=== PATIENT | female | born 1960 | race Caucasian/White ===

== ENCOUNTER → 2019-06-14 13:51 | Outpatient (BNVA) | payer MEDICAID, SELFPAY | PROVIDERS: Family Provider Family Medicine; PCP Family Medicine; Visit Provider Anesthesiology | DX: M51.16 Intervertebral disc disorders with radiculopathy, lumbar region (principal); M48.062 Spinal stenosis, lumbar region with neurogenic claudication; M43.10 Spondylolisthesis, site unspecified; G62.9 Polyneuropathy, unspecified; F17.210 Nicotine dependence, cigarettes, uncomplicated | CPT/HCPCS: 99213; 99214 ==

== ENCOUNTER 2019-08-12 10:47 | Outpatient (CLI) | payer MEDICAID, SELFPAY ==
[2019-08-12 11:33] LABS: Ferritin 11 ng/mL (15-150); Iron 42 ug/dL (37-145); Percent Saturation 9.6 % (20-50); Total Iron Binding Capacity 437 mcg/dl; Unsaturated Iron Binding 395 ug/dL (112-347)
[2019-08-12 11:44] LABS: Basophils % 0.5 %; Eosinophils # 0.1 10^3/uL (0.0-0.8); Eosinophils % 1.1 %; Hematocrit 45.3 % (37.0-47.0); Hemoglobin 14.2 g/dL (11.5-15.3); Lymphocytes # 1.3 10^3/uL (0.8-4.8); Lymphocytes % 16.2 %; Mean Corpuscular HGB Conc 31.3 g/dL (30.0-36.0); Mean Corpuscular Hemoglobin 30.6 pg (28.0-34.0); Mean Corpuscular Volume 97.6 fL (81-99); Mean Platelet Volume 9.6 fL (7.4-10.4); Monocytes # 0.5 10^3/uL (0.2-0.9); Monocytes % 6.6 %; Neutrophils % 75.5 %; Nucleated Red Blood Cells % 0 %; Platelet Count 269 10^3/cmm (130-400); Red Blood Count 4.64 10^6/uL (4.1-5.3); Red Cell Distribution Width 13.5 % (12.1-15.1)
--- NOTE | 2019-08-12 14:42 | ONC FU_ITS ---
Dr. Garza follow up note Patient: Dana Gusman Unit #: [id number]: 1960 Dicatated By: Yumiko Garza M.D.Date of Visit:Aug 12, 2019 Onc Med Follow-up/Prog Note History of Present Illness: Mrs. Dana Gusman, 58-year-old female with history of palpitation, dyspnea on exertion for the last one year, recently diagnosed with iron deficiency anemia started on oral iron. And she is experiencing some heartburn indigestion with this. Also chew ice all the time. Patient said she was losing blood in her stools so underwent EGD and colonoscopy by Dr. Campbell On 02/07/2017 and both showed no abnormalities subsequently underwent capsule endoscopy on 09/25/2017 for persistent iron deficiency anemia and it showed a few tiny nonbleeding AVMs No history of jaundice, no history of blood transfusion except during her last , no history of gross bleeding, CBC from 04/05/2017 showed white blood count 4.7 with normal differential hemoglobin 7.8 crit 25.3 MCV 61.3, platelets 275,000 Status post Injectafer 750 mg weekly ???2 on January 04 and 2017 With excellent response hemoglobin gone up to 15.8 hematocrit 47.8 and ferritin 104.7 on 02/09/2018 And again Injectafer' 750 mg IV ???2 given on 11/16 and 11/23/2018 with that her hemoglobin improved from 11.3-15.1 and ferritin gone up to 106 compared to 7 prior to infusion. Patient is overweight, and also has issues with sleeping so, clinically she may have underlying sleep apnea Underwent colonoscopy and EGD on 05/14/2019 for progressive iron deficiency anemia and EGD showed no esophageal abnormality and there is mild gastric erosions in the antrum and along with mild duodenitis but no evidence of gross bleeding and colonoscopy was normal exam except internal hemorrhoids. Patient received Injectafer 750 mg IV weekly ???2 on April 11 and 04/18/2019 with excellent response e.g. jainism of iron stores, ferritin 225 compared to 9 prior and improvement in hemoglobin from 12.8 to 15 g came for follow-up, denies any specific complaints, no fever or chills, no nausea or vomiting, no diarrhea constipation, no melena hematochezia, no jaundice, no palpitation or shortness of breath Medications: Aspirin 1 (325 mg) Tablet Oral daily, Crestor 1 (20 mg) Tablet Oral daily, Fenofibrate 1 (145 mg) Tablet Oral daily, Gabapentin 1 (600 mg) Tablet Oral b.i.d., MetFORMIN HCl 1 (1000 mg) Tablet Oral b.i.d., Metoprolol Tartrate 1 (50 mg) Tablet Oral b.i.d., Nitroglycerin 1 (0.4 mg) Tablet, sublingual Sublingual PRN, Singulair 1 (10 mg) Tablet Oral daily Allergies: Abilify, AmLODIPine Bes+SyrSpend SF, AmLODIPine Besylate, Amoxicillin, Bactrim DS, BusPIRone HCl, Ceftin, Cefuroxime Axetil, celexa , Cephalexin, Cetirizine HCl, Ciprofloxacin HCl, Cymbalta, Dexilant, DULoxetine HCl, Effexor XR, Enablex, fomotidine, Fosamax, HydroCHLOROthiazide, HydrOXYzine HCl, Levaquin, lisinopril, Lovaza, Lyrica, methocarb, Mirapex, Omeprazole, PARoxetine HCl, Penicillins, PredniSONE, PriLOSEC, Protonix, Pseudoephedrine HCl, SEROquel, traMADol HCl, VESIcare, Zoloft, and ZyrTEC Allergy. Review of Systems: Constitutional - Appetite is fair and weight is stable. No fever, chills, hot flashes, or night sweats. Energy level is poor, ENMT - No sinus congestion/drainage. No mouth sores. No sore throat or difficulty swallowing, Hematologic/Lymphatic - No abnormal bruising or bleeding, Respiratory - Frequent Shortness of breath . No cough. No pleuritic pain or hemoptysis, Cardiovascular - No angina pain. No palpitations, Gastrointestinal - No nausea or vomiting. Occasional heartburn or acid reflux. No diarrhea or constipation. Patient reports occasional blood in the stool or black stools, Genitourinary (F) - Patient has some dysuria. No hematuria. No urinary frequency. No urgency or incontinence, Musculoskeletal - Chronic joint pain, Neurologic - Frequent headache, no dizziness. Patient has some occasional numbness/paresthesias in hands and feet.No other focal neurologic symptoms, Psychiatric - No anxiety or depression. Patient reports some insomnia. Vital Signs: Performed on Aug 12, 2019 13:54 Height - 57.00 in Weight - 174.8 lbs (HIGH) BSA - 1.70 sq.m BMI - 37.83 (HIGH) Temperature - 98.0 F (LOW) Pulse - 73 /min Respiration - 24 /min BP - 187/83 mm(hg) (HIGH) O2 Sat - 95 % (LOW) Pain - 6 Performance Status: 0 - Fully active, able to carry on all predisease activities without restrictions. (ECOG) Physical Examination: ENMT - . No oral exudates, ulcers, masses, thrush or mucositis. Oropharynx clear. Tongue normal, Respiratory - Lungs are clear to auscultation without rhonchi or wheezing, Cardiovascular - Regular rate and rhythm of heart, Abdomen - Non-tender, non-distended, Good bowel sounds. No guarding or rebound tenderness. No pulsatile masses, Extremities - no edema. Lab/Imaging: Test performed on May 15, 2019 12:44 Ferritin 225.0 ng/ml Iron 96 ug/dL % Iron Saturation 27.5 % UIBC 252 ug/dL WBC 5.8 10 3/uL RBC 4.74 10 6/uL HGB 15.0 g/dL HCT 46.3 % MCV 97.7 fl MCH 31.6 pg MCHC 32.4 g/dl RDW 18.4 % Platelet Count 242 10 3/cmm MPV 9.3 fl Neutrophils 4.0 10 3/uL Lymphocytes 1.2 10 3/uL Monocytes 0.5 10 3/uL Eosinophils 0.1 10 3/uL Basophils 0.0 10 3/uL Neutrophil % 68.1 % Lymphocyte % 20.5 % Monocyte % 8.8 % Eosinophil % 1.9 % Basophils % 0.5 % Impression: Microcytic hypochromic anemia due to iron deficiency due to chronic GI blood loss or and iron malabsorption. Now with oral iron intolerance. Colonoscopy and EGD done on 02/07/2017 showed no abnormality Status post Injectafer weekly ???2 in April 2017 With excellent response Status post Injectafer 750???2 in January 2018 With excellent response showed hemoglobin 15.8 hematocrit 47.8 ferritin 104.7 on 02/09/20189 Injectafer infusion done on 11/16/2018 and 11/23/2018 4 hemoglobin 11.3 hematocrit 30 5., ferritin 7 and iron saturation 4.4, postinfusion hemoglobin on 12/24/2018 was 15.1, hematocrit 44.9 and ferritin was 106. Capsule endoscopy done on 09/25/2017 showed there were 2 tiny nonbleeding AVMs that were noted, there was no blood or stigmata of recent bleeding appreciated otherwise normal study. Recent lab shows progressive iron deficiency anemia probably due to chronic GI bleeding from small bowel AVMs Plan: Discussed with patient regarding her labs white blood count 8, hemoglobin 14.2 crit 45.3 platelets 269,000 ferritin 11 compared to 225 on 05/15/2019 iron 42 compared to 96 and TIBC 437 Clinically, patient is doing well, follow-up lab shows hemoglobin still in the normal range but is a significant drop in her iron stores e.g. ferritin gone up to 225 from 9 after Injectafer infusion in April 2019 and now within 3 months came down to 11 from 225 checked in May 2019., Clinically it appears she may be losing blood chronically from her gut as capsule endoscopy done in the past shows nonbleeding AVMs so, there is a possibility she may have intermittent bleeding from small bowel AVMs. Or malabsorption We will repeat her CBC and iron studies in a month if there is a further drop will consider repeating Injectafer and referred to gastroenterology for capsule endoscopy and if AVMs detected in small bowel, then for possible cauterization Signed By: Yumiko Garza M.D. <<Signature on File>>
== END 2019-08-12 10:48 | disposition home or self-care (01) ==
LOC: ONCMED 10:48
PROVIDERS: Family Provider Family Medicine; PCP Family Medicine; Visit Provider Internal Medicine Hematology & Oncology
DX: D50.9 Iron deficiency anemia, unspecified (principal); K25.9 Gastric ulcer, unspecified as acute or chronic, without hemorrhage or perforation; K29.80 Duodenitis without bleeding; K64.8 Other hemorrhoids; Q27.33 Arteriovenous malformation of digestive system vessel; Z79.84 Long term (current) use of oral hypoglycemic drugs; Z79.899 Other long term (current) drug therapy
CPT/HCPCS: 82728; 83540; 83550; 85025; 99214

== ENCOUNTER → 2019-08-21 08:40 | Outpatient (BNVA) | payer MEDICAID, SELFPAY | PROVIDERS: Family Provider Family Medicine; PCP Family Medicine; Visit Provider Family Medicine | DX: I10 Essential (primary) hypertension (principal); E78.2 Mixed hyperlipidemia; E11.9 Type 2 diabetes mellitus without complications | CPT/HCPCS: 80053; 80061; 82044; 83036 ==

== ENCOUNTER → 2019-08-27 09:15 | Outpatient (BNVA) | payer MEDICAID, SELFPAY | PROVIDERS: Family Provider Family Medicine; PCP Family Medicine; Visit Provider Otolaryngology | DX: R22.9 Localized swelling, mass and lump, unspecified (principal); J34.2 Deviated nasal septum; J34.3 Hypertrophy of nasal turbinates; E04.9 Nontoxic goiter, unspecified; R22.1 Localized swelling, mass and lump, neck; J32.9 Chronic sinusitis, unspecified; R09.82 Postnasal drip; J38.1 Polyp of vocal cord and larynx; R49.0 Dysphonia; F17.219 Nicotine dependence, cigarettes, with unspecified nicotine-induced disorders | CPT/HCPCS: 99203; 99214 ==

== ENCOUNTER 2019-09-05 08:38 | Outpatient (CLI) | payer MEDICAID, SELFPAY ==
--- NOTE | 2019-09-05 09:00 | CT_ITS ---
WS: [id number] CT SINUSES TECHNIQUE: Noncontrast CT of the paranasal sinuses with coronal and sagittal reformatted images. CLINICAL INFORMATION: Chronic sinusitis COMPARISON: None. DLP: 323.[address] scans at [facility] use at least one of these dose optimization techniques: automat ed exposure control; mA and/or kV adjustment per patient size (includes targeted exams where dose is matched to clinical indication); or iterative reconstruction. FINDINGS: Mild right to left nasal septal deviation with a leftward directed spur measuring 3.3 mm. Nasal septa l deviation measures 1.7 mm. Mild narrowing of the ostiomeatal units bilaterally. Tiny retention cyst left inferior maxillary sinus measuring 7 mm. Frontal sinuses are well aerated. Sphenoid sinuses and ethmoid air cells well aerated. Frontoethmoidal recesses are patent. Mastoid air cells are well aera kat. Normal posterior nasopharynx. Normal parapharyngeal fat. CT/CT sinus wo con* [id number] IMPRESSION: 1. Mild right to left nasal septal deviation measuring 1.7 mm with a leftward directed spur. 2. Paranasal sinuses are well aerated. 3. Mild narrowing of the ostiomeatal units bilaterally. 4. 7 mm retention cyst left inferior maxillary sinus. 5. Left meryl bullosa. 6. Mastoid air cells well aerated.
== END 2019-09-05 08:39 | disposition home or self-care (01) ==
LOC: RADWPI 08:41
PROVIDERS: Family Provider Family Medicine; PCP Family Medicine; Visit Provider Otolaryngology
DX: J32.9 Chronic sinusitis, unspecified (principal); J34.1 Cyst and mucocele of nose and nasal sinus; J34.2 Deviated nasal septum
CPT/HCPCS: 70486

== ENCOUNTER 2019-09-11 14:25 | Outpatient (CLI) | payer MEDICAID, SELFPAY ==
[2019-09-11 18:21] LABS: Basophils % 0.5 %; Eosinophils # 0.1 10^3/uL (0.0-0.8); Eosinophils % 1.5 %; Hematocrit 39.9 % (37.0-47.0); Hemoglobin 12.3 g/dL (11.5-15.3); Lymphocytes # 1.6 10^3/uL (0.8-4.8); Mean Corpuscular HGB Conc 30.8 g/dL (30.0-36.0); Mean Corpuscular Hemoglobin 29.8 pg (28.0-34.0); Mean Corpuscular Volume 96.6 fL (81-99); Mean Platelet Volume 9.5 fL (7.4-10.4); Monocytes # 0.5 10^3/uL (0.2-0.9); Monocytes % 9.3 %; Neutrophils # 3.6 10^3/uL (1.8-7.7); Neutrophils % 61.4 %; Nucleated Red Blood Cells % 0 %; Platelet Count 326 10^3/cmm (130-400); Red Blood Count 4.13 10^6/uL (4.1-5.3); Red Cell Distribution Width 13.8 % (12.1-15.1); White Blood Count 5.8 10^3/uL (4.0-10.0)
[2019-09-11 20:01] LABS: Ferritin 13 ng/mL (15-150); Iron 27 ug/dL (37-145); Percent Saturation 5.6 % (20-50); Total Iron Binding Capacity 482 mcg/dl; Unsaturated Iron Binding 455 ug/dL (112-347)
== END 2019-09-11 14:26 | disposition home or self-care (01) ==
LOC: ONCMED 17:07
PROVIDERS: Family Provider Family Medicine; PCP Family Medicine; Visit Provider Internal Medicine Hematology & Oncology
DX: D50.9 Iron deficiency anemia, unspecified (principal)
CPT/HCPCS: 36415; 82728; 83540; 83550; 85025

== ENCOUNTER 2019-09-13 10:45 | Outpatient (CLI) | payer MEDICAID, SELFPAY ==
[2019-09-13] MEDS: sodium chloride 0.9% 100 mL Bag IV (10:56)
[2019-09-13] MEDS: ferric carboxy (PYXIS) 750 mg/15 mL INJ IV (10:56)
[2019-09-13] MEDS: sodium chloride 0.9% 100 ML 400 ML (10:56)
== END 2019-09-13 10:46 | disposition home or self-care (01) ==
LOC: ONCMED 10:47
PROVIDERS: Family Provider Family Medicine; PCP Family Medicine; Visit Provider Internal Medicine Medical Oncology
DX: D50.9 Iron deficiency anemia, unspecified (principal)
CPT/HCPCS: 96365; J1439

== ENCOUNTER 2019-09-23 09:25 | Outpatient (CLI) | payer MEDICAID, SELFPAY ==
--- NOTE | 2019-09-23 10:15 | US_ITS ---
WS: [id number] THYROID ULTRASOUND HISTORY: Enlarged thyroid COMPARISON: 03/23/2010, 09/16/2018 Right lobe: 5.5 cm x 1.8 cm x 2.6 cm. Volume: 13.3 cm3. Slightly enlarged thyroid. Multiple masses within poorly defined margins throughout the RIGHT thyroid . There are a few cystic components within the nodules. There is also some increased vascularity. The largest nodule in the lower pole measures 2.1 x 2.0 x 1.5 cm. Additional very hypoechoic lobulated n odule or several nodules together in the upper pole. Left lobe: 4.2 cm x 1.4 cm x 1.3 cm. Volume: 3.8 cm3. Normal size. Hypoechoic nodule in the mid gland measures 6 x 6 x 4 mm. Mild increased vascularity. Th is additional smaller superficial nodule in the inferior lobe. Isthmus: 0.3 cm. US/US thyroid 04809 IMPRESSION: 1. Multinodular RIGHT thyroid. Nodules have not significantly increased in siz e since 2009 but there are some features suspicious for malignancy. Very hypoec hoic nodule in the upper pole and a large nodule in the lower pole. Due to thei r size and concerning features surgical removal or attempted fine-needle aspira tion should be performed. The more inferior nodule may not be accessible due to its posterior inferior position. 2. No suspicious nodule LEFT thyroid.
== END 2019-09-23 09:26 | disposition home or self-care (01) ==
LOC: RADWPI 09:28
PROVIDERS: Family Provider Family Medicine; PCP Family Medicine; Visit Provider Otolaryngology
DX: E04.2 Nontoxic multinodular goiter (principal)
CPT/HCPCS: 76536

== ENCOUNTER → 2019-09-24 13:39 | Outpatient (BNVA) | payer MEDICAID, SELFPAY | PROVIDERS: Family Provider Family Medicine; PCP Family Medicine; Visit Provider Family Medicine | DX: E78.2 Mixed hyperlipidemia (principal) | CPT/HCPCS: 80053 ==

== ENCOUNTER 2019-09-25 13:52 | Outpatient (CLI) | payer MEDICAID, SELFPAY | END 2019-09-25 13:53 | disposition home or self-care (01) | LOC: ONCMED 13:52 | PROVIDERS: Family Provider Family Medicine; PCP Family Medicine; Visit Provider Internal Medicine Hematology & Oncology | DX: D50.9 Iron deficiency anemia, unspecified (principal) | CPT/HCPCS: 96365; J1439 ==

== ENCOUNTER → 2019-10-04 18:40 | Outpatient (BNVA) | payer MEDICAID, SELFPAY | PROVIDERS: Family Provider Family Medicine; PCP Family Medicine; Visit Provider Nurse Practitioner Family | DX: J02.9 Acute pharyngitis, unspecified (principal); R05 Cough; J06.9 Acute upper respiratory infection, unspecified; J44.1 Chronic obstructive pulmonary disease with (acute) exacerbation | CPT/HCPCS: 87071; 87400; 87635; 87880 ==

== ENCOUNTER 2019-10-08 04:36 | Inpatient (IN) | payer MEDICAID, SELFPAY ==
[2019-10-08] VITALS (42 sets, daily range): BP systolic 109–168; BP diastolic 48–113; PULSE 84–130; RESP 15–37; TEMP 36.9–39.6; O2SAT 86–99; BMI 32.3
--- NOTE | 2019-10-08 | CT_ITS ---
WS: [id number] CT chest wo con [id number] REASON FOR EXAM: SOB/FEVER IV CONTRAST ADMINISTERED: None. TOTAL EXAM DLP: 907.[address] scans at [facility] use at least one of these dose optimization techniques: automat ed exposure control; mA and/or kV adjustment per patient size (includes targeted exams where dose is matched to clinical indication); or iterative reconstruction. FINDINGS: Diffuse infiltrate left lung base. Not present on previous exam of July 11, 2017. The right lower lobe of the thyroid shows a lesion mildly capsulated measures today 2.046 cm increase d since the previous exam. This lesion appears to be complex and if ultrasound has not been performed recommend this be performed. The coronary arteries suggest bypass changes. The heart does not appear to be grossly enlarged . Small hiatal hernia is noted. The liver without contrast appears to be normal. The spleen was normal. The stomach showed no filling defects. The gallbladder was normal. The pancreas shows no abnormalities. The right and left adrenal glands were normal. Both kidneys appear to be normal. CT/CT chest wo con [id number] IMPRESSION: Prior coronary bypass changes. Diffuse pneumonia left lung base. Enlarging mass along the inferior pole of the right lobe of the thyroid ultraso und follow-up recommended.
--- NOTE | 2019-10-08 04:38 | XR_ITS ---
WS: [id number] XR chest 1V portable [id number] REASON FOR EXAM: cough FINDINGS: The heart and mediastinal interfaces normal. No interval changes since January 11, 2017. The lung asif are well aerated. No pneumonia, pleural effusion, pulmonary edema, no mass effect. A calcified density suggesting a lymph node small is seen in the right axilla. The hilum and apices are normal. No osseous abnormalities. XR/XR chest 1V portable [id number] IMPRESSION: Negative chest for acute findings unchanged since 2016.
--- NOTE | 2019-10-08 04:40 | ECG_ITS ---
Measurements Intervals [place] Rate: 124 P: 71 [place]: 154 QRS: 55 QRSD: 94 T: 73 QT: 310 QTc: 446 SINUS TACHYCARDIA ABNORMAL RHYTHM ECG No previous ECG available for comparison Electronically Signed On 10-08-2019 17:12:44 CDT by Roselia Marti M.D. [email or web address]
[2019-10-08 04:56] LABS: Basophils % 0.2 %; Hematocrit 40.4 % (37.0-47.0); Hemoglobin 13.7 g/dL (11.5-15.3); Lymphocytes # 0.3 10^3/uL (0.8-4.8); Mean Corpuscular HGB Conc 33.9 g/dL (30.0-36.0); Mean Corpuscular Hemoglobin 32.1 pg (28.0-34.0); Mean Corpuscular Volume 94.6 fL (81-99); Monocytes # 0.2 10^3/uL (0.2-0.9); Monocytes % 2.2 %; Neutrophils # 9.3 10^3/uL (1.8-7.7); Neutrophils % 94.1 %; Nucleated Red Blood Cells % 0 %; Platelet Count 246 10^3/cmm (130-400); Red Blood Count 4.27 10^6/uL (4.1-5.3); Red Cell Distribution Width 20.9 % (12.1-15.1); White Blood Count 9.9 10^3/uL (4.0-10.0)
[2019-10-08 05:07] LABS: INR 1.04 (0.8-1.2)
[2019-10-08 05:17] LABS: Troponin(5th) Baseline 56 ng/mL (0-10)
[2019-10-08 05:21] LABS: ABG PCO2 28.9 mmHg (35-45); ABG PH Result 7.46 (7.35-7.45); Alveolar-Arterial Oxygen Gradi 52.2 mmHg (5-10); Arterial Blood Gas Hematocrit 37.9 % (37-47); Base Excess ABG -2.2 mmol/L (-2.0-2.0); Blood Gas Allen Test Pos; Blood Gas Sample Site Radial, right; Blood Gas Sample Type Arterial; Carboxyhemoglobin 1.2 %THgb (0.4-20.1); HCO3 ABG 20.6 mmol/L (22-26); HGB O2 Sat 89.9 % (95-100); Methemoglobin 0.8 % (0.4-1.5); Oxygen Device NC; Oxygen Saturation ABG 91.8; PO2 ABG 58.8 mmHg (80.0-100.0); Potassium Level - ABG 3.4 mmol/L (3.5-5.0); Total Hemoglobin 12.4 g/dL (12-16)
[2019-10-08] MEDS: albuterol 8 gm MDI 4 PUFF INHALATION (05:21)
[2019-10-08 05:25] LABS: Alanine Aminotransferase 137 U/L (0-33); Albumin Level 3.7 g/dL (3.5-5.2); Alkaline Phosphatase 106 IU/L (35-105); Anion Gap 20.9 (5-19); Aspartate Amino Transferase 186 U/L (0-32); Blood Urea Nitrogen 29 mg/dL (8-23); Calcium 8.7 mg/dL (8.5-10.5); Carbon Dioxide 22 mmol/L (22-29); Chloride 81 mmol/L (98-107); Creatinine Clr Calc Pharmacy 75.4162; Globulin 3.2 g/dL (1.3-4.6); Glomerular Filtration Rate 63.9 mL/min (90-130); Glucose 111 mg/dL (65-115); Magnesium 2.4 mg/dL (1.7-2.3); NT Pro B Type Natriuretic Pept 1297 pg/mL (0-125); Osmolality Calculated 248 mOsm/kg (285-295); Potassium 3.9 mmol/L (3.5-5.1); Sodium 120 mmol/L (136-145); Total Bilirubin 0.9 mg/dL (0.15-1.2); Total Protein 6.9 g/dL (6.6-8.7)
[2019-10-08 05:46] LABS: Alcohol Level < 10 mg/dL (0-10)
--- NOTE | 2019-10-08 05:48 | ED_ITS ---
HPI - Fever General: Chief Complaint: Fever Stated Complaint: SOB/FEVER Time Seen by Provider: 10/08/19 04:38 History of Present Illness: HPI Narrative: Dana is a 59-year-old female who arrives with altered mental status and labored breathing. EMS notes that she has had flulike symptoms for a week. Last night she became more confused. EMS notes fever of 102.7. They note she is had body aches and productive cough. The patient is confused and is deemed a poor historian at this time. Review of Systems General: Reports: ROS unobtainable due to mental status (Other than as noted in HPI.) PFSH ED PFSH: Medical History Acquired spondylolisthesis Acute bilateral low back pain Anemia Central sleep apnea Chronic sinusitis Deviated septum Dysphonia Enlarged thyroid Essential hypertension Hyperlipidemia Intervertebral disc disorders with radiculopathy, lumbar region Lumbar stenosis with neurogenic claudication Nasal turbinate hypertrophy Neck mass Neuropathic peripheral nerve Postnasal drip Trigger ring finger of right hand Type 2 diabetes mellitus without complications Vocal cord polyp Surgical History H/O breast biopsy H/O heart artery stent H/O: hysterectomy History of appendectomy History of bladder surgery Hx of hand surgery Family History Father CAD (coronary artery disease) Hypertension Cancer Diabetes Mother CAD (coronary artery disease) Hypertension Grandmother Cancer Diabetes Social History Smoking and tobacco status: current every day smoker cigarettes Packs smoked per day: 1 Alcohol intake: never Lives independently: Yes Household members: spouse History of recent travel: No Physical Exam Const: COMMON NORMALS: well nourished EXAM LIMITATIONS: altered mental status GENERAL APPEARANCE: cooperative, well kempt, well developed, anxious and ill appearing ORIENTATION/CONSCIOUSNESS: Yes awake and Yes oriented to person HENMT: COMMON NORMALS: normocephalic, head/scalp atraumatic, hearing grossly normal bilaterally, external ears normal, EAC's normal, external nose normal and moist oral mucous membranes HEAD & SCALP: normal to inspection, normocephalic and atraumatic FACE & SINUS: normal facial exam and face symmetric NOSE: external nose normal and nares normal EXTERNAL EAR: Yes external ears normal EXTERNAL AUDITORY CANAL: EAC's normal MOUTH: oral and palatal mucosa normal and tongue normal Eye: COMMON NORMALS: PERRL, EOMs intact bilaterally, conjunctivae normal and no scleral icterus GENERAL EYE: normal appearance of both eyes and normal light reflex CONJUNCTIVA: Yes conjunctivae normal SCLERA: sclerae normal CORNEA: Yes corneas normal PUPIL: Yes PERRL DIRECT OPHTHALMOSCOPY: Yes normal light reflex Neck/C-Spine: COMMON NORMALS: full ROM, no lymphadenopathy, supple, no meningeal signs and no JVD GENERAL: Yes normal visual inspection and Yes trachea midline CERVICAL SPINE: Yes cervical ROM normal Chest: COMMONS NORMALS: inspection of chest normal and palpation of chest normal Resp: COMMON NORMALS: normal respiratory effort, no retractions, no use of accessory muscles and clear to auscultation bilaterally EFFORT & INSPECTION: Yes able to speak in complete sentences AUSCULTATION: clear to auscultation bilaterally Cardio: COMMON NORMALS: no JVD, regular rate, regular rhythm, S1 normal heart sound, S2 normal heart sound, no gallops, no clicks, no murmurs and no rub JUGULAR VENOUS DISTENTION: no JVD RATE: regular rate RHYTHM: regular rhythm HEART SOUNDS: S1 normal and S2 normal GI: COMMON NORMALS: soft to palpation, non-tender, no hepatosplenomegaly and no masses INSPECTION: Yes normal to inspection PALPATION: Yes soft and Yes no hepatosplenomegaly : COMMON NORMALS: Yes no CVA tenderness BLADDER/KIDNEY EXAM: Yes no CVA tenderness Back/Pelvis: COMMON NORMALS: no CVA tenderness, thoracic and lumbar spine normal to inspection, no thoracic nor lumbar tenderness and thoraco-lumbar ROM normal Extremity: COMMON NORMALS: normal to inspection, full ROM, normal capillary refill, no joint enlargement, no clubbing, cyanosis or edema and no calf tenderness Neuro: COMMON NORMALS: CN's II-XII intact bilaterally, moves all extremities, no focal motor deficits and no sensory deficits noted SENSORIUM/ORIENTATION: Yes oriented to person MENINGEAL SIGNS: Yes no meningeal signs Psych: COMMON NORMALS: thought process normal, cooperative, affect normal, speech normal and activity/motor behavior normal APPEARANCE: Yes well kempt SPEECH: Yes normal speech THOUGHT PROCESS: normal thought process Skin: COMMON NORMALS: no rashes or lesions noted, skin turgor normal, no jaundice, no petechiae and no mottling GENERAL SKIN EXAM: no rashes or lesions noted and turgor normal Course Vital Signs: Vital signs: Vital Signs Temperature 103.3 F H 10/08/19 04:43 Pulse Rate 121 H 10/08/19 05:30 Respiratory Rate 37 H 10/08/19 05:30 Blood Pressure 115/79 10/08/19 05:30 Pulse Oximetry 93 10/08/19 05:22 MDM - Fever Lab Data: Labs: Lab Results 10/08/19 10/08/19 10/08/19 Range/Units 04:00 04:00 04:00 WBC 9.9 (4.0-10.0) 10^3/ uL RBC 4.27 (4.1-5.3) 10^6/u L Hgb 13.7 (11.5-15.3) g/dL Hct 40.4 (37.0-47.0) % MCV 94.6 (81-99) fL MCH 32.1 (28.0-34.0) pg MCHC 33.9 (30.0-36.0) g/dL RDW 20.9 H (12.1-15.1) % Plt Count 246 (130-400) 10^3/c mm MPV 10.0 (7.4-10.4) fL Neut % (Auto) 94.1 % Lymph % (Auto) 3.0 % Randall % (Auto) 2.2 % Eos % (Auto) 0.0 % Baso % (Auto) 0.2 % Neut # (Auto) 9.3 H (1.8-7.7) 10^3/u L Lymph # (Auto) 0.3 L (0.8-4.8) 10^3/u L Randall # (Auto) 0.2 (0.2-0.9) 10^3/u L Eos # (Auto) 0.0 (0.0-0.8) 10^3/u L Baso # (Auto) 0.0 (0.0-0.1) 10^3/u L Nucleated RBC % (a uto) 0 % Nucleated RBCs # 0.0 /100WBC PT 13.90 H (10.5-13.3) SECO NDS INR 1.04 (0.8-1.2) Specimen Type Sample Site ABG pH (7.35-7.45) ABG pCO2 (35-45) mmHg ABG pO2 (80.0-100.0) mmH g ABG HCO3 (22-26) mmol/L ABG O2 Saturation ABG Base Excess (-2.0-2.0) mmol/ L Adonay Test A-a O2 Gradient (5-10) mmHg Hematocrit (37-47) % Hgb O2 Saturation (95-100) % Carboxyhemoglobin (0.4-20.1) %THgb Methemoglobin (0.4-1.5) % Total Hemoglobin (12-16) g/dL Ionized Calcium (1.1-1.4) mmol/L O2 Delivery Device O2 Liters/Min % Tint Layer ID Sodium 120 L (136-145) mmol/L Potassium 3.9 (3.5-5.1) mmol/L Chloride 81 L (98-107) mmol/L Carbon Dioxide 22 (22-29) mmol/L Anion Gap 20.9 H (5-19) BUN 29 H (8-23) mg/dL Creatinine 0.9 (0.5-0.9) mg/dL GFR Calculation 63.9 L (90-130) mL/min Glucose 111 (65-115) mg/dL Calculated Osmolal ity 248 L (285-295) mOsm/k g Calcium 8.7 (8.5-10.5) mg/dL Magnesium 2.4 H (1.7-2.3) mg/dL Total Bilirubin 0.9 (0.15-1.2) mg/dL AST 186 H (0-32) U/L ALT 137 H (0-33) U/L Alkaline Phosphata se 106 H (35-105) IU/L Troponin T Baselin e (0-10) ng/mL NT-Pro-B Natriuret Pep 1297 H (0-125) pg/mL Total Protein 6.9 (6.6-8.7) g/dL Albumin 3.7 (3.5-5.2) g/dL Globulin 3.2 (1.3-4.6) g/dL Ethyl Alcohol < 10 (0-10) mg/dL 10/08/19 10/08/19 Range/Units 04:00 05:10 WBC (4.0-10.0) 10^3/ uL RBC (4.1-5.3) 10^6/u L Hgb (11.5-15.3) g/dL Hct (37.0-47.0) % MCV (81-99) fL MCH (28.0-34.0) pg MCHC (30.0-36.0) g/dL RDW (12.1-15.1) % Plt Count (130-400) 10^3/c mm MPV (7.4-10.4) fL Neut % (Auto) % Lymph % (Auto) % Randall % (Auto) % Eos % (Auto) % Baso % (Auto) % Neut # (Auto) (1.8-7.7) 10^3/u L Lymph # (Auto) (0.8-4.8) 10^3/u L Randall # (Auto) (0.2-0.9) 10^3/u L Eos # (Auto) (0.0-0.8) 10^3/u L Baso # (Auto) (0.0-0.1) 10^3/u L Nucleated RBC % (a uto) % Nucleated RBCs # /100WBC PT (10.5-13.3) SECO NDS INR (0.8-1.2) Specimen Type Arterial Sample Site Radial, right ABG pH 7.46 H (7.35-7.45) ABG pCO2 28.9 L (35-45) mmHg ABG pO2 58.8 L (80.0-100.0) mmH g ABG HCO3 20.6 L (22-26) mmol/L ABG O2 Saturation 91.8 ABG Base Excess -2.2 L (-2.0-2.0) mmol/ L Adonay Test Pos A-a O2 Gradient 52.2 H (5-10) mmHg Hematocrit 37.9 (37-47) % Hgb O2 Saturation 89.9 L (95-100) % Carboxyhemoglobin 1.2 (0.4-20.1) %THgb Methemoglobin 0.8 (0.4-1.5) % Total Hemoglobin 12.4 (12-16) g/dL Ionized Calcium 1.0 L (1.1-1.4) mmol/L O2 Delivery Device Nc O2 Liters/Min 2.0 % Tint Layer ID ellpe Sodium 119.0 L (136-145) mmol/L Potassium 3.4 L (3.5-5.1) mmol/L Chloride (98-107) mmol/L Carbon Dioxide (22-29) mmol/L Anion Gap (5-19) BUN (8-23) mg/dL Creatinine (0.5-0.9) mg/dL GFR Calculation (90-130) mL/min Glucose 132.0 H (65-115) mg/dL Calculated Osmolal ity (285-295) mOsm/k g Calcium (8.5-10.5) mg/dL Magnesium (1.7-2.3) mg/dL Total Bilirubin (0.15-1.2) mg/dL AST (0-32) U/L ALT (0-33) U/L Alkaline Phosphata se (35-105) IU/L Troponin T Baselin e 56 H (0-10) ng/mL NT-Pro-B Natriuret Pep (0-125) pg/mL Total Protein (6.6-8.7) g/dL Albumin (3.5-5.2) g/dL Globulin (1.3-4.6) g/dL Ethyl Alcohol (0-10) mg/dL Discharge Plan Discharge Prescriptions: No Action hydrochlorothiazide 25 mg tablet 25 mg PO DAILY Qty: 30 RF: 0 metoprolol tartrate 50 mg tablet 50 mg PO BID Qty: 60 RF: 0 nitroglycerin [Nitrostat] 0.4 mg tablet, sublingual 0.4 mg SUBLINGUAL ONCE PRNRF: 0 clopidogrel [Plavix] 75 mg tablet 75 mg PO ONCE RF: 0 metformin 1,000 mg tablet extended release 24hr 1,000 mg PO BID RF: 0 gabapentin 600 mg tablet 600 mg PO BID RF: 0 montelukast [Singulair] 10 mg tablet 10 mg PO ONCE RF: 0 fenofibrate nanocrystallized 145 mg tablet 145 mg PO ONCE RF: 0 aspirin 325 mg tablet 325 mg PO ONCE RF: 0 acetaminophen [Tylenol] 325 mg capsule 650 mg PO BID PRNRF: 0 prednisone 20 mg tablet 20 mg PO DAILY 5 Days Qty: 5 RF: 0 amoxicillin-pot clavulanate [Augmentin] 875-125 mg tablet 1 tab PO BID 10 Days Qty: 20 RF: 0 rosuvastatin [Crestor] 40 mg tablet 40 mg PO DAILY Qty: 30 RF: 0 Coding Level of Care Code ED [employer] for [employer] Fwd Exam Comprehensive
[2019-10-08] MEDS: sodium chloride 0.9% 2,721.54 ML 2721.5 ML IV (05:59)
[2019-10-08] MEDS: piperacillin-tazobactam 3.375 GM in sodium chloride 0.9% (plus) 50 ML IV ×2 (06:00→22:42)
[2019-10-08 06:16] LABS: Ammonia 28 umol/L (11-51)
[2019-10-08 06:32] LABS: Bilirubin Urine Neg (NEGATIVE); Blood Urine 3+ (Negative); Glucose Urine UA Norm (Normal); Ketones Urine 1+ (Negative); Leukocyte Esterase Urine Negative (Negative); Nitrate Urine Negative (Negative); Protein Urine 3+ (Negative); Urine Appearance SL Hazy (CLEAR); Urine Color Yellow (Yellow); Urobilinogen Urine 1 mg/dL (Negative); pH Urine 5 (5-7)
[2019-10-08 06:34] LABS: Add Urine Culture? Yes; Bacteria Urine 2+; RBC Urine 0-4 /hpf (0-2); WBC Urine RARE /hpf (0-5)
--- NOTE | 2019-10-08 06:40 | ECG_ITS ---
Measurements Intervals [place] Rate: 108 P: 49 [place]: 167 QRS: -21 QRSD: 105 T: 51 QT: 348 QTc: 468 SINUS TACHYCARDIA POSSIBLE LEFT ATRIAL ENLARGEMENT [-0.1mV P WAVE IN V1/V2] BORDERLINE LEFT AXIS DEVIATION [QRS AXIS < -20] ABNORMAL RHYTHM ECG No previous ECG available for comparison Electronically Signed On 10-08-2019 17:20:41 CDT by Roselia Marti M.D. [email or web address]
[2019-10-08 06:44] LABS: Influenza A by IFA Negative (Negative); Influenza B by IFA Negative (Negative)
--- NOTE | 2019-10-08 07:02 | PC.NURSE ---
Patient resting at this time. 2nd troponin collected and sent to lab.
[2019-10-08 07:42] LABS: Troponin 5 2HR 52.85 ng/mL (0-10)
[2019-10-08] MEDS: cefTRIAXone 2,000 MG in sodium chloride 0.9% (plus) 50 ML 100 MG IV (07:58)
[2019-10-08 08:13] LABS: Troponin 5 2HR Delta -3.15 ABS# (0-10)
--- NOTE | 2019-10-08 09:08 | CT_ITS ---
WS: [id number] CT head wo con* [id number] REASON FOR EXAM: altered mental status IV CONTRAST ADMINISTERED: None. TOTAL EXAM DLP: 715.[address] scans at [facility] use at least one of these dose optimization techniques: automat ed exposure control; mA and/or kV adjustment per patient size (includes targeted exams where dose is matched to clinical indication); or iterative reconstruction. FINDINGS: [place] and white matter interfaces were normal. The sella turcica was normal the pituitary show no abnormalities. The ventricular systems were symmetrical and show no dilatation or displacement. The paraventricular areas were all normal with normal signal. Posterior fossa show normal megan and cerebellum. The paranasal sinuses were all normal. Orbits were normal as well as optic nerves optic chiasma's was normal. The 7th and 8th nerve complexes were all normal. CT/CT head wo con* [id number] IMPRESSION: Normal CT noncontrasted of the brain.
[2019-10-08 09:54] LABS: Cortisol Random 61.38 mcg/dL (2.47-19.5)
[2019-10-08 09:56] LABS: T3 Free 1.9 PG/ML (2.0-4.4); Thyroid Stimulating Hormone 0.59 uIU/mL (0.27-4.20)
--- NOTE | 2019-10-08 10:40 | ECG_ITS ---
Measurements Intervals [place] Rate: 99 P: 35 SD: 140 QRS: -11 QRSD: 110 T: 30 QT: 362 QTc: 466 SINUS RHYTHM POSSIBLE LEFT ATRIAL ENLARGEMENT [-0.1mV P WAVE IN V1/V2] MODERATE INTRAVENTRICULAR CONDUCTION DELAY [105+ ms QRS DURATION, 80+ ms Q/S IN V1/V2, NO Q AND 60+ ms R IN I/aVL/V5/V6] No previous ECG available for comparison Electronically Signed On 10-08-2019 17:21:05 CDT by Roselia Marti M.D. [id number]
[2019-10-08 11:01] LABS: Sodium 120 mmol/L (136-145)
--- NOTE | 2019-10-08 11:05 | P.HP_ITS ---
Providers/Chief Complaint Admitting Physician: Samantha Eid MD Primary Care Provider: Charis Carcamo DO Chief Complaint: FEVER OF UNKNOWN ORGIN History of Present Illness Patient is a 59-year-old female who presents today complaining of fever chills body ache productive cough. She recently visited her primary care doctor on October 03 with the above complaints. At the time she had also complained of sinus pain and shortness of breath for around 2 to 3 days prior. She underwent a COVID-19 testing which was negative for PCR. She was prescribed a course of Augmentin however her fever has continued. She is brought to the ER today by her . It is very difficult to obtain history from the patient as she is uncooperative at the time, insists on leaving home AMA. I stressed the importance of her staying and she is willing to stay, however does not provide much history. Her vitals a fever of 103.3, tachycardia up to 130 bpm with the fevers, blood pressure with which was stable. She was saturating 92 to 93% on supplemental O2 of 2 L/min, however when I entered the room her nasal cannula was off her nares. Labs are notable for hyponatremia with a sodium of 120. This is not her baseline per review of old numbers. Per review of past history she was noted to also have a left-sided thyroid swelling which was suspicious for malignancy. She has not had follow-up for the same from what I can tell. Upon presentation, she was noted to be having altered mental status. At time of my exam she is alert awake and oriented x3. CT of the head is not available at this time. Review of Systems Const: Reports: fever and body aches ENMT: Denies: throat pain or mouth pain Card: Denies: chest pain, palpitations, irregular heart rhythm or edema Resp: Reports: shortness of breath and productive cough GI: Denies: abdominal pain, nausea, vomiting or vomiting blood : Denies: flank pain, difficulty urinating or painful urination Musc: Denies: neck pain, back pain, joint swelling or redness Skin/Breast: Denies: rash or itching Neuro: Denies: headache, numbness in extremities, weakness in extremities, difficulty walking or frequent falls Endo: Denies: excessive urination, excessive thirst or tired all the time All/Imm: Denies: throat swelling, tongue swelling or facial swelling Medications/Allergies Home Medications Medication Instructions Recorded Confirmed Last Taken Type acetaminophen 325 mg capsule 650 mg PO BID PRN cap 06/14/19 10/08/19 Unknown History aspirin 325 mg tablet 325 mg PO DAILY tab 06/14/19 10/08/19 10/07/19 History clopidogrel 75 mg tablet 75 mg PO DAILY 06/14/19 10/08/19 10/07/19 History fenofibrate nanocrystallized 145 145 mg PO DAILY 06/14/19 10/08/19 10/07/19 History mg tablet gabapentin 600 mg tablet 600 mg PO BID 06/14/19 10/08/19 10/07/19 History metformin 1,000 mg tablet,extended 1,000 mg PO BID 06/14/19 10/08/19 10/07/19 History release 24hr montelukast 10 mg tablet 10 mg PO DAILY 06/14/19 10/08/19 10/07/19 History nitroglycerin 0.4 mg sublingual 0.4 mg SUBLINGUAL PRN PRN 06/14/19 10/08/19 Unknown History tablet hydrochlorothiazide 25 mg tablet 25 mg PO DAILY #30 tab 09/19/19 10/08/19 10/07/19 Rx metoprolol tartrate 50 mg tablet 50 mg PO BID #60 tab 09/19/19 10/08/19 10/07/19 Rx amoxicillin 875 mg-potassium 1 tab PO BID 10 Days #20 tab 10/04/19 10/08/19 Rx clavulanate 125 mg tablet prednisone 20 mg tablet 20 mg PO DAILY 5 Days #5 tab 10/04/19 10/08/19 10/07/19 Rx Crestor 20 mg PO DAILY 10/08/19 10/08/19 10/07/19 History albuterol sulfate [ProAir HFA] 2 puff INHALATION QID PRN 10/08/19 10/08/19 Unknown History Allergies Allergy/AdvReac Type Severity Reaction Status Date / Time alendronate sodium Allergy ADR-Abdominal Verified 10/04/19 18:40 [From Fosamax] Pain amlodipine Allergy ADR-Dizzine Verified 10/04/19 18:40 ss buspirone [From BuSpar] Allergy ADR-Headach Verified 10/04/19 18:40 e cefuroxime [From Ceftin] Allergy ADR-Vomitin Verified 10/04/19 18:40 g cetirizine Allergy Unknown Verified 10/04/19 18:40 ciprofloxacin [From Cipro] Allergy ADR-Dizzine Verified 10/04/19 18:40 ss citalopram [From Celexa] Allergy ADR-Dizzine Verified 10/04/19 18:40 ss dexlansoprazole Allergy Unresponsiv Verified 10/04/19 18:40 [From Dexilant] e duloxetine [From Cymbalta] Allergy ADR-Itching Verified 10/04/19 18:40 famotidine Allergy ADR-Headach Verified 10/04/19 18:40 e levofloxacin [From Levaquin] Allergy ADR-Dizzine Verified 10/04/19 18:40 ss lisinopril Allergy ALGY-Rash Verified 10/04/19 18:40 methocarbamol [From Robaxin] Allergy ADR-Chest Verified 10/04/19 18:40 Pain omega-3 acid ethyl esters Allergy ADR-Vomitin Verified 10/04/19 18:40 [From Lovaza] g paroxetine Allergy ADR-Dizzine Verified 10/04/19 18:40 ss pregabalin [From Lyrica] Allergy Unknown Verified 10/04/19 18:40 pseudoephedrine Allergy ALGY-Rash Verified 10/04/19 18:40 quetiapine [From Seroquel] Allergy ADR-Headach Verified 10/04/19 18:40 e sertraline [From Zoloft] Allergy ADR-Dizzine Verified 10/04/19 18:40 ss tramadol Allergy ADR-Nausea Verified 10/04/19 18:40 venlafaxine [From Effexor] Allergy ADR-Dizzine Verified 10/04/19 18:40 ss pantoprazole AdvReac Mild cant Verified 10/04/19 18:40 breath PFSH Acute PFSH: Medical History Acquired spondylolisthesis Acute bilateral low back pain Anemia Central sleep apnea Chronic sinusitis Deviated septum Dysphonia Enlarged thyroid Essential hypertension Hyperlipidemia Intervertebral disc disorders with radiculopathy, lumbar region Lumbar stenosis with neurogenic claudication Nasal turbinate hypertrophy Neck mass Neuropathic peripheral nerve Postnasal drip Trigger ring finger of right hand Type 2 diabetes mellitus without complications Vocal cord polyp Surgical History H/O breast biopsy H/O heart artery stent H/O: hysterectomy History of appendectomy History of bladder surgery Hx of hand surgery Family History Father CAD (coronary artery disease) Hypertension Cancer Diabetes Mother CAD (coronary artery disease) Hypertension Grandmother Cancer Diabetes Social History Smoking and tobacco status: current every day smoker cigarettes Packs smoked per day: 1 Alcohol intake: never Lives independently: Yes Household members: spouse History of recent travel: No Vitals/I&O/Wt Last Vital Signs Temp 103.3 F H 10/08/19 04:43 Pulse 114 H 10/08/19 07:00 Resp 21 H 10/08/19 07:00 BP 115/79 10/08/19 07:00 Pulse Ox 94 10/08/19 06:00 10/07/19 10/08/19 10/08/19 22:59 06:59 14:59 Intake Total 150 / 150 Balance 150 / 150 Weight last 48 hrs Weight 90.718 kg Physical Exam Narrative: EXAM NARRATIVE: GEN: Awake, alert and oriented, no acute distress HEENT: no exophthalmos, no gross neck swelling CVS: S1S2 N RS: CTA B/L Abd: Soft, nt/nd , bs+ 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 EXT: no joint swelling or rashes Data : 10/08/19 04:00 10/08/19 06:58 Micro: Microbiology 10/08/19 05:40 Blood Culture - Preliminary Blood SPECIMEN COLLECTED 10/08/19 05:41 Blood Culture - Preliminary Blood SPECIMEN COLLECTED A&P Assessment and plan (1) Fever: Status: Acute (2) Hyponatremia: Status: Acute (3) Thyroid enlargement: Status: Acute Additional A&P Information Admit to ICU # fever under evaluation CXR withou gross infiltrates CT chest to evalute for pneumonia and braydon thoracic outlet given enlarged thyroid gland UA, urine cx Blood culture Current alert awake, doubt meningitis, hold off LP for now Empiric ceftriaxone + doxycycline C.diff PCR in case of diarrhea # hyponatremia 120 Appears dehydrated clinically Low serum osm Urine Na, urine osm check Na q6h on NS @ 100cc/hr check TSH, cortisol # Thyroid enlargement suspiciois for malignancy per US report T3,T4,TSH Full code DVt ppx: lovenox Attestations Medical Necessity Statement*: anticipate >2midnight for evaluation of fever, management of acute hyponatremia Coding Level of Care Code Acute Continuous Improvement Facilitator for Chg Fwd Diagnoses Fever R50.9 Hyponatremia E87.1 Thyroid enlargement E04.9
[2019-10-08] MEDS: doxycycline 100 mg Tablet PO (11:18)
[2019-10-08 12:28] LABS: Troponin 5 6HR Delta -19.4 ng/L (0-12)
[2019-10-08 14:10] LABS: Glucose Point of Care 206 mg/dL (70-110)
--- NOTE | 2019-10-08 14:58 | PC.OT ---
OT note. Will hold at this time. Will await further results/H&P.
[2019-10-08 17:44] LABS: Glucose Point of Care 166 mg/dL (70-110)
[2019-10-08] MEDS: sodium chloride 0.9% 1,000 ML 75 ML IV (18:00)
[2019-10-08] MEDS: metoprolol tartrate 50 mg Tablet PO (18:13)
[2019-10-08] MEDS: gabapentin 300 mg Capsule 600 MG PO (18:13)
--- NOTE | 2019-10-08 19:57 | PC.NURSE ---
Informed patient that oxygen sats are dropping to low 80's. Stated that wearing oxygen would improve saturation. Placed 2L NC on oxygen. Patient removed NC stating she didn't want to wear oxygen
[2019-10-08 20:44] LABS: Glucose Point of Care 135 mg/dL (70-110)
[2019-10-08] MEDS: albuterol 8 gm MDI 2 PUFF INHALATION (20:44)
[2019-10-08 21:51] LABS: Sodium 130 mmol/L (136-145)
[2019-10-08] MEDS: acetaminophen 325 mg Tablet 650 MG PO (22:41)
--- NOTE | 2019-10-08 23:03 | PC.NURSE ---
Informed patient that oxygen level is still dropping into the low 80's. Patient refusing to wear oxygen at this time.
[2019-10-09] VITALS (23 sets, daily range): BP systolic 97–171; BP diastolic 47–85; PULSE 86–125; RESP 18–30; TEMP 37–38.8; O2SAT 88–100
[2019-10-09 02:54] LABS: Sodium 131 mmol/L (136-145)
[2019-10-09] MEDS: piperacillin-tazobactam 3.375 GM in sodium chloride 0.9% (plus) 50 ML IV ×2 (05:21→15:30)
[2019-10-09 06:56] LABS: T4 Total 9.4 mcg/dL (5.1-11.9)
[2019-10-09 07:40] LABS: Glucose Point of Care 115 mg/dL (70-110)
[2019-10-09] MEDS: clopidogrel 75 mg Tablet PO (08:00)
[2019-10-09] MEDS: gabapentin 300 mg Capsule 600 MG PO ×2 (08:00→17:20)
[2019-10-09] MEDS: aspirin 325 mg Tablet PO (08:01)
[2019-10-09] MEDS: metoprolol tartrate 50 mg Tablet PO ×2 (08:01→17:20)
[2019-10-09] MEDS: montelukast sodium 10 mg Tablet PO (08:01)
[2019-10-09] MEDS: fenofibrate 145 mg Tablet PO (08:01)
[2019-10-09] MEDS: doxycycline 100 mg Tablet PO (08:01)
[2019-10-09] MEDS: atorvastatin 40 mg Tablet 80 MG PO (08:01)
[2019-10-09 08:11] LABS: Coronavirus Lab Test PTC NOT DETECTED
[2019-10-09 08:38] LABS: Alanine Aminotransferase 121 U/L (0-33); Albumin Level 3.2 g/dL (3.5-5.2); Alkaline Phosphatase 98 IU/L (35-105); Aspartate Amino Transferase 202 U/L (0-32); Blood Urea Nitrogen 23 mg/dL (8-23); Calcium 9.2 mg/dL (8.5-10.5); Carbon Dioxide 25 mmol/L (22-29); Chloride 93 mmol/L (98-107); Globulin 3.8 g/dL (1.3-4.6); Glomerular Filtration Rate 73.2 mL/min (90-130); Glucose 114 mg/dL (65-115); Osmolality Calculated 270 mOsm/kg (285-295); Sodium 131 mmol/L (136-145); Total Bilirubin 0.6 mg/dL (0.15-1.2)
[2019-10-09] MEDS: ipratropium-albuterol 3 mL Neb INHALATION ×5 (08:50→23:22)
[2019-10-09 09:11] LABS: Free T4 Free Thyroxine 1.02 ng/dL (0.82-1.77)
--- NOTE | 2019-10-09 09:21 | USCV_ITS ---
Dana Gusman Age: 59 Gender: F : 1960 Exam Date: 10/09/2019 13:20 Ordering Phys: Samantha Eid MD Technologist: Laura Petty Exam Location: [facility] [place] Indication: CHF BP: 96 / 61 HR: 85 Rhythm: Sinus Technical Quality: Adequate MEASUREMENTS (Male / Female) Normal Values 2D ECHO LV Diastolic Diameter PLAX 1.9 cm 4.2 - 5.9 / 3.9 - 5.3 cm LV Systolic Diameter PLAX 1.6 cm LV Chamber Size 2.6 cm IVS Diastolic Thickness 1.3 cm 0.6 - 1.0 / 0.6 - 0.9 cm IVS Systolic Thickness 1.4 cm LVPW Diastolic Thickness 1.7 cm 0.6 - 1.0 / 0.6 - 0.9 cm LVPW Systolic Thickness 1.9 cm RV Chamber Size 3.2 cm LVOT Diameter 2.0 cm LV Ejection Fraction 2D Teich 32.1 % LV Ejection Fraction MOD 2C 59.7 % LV Ejection Fraction 2C AL 60.7 % LA Diameter 4.3 cm LA Width 2.8 cm LA Height 4.9 cm RA Width 2.1 cm RA Height 3.7 cm M-MODE LV Diastolic Diameter MM 4.1 cm 4.2 - 5.9 / 3.9 - 5.3 cm LV Systolic Diameter MM 2.2 cm LV Ejection Fraction MM Teich 78.9 % IVS Diastolic Thickness MM 1.0 cm 0.6 - 1.0 / 0.6 - 0.9 cm IVS Systolic Thickness MM 1.5 cm LVPW Diastolic Thickness MM 1.0 cm 0.6 - 1.0 / 0.6 - 0.9 cm LVPW Systolic Thickness MM 1.6 cm Aortic Annulus Diameter 2.9 cm LA Ao Ratio MM 1.5 MV E Point Septal Separation 0.7 cm DOPPLER AV Peak Velocity 198.0 cm/s LVOT Peak Velocity 134.0 cm/s AV Area Cont Eq vti 2.4 cm squared AV Area Cont Eq pk 2.1 cm squared MV Area PHT 3.6 cm squared Mitral E to A Ratio 1.1 MV E' Velocity 12.0 cm/s Mitral E to MV E' Ratio 7.8 Mitral E to LV E' Lateral Ratio 8.4 Mitral E to LV E' Septal Ratio 7.3 TR Peak Velocity 230.0 cm/s TR Peak Gradient 21.2 mmHg TV Peak E Velocity 71.0 cm/s Right Atrial Pressure 3.0 mmHg Pulmonary Artery Systolic Pressu 24.2 mmHg PV Peak Velocity 91.0 cm/s RV Acceleration Time 0.2 s RV Ejection Time 0.4 s RV AcT/ET 0.4 FINDINGS Left Ventricle Normal left ventricular cavity size. Normal left ventricular systolic function. Left ventricular ejection fraction is estimated at 60 %. No regional wall motion abnormalities. Abnormal septal motion consistent with conduction abnormality. Normal diastolic function. Right Ventricle Normal right ventricular size and systolic function, RVSP 24.2 mmHg. Right Atrium Normal right atrial size. Left Atrium Mildly increased left atrial size. Mitral Valve Structurally normal mitral valve. No mitral valve stenosis. No mitral valve regurgitation. Aortic Valve Aortic valve not well visualized. No aortic valve stenosis. No aortic valve regurgitation. Tricuspid Valve Structurally normal tricuspid valve. Trace tricuspid valve regurgitation. Pulmonic Valve Pulmonic valve not well visualized. No pulmonary valve stenosis. Pericardium Trivial pericardial effusion. Aorta Normal-sized aortic root. CONCLUSIONS 1. Normal left ventricular cavity size and systolic function. Left ventricular ejection fraction is estimated at 60 %. No regional wall motion abnormalities. Normal diastolic function. 2. Normal right ventricular size and systolic function, RVSP 24.2 mmHg. 3. Mildly increased left atrial size. 4. No significant valvular abnormality. 5. No prior similar studies to compare. Andreia Medrano MD (Electronically Signed) Final Date: 09 Oct 2019 17:01 S
--- NOTE | 2019-10-09 09:26 | USCV_ITS ---
Dana Gusman Age: 59 Gender: F : 1960 Exam Date: 10/09/2019 13:31 Ordering Phys: Samantha Eid MD Technologist: Laura Petty [place] [facility] [place] Indication: SWELLING HISTORY: Lower extremity swelling. PROCEDURES: Venous duplex imaging was performed in bilateral lower extremities. The following venous structures were evaluated: common femoral vein, profunda vein, proximal portion of the greater saphenous vein, superficial femoral vein, and the popliteal vein. In addition, the posterior tibial and peroneal trunk were evaluated. Serial compression, augmentation maneuvers, and spectral Doppler flow evaluation were performed. FINDINGS: Normal 2-D Doppler and augmentation and compressibility throughout the lower extremity venous structures. Additional imaging through the proximal calf veins also reveals no thrombus. Limited evaluation of the greater saphenous vein is patent with no thrombus.. The veins were found to be easily compressible with spontaneous blood flow. Non pulsatile flow pattern. CONCLUSIONS No evidence of DVT in the above-mentioned identifiable veins. Dr Roselia Marti MD [facility] (Electronically Signed) Final Date: 09 Oct 2019 16:34 S
--- NOTE | 2019-10-09 09:26 | CT_ITS ---
WS: [id number] CTA CHEST WITH ABDOMEN/PELVIS TECHNIQUE: Contrast enhanced CTA of the chest with abdomen/pelvis with coronal and sagittal reformatt ed images and additional MIP Images. CLINICAL INFORMATION: rising transaminitis, persisting hypoxia COMPARISON: CTA chest October 08, 2019 DLP: 1457.[address] scans at [facility] use at least one of these dose optimization techniques: automat ed exposure control; mA and/or kV adjustment per patient size (includes targeted exams where dose is matched to clinical indication); or iterative reconstruction. FINDINGS: Small left pleural effusion with left lower lobe pneumonia. Consolidation left lung base with air bro nchograms. This is stable to slightly progressed compared to the recent examination. Left upper lobe is well aerated with a few small patchy opacities likely infectious or inflammatory. Additional hazy groundglass opacities in the right lung are new from previous. Proximal main pulmonary arteries are normal. Normal segmental and subsegmental pulmonary arteries. Ar tifact in the right lower lobe segmental and subsegmental pulmonary arteries. No definite evidence of pulmonary embolus. Stable previously described right lower Pole thyroid nodule. Vascular calcification including coronar y. A few prominent mediastinal and AP window lymph nodes not pathologically enlarged. No axillary lym phadenopathy. Mild diffuse fatty infiltration of the liver. Splenomegaly. Gallbladder is contracted. Normal portal vein and splenic vein. Normal spleen. Normal GE junction. Adrenal glands are normal. Normal renal par enchymal enhancement. No hydronephrosis. Normal caliber abdominal aorta. Aortic calcification. Normal sigmoid colon. Tiny fat-containing umbilical hernia. No abdominal or pelvic lymphadenopathy. Silvestre c atheter. Pelvic phleboliths. CT/CT angio chest w abd pel w con IMPRESSION: 1. No evidence of pulmonary embolus. 2. Small left pleural effusion with left lower lobe pneumonia. Consolidation l eft lower lobe with air bronchograms. This is stable to slightly progressed com pared to October 08, 2019. 3. New hazy subpleural groundglass infiltrates in the right lung. This is nons pecific can be seen with viral pneumonia and CoVID 19. Recommend laboratory cor relation. 4. A few hazy parenchymal opacities in the left upper lobe. 5. Vascular calcification including coronary. 6. Stable exophytic right lower pole thyroid nodule measuring 1.6 x 2.1 cm. 7. Hepatomegaly with diffuse fatty infiltration. 8. No hydronephrosis in either kidney. 9. No free fluid in the pelvis. 10. Air-fluid level within the stomach. 11. No evidence of small or large bowel obstruction.
[2019-10-09] MEDS: FUROsemide 10 mg/mL SDV 4mL 40 MG IVP (09:31)
[2019-10-09] MEDS: acetaminophen 325 mg Tablet 650 MG PO (09:31)
--- NOTE | 2019-10-09 09:33 | P.PN_ITS ---
Subjective Subjective: Interval history: Continues to be febrile to 102F, HR 125 with fever, tachypneic with RR 25/min. sp02 88%-92% on nasal canula. She is alert, awake, but overall appears more fatigued and sicker compared to yesterday . developed multiple episodes of diarrhea yestereday and overnight. LFTs trending up. T bili N. Poor appetite Medications: Reviewed: Yes Vitals/I&O/Wt Last Vital Signs Temp 99.2 F 10/09/19 06:00 Pulse 125 H 10/09/19 09:06 Resp 20 H 10/09/19 09:06 BP 151/68 10/09/19 06:00 Pulse Ox 91 10/09/19 09:06 10/08/19 10/09/19 10/09/19 22:59 06:59 14:59 Intake Total 360 / 360 50 / 410 Output Total 1150 / 1150 1000 / 2150 300 / 300 Balance -790 / -790 -950 / -1740 -300 / -300 Weight last 48 hrs Weight 90.718 kg Physical Exam Narrative: EXAM NARRATIVE: GEN: Awake, alert and oriented, appears fatigued, using greater respiratory effort than yesterday CVS: S1S2 N RS: B/L coarse crackles to ausculatation Abd: Soft, nt/nd , bs+ SCREENING UNIT REGISTERED 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 # community acquired left lower lobe pneumonia Currently on zosyn since yesterday, would prefer over ceftriaxone as she had a course of augmentin as outpatient without improvement Add vancomycin for possibility of post viral MRSA pneumonia COVID-19 PCR negative x 2, off isolation precautions now check sputum cx, MRSA PCR, urine bacterial antigen and legionella antigen panel Doxycycline for atypical coverage, reports allergy to FQs Blood culture pending Current alert awake, doubt meningitis, hold off LP for now duoneb q4h # check C.diff PCR and enteric panel from stool given ongoing diarrhea CT abd/pelvis w/contrast Check lipase # Transaminitis : may be 2/[address] w/o contrast yesterday with normal liver, GB was normal, no gross pancreatic lesions # hyponatremia, now improved after hydration to 131 # AMS upon admission likely multifactorial related to hyponetremia, metabiolic encephalopathy # grossly appears to be fluid overloaded today, stop IVF, lasix 40mg iv x 1, Silvestre placement for strict I/o BNP yesetrday ~1200 # past h/o CAD and CABG, unknown last EF. Check echo today to estimate EF, continue metoprolol, ASA and plavix for now # Increasing right thyroid enlargement suspicious for malignancy T3,T4,TSH within range, doubt contributing to fever or tachycardia currently. Likely pursue w/up as outpatient once acute issues resolve Full code DVt ppx: lovenox Attestations Medical Necessity Statement*: ongoing need for iv antibiotics, awaiting optimization of respiratory status Coding Level of Care Code Acute Engineering Production Liaison for Chg Fwd Diagnoses Fever R50.9 Hyponatremia E87.1 Thyroid enlargement E04.9 Sepsis A41.9
[2019-10-09 10:57] LABS: Lipase 72 U/L (13-60)
[2019-10-09] MEDS: iohexol 350 mg/mL 100 mL Btl IV (10:58)
[2019-10-09 11:54] LABS: Glucose Point of Care 113 mg/dL (70-110)
--- NOTE | 2019-10-09 13:43 | ECG_ITS ---
Measurements Intervals [place] Rate: 88 P: 44 NH: 148 QRS: -10 QRSD: 102 T: 35 QT: 364 QTc: 443 SINUS RHYTHM Compared to ECG 10/08/2019 11:27:56 Intraventricular conduction delay no longer present Electronically Signed On 10-09-2019 17:16:12 CDT by Parth Currie M.D. [email or web address]
[2019-10-09] MEDS: azithromycin 500 MG in sodium chloride 0.9% 250 ML 250 MG IV (13:58)
[2019-10-09 14:18] LABS: Hepatitis A Antibody IgM Non-Reactive (Nonreactive); Hepatitis B Core AB, Total Non-Reactive (Nonreactive); Hepatitis B Surface AB 3.5 (0-8.5); Hepatitis B Surface Antigen Non-Reactive (Nonreactive); Hepatitis C Virus Antibody Non-Reactive (Nonreactive)
[2019-10-09 16:38] LABS: Glucose Point of Care 100 mg/dL (70-110)
[2019-10-09 21:22] LABS: Glucose Point of Care 117 mg/dL (70-110)
[2019-10-10] VITALS (22 sets, daily range): BP systolic 98–138; BP diastolic 56–87; PULSE 75–105; RESP 14–27; TEMP 36.7–37.4; O2SAT 90–100
[2019-10-10] MEDS: piperacillin-tazobactam 3.375 GM in sodium chloride 0.9% (plus) 50 ML IV ×2 (01:09→08:54)
[2019-10-10] MEDS: ipratropium-albuterol 3 mL Neb INHALATION ×4 (03:11→16:09)
[2019-10-10 07:13] LABS: Glucose Point of Care 129 mg/dL (70-110)
[2019-10-10] MEDS: fenofibrate 145 mg Tablet PO (08:33)
[2019-10-10] MEDS: gabapentin 300 mg Capsule 600 MG PO ×2 (08:33→17:08)
[2019-10-10] MEDS: clopidogrel 75 mg Tablet PO (08:33)
[2019-10-10] MEDS: aspirin 325 mg Tablet PO (08:33)
[2019-10-10] MEDS: metoprolol tartrate 50 mg Tablet PO ×2 (08:33→17:07)
[2019-10-10] MEDS: azithromycin 500 MG in sodium chloride 0.9% 250 ML 250 MG IV (09:01)
--- NOTE | 2019-10-10 10:03 | P.PN_ITS ---
Subjective Subjective: Interval history: Improving today. She was able to ambulate in room with assistance. 02 sat 95% on 3lpm, has one brief episode of desaturation during a coughing fit earlier this morning. Sat in bedside chair for ~1 hour. Now back in bed. overall breathing is improved. t max 99.3 over last 24 hrs. HR varying between 70-90. Morning labs pending. Patient updated that she takes po lasix everyday. 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 Ext: no gross pitting edema Urinary Catheter Management^: Silvestre: Cath Placed During This Visit: yes Reason for Continuing Indwelling Catheter: Accurate Measurement of Urinary Output in Critically Ill Patients Urinary Catheter Date of Insertion: 10/09/19 Urinary Catheter Time of Insertion: 09:52 Data : 10/08/19 04:00 10/09/19 02:30 Micro: Microbiology 10/09/19 09:40 Enteric Pathogens (PCR) - Final Stool C.difficile Toxin B Gene (PCR) - Final 10/08/19 05:30 Urine Culture - Preliminary Urine,Clean Catch 10/09/19 09:45 MRSA Culture - Final Nose 10/09/19 10:15 Legionella Urinary Antigen - Final Urine,Voided Bacterial Antigens - Final 10/08/19 05:40 Blood Culture - Preliminary Blood NEGATIVE TO DATE 10/08/19 05:41 Blood Culture - Preliminary Blood NEGATIVE TO DATE A&P Assessment and plan (1) Legionnaire's disease: Status: Acute (2) Hyponatremia: Status: Acute (3) Thyroid enlargement: Status: Acute (4) Sepsis: Status: Acute Qualifiers: Sepsis acute organ dysfunction status: with acute organ dysfunction Severe sepsis acute organ dysfunction type: acute liver failure Hepatic coma status: without hepatic coma Severe sepsis shock status: without septic shock Additional A&P Information Continue in ICU # Sepsis due to legionnaire's disease: meets criteria with fever, tachypnea and tachycardia with infective focus by way of pneumonia- this was present on admission. With organ dysfunction by way of transaminitis and encephalopathy # Legionnella community acquired left lower lobe pneumonia Azithromycin started on 10/09/19 Would have preferred to use levofloxacin, however patient has unspecified allergy, which states may have been anaphylaxis Was previously on doxycycline for atypical coverage, which does not provide adequate coverage for some strains of legionella d/c Zosyn. Change to ceftriaxone to complete total 5 days. COVID-19 PCR negative x 2, off isolation precautions now MRSA pcr negative, vancomycin d/c check sputum cx Blood culture negative to date duoneb q4h deangelo # Diarrhea improving, likely developed as part of legionnaire disease now improving. c diff PCR negative. # Transaminitis : likely 2/[address] abdomen/pelvis without any acute issues # hyponatremia, now improving,, likely as a result of dehydration +/- SIADH from pneumonia # AMS upon admission likely multifactorial related to hyponetremia, metabiolic encephalopathy from sepsis, now improved. Patient is alert and awake # past h/o CAD and CABG, continue metoprolol, ASA,plavix Echo 10/08 with LVEF 60%, normal diastolic function, normal Rv function, no valvular abnormalities # Increasing right thyroid enlargement suspicious for malignancy T3,T4,TSH within range, doubt contributing to fever or tachycardia currently. Likely pursue w/up as outpatient once acute issues resolve Full code DVt ppx: lovenox Attestations Medical Necessity Statement*: slowly improving Legionnaire's disease, may transfer out of ICU is stable by late afternoon Coding Level of Care Code Acute Carbon Cleaner for [facility] Diagnoses Legionnaire's disease A48.1 Hyponatremia E87.1 Thyroid enlargement E04.9 Sepsis A41.9 Sepsis acute organ dysfunction status: with acute organ dysfunction Severe sepsis acute organ dysfunction type: acute liver failure Hepatic coma status: without hepatic coma Severe sepsis shock status: without septic shock
[2019-10-10] MEDS: FUROsemide 10 mg/mL SDV 4mL 40 MG IVP (10:26)
[2019-10-10 10:30] LABS: Alanine Aminotransferase 121 U/L (0-33); Albumin Level 2.5 g/dL (3.5-5.2); Alkaline Phosphatase 113 IU/L (35-105); Anion Gap 16.8 (5-19); Aspartate Amino Transferase 250 U/L (0-32); Blood Urea Nitrogen 20 mg/dL (8-23); Calcium 7.9 mg/dL (8.5-10.5); Carbon Dioxide 21 mmol/L (22-29); Chloride 95 mmol/L (98-107); Globulin 3.5 g/dL (1.3-4.6); Glucose 165 mg/dL (65-115); Osmolality Calculated 268 mOsm/kg (285-295); Potassium 3.8 mmol/L (3.5-5.1); Sodium 129 mmol/L (136-145); Total Bilirubin 0.6 mg/dL (0.15-1.2)
[2019-10-10 10:50] LABS: Basophils % 0.3 %; Hematocrit 26.9 % (37.0-47.0); Hemoglobin 8.5 g/dL (11.5-15.3); Lymphocytes # 0.3 10^3/uL (0.8-4.8); Lymphocytes % 2.6 %; Mean Corpuscular HGB Conc 31.6 g/dL (30.0-36.0); Mean Corpuscular Hemoglobin 30.5 pg (28.0-34.0); Mean Corpuscular Volume 96.4 fL (81-99); Mean Platelet Volume 9.9 fL (7.4-10.4); Monocytes # 0.3 10^3/uL (0.2-0.9); Monocytes % 2.9 %; Neutrophils % 93.8 %; Nucleated Red Blood Cells % 0 %; Platelet Count 288 10^3/cmm (130-400); Red Blood Count 2.79 10^6/uL (4.1-5.3); Red Cell Distribution Width 22.3 % (12.1-15.1); White Blood Count 9.6 10^3/uL (4.0-10.0)
[2019-10-10 11:07] LABS: Slide Review Slide Review Perform
--- NOTE | 2019-10-10 12:21 | PC.RESP ---
Discussed Smoking Cessation with patient. Pt will receive information on Smoking Cessation and a schedule of classes. Pulmonary Rehab discussed and information left with patient.
[2019-10-10] MEDS: cefTRIAXone 1,000 MG in sodium chloride 0.9% (plus) 50 ML 100 MG IV (15:53)
[2019-10-10 16:57] LABS: Glucose Point of Care 144 mg/dL (70-110)
[2019-10-10] MEDS: famotidine 20 mg Tablet PO (17:07)
--- NOTE | 2019-10-10 17:25 | PC.NURSE ---
Patient had a good day. Patient got a full bath. Patient ambulated around her room with PT this morning. VS stable, O2 sats remaining in the 90s even with exertion. IV abx continued. Patient still has a poor appetite but is eating just a bit more tonight. Patient has been having black stools. We are attempting to get an occult test. Hgb dropped over the past 2 days. Overall patient condition has improved throughout the day.
[2019-10-10 18:40] LABS: Glucose Point of Care 156 mg/dL (70-110)
[2019-10-10 20:57] LABS: Glucose Point of Care 182 mg/dL (70-110)
[2019-10-11] VITALS (13 sets, daily range): BP systolic 113–139; BP diastolic 71–78; PULSE 70–91; RESP 16–18; TEMP 36.4–37.1; O2SAT 87–99
[2019-10-11] MEDS: ipratropium-albuterol 3 mL Neb INHALATION ×3 (00:26→15:22)
[2019-10-11 05:49] LABS: Basophils % 0.2 %; Hematocrit 29.6 % (37.0-47.0); Hemoglobin 9.4 g/dL (11.5-15.3); Lymphocytes # 0.4 10^3/uL (0.8-4.8); Lymphocytes % 3.1 %; Mean Corpuscular HGB Conc 31.8 g/dL (30.0-36.0); Mean Corpuscular Hemoglobin 31.6 pg (28.0-34.0); Mean Corpuscular Volume 99.7 fL (81-99); Mean Platelet Volume 9.8 fL (7.4-10.4); Monocytes # 0.5 10^3/uL (0.2-0.9); Neutrophils # 10.5 10^3/uL (1.8-7.7); Neutrophils % 91.9 %; Nucleated Red Blood Cells % 0 %; Platelet Count 348 10^3/cmm (130-400); Red Blood Count 2.97 10^6/uL (4.1-5.3); Red Cell Distribution Width 22.7 % (12.1-15.1); White Blood Count 11.4 10^3/uL (4.0-10.0)
[2019-10-11 06:10] LABS: Alanine Aminotransferase 152 U/L (0-33); Albumin Level 2.7 g/dL (3.5-5.2); Alkaline Phosphatase 137 IU/L (35-105); Anion Gap 16.7 (5-19); Aspartate Amino Transferase 289 U/L (0-32); Blood Urea Nitrogen 25 mg/dL (8-23); Calcium 8.8 mg/dL (8.5-10.5); Carbon Dioxide 23 mmol/L (22-29); Chloride 98 mmol/L (98-107); Globulin 3.7 g/dL (1.3-4.6); Glomerular Filtration Rate 85.4 mL/min (90-130); Glucose 119 mg/dL (65-115); Osmolality Calculated 276 mOsm/kg (285-295); Potassium 3.7 mmol/L (3.5-5.1); Sodium 134 mmol/L (136-145); Total Bilirubin 0.5 mg/dL (0.15-1.2); Total Protein 6.4 g/dL (6.6-8.7)
[2019-10-11 06:51] LABS: Glucose Point of Care 130 mg/dL (70-110)
[2019-10-11] MEDS: famotidine 20 mg Tablet PO ×2 (08:27→17:16)
[2019-10-11] MEDS: aspirin 325 mg Tablet PO (08:27)
[2019-10-11] MEDS: gabapentin 300 mg Capsule 600 MG PO ×2 (08:27→17:16)
[2019-10-11] MEDS: clopidogrel 75 mg Tablet PO (08:28)
[2019-10-11] MEDS: metoprolol tartrate 50 mg Tablet PO ×2 (08:28→17:17)
[2019-10-11] MEDS: fenofibrate 145 mg Tablet PO (08:28)
[2019-10-11 10:59] LABS: Glucose Point of Care 127 mg/dL (70-110)
--- NOTE | 2019-10-11 15:56 | P.PN_ITS ---
Subjective Subjective: Interval history: Patient significantly improving today, on room air since this morning with 02 sat 90-95%. Looks much improved. Better exercise capacity. No c/o chets pain, dyapnea or palpitations . Afebrile, hemodynamically stable. 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: no focal neuro deficits Urinary Catheter Management^: Silvestre: Cath Placed During This Visit: yes, but has since been removed by the nurse Reason for Continuing Indwelling Catheter: Accurate Measurement of Urinary Output in Critically Ill Patients Urinary Catheter Date of Insertion: 10/09/19 Urinary Catheter Time of Insertion: 09:52 Date Urinary Catheter Removed: 10/10/19 Time Urinary Catheter Discontinued: 15:33 Data : 10/11/19 05:26 10/11/19 05:26 Micro: Microbiology 10/10/19 02:26 Occult Blood (FIT) - Final Stool - Stool Aspirate 10/08/19 05:30 Urine Culture - Final Urine,Clean Catch A&P Assessment and plan (1) Legionnaire's disease: Status: Acute (2) Hyponatremia: Status: Acute (3) Thyroid enlargement: Status: Acute (4) Sepsis: Status: Acute Qualifiers: Sepsis acute organ dysfunction status: with acute organ dysfunction Severe sepsis acute organ dysfunction type: acute liver failure Hepatic coma status: without hepatic coma Severe sepsis shock status: without septic shock Additional A&P Information # Sepsis due to legionnaire's disease: meets criteria with fever, tachypnea and tachycardia with infective focus by way of pneumonia- this was present on admission. With organ dysfunction by way of transaminitis and encephalopathy. Sepsis is now resolved # Legionnella community acquired left lower lobe pneumonia Azithromycin started on 5/6/20 Would have preferred to use levofloxacin, however patient has unspecified allergy, which states may have been anaphylaxis Was previously on doxycycline for atypical coverage, which does not provide adequate coverage for some strains of legionella D/c ceftriaxone today COVID-19 PCR negative x 2 Blood culture negative to date duoneb q4h deangelo # Diarrhea improving, likely developed as part of legionnaire disease now resolved. c diff PCR negative. # Transaminitis : likely 2/[address] sepsis[address] ser[address] negative CT abdomen/pelvis without any acute issues - shows diffuse fatty liver. D/c statins. # hyponatremia, now resolved likely as a result of dehydration +/- SIADH from pneumonia # AMS upon admission likely multifactorial related to hyponetremia, metabiolic encephalopathy from sepsis, now resolved . # past h/o CAD and CABG, continue metoprolol, ASA,plavix. Holding statins Echo 10/08 with LVEF 60%, normal diastolic function, normal Rv function, no valvular abnormalities # Increasing right thyroid enlargement suspicious for malignancy T3,T4,TSH within range, doubt contributing to fever or tachycardia currently. 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
[2019-10-11 16:28] LABS: Glucose Point of Care 128 mg/dL (70-110)
[2019-10-11] MEDS: cefTRIAXone 1,000 MG in sodium chloride 0.9% (plus) 50 ML 100 MG IV (17:16)
--- NOTE | 2019-10-11 18:38 | PC.NURSE ---
patient rec DC instructions and verbalized understanding. Patient denies pain. Pidd removed intact. Patient qualified for home o2. HOME to deliver oxygen.
--- NOTE | 2019-10-11 21:58 | PM.DCS ---
Discharge Providers Date of Admission: 10/08/19 12:31 Date of Discharge: October 11, 2019 Attending Provider at Admission: Samantha Eid MD Attending Provider at Discharge: Samantha Eid MD Primary Care Provider: Charis Carcamo DO Diagnoses at Discharge Discharge Diagnosis (1) Legionnaire's disease: Status: Acute (2) Hyponatremia: Status: Acute (3) Thyroid enlargement: Status: Acute (4) Sepsis: Status: Acute Qualifiers: Hepatic coma status: without hepatic coma Sepsis acute organ dysfunction status: with acute organ dysfunction Severe sepsis acute organ dysfunction type: acute liver failure Severe sepsis shock status: without septic shock Reason for Visit Reason for Visit: Reason For Visit: FEVER OF UNKNOWN ORGIN Hospital Course Discharge Summary: Please refer to my progress note from today for details. Later in the evening patient insisted on returning home. It was discussed that for today, i intend to stop to her steroids and would prefer if she stayed inpatient to monitor off steroids for continued improvement over the next 12-24 hrs. However she insisted on returning home to take care of her and also her animals. Home 02 evaluation was done , she qualified for 2lpm with 02. Since it was late, it was explained that we will be unable to arrange 02 for her and would prefer her to stay until we can make arrangements, however she stated that she has 02 supplies at home from her and for tonight would use hs supplies. While this is not an ideal arrangement, given her insistence on returning home she was discharged with prescription for azithromycin for another 7 days and steroids for 2 more days. She should f/up with her PCP within a week as a discharge f/up and also for liver function testing. 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: no focal neuro deficits Urinary Catheter Management^: Silvestre: Cath Placed During This Visit: yes, but has since been removed by the nurse Reason for Continuing Indwelling Catheter: Accurate Measurement of Urinary Output in Critically Ill Patients Urinary Catheter Date of Insertion: 10/09/19 Urinary Catheter Time of Insertion: 09:52 Date Urinary Catheter Removed: 10/10/19 Time Urinary Catheter Discontinued: 15:33 Discharge Data Data Completed and Pending: Completed Studies During Hospitalization Category Date Time Status CT angio chest w abd pel w con Rout ine Cat Scan 10/09/19 09:[address] chest wo con 7 1250 Urgent Cat Scan 10/08/[address] head wo con* 7 0450 Urgent Cat Scan 10/08/19 09:08 Completed XR chest 1V mayco ble [id number] Stat Exams 10/08/19 04:38 Completed CV echo complete* [id number] Routine Ultrasound 10/09/19 09:21 [place] [id number] Routin e Ultrasound 10/09/19 09:26 Completed Pending at discharge Category Date Time Status Blood Culture Sta t Lab 10/08/19 05:[address] at Lab 10/11/19 08:09 Received Labs from last 24 hours 10/11/19 10/11/19 10/11/19 16:21 10:40 06:34 WBC RBC Hgb Hct MCV MCH MCHC RDW Plt Count MPV Neut % (Auto) Lymph % (Auto) [place] % (Auto) Eos % (Auto) Baso % (Auto) Neut # (Auto) Lymph # (Auto) [place] # (Auto) Eos # (Auto) Baso # (Auto) Nucleated RBC % (a uto) Nucleated RBCs # Sodium Potassium Chloride Carbon Dioxide Anion Gap BUN Creatinine GFR Calculation Glucose POC Glucose 128 127 130 Calculated Osmolal ity Calcium Total Bilirubin AST ALT Alkaline Phosphata se Total Protein Albumin Globulin 10/11/19 10/11/19 05:26 05:26 WBC 11.4 H RBC 2.97 L Hgb 9.4 L Hct 29.6 L MCV 99.7 H MCH 31.6 MCHC 31.8 RDW 22.7 H Plt Count 348 MPV 9.8 Neut % (Auto) 91.9 Lymph % (Auto) 3.1 [place] % (Auto) 4.0 Eos % (Auto) 0.0 Baso % (Auto) 0.2 Neut # (Auto) 10.5 H Lymph # (Auto) 0.4 L [place] # (Auto) 0.5 Eos # (Auto) 0.0 Baso # (Auto) 0.0 Nucleated RBC % (a uto) 0 Nucleated RBCs # 0.0 Sodium 134 L Potassium 3.7 Chloride 98 Carbon Dioxide 23 Anion Gap 16.7 BUN 25 H Creatinine 0.7 GFR Calculation 85.4 L Glucose 119 H POC Glucose Calculated Osmolal ity 276 L Calcium 8.8 Total Bilirubin 0.5 AST 289 H ALT 152 H Alkaline Phosphata se 137 H Total Protein 6.4 L Albumin 2.7 L Globulin 3.7 Vitals: Last Vital Signs Temp 97.9 F 10/11/19 18:08 Pulse 80 10/11/19 18:08 Resp 18 10/11/19 18:08 BP 127/78 10/11/19 18:08 Pulse Ox 93 10/11/19 18:08 Discharge Plan Discharge Patient Disposition: Home, Self-Care Condition: Stable Prescriptions: New azithromycin 500 mg tablet 500 mg PO DAILY 7 Days RF: 0 famotidine 20 mg Tablet 20 mg PO BID 10 Days Qty: 0 RF: 0 Continued hydrochlorothiazide 25 mg tablet 25 mg PO DAILY Qty: 30 RF: 0 metoprolol tartrate 50 mg tablet 50 mg PO BID Qty: 60 RF: 0 nitroglycerin [Nitrostat] 0.4 mg tablet, sublingual 0.4 mg SUBLINGUAL PRN PRN (Reason: Chest Pain) RF: 0 clopidogrel [Plavix] 75 mg tablet 75 mg PO DAILY RF: 0 metformin 1,000 mg tablet extended release 24hr 1,000 mg PO BID RF: 0 gabapentin 600 mg tablet 600 mg PO BID RF: 0 montelukast [Singulair] 10 mg tablet 10 mg PO DAILY RF: 0 fenofibrate nanocrystallized 145 mg tablet 145 mg PO DAILY RF: 0 aspirin 325 mg tablet 325 mg PO DAILY RF: 0 acetaminophen [Tylenol] 325 mg capsule 650 mg PO BID PRN (Reason: Pain) RF: 0 ProAir HFA 90 mcg/actuation Hfa Aerosol Inhaler 2 puff INHALATION QID PRN (Reason: Shortness Of Breath) RF: 0 prednisone 20 mg tablet 20 mg PO DAILY 2 Days Qty: 2 RF: 0 Held Crestor 40 mg tablet 20 mg PO DAILY RF: 0 Hold Instructions: Resume on 10/25/19. after follow up of liver function with PMD Discontinued amoxicillin-pot clavulanate [Augmentin] 875-125 mg tablet 1 tab PO BID 10 Days Qty: 20 RF: 0 Discharge Orders: Discharge Order (Routine); Ordered 10/11/19 Ordered By: Samantha Eid Other Ambulatory Orders: DME: Oxygen (Order) Location: None Selected Ordered By: Samantha Eid Referrals: 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
== END 2019-10-11 19:15 | disposition home or self-care (01) | DRG 871 ==
LOC: ER 11:16 → ICU 12:32 → MEDSURG 10-10 17:59
PROVIDERS: Emergency Medicine; Admitting Provider Student in an Organized Health Care Education/Training Program; Emergency Provider Family Medicine; Family Provider Family Medicine; PCP Family Medicine; Visit Provider Student in an Organized Health Care Education/Training Program
DX: A41.9 Sepsis, unspecified organism (principal); A48.1 Legionnaires' disease; J15.212 Pneumonia due to Methicillin resistant Staphylococcus aureus; G93.41 Metabolic encephalopathy; E87.1 Hypo-osmolality and hyponatremia; Z79.02 Long term (current) use of antithrombotics/antiplatelets; Z79.84 Long term (current) use of oral hypoglycemic drugs; Z79.82 Long term (current) use of aspirin; G47.31 Primary central sleep apnea; E78.5 Hyperlipidemia, unspecified; I10 Essential (primary) hypertension; R49.0 Dysphonia; Z95.5 Presence of coronary angioplasty implant and graft; F17.210 Nicotine dependence, cigarettes, uncomplicated; E04.9 Nontoxic goiter, unspecified
CPT/HCPCS: 12345; 36415; 36416; 36600; 51702; 70450; 71045; 71250; 71275; 74177; 80051; 80053; 80307; 81001; 82140; 82274; 82533; 82810; 82962; 83605; 83690; 83735; 83880; 83986; 84295; 84436; 84439; 84443; 84481; 84484; 85025; 85610; 86403; 86705; 86706; 86709; 86803; 87040; 87070; 87086; 87340; 87449; 87493; 87506; 87635; 87641; 87804; 93005; 93306; 93970; 94640; 94664; 96372; 96375; 97110; 97116; 97162; 97166; 97530; 97535; 99284; J0131; J0456; J0696; J1815; J1940; J2543; J2920; J3370; J3535; J7030; J7050; Q9967

== ENCOUNTER 2019-10-08 04:36 | Emergency (ER) | payer MEDICAID, SELFPAY | END 2019-10-08 12:57 | disposition admitted as inpatient to this hospital (09) | LOC: ER 10-15 14:00 | PROVIDERS: Emergency Provider Family Medicine; PCP Family Medicine | DX: R05 Cough (principal); R50.9 Fever, unspecified; R06.02 Shortness of breath; Z79.02 Long term (current) use of antithrombotics/antiplatelets; Z79.82 Long term (current) use of aspirin; I10 Essential (primary) hypertension; E78.5 Hyperlipidemia, unspecified; E11.9 Type 2 diabetes mellitus without complications; Z79.84 Long term (current) use of oral hypoglycemic drugs; F17.210 Nicotine dependence, cigarettes, uncomplicated | CPT/HCPCS: 12345; 36416; 36600; 70450; 71045; 71250; 80051; 80053; 80307; 81001; 82140; 82533; 82810; 82962; 83605; 83735; 83880; 83986; 84295; 84436; 84443; 84481; 84484; 85025; 85610; 87040; 87086; 87635; 87804; 93005; 94640; 96365; 96367; 96375; 99284; 99285; J0131; J0696; J2543; J3535; J7030 ==

== ENCOUNTER → 2019-10-17 11:52 | Outpatient (BNVA) | payer MEDICAID, SELFPAY | PROVIDERS: PCP Family Medicine; Visit Provider Family Medicine | DX: R79.89 Other specified abnormal findings of blood chemistry (principal); E04.9 Nontoxic goiter, unspecified; R29.6 Repeated falls; A48.1 Legionnaires' disease; R29.898 Other symptoms and signs involving the musculoskeletal system; F17.219 Nicotine dependence, cigarettes, with unspecified nicotine-induced disorders | CPT/HCPCS: 80053 ==

== ENCOUNTER 2019-10-31 08:10 | Outpatient (CLI) | payer MEDICAID, SELFPAY ==
[2019-10-31 13:15] LABS: Eosinophils # 0.1 10^3/uL (0.0-0.8); Eosinophils % 4.3 %; Hematocrit 43.5 % (37.0-47.0); Hemoglobin 12.7 g/dL (11.5-15.3); Lymphocytes # 0.8 10^3/uL (0.8-4.8); Lymphocytes % 24.9 %; Mean Corpuscular HGB Conc 29.2 g/dL (30.0-36.0); Mean Corpuscular Hemoglobin 31.8 pg (28.0-34.0); Mean Platelet Volume 9.3 fL (7.4-10.4); Monocytes # 0.4 10^3/uL (0.2-0.9); Monocytes % 14.4 %; Neutrophils # 1.7 10^3/uL (1.8-7.7); Neutrophils % 55.4 %; Nucleated Red Blood Cells % 0 %; Platelet Count 305 10^3/cmm (130-400); Red Blood Count 3.99 10^6/uL (4.1-5.3); Red Cell Distribution Width 19.6 % (12.1-15.1); White Blood Count 3.1 10^3/uL (4.0-10.0)
[2019-10-31 14:39] LABS: Ferritin 176 ng/mL (15-150); Iron 68 ug/dL (37-145); Percent Saturation 17.3 % (20-50); Total Iron Binding Capacity 392 mcg/dl; Unsaturated Iron Binding 324 ug/dL (112-347)
== END 2019-10-31 08:11 | disposition home or self-care (01) ==
PROVIDERS: PCP Family Medicine; Visit Provider Internal Medicine Hematology & Oncology
DX: D50.9 Iron deficiency anemia, unspecified (principal)
CPT/HCPCS: 36415; 82728; 83540; 83550; 85025

== ENCOUNTER 2019-11-01 09:57 | Outpatient (CLI) | payer MEDICAID, SELFPAY ==
--- NOTE | 2019-11-01 13:09 | ONC FU_ITS ---
Dr. Garza follow up note Patient: Dana Gusman Unit #: [id number]: [id number] Dicatated By: Yumiko Garza M.D.Date of Visit:November 01, 2019 Onc Med Follow-up/Prog Note History of Present Illness: Mrs. Dana Gusman, 59 -year-old female with history of palpitation, dyspnea on exertion for the last one year, recently diagnosed with iron deficiency anemia started on oral iron. And she is experiencing some heartburn indigestion with this. Also chew ice all the time. Patient said she was losing blood in her stools so underwent EGD and colonoscopy by Dr. Campbell On 02/07/2017 and both showed no abnormalities subsequently underwent capsule endoscopy on 09/25/2017 for persistent iron deficiency anemia and it showed a few tiny nonbleeding AVMs No history of jaundice, no history of blood transfusion except during her last , no history of gross bleeding, CBC from 04/05/2017 showed white blood count 4.7 with normal differential hemoglobin 7.8 crit 25.3 MCV 61.3, platelets 275,000 Status post Injectafer 750 mg weekly ???2 on January 04 and 2017 With excellent response hemoglobin gone up to 15.8 hematocrit 47.8 and ferritin 104.7 on 02/09/2018 And again Injectafer' 750 mg IV ???2 given on 11/16 and 11/23/2018 with that her hemoglobin improved from 11.3-15.1 and ferritin gone up to 106 compared to 7 prior to infusion. Patient is overweight, and also has issues with sleeping so, clinically she may have underlying sleep apnea Underwent colonoscopy and EGD on 05/14/2019 for progressive iron deficiency anemia and EGD showed no esophageal abnormality and there is mild gastric erosions in the antrum and along with mild duodenitis but no evidence of gross bleeding and colonoscopy was normal exam except internal hemorrhoids. Patient received Injectafer 750 mg IV weekly ???2 on April 11 and 04/18/2019 with excellent response e.g. muslim of iron stores, ferritin 225 compared to 9 prior and improvement in hemoglobin from 12.8 to 15 g Came for follow-up today, denies any specific complaints, but she was recently admitted to hospital with legionnare's disease, treated with antibiotics and steroids. Now recovering. Otherwise denies any melena or hematochezia, denies any muscle hematemesis, denies any shortness of breath or palpitation at rest but she is on home oxygen. Medications: Aspirin 1 (325 mg) Tablet Oral daily, Crestor 1 (20 mg) Tablet Oral daily, Fenofibrate 1 (145 mg) Tablet Oral daily, Gabapentin 1 (600 mg) Tablet Oral b.i.d., MetFORMIN HCl 1 (1000 mg) Tablet Oral b.i.d., Metoprolol Tartrate 1 (50 mg) Tablet Oral b.i.d., Nitroglycerin 1 (0.4 mg) Tablet, sublingual Sublingual PRN, Singulair 1 (10 mg) Tablet Oral daily Allergies: Abilify, AmLODIPine Bes+SyrSpend SF, AmLODIPine Besylate, Amoxicillin, Bactrim DS, BusPIRone HCl, Ceftin, Cefuroxime Axetil, celexa , Cephalexin, Cetirizine HCl, Ciprofloxacin HCl, Cymbalta, Dexilant, DULoxetine HCl, Effexor XR, Enablex, fomotidine, Fosamax, HydroCHLOROthiazide, HydrOXYzine HCl, Levaquin, lisinopril, Lovaza, Lyrica, methocarb, Mirapex, Omeprazole, PARoxetine HCl, Penicillins, PredniSONE, PriLOSEC, Protonix, Pseudoephedrine HCl, SEROquel, traMADol HCl, VESIcare, Zoloft, and ZyrTEC Allergy. Review of Systems: Constitutional - Appetite is fair and weight is stable. No fever, chills, hot flashes, or night sweats. Energy level is poor, ENMT - No sinus congestion/drainage. No mouth sores. No sore throat or difficulty swallowing, Hematologic/Lymphatic - No abnormal bruising or bleeding, Respiratory - Frequent Shortness of breath . No cough. No pleuritic pain or hemoptysis, Cardiovascular - No angina pain. No palpitations, Gastrointestinal - No nausea or vomiting. Occasional heartburn or acid reflux. No diarrhea or constipation. No bloody or black stools, Genitourinary (F) - Patient has some dysuria. No hematuria. No urinary frequency. No urgency or incontinence, Musculoskeletal - Chronic joint pain, Neurologic - Frequent headache, no dizziness. Patient has some occasional numbness/paresthesias in hands and feet.No other focal neurologic symptoms, Psychiatric - No anxiety or depression. Patient reports some insomnia. Vital Signs: Performed on November 01, 2019 10:46 Height - 57.00 in Weight - 178 lbs (HIGH) BSA - 1.71 sq.m BMI - 38.52 (HIGH) Temperature - 97.8 F (LOW) Pulse - 71 /min Respiration - 19 /min BP - 137/71 mm(hg) O2 Sat - 98 % Pain - 6 Performance Status: 1 - No physically strenuous activity, but ambulatory and able to carry out light or sedentary work (e.g. office work, light house work). (ECOG) Physical Examination: ENMT - no mouth sores, no thrush, no jaundice, Respiratory - Lungs are clear to auscultation, Cardiovascular - Regular rate and rhythm of heart, Abdomen - soft, bowel sounds present, Extremities - trace edema bilaterally. Lab/Imaging: Test performed on October 31, 2019 08:10 Ferritin 176 ng/mL Iron 68 mcg/dL Iron Binding Capacity (TIBC) 392 mcg/dl % Iron Saturation 17.3 % UIBC 324 mcg/dL WBC 3.1 10 3/uL RBC 3.99 10 6/uL HGB 12.7 g/dL HCT 43.5 % MCV 109.0 fL MCH 31.8 pg MCHC 29.2 g/dL RDW 19.6 % Platelet Count 305 10 3/cmm MPV 9.3 fL Neutrophils 1.7 10 3/uL Lymphocytes 0.8 10 3/uL Monocytes 0.4 10 3/uL Eosinophils 0.1 10 3/uL Basophils 0.0 10 3/uL Neutrophil % 55.4 % Lymphocyte % 24.9 % Monocyte % 14.4 % Eosinophil % 4.3 % Basophils % 1.0 % Impression: Microcytic hypochromic anemia due to iron deficiency due to chronic GI blood loss or and iron malabsorption. Now with oral iron intolerance. Colonoscopy and EGD done on 02/07/2017 showed no abnormality Status post Injectafer weekly ???2 in April 2017 With excellent response Status post Injectafer 750???2 in January 2018 With excellent response showed hemoglobin 15.8 hematocrit 47.8 ferritin 104.7 on 02/09/20189 Injectafer infusion done on 11/16/2018 and 11/23/2018 4 hemoglobin 11.3 hematocrit 30 5., ferritin 7 and iron saturation 4.4, postinfusion hemoglobin on 12/24/2018 was 15.1, hematocrit 44.9 and ferritin was 106. Capsule endoscopy done on 09/25/2017 showed there were 2 tiny nonbleeding AVMs that were noted, there was no blood or stigmata of recent bleeding appreciated otherwise normal study. 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 Her follow-up lab shows mild leukopenia could be from recent infection but hemoglobin/hematocrit and platelet count is within normal range and iron stores also within normal range but on the lower side. We'll continue to monitor and she will return to clinic in 6 weeks with CBC and iron studies Patient was recently evaluated by Dr. Chowdhury ENT physician for right thyroid nodule, now Dr. Chowdhury is gone, as per patient she is being referred to [facility] for further evaluation. Signed By: Yumiko Garza M.D. <<Signature on File>>
== END 2019-11-01 09:58 | disposition home or self-care (01) ==
LOC: ONCMED 10:00
PROVIDERS: PCP Family Medicine; Visit Provider Internal Medicine Hematology & Oncology
DX: D50.0 Iron deficiency anemia secondary to blood loss (chronic) (principal); K90.9 Intestinal malabsorption, unspecified; Q27.33 Arteriovenous malformation of digestive system vessel; A48.1 Legionnaires' disease; E04.1 Nontoxic single thyroid nodule; D72.819 Decreased white blood cell count, unspecified
CPT/HCPCS: G0463

== ENCOUNTER 2019-11-18 12:34 | Outpatient (CLI) | payer MEDICAID, SELFPAY ==
--- NOTE | 2019-11-18 13:05 | MR_ITS ---
WS: [id number] MRI LUMBAR SPINE NONCONTRAST TECHNIQUE: Sagittal T1, T2 and STIR imaging. Axial T1 and T2 imaging. CLINICAL INFORMATION: M51.16 Intervertebral disc disorders with radiculopathy, COMPARISON: MRI February 06, 2019 FINDINGS: Mild lumbar curve. No acute compression. Mild annular bulging L4-L5 and L5-S1. Shallow central protru alissa at T11-T12 with subligamentous migration of disc material with mild central canal stenosis. This slightly contacts the lower thoracic cord. This is only covered on the sagittal imaging. Foramen franklyn ear patent. Edema within the S2-S3 sacral segments eccentric to the right consistent with sacral fracture. This h as an acute to subacute appearance with some evidence of healing. Small amount of presacral edema. L1-L2: Normal. L2-L3: Normal. L3-L4: No significant disc bulging. Mild facet arthropathy. Spinal canal and foramen are patent. L4-L5: Mild annular bulging with slight effacement of the ventral thecal sac. Tiny shallow central pr otrusion with mild central canal stenosis. Small bilateral foraminal protrusions left greater than ri ght with [id number] left greater than right foraminal narrowing. Contact of the exiting left L4 nerve root. L5-S1: Small bilateral foraminal protrusions with slight encroachment on the exiting right greater th an left L5 nerve roots. Mild bilateral foraminal narrowing. Small disc protrusion in the cervical spine at C6-7 MR/MR lumbar spine wo con* [id number] IMPRESSION: 1. Edema within the S2-S3 sacral segments with presacral soft tissue edema. Ed shaye extends into the right sacrum partially visualized consistent with acute to subacute fracture with some evidence of callus formation. Recommend correlatio n with history of trauma. 2. Small central protrusion T11-T12 with slight subligamentous migration of di sc material and mild central canal stenosis. 3. Small left L4-5 foraminal protrusion with mild to moderate left foraminal n arrowing and contact of the exiting left L4 nerve root. 4. Small right greater than left L5-S1 foraminal protrusions with mild to mode rate right L5-S1 foraminal narrowing. 5. Mild right L4-5 foraminal narrowing. 6. Mild to moderate facet arthropathy L4-L5 and L5-S1.
--- NOTE | 2019-11-18 13:45 | XR_ITS ---
WS: [id number] LUMBAR SPINE FLEXION AND EXTENSION TECHNIQUE: 3 views of the lumbar spine: Lateral neutral, flexion, and extension views. CLINICAL INFORMATION: lumbar pain COMPARISON: None. FINDINGS: Normal lumbar alignment on the neutral view. No instability on the flexion and extension views. Mild facet arthropathy L5-S1. Mild disc space narr owing L5-S1. Aortic calcification. Vertebral body heights and disc space heights well-preserved. XR/XR lumbar spine f/e only [id number] IMPRESSION: 1. No instability on flexion extension. 2. No acute compression fractures. 3. Mild disc space narrowing L5-S1. 4. Mild facet arthropathy L5-S1.
== END 2019-11-18 12:35 | disposition home or self-care (01) ==
LOC: RADWPI 12:36
PROVIDERS: PCP Family Medicine; Visit Provider Specialist
DX: M51.16 Intervertebral disc disorders with radiculopathy, lumbar region (principal); M47.896 Other spondylosis, lumbar region; M47.817 Spondylosis without myelopathy or radiculopathy, lumbosacral region; M48.061 Spinal stenosis, lumbar region without neurogenic claudication; M51.27 Other intervertebral disc displacement, lumbosacral region; M51.24 Other intervertebral disc displacement, thoracic region; R60.9 Edema, unspecified
CPT/HCPCS: 72120; 72148

== ENCOUNTER 2019-12-03 11:30 | Outpatient (CLI) | payer MEDICAID, SELFPAY ==
--- NOTE | 2019-12-03 11:30 | XR_ITS ---
WS: [id number] LEFT HIP HISTORY: hip pain COMPARISON: None available. LEFT hip: No acute fracture or dislocation. Calcification or osseous density the soft tissues adjacen t to the femoral neck seen on the lateral projection. Could be a vascular calcification or small ingris te avulsion fracture. Mild narrowing of the hip joint. Scattered vascular calcifications in the femoral artery. XR/XR hip LT 2-3V wo/w pel* [id number] IMPRESSION: 1. No acute LEFT hip fracture. 2. Mild degenerative changes at the hip joint. 3. Well-circumscribed osseous or calcific density adjacent to the lateral femo ral neck on the frog-leg position. Could be a benign vascular calcification or tiny avulsion fracture from prior trauma.
== END 2019-12-03 11:31 | disposition home or self-care (01) ==
LOC: RADWPI 11:33
PROVIDERS: Family Provider Family Medicine; PCP Family Medicine; Visit Provider Specialist
DX: M25.552 Pain in left hip (principal)
CPT/HCPCS: 73502

== ENCOUNTER 2019-12-10 07:46 | Outpatient (CLI) | payer MEDICAID, SELFPAY ==
[2019-12-10 08:10] LABS: Basophils % 0.6 %; Eosinophils # 0.2 10^3/uL (0.0-0.8); Eosinophils % 3.5 %; Hematocrit 45.5 % (37.0-47.0); Hemoglobin 14.3 g/dL (11.5-15.3); Lymphocytes # 1.4 10^3/uL (0.8-4.8); Lymphocytes % 27.2 %; Mean Corpuscular HGB Conc 31.4 g/dL (30.0-36.0); Mean Corpuscular Hemoglobin 30.6 pg (28.0-34.0); Mean Corpuscular Volume 97.4 fL (81-99); Mean Platelet Volume 9.7 fL (7.4-10.4); Monocytes # 0.6 10^3/uL (0.2-0.9); Monocytes % 11.4 %; Neutrophils % 57.1 %; Nucleated Red Blood Cells % 0 %; Platelet Count 245 10^3/cmm (130-400); Red Blood Count 4.67 10^6/uL (4.1-5.3); Red Cell Distribution Width 15.7 % (12.1-15.1); White Blood Count 5.2 10^3/uL (4.0-10.0)
[2019-12-10 08:31] LABS: Ferritin 18 ng/mL (15-150); Iron 38 ug/dL (37-145); Percent Saturation 10.2 % (20-50); Total Iron Binding Capacity 370 mcg/dl; Unsaturated Iron Binding 332 ug/dL (112-347)
[2019-12-10 08:46] LABS: Folate Level 5.1 ng/mL (4.8-37.3)
[2019-12-10 08:47] LABS: Vitamin B12 337 pg/mL (232-1245)
== END 2019-12-10 07:47 | disposition home or self-care (01) ==
LOC: ONCMED 07:48
PROVIDERS: PCP Family Medicine; Visit Provider Internal Medicine Hematology & Oncology
DX: A48.1 Legionnaires' disease (principal); D50.9 Iron deficiency anemia, unspecified; E03.9 Hypothyroidism, unspecified; E11.9 Type 2 diabetes mellitus without complications
CPT/HCPCS: 82607; 82728; 82746; 83540; 83550; 85025

== ENCOUNTER 2019-12-12 08:53 | Outpatient (CLI) | payer MEDICAID, SELFPAY ==
--- NOTE | 2019-12-12 13:20 | ONC FU_ITS ---
Dr. Garza follow up note Patient: Dana Gusman Unit #: [id number]: 1960 Dicatated By: Yumiko Garza M.D.Date of Visit:Dec 12, 2019 Onc Med Follow-up/Prog Note History of Present Illness: Mrs. Dana Gusman, 59 -year-old female with history of palpitation, dyspnea on exertion for the last one year, recently diagnosed with iron deficiency anemia started on oral iron. And she is experiencing some heartburn indigestion with this. Also chew ice all the time. Patient said she was losing blood in her stools so underwent EGD and colonoscopy by Dr. Campbell On 02/07/2017 and both showed no abnormalities subsequently underwent capsule endoscopy on 09/25/2017 for persistent iron deficiency anemia and it showed a few tiny nonbleeding AVMs No history of jaundice, no history of blood transfusion except during her last , no history of gross bleeding, CBC from 04/05/2017 showed white blood count 4.7 with normal differential hemoglobin 7.8 crit 25.3 MCV 61.3, platelets 275,000 Status post Injectafer 750 mg weekly ???2 on January 04 and 2017 With excellent response hemoglobin gone up to 15.8 hematocrit 47.8 and ferritin 104.7 on 02/09/2018 And again Injectafer' 750 mg IV ???2 given on 11/16 and 11/23/2018 with that her hemoglobin improved from 11.3-15.1 and ferritin gone up to 106 compared to 7 prior to infusion. Patient is overweight, and also has issues with sleeping so, clinically she may have underlying sleep apnea Underwent colonoscopy and EGD on 05/14/2019 for progressive iron deficiency anemia and EGD showed no esophageal abnormality and there is mild gastric erosions in the antrum and along with mild duodenitis but no evidence of gross bleeding and colonoscopy was normal exam except internal hemorrhoids. Patient received Injectafer 750 mg IV weekly ???2 on April 11 and 04/18/2019 with excellent response e.g. sikh of iron stores, ferritin 225 compared to 9 prior and improvement in hemoglobin from 12.8 to 15 g Came for follow-up, denies any specific complaints, no fever chills, no nausea or vomiting, no diarrhea or constipation, no melena hematochezia, as per patient she is undergoing thyroid nodule work-up in [place] Medications: Aspirin 1 (325 mg) Tablet Oral daily, Crestor 1 (20 mg) Tablet Oral daily, Fenofibrate 1 (145 mg) Tablet Oral daily, Gabapentin 1 (600 mg) Tablet Oral b.i.d., MetFORMIN HCl 1 (1000 mg) Tablet Oral b.i.d., Metoprolol Tartrate 1 (50 mg) Tablet Oral b.i.d., Nitroglycerin 1 (0.4 mg) Tablet, sublingual Sublingual PRN, Singulair 1 (10 mg) Tablet Oral daily Allergies: Abilify, AmLODIPine Bes+SyrSpend SF, AmLODIPine Besylate, Amoxicillin, Bactrim DS, BusPIRone HCl, Ceftin, Cefuroxime Axetil, celexa , Cephalexin, Cetirizine HCl, Ciprofloxacin HCl, Cymbalta, Dexilant, DULoxetine HCl, Effexor XR, Enablex, fomotidine, Fosamax, HydroCHLOROthiazide, HydrOXYzine HCl, Levaquin, lisinopril, Lovaza, Lyrica, methocarb, Mirapex, Omeprazole, PARoxetine HCl, Penicillins, PredniSONE, PriLOSEC, Protonix, Pseudoephedrine HCl, SEROquel, traMADol HCl, VESIcare, Zoloft, and ZyrTEC Allergy. Review of Systems: Constitutional - Appetite is fair and weight is stable. No fever, chills, hot flashes, or night sweats. Energy level is poor, ENMT - No sinus congestion/drainage. No mouth sores. No sore throat or difficulty swallowing, Hematologic/Lymphatic - No abnormal bruising or bleeding, Respiratory - Frequent Shortness of breath . No cough. No pleuritic pain or hemoptysis, Cardiovascular - No angina pain. No palpitations, Gastrointestinal - No nausea or vomiting. Occasional heartburn or acid reflux. No diarrhea or constipation. No bloody or black stools, Genitourinary (F) - Patient has some dysuria. No hematuria. No urinary frequency. No urgency or incontinence, Musculoskeletal - Chronic joint pain, Neurologic - Frequent headache, no dizziness. Patient has some occasional numbness/paresthesias in hands and feet.No other focal neurologic symptoms, Psychiatric - No anxiety or depression. Patient reports some insomnia. Vital Signs: Performed on Dec 12, 2019 09:30 Height - 57.00 in Weight - 174.2 lbs (LOW) BSA - 1.70 sq.m BMI - 37.70 (HIGH) Temperature - 97.9 F (LOW) Pulse - 59 /min (LOW) Respiration - 22 /min BP - 127/67 mm(hg) O2 Sat - 98 % Pain - 3 Performance Status: 1 - No physically strenuous activity, but ambulatory and able to carry out light or sedentary work (e.g. office work, light house work). (ECOG) Physical Examination: ENMT - No mouth sores, no thrush, no jaundice, Respiratory - Lungs are clear, Cardiovascular - Regular rate and rhythm of heart, Abdomen - Soft, bowel sounds present, Extremities - No visible edema. Lab/Imaging: Test performed on Dec 10, 2019 07:55 Ferritin 18 ng/mL Iron 38 mcg/dL Vitamin B12 337 pg/mL Iron Binding Capacity (TIBC) 370 mcg/dl % Iron Saturation 10.2 % UIBC 332 mcg/dL WBC 5.2 10 3/uL RBC 4.67 10 6/uL HGB 14.3 g/dL HCT 45.5 % MCV 97.4 fL MCH 30.6 pg MCHC 31.4 g/dL RDW 15.7 % Platelet Count 245 10 3/cmm MPV 9.7 fL Neutrophils 3.0 10 3/uL Lymphocytes 1.4 10 3/uL Monocytes 0.6 10 3/uL Eosinophils 0.2 10 3/uL Basophils 0.0 10 3/uL Neutrophil % 57.1 % Lymphocyte % 27.2 % Monocyte % 11.4 % Eosinophil % 3.5 % Basophils % 0.6 % NRBC % 0 % Impression: Microcytic hypochromic anemia due to iron deficiency due to chronic GI blood loss or and iron malabsorption. Now with oral iron intolerance. Colonoscopy and EGD done on 02/07/2017 showed no abnormality Status post Injectafer weekly ???2 in April 2017 With excellent response Status post Injectafer 750???2 in January 2018 With excellent response showed hemoglobin 15.8 hematocrit 47.8 ferritin 104.7 on 02/09/20189 Injectafer infusion done on 11/16/2018 and 11/23/2018 4 hemoglobin 11.3 hematocrit 30 5., ferritin 7 and iron saturation 4.4, postinfusion hemoglobin on 12/24/2018 was 15.1, hematocrit 44.9 and ferritin was 106. Capsule endoscopy done on 09/25/2017 showed there were 2 tiny nonbleeding AVMs that were noted, there was no blood or stigmata of recent bleeding appreciated otherwise normal study. Recent lab shows progressive iron deficiency anemia probably due to chronic GI bleeding from small bowel AVMs Plan: Discussed with patient regarding her labs white blood count 5.2 hemoglobin 14.3 crit 45.5 platelets 245,000 ferritin 18 iron saturation 10.2 iron 38 TIBC 370 vitamin B12 337 Clinically, patient is doing well, no new signs symptom, follow-up lab work-up showed hemoglobin still in normal range whereas iron stores continue to deplete. Patient has history of small bowel AVMs which bleeds off and on. We will continue to monitor and she will return to clinic in 1 month with CBC and iron studies if there is a drop in her hemoglobin, will consider infusional iron therapy. Signed By: Yumiko Garza M.D. <<Signature on File>>
== END 2019-12-12 08:54 | disposition home or self-care (01) ==
LOC: ONCMED 08:54
PROVIDERS: PCP Family Medicine; Visit Provider Internal Medicine Hematology & Oncology
DX: A48.1 Legionnaires' disease (principal); D50.9 Iron deficiency anemia, unspecified; E03.9 Hypothyroidism, unspecified; E11.9 Type 2 diabetes mellitus without complications
CPT/HCPCS: 80053; 84439; 84443; G0463

== ENCOUNTER → 2019-12-19 15:30 | Outpatient (BNVA) | payer MEDICAID, SELFPAY | PROVIDERS: PCP Family Medicine; Visit Provider Family Medicine | DX: R79.89 Other specified abnormal findings of blood chemistry (principal); R60.0 Localized edema; Z13.6 Encounter for screening for cardiovascular disorders | CPT/HCPCS: 80053 ==

== ENCOUNTER 2019-12-26 11:11 | Outpatient (CLI) | payer MEDICAID, SELFPAY ==
--- NOTE | 2019-12-26 11:30 | CT_ITS ---
WS: [id number] NONCONTRAST CT OF THE PELVIS TECHNIQUE: Noncontrast CT pelvis with coronal and sagittal reformatted images. CLINICAL INFORMATION: sacral fracture COMPARISON: MRI November 18, 2019 DLP: 764.[address] scans at [facility] use at least one of these dose optimization techniques: automat ed exposure control; mA and/or kV adjustment per patient size (includes targeted exams where dose is matched to clinical indication); or iterative reconstruction. FINDINGS: Comparison MRI November 18, 2019. Presumed healing fracture with callus formation at S2-3. Evidence of ri ght sacral sclerosis extends into the right sacral ala with suspected healing fracture lucencies. Lef t sacral ala appears normal. Normal iliac wings. Mild degenerative arthritis involving sacroiliac radha nts. Mild degenerative arthritis both hips. Normal pubic rami. Vascular calcification. Postoperative scott es in the pelvis. CT/CT bony pelvis 47131 IMPRESSION: 1. Evidence of presumed healing fracture involving the S2-S3 vertebral bodies extending into the right sacral ala. 2. Sacral sclerosis involving the right sacral ala likely represents healing i nsufficiency fractures. Recommend follow-up to resolution. 3. No other significant findings.
== END 2019-12-26 11:12 | disposition home or self-care (01) ==
LOC: RADWPI 11:13
PROVIDERS: Family Provider Family Medicine; PCP Family Medicine; Visit Provider Specialist
DX: S32.10XA Unspecified fracture of sacrum, initial encounter for closed fracture (principal); X58.XXXA Exposure to other specified factors, initial encounter
CPT/HCPCS: 72192

== ENCOUNTER 2020-01-13 14:06 | Outpatient (CLI) | payer MEDICAID, SELFPAY ==
[2020-01-13 15:10] LABS: Basophils % 0.6 %; Eosinophils # 0.1 10^3/uL (0.0-0.8); Eosinophils % 1.7 %; Hematocrit 41.4 % (37.0-47.0); Hemoglobin 12.9 g/dL (11.5-15.3); Lymphocytes # 1.9 10^3/uL (0.8-4.8); Mean Corpuscular HGB Conc 31.2 g/dL (30.0-36.0); Mean Corpuscular Hemoglobin 29.1 pg (28.0-34.0); Mean Corpuscular Volume 93.5 fL (81-99); Mean Platelet Volume 9.9 fL (7.4-10.4); Monocytes # 0.6 10^3/uL (0.2-0.9); Monocytes % 8.3 %; Neutrophils # 4.61 10^3/uL (1.8-7.7); Neutrophils % 63.3 %; Nucleated Red Blood Cells % 0 %; Platelet Count 267 10^3/cmm (130-400); Red Blood Count 4.43 10^6/uL (4.1-5.3); Red Cell Distribution Width 14.9 % (12.1-15.1); White Blood Count 7.3 10^3/uL (4.0-10.0)
[2020-01-13 15:22] LABS: Ferritin 16 ng/mL (15-150); Iron 43 ug/dL (37-145); Percent Saturation 10.5 % (20-50); Total Iron Binding Capacity 409 mcg/dl; Unsaturated Iron Binding 366 ug/dL (112-347)
== END 2020-01-13 14:07 | disposition home or self-care (01) ==
LOC: ONCMED 14:11
PROVIDERS: PCP Family Medicine; Visit Provider Internal Medicine Hematology & Oncology
DX: A48.1 Legionnaires' disease (principal); D50.9 Iron deficiency anemia, unspecified; E11.9 Type 2 diabetes mellitus without complications; E03.9 Hypothyroidism, unspecified
CPT/HCPCS: 36415; 82728; 83540; 83550; 85025

== ENCOUNTER 2020-01-17 06:04 | Outpatient (CLI) | payer MEDICAID, SELFPAY ==
--- NOTE | 2020-01-17 08:45 | ONC FU_ITS ---
Dr. Garza follow up note Patient: Dana Gusman Unit #: [id number]: 1960 Dicatated By: Yumiko Garza M.D.Date of Visit:Jan 17, 2020 Onc Med Follow-up/Prog Note History of Present Illness: Mrs. Dana Gusman, 59 -year-old female with history of palpitation, dyspnea on exertion for the last one year, recently diagnosed with iron deficiency anemia started on oral iron. And she is experiencing some heartburn indigestion with this. Also chew ice all the time. Patient said she was losing blood in her stools so underwent EGD and colonoscopy by Dr. Campbell On 02/07/2017 and both showed no abnormalities subsequently underwent capsule endoscopy on 09/25/2017 for persistent iron deficiency anemia and it showed a few tiny nonbleeding AVMs No history of jaundice, no history of blood transfusion except during her last , no history of gross bleeding, CBC from 04/05/2017 showed white blood count 4.7 with normal differential hemoglobin 7.8 crit 25.3 MCV 61.3, platelets 275,000 Status post Injectafer 750 mg weekly ???2 on January 04 and 2017 With excellent response hemoglobin gone up to 15.8 hematocrit 47.8 and ferritin 104.7 on 02/09/2018 And again Injectafer' 750 mg IV ???2 given on 11/16 and 11/23/2018 with that her hemoglobin improved from 11.3-15.1 and ferritin gone up to 106 compared to 7 prior to infusion. Patient is overweight, and also has issues with sleeping so, clinically she may have underlying sleep apnea Underwent colonoscopy and EGD on 05/14/2019 for progressive iron deficiency anemia and EGD showed no esophageal abnormality and there is mild gastric erosions in the antrum and along with mild duodenitis but no evidence of gross bleeding and colonoscopy was normal exam except internal hemorrhoids. Patient received Injectafer 750 mg IV weekly ???2 on April 11 and 04/18/2019 with excellent response e.g. rastafarian of iron stores, ferritin 225 compared to 9 prior and improvement in hemoglobin from 12.8 to 15 g , as per patient she is undergoing thyroid nodule work-up in [place] And now scheduled for thyroid surgery on March 02, 2020 Came for follow-up, denies any specific complaint except generalized weakness and fatigue, no nausea or vomiting no diarrhea constipation no palpitation no shortness of breath but mild dyspnea on exertion no melena or hematochezia no hemoptysis or hematemesis no jaundice. Medications: Aspirin 1 (325 mg) Tablet Oral daily, Crestor 1 (20 mg) Tablet Oral daily, Gabapentin 1 (600 mg) Tablet Oral b.i.d., MetFORMIN HCl 1 (1000 mg) Tablet Oral b.i.d., Metoprolol Tartrate 1 (50 mg) Tablet Oral b.i.d., Nitroglycerin 1 (0.4 mg) Tablet, sublingual Sublingual PRN, Singulair 1 (10 mg) Tablet Oral daily Allergies: Abilify, AmLODIPine Bes+SyrSpend SF, AmLODIPine Besylate, Amoxicillin, Bactrim DS, BusPIRone HCl, Ceftin, Cefuroxime Axetil, celexa , Cephalexin, Cetirizine HCl, Ciprofloxacin HCl, Cymbalta, Dexilant, DULoxetine HCl, Effexor XR, Enablex, fomotidine, Fosamax, HydroCHLOROthiazide, HydrOXYzine HCl, Levaquin, lisinopril, Lovaza, Lyrica, methocarb, Mirapex, Omeprazole, PARoxetine HCl, Penicillins, PredniSONE, PriLOSEC, Protonix, Pseudoephedrine HCl, SEROquel, traMADol HCl, VESIcare, Zoloft, and ZyrTEC Allergy. Review of Systems: Constitutional - Appetite is fair and weight is stable. No fever, chills, hot flashes, or night sweats. Energy level is poor, ENMT - No sinus congestion/drainage. No mouth sores. No sore throat or difficulty swallowing, Hematologic/Lymphatic - No abnormal bruising or bleeding, Respiratory - Frequent Shortness of breath . No cough. No pleuritic pain or hemoptysis, Cardiovascular - No angina pain. No palpitations, Gastrointestinal - No nausea or vomiting. Occasional heartburn or acid reflux. No diarrhea or constipation. No bloody or black stools, Genitourinary (F) - Patient has some dysuria. No hematuria. No urinary frequency. No urgency or incontinence, Musculoskeletal - Chronic joint pain, Neurologic - Frequent headache, no dizziness. Patient has some occasional numbness/paresthesias in hands and feet.No other focal neurologic symptoms, Psychiatric - No anxiety or depression. Patient reports some insomnia. Vital Signs: Performed on Jan 17, 2020 08:06 Height - 57.00 in Weight - 174.0 lbs (LOW) BSA - 1.70 sq.m BMI - 37.65 (HIGH) Temperature - 97.4 F (LOW) Pulse - 67 /min Respiration - 20 /min BP - 136/69 mm(hg) O2 Sat - 99 % Pain - 0 Performance Status: 0 - Fully active, able to carry on all predisease activities without restrictions. (ECOG) Physical Examination: ENMT - No mouth sores no thrush, no Jaundice, Respiratory - Lungs are clear, Cardiovascular - Regular rate and rhythm of heart, Abdomen - Soft, bowel sounds present, Extremities - No visible edema or rash. Lab/Imaging: Test performed on Dec 10, 2019 07:55 Ferritin 18 ng/mL Iron 38 mcg/dL Vitamin B12 337 pg/mL Iron Binding Capacity (TIBC) 370 mcg/dl % Iron Saturation 10.2 % UIBC 332 mcg/dL WBC 5.2 10 3/uL RBC 4.67 10 6/uL HGB 14.3 g/dL HCT 45.5 % MCV 97.4 fL MCH 30.6 pg MCHC 31.4 g/dL RDW 15.7 % Platelet Count 245 10 3/cmm MPV 9.7 fL Neutrophils 3.0 10 3/uL Lymphocytes 1.4 10 3/uL Monocytes 0.6 10 3/uL Eosinophils 0.2 10 3/uL Basophils 0.0 10 3/uL Neutrophil % 57.1 % Lymphocyte % 27.2 % Monocyte % 11.4 % Eosinophil % 3.5 % Basophils % 0.6 % NRBC % 0 % Impression: Microcytic hypochromic anemia due to iron deficiency due to chronic GI blood loss or and iron malabsorption. Now with oral iron intolerance. Colonoscopy and EGD done on 02/07/2017 showed no abnormality Status post Injectafer weekly ???2 in April 2017 With excellent response Status post Injectafer 750???2 in January 2018 With excellent response showed hemoglobin 15.8 hematocrit 47.8 ferritin 104.7 on 02/09/20189 Injectafer infusion done on 11/16/2018 and 11/23/2018 4 hemoglobin 11.3 hematocrit 30 5., ferritin 7 and iron saturation 4.4, postinfusion hemoglobin on 12/24/2018 was 15.1, hematocrit 44.9 and ferritin was 106. Capsule endoscopy done on 09/25/2017 showed there were 2 tiny nonbleeding AVMs that were noted, there was no blood or stigmata of recent bleeding appreciated otherwise normal study. Recent lab shows progressive iron deficiency anemia probably due to chronic GI bleeding from small bowel AVMs Plan: Discussed with patient regarding her labs white blood count 7.3 hemoglobin 12.9 hematocrit 41.4 platelets 267,000 iron studies shows iron saturation 10.5% ferritin 16 iron 43 TIBC 409 Clinically, patient is doing reasonably well now with generalized weakness and fatigue and further drop in her hemoglobin although still in the normal range, iron studies shows further drop in her iron stores, her normal hemoglobin could be due to underlying reactive polycythemia due to sleep apnea, we will consider Injectafer x1 to keep iron stores within normal range. She will return to clinic in 2 months with CBC and iron studies. As far as thyroid nodules concerned, as per patient, she is scheduled for thyroid surgery on March 02, 2020 Signed By: Yumiko Garza M.D. <<Signature on File>>
[2020-01-17] MEDS: ferric carboxy (IVPB) 750 MG in sodium chloride 0.9% (100 ml) 100 ML 460 MG IV (09:18)
== END 2020-01-17 06:05 | disposition home or self-care (01) ==
LOC: ONCMED 06:12
PROVIDERS: PCP Family Medicine; Visit Provider Internal Medicine Hematology & Oncology
DX: D50.9 Iron deficiency anemia, unspecified (principal); A48.1 Legionnaires' disease; E11.9 Type 2 diabetes mellitus without complications; E03.9 Hypothyroidism, unspecified
CPT/HCPCS: 96365; 99214; J1439

== ENCOUNTER → 2020-01-22 10:26 | Outpatient (BNVA) | payer MEDICAID, SELFPAY | PROVIDERS: PCP Family Medicine; Visit Provider Family Medicine | DX: E78.2 Mixed hyperlipidemia (principal); I10 Essential (primary) hypertension; E11.9 Type 2 diabetes mellitus without complications; R25.2 Cramp and spasm; M51.16 Intervertebral disc disorders with radiculopathy, lumbar region; F17.210 Nicotine dependence, cigarettes, uncomplicated; Z71.6 Tobacco abuse counseling; Z68.36 Body mass index [BMI] 36.0-36.9, adult; Z71.89 Other specified counseling | CPT/HCPCS: 80053; 80061; 83036 ==

== ENCOUNTER 2020-03-18 09:50 | Outpatient (CLI) | payer MEDICAID, SELFPAY ==
[2020-03-18 10:17] LABS: Basophils # 0.1 10^3/uL (0.0-0.1); Basophils % 0.7 %; Eosinophils # 0.1 10^3/uL (0.0-0.8); Eosinophils % 1.3 %; Hematocrit 34.7 % (37.0-47.0); Hemoglobin 10.5 g/dL (11.5-15.3); Lymphocytes # 1.3 10^3/uL (0.8-4.8); Lymphocytes % 15.4 %; Mean Corpuscular HGB Conc 30.3 g/dL (30.0-36.0); Mean Corpuscular Hemoglobin 29.8 pg (28.0-34.0); Mean Corpuscular Volume 98.6 fL (81-99); Mean Platelet Volume 8.9 fL (7.4-10.4); Monocytes # 0.5 10^3/uL (0.2-0.9); Monocytes % 5.6 %; Neutrophils # 6.41 10^3/uL (1.8-7.7); Neutrophils % 76.5 %; Nucleated Red Blood Cells % 0 %; Platelet Count 387 10^3/cmm (130-400); Red Blood Count 3.52 10^6/uL (4.1-5.3); Red Cell Distribution Width 16.7 % (12.1-15.1); White Blood Count 8.4 10^3/uL (4.0-10.0)
[2020-03-18 10:27] LABS: Ferritin 13 ng/mL (15-150); Iron 21 ug/dL (37-145); Percent Saturation 5.4 % (20-50); Total Iron Binding Capacity 382 mcg/dl; Unsaturated Iron Binding 361 ug/dL (112-347)
== END 2020-03-18 09:51 | disposition home or self-care (01) ==
LOC: ONCMED 09:51
PROVIDERS: PCP Family Medicine; Visit Provider Internal Medicine Hematology & Oncology
DX: D50.9 Iron deficiency anemia, unspecified (principal)
CPT/HCPCS: 36415; 82728; 83540; 83550; 85025

== ENCOUNTER 2020-03-20 05:45 | Outpatient (CLI) | payer MEDICAID, SELFPAY ==
--- NOTE | 2020-03-20 08:39 | ONC FU_ITS ---
Dr. Garza follow up note Patient: Dana Gusman Unit #: [id number]: 1960 Dicatated By: Yumiko Garza M.D.Date of Visit:Mar 20, 2020 Onc Med Follow-up/Prog Note History of Present Illness: Mrs. Dana Gusman, 59 -year-old female with history of palpitation, dyspnea on exertion for the last one year, recently diagnosed with iron deficiency anemia started on oral iron. And she is experiencing some heartburn indigestion with this. Also chew ice all the time. Patient said she was losing blood in her stools so underwent EGD and colonoscopy by Dr. Campbell On 02/07/2017 and both showed no abnormalities subsequently underwent capsule endoscopy on 09/25/2017 for persistent iron deficiency anemia and it showed a few tiny nonbleeding AVMs No history of jaundice, no history of blood transfusion except during her last , no history of gross bleeding, CBC from 04/05/2017 showed white blood count 4.7 with normal differential hemoglobin 7.8 crit 25.3 MCV 61.3, platelets 275,000 Status post Injectafer 750 mg weekly ???2 on January 04 and 2017 With excellent response hemoglobin gone up to 15.8 hematocrit 47.8 and ferritin 104.7 on 02/09/2018 And again Injectafer' 750 mg IV ???2 given on 11/16 and 11/23/2018 with that her hemoglobin improved from 11.3-15.1 and ferritin gone up to 106 compared to 7 prior to infusion. Patient is overweight, and also has issues with sleeping so, clinically she may have underlying sleep apnea Underwent colonoscopy and EGD on 05/14/2019 for progressive iron deficiency anemia and EGD showed no esophageal abnormality and there is mild gastric erosions in the antrum and along with mild duodenitis but no evidence of gross bleeding and colonoscopy was normal exam except internal hemorrhoids. Patient received Injectafer 750 mg IV weekly ???2 on April 11 and 04/18/2019 with excellent response e.g. religious of iron stores, ferritin 225 compared to 9 prior and improvement in hemoglobin from 12.8 to 15 g , as per patient she is undergoing thyroid nodule work-up in [place] Patient underwent thyroidectomy at [facility] in [place] on March 02, 2020, as per patient she was told there is no sign of malignancy and she was started on thyroid supplements. Came for follow-up, denies any specific complaint except generalized weakness and fatigue, she thinks is due to new medication which was started after thyroid surgery on March 02, 2020, patient is on Synthroid but denies any melena or hematochezia denies any hemoptysis or hematemesis denies any jaundice denies any chest pain or palpitation at rest. Medications: Aspirin 1 (325 mg) Tablet Oral daily, Crestor 1 (20 mg) Tablet Oral daily, Gabapentin 1 (600 mg) Tablet Oral b.i.d., MetFORMIN HCl 1 (1000 mg) Tablet Oral b.i.d., Metoprolol Tartrate 1 (50 mg) Tablet Oral b.i.d., Nitroglycerin 1 (0.4 mg) Tablet, sublingual Sublingual PRN, Singulair 1 (10 mg) Tablet Oral daily, Synthroid 1 Tablet (of 25 mcg) Oral daily, Tums 2 Tablet Tablet, chewable Oral daily, Vitamin D 1 Tablet Oral daily Allergies: Abilify, AmLODIPine Bes+SyrSpend SF, AmLODIPine Besylate, Amoxicillin, Bactrim DS, BusPIRone HCl, Ceftin, Cefuroxime Axetil, celexa , Cephalexin, Cetirizine HCl, Ciprofloxacin HCl, Cymbalta, Dexilant, DULoxetine HCl, Effexor XR, Enablex, fomotidine, Fosamax, HydroCHLOROthiazide, HydrOXYzine HCl, Levaquin, lisinopril, Lovaza, Lyrica, methocarb, Mirapex, Omeprazole, PARoxetine HCl, Penicillins, PredniSONE, PriLOSEC, Protonix, Pseudoephedrine HCl, SEROquel, traMADol HCl, VESIcare, Zoloft, and ZyrTEC Allergy. Review of Systems: Review of Systems is not available for this patient. Vital Signs: Performed on Mar 20, 2020 08:06 Height - 57.00 in Weight - 177.0 lbs (HIGH) BSA - 1.71 sq.m BMI - 38.30 (HIGH) Temperature - 97.0 F (LOW) Pulse - 62 /min Respiration - 24 /min BP - 148/70 mm(hg) (HIGH) O2 Sat - 100 % Pain - 5 Performance Status: 1 - No physically strenuous activity, but ambulatory and able to carry out light or sedentary work (e.g. office work, light house work). (ECOG) Physical Examination: ENMT - No mouth sores, no thrush, no jaundice, Respiratory - Lungs are clear to auscultation, Cardiovascular - Regular rate and rhythm of heart, Abdomen - Soft, bowel sounds present, Extremities - No visible edema. Lab/Imaging: Test performed on Dec 10, 2019 07:55 Ferritin 18 ng/mL Iron 38 mcg/dL Vitamin B12 337 pg/mL Iron Binding Capacity (TIBC) 370 mcg/dl % Iron Saturation 10.2 % UIBC 332 mcg/dL WBC 5.2 10 3/uL RBC 4.67 10 6/uL HGB 14.3 g/dL HCT 45.5 % MCV 97.4 fL MCH 30.6 pg MCHC 31.4 g/dL RDW 15.7 % Platelet Count 245 10 3/cmm MPV 9.7 fL Neutrophils 3.0 10 3/uL Lymphocytes 1.4 10 3/uL Monocytes 0.6 10 3/uL Eosinophils 0.2 10 3/uL Basophils 0.0 10 3/uL Neutrophil % 57.1 % Lymphocyte % 27.2 % Monocyte % 11.4 % Eosinophil % 3.5 % Basophils % 0.6 % NRBC % 0 % Impression: Microcytic hypochromic anemia due to iron deficiency due to chronic GI blood loss or and iron malabsorption. Now with oral iron intolerance. Colonoscopy and EGD done on 02/07/2017 showed no abnormality Status post Injectafer weekly ???2 in April 2017 With excellent response Status post Injectafer 750???2 in January 2018 With excellent response showed hemoglobin 15.8 hematocrit 47.8 ferritin 104.7 on 02/09/20189 Injectafer infusion done on 11/16/2018 and 11/23/2018 4 hemoglobin 11.3 hematocrit 30 5., ferritin 7 and iron saturation 4.4, postinfusion hemoglobin on 12/24/2018 was 15.1, hematocrit 44.9 and ferritin was 106. Capsule endoscopy done on 09/25/2017 showed there were 2 tiny nonbleeding AVMs that were noted, there was no blood or stigmata of recent bleeding appreciated otherwise normal study. Recent lab shows progressive iron deficiency anemia probably due to chronic GI bleeding from small bowel AVMs Plan: Discussed with patient regarding her labs white blood count 8.4 hemoglobin 10.5 compared to 12.9 g on January 13, 2020 platelets 387,000 and iron studies shows iron saturation 5.4% ferritin 13 iron 21, TIBC 382 Clinically, patient is doing reasonably well but now with progressive generalized weakness and fatigue, recently underwent thyroidectomy for thyroid nodules, on March 02, 2020, as per patient she was told there is no sign of malignancy and she was started on thyroid supplement Synthroid. And her follow-up CBC showed drop in her hemoglobin to 10.5 g today compared to 12.9 g on January 13, 2020 and even she was given dose of Injectafer on January 17, 2024 progressive iron deficiency as at that time impression was her hemoglobin was in normal range despite of low iron stores, probably due to secondary polycythemia. Patient has history of AVMs in the small bowel seen on capsule endoscopy although at that time there were nonbleeding but clinically it appears that patient may be losing blood from small bowel AVMs, will call GI at [facility] for evaluation and possible cauterization as patient is on Plavix as well as full dose aspirin for cardiac stent,. We will proceed with Injectafer 750 mg IV today and then in a week and then she will return to clinic in 1 month with CBC and iron studies. Patient was advised to go to hospital in case she has any sign of fresh blood per rectum or worsening of symptoms lightheadedness or dizziness or tachycardia, which could be a sign of GI bleeding. , Signed By: Yumiko Garza M.D. <<Signature on File>>
[2020-03-20] MEDS: ferric carboxy (IVPB) 750 MG in sodium chloride 0.9% (100 ml) 100 ML 460 MG IV (09:08)
== END 2020-03-20 05:46 | disposition home or self-care (01) ==
LOC: ONCMED 05:46
PROVIDERS: PCP Family Medicine; Visit Provider Internal Medicine Hematology & Oncology
DX: D50.0 Iron deficiency anemia secondary to blood loss (chronic) (principal); D50.8 Other iron deficiency anemias; Q27.33 Arteriovenous malformation of digestive system vessel; R53.1 Weakness; R53.83 Other fatigue; E89.0 Postprocedural hypothyroidism; Z79.899 Other long term (current) drug therapy
CPT/HCPCS: 96365; 99214; J1439

== ENCOUNTER 2020-03-27 06:35 | Outpatient (CLI) | payer MEDICAID, SELFPAY ==
[2020-03-27] MEDS: ferric carboxy (IVPB) 750 MG in sodium chloride 0.9% (100 ml) 100 ML 460 MG IV (09:22)
== END 2020-03-27 06:36 | disposition home or self-care (01) ==
LOC: ONCMED 06:36
PROVIDERS: PCP Family Medicine; Visit Provider Internal Medicine Medical Oncology
DX: D50.9 Iron deficiency anemia, unspecified (principal)
CPT/HCPCS: 96365; J1439

== ENCOUNTER 2020-03-27 11:01 | Outpatient (CLI) | payer MEDICAID, SELFPAY ==
--- NOTE | 2020-03-27 11:00 | CT_ITS ---
WS: [id number] CT scan of the pelvis. Additional two-dimensional coronal and sagittal reconstruction was performed. 03/27/2020. Clinical Data: Fracture S2-S3 Comparison: CT pelvis, 12/26/2019. DLP: 788.[address] scans at [facility] use at least one of these dose optimization techniques: automat ed exposure control; mA and/or kV adjustment per patient size (includes targeted exams where dose is matched to clinical indication); or iterative reconstruction. Findings: The right S2-S3 level shows slight sclerosis on the right. This represents healing of the insufficien cy fracture described on the MRI of the lumbar spine of 11/18/2019. The left sacral alar is normal. Th e SI joints are unremarkable. The adjacent pelvis and hips are normal. CT/CT bony pelvis 20267 Impression: Almost total healing of insufficiency fracture on the right at the S3 level.
== END 2020-03-27 11:02 | disposition home or self-care (01) ==
LOC: RADWPI 11:04
PROVIDERS: PCP Family Medicine; Visit Provider Licensed Practical Nurse
DX: S32.10XA Unspecified fracture of sacrum, initial encounter for closed fracture (principal); S32.139A Unspecified Zone III fracture of sacrum, initial encounter for closed fracture; X58.XXXA Exposure to other specified factors, initial encounter
CPT/HCPCS: 72192

== ENCOUNTER → 2020-03-31 08:58 | Outpatient (BNVA) | payer MEDICAID, SELFPAY | PROVIDERS: Family Provider Family Medicine; PCP Family Medicine; Visit Provider Licensed Practical Nurse | DX: S32.10XA Unspecified fracture of sacrum, initial encounter for closed fracture (principal); X58.XXXA Exposure to other specified factors, initial encounter; M51.16 Intervertebral disc disorders with radiculopathy, lumbar region; M81.0 Age-related osteoporosis without current pathological fracture; G62.9 Polyneuropathy, unspecified; F17.210 Nicotine dependence, cigarettes, uncomplicated | CPT/HCPCS: 99213 ==

== ENCOUNTER → 2020-04-02 14:06 | Outpatient (BNVA) | payer MEDICAID, SELFPAY | PROVIDERS: Family Provider Family Medicine; PCP Family Medicine; Visit Provider Family Medicine | DX: E11.9 Type 2 diabetes mellitus without complications (principal); R25.2 Cramp and spasm | CPT/HCPCS: 80053; 83036 ==

== ENCOUNTER 2020-04-08 11:16 | Emergency (ER) | payer MEDICAID, SELFPAY ==
[2020-04-08 11:26] VITALS: BP 126/85; PULSE 61; RESP 18; TEMP 36.2; O2SAT 100; BMI 37.0
--- NOTE | 2020-04-08 11:49 | ECG_ITS ---
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 [id number]
--- NOTE | 2020-04-08 12:02 | W.ED.DIZZY ---
HPI - Dizziness General: Chief Complaint: Dizziness Stated Complaint: LOW BLOOD PRESSURE 99/45 Time Seen by Provider: 04/08/20 11:51 Source: patient Mode of arrival: ambulatory Limitations: no limitations History of Present Illness: HPI Narrative: 59-year-old female who states she has been having lightheadedness over the last 2 to 3 weeks. She has had some near syncopal events. She does have a history of heart disease. She denies any headache or chest pain. Patient was seen in urgent care and had blood pressure in the 90s and sent her here. States her blood pressures been running on the low side as well at home. Associated symptoms: Denies chills, headache(s), nausea or vomiting Review of Systems Const: Denies: fever(s), chills, body aches or change in appetite Eyes: Denies: blurry vision or eye discomfort ENMT: Denies: throat pain or dental pain Card: Reports: pre-syncope Resp: Denies: dyspnea GI: Denies: abdominal pain, nausea, vomiting or diarrhea : Denies: dysuria Musc: Denies: neck pain or back pain Skin/Breast: Denies: rash Neuro: Denies: headache(s) Psych: Denies: depression Dinh/Lymph: Denies: easy bruising All/Imm: Denies: urticaria PFSH ED PFSH: Medical History Acquired spondylolisthesis Acute bilateral low back pain Anemia Central sleep apnea Chronic sinusitis Deviated septum Dysphonia Enlarged thyroid Essential hypertension Hyperlipidemia Intervertebral disc disorders with radiculopathy, lumbar region Lumbar stenosis with neurogenic claudication Nasal turbinate hypertrophy Neuropathic peripheral nerve Osteoporosis Postnasal drip Sacral fracture, closed Sensorimotor neuropathy Multifocal Spondylolisthesis, lumbar region Trigger ring finger of right hand Type 2 diabetes mellitus without complications Unspecified fracture of sacrum, initial encounter for closed fracture Vocal cord polyp Surgical History H/O breast biopsy H/O heart artery stent H/O: hysterectomy History of appendectomy History of bladder surgery History of thyroidectomy 03/02/2020 [facility]. Hx of hand surgery Family History Father CAD (coronary artery disease) Hypertension Cancer Diabetes Mother CAD (coronary artery disease) Hypertension Grandmother Cancer Diabetes Social History Smoking and tobacco status: current every day smoker cigarettes Packs smoked per day: 0.5 Alcohol intake: never Household members: spouse Marital status: Current occupational status: disabled History of recent travel: No Physical Exam Const: COMMON NORMALS: no acute distress, patient oriented x3 and healthy appearing HENMT: COMMON NORMALS: normocephalic and atraumatic HEAD & SCALP: normocephalic and atraumatic Eye: COMMON NORMALS: Equal, round and reactive pupils present and EOMs intact bilaterally PUPIL: Yes Equal, round and reactive pupils present Neck/C-Spine: COMMON NORMALS: full ROM and supple Chest: COMMONS NORMALS: normal inspection of the chest and normal palpation of entire chest wall Resp: COMMON NORMALS: normal respiratory effort, No retractions, No use of accessory muscles and clear to auscultation bilaterally AUSCULTATION: clear to auscultation bilaterally Cardio: COMMON NORMALS: regular rate, regular rhythm and No murmurs present (Cardio) RATE: regular rate RHYTHM: regular rhythm GI: COMMON NORMALS: Normal to inspection, nondistended, normoactive bowel sounds present, Soft to palpation, non-tender and no masses PALPATION: Yes Soft to palpation Extremity: COMMON NORMALS: normal to inspection and full ROM Neuro: COMMON NORMALS: patient oriented x3, moves all extremities and no focal motor deficits Psych: COMMON NORMALS: mental status grossly normal, Normal thought process present and cooperative THOUGHT PROCESS: Normal thought process present Skin: COMMON NORMALS: no rashes or lesions noted and no wounds GENERAL SKIN EXAM: no rashes or lesions noted Course Vital Signs: Vital signs: Vital Signs Temperature 97.1 F L 04/08/20 11:26 Pulse Rate 61 04/08/20 11:26 Respiratory Rate 18 04/08/20 11:26 Blood Pressure 126/85 04/08/20 11:26 Pulse Oximetry 100 04/08/20 11:26 MDM - Dizziness MDM Narrative: Medical decision making narrative: Dana presents here with lightheadedness and near syncope over the last 2 weeks with low blood pressures. Her blood pressure here is been normal. She is on 20 mg of metoprolol twice daily I informed her she needs to half that dose and monitor her blood pressure. Blood work here is all normal and she has no signs of cardiac cause. She is to follow-up with her PCP in 1 week to go over her BP results. She is return to the ER if she has any worsening symptoms. She understands and agrees to this plan. Lab Data: Labs: Lab Results 04/08/20 04/08/20 Range/Units 12:10 12:10 WBC 6.1 (4.0-10.0) 10^3/ uL RBC 2.86 L (4.1-5.3) 10^6/u L Hgb 9.9 L (11.5-15.3) g/dL Hct 32.3 L (37.0-47.0) % MCV 112.9 H (81-99) fL MCH 34.6 H (28.0-34.0) pg MCHC 30.7 (30.0-36.0) g/dL RDW 24.1 H (12.1-15.1) % Plt Count 296 (130-400) 10^3/c mm MPV 9.5 (7.4-10.4) fL Neut % (Auto) 66.7 % Lymph % (Auto) 22.5 % [place] % (Auto) 7.7 % Eos % (Auto) 1.8 % Baso % (Auto) 1.0 % Neut # (Auto) 4.08 (1.8-7.7) 10^3/u L Lymph # (Auto) 1.4 (0.8-4.8) 10^3/u L [place] # (Auto) 0.5 (0.2-0.9) 10^3/u L Eos # (Auto) 0.1 (0.0-0.8) 10^3/u L Baso # (Auto) 0.1 (0.0-0.1) 10^3/u L Nucleated RBC % (a uto) 0.3 % Nucleated RBCs # 0.0 /100WBC Sodium 137 (136-145) mmol/L Potassium 4.0 (3.5-5.1) mmol/L Chloride 100 (98-107) mmol/L Carbon Dioxide 28 (22-29) mmol/L Anion Gap 13.0 (5-19) BUN 22 (8-23) mg/dL Creatinine 1.0 H (0.5-0.9) mg/dL GFR Calculation 56.6 L (90-130) mL/min Glucose 108 (65-115) mg/dL Calculated Osmolal ity 288 (285-295) mOsm/k g Calcium 9.2 (8.5-10.5) mg/dL Total Bilirubin 0.2 (0.15-1.2) mg/dL AST 34 H (0-32) U/L ALT 28 (0-33) U/L Alkaline Phosphata se 66 (35-105) IU/L Total Protein 7.3 (6.6-8.7) g/dL Albumin 4.8 (3.5-5.2) g/dL Globulin 2.5 (1.3-4.6) g/dL EKG Data^: EKG 1: Attestation: I personally reviewed and interpreted this EKG as follows: EKG interpretation date: 04/08/20 EKG interpretation time: 12:07 Interpretation: nsr hr [address] or t wave abnormalities qrs 98 qtc 408 Discharge Plan Discharge Patient Disposition: Home Clinical Impression: Near syncope Condition: Stable Prescriptions: No Action nitroglycerin [Nitrostat] 0.4 mg tablet, sublingual 0.4 mg SUBLINGUAL PRN PRN (Reason: Chest Pain) RF: 0 aspirin 325 mg tablet 325 mg PO DAILY RF: 0 (DME) wheelchair See Rx Instructions .Route .MEDSUPPLY Qty: 1 RF: 0 (DME) diabetic shoes See Rx Instructions .Route .MEDSUPPLY Qty: 1 RF: 0 montelukast [Singulair] 10 mg tablet 10 mg PO DAILY Qty: 90 RF: 1 gabapentin 600 mg tablet 600 mg PO TID Qty: 90 RF: 1 Crestor 40 mg tablet 20 mg PO DAILY Qty: 45 RF: 0 Hold Instructions: Resume on 10/25/19. after follow up of liver function with PMD hydrochlorothiazide 25 mg tablet 25 mg PO DAILY Qty: 30 RF: 3 (DME) blood-glucose meter [Accu-Chek Alyson Plus Meter] Misc See Rx Instructions .ROUTE .MEDSUPPLY Qty: 1 RF: 0 (DME) Accu-Chek Alyson Plus test strp Strip See Rx Instructions .ROUTE .MEDSUPPLY Qty: 100 RF: 3 metoprolol tartrate 50 mg tablet 50 mg PO BID Qty: 60 RF: 1 clopidogrel [Plavix] 75 mg tablet 75 mg PO DAILY Qty: 90 RF: 1 Acetaminophen Extra Strength 500 mg Tablet 1,000 mg PO PRN RF: 0 Euthyrox 50 mcg tablet 50 mcg PO QAM RF: 0 vitamin E Oil 1 applic TOPICAL PRN RF: 0 Tums See Rx Instructions .ROUTE .COMPLEX RF: 0 Vitamin B-12 1 tab PO DAILY RF: 0 metformin 500 mg tablet extended release 24hr 500 mg PO BID RF: 0 albuterol sulfate [ProAir HFA] 90 mcg/actuation Hfa Aerosol Inhaler 2 puff INHALATION QID PRN (Reason: Shortness Of Breath) RF: 0 Discharge Orders: Discharge Order (Routine); Ordered 04/08/20 Ordered By: Joel Mills Referrals: Charis Carcamo DO [Primary Care Provider] - 1-3 days Discharge Diet: Advance as tolerated Discharge Activity: Resume usual activity Patient Instructions: Near Syncope (ED) Coding Level of Care Code ED Pediatric Clinical Dietician for Chg Fwd Exam Comprehensive
[2020-04-08] MEDS: sodium chloride 0.9% 1,000 ML 999 ML IV (12:25)
[2020-04-08 12:26] LABS: Basophils # 0.1 10^3/uL (0.0-0.1); Eosinophils # 0.1 10^3/uL (0.0-0.8); Eosinophils % 1.8 %; Hematocrit 32.3 % (37.0-47.0); Hemoglobin 9.9 g/dL (11.5-15.3); Lymphocytes # 1.4 10^3/uL (0.8-4.8); Lymphocytes % 22.5 %; Mean Corpuscular HGB Conc 30.7 g/dL (30.0-36.0); Mean Corpuscular Hemoglobin 34.6 pg (28.0-34.0); Mean Corpuscular Volume 112.9 fL (81-99); Mean Platelet Volume 9.5 fL (7.4-10.4); Monocytes # 0.5 10^3/uL (0.2-0.9); Monocytes % 7.7 %; Neutrophils # 4.08 10^3/uL (1.8-7.7); Neutrophils % 66.7 %; Nucleated Red Blood Cells % 0.3 %; Platelet Count 296 10^3/cmm (130-400); Red Blood Count 2.86 10^6/uL (4.1-5.3); Red Cell Distribution Width 24.1 % (12.1-15.1); White Blood Count 6.1 10^3/uL (4.0-10.0)
[2020-04-08 12:49] LABS: Alanine Aminotransferase 28 U/L (0-33); Albumin Level 4.8 g/dL (3.5-5.2); Alkaline Phosphatase 66 IU/L (35-105); Aspartate Amino Transferase 34 U/L (0-32); Blood Urea Nitrogen 22 mg/dL (8-23); Calcium 9.2 mg/dL (8.5-10.5); Carbon Dioxide 28 mmol/L (22-29); Chloride 100 mmol/L (98-107); Globulin 2.5 g/dL (1.3-4.6); Glomerular Filtration Rate 56.6 mL/min (90-130); Glucose 108 mg/dL (65-115); Osmolality Calculated 288 mOsm/kg (285-295); Sodium 137 mmol/L (136-145); Total Bilirubin 0.2 mg/dL (0.15-1.2); Total Protein 7.3 g/dL (6.6-8.7)
[2020-04-08 14:14] VITALS: BP 114/59; PULSE 62; RESP 20; O2SAT 100
== END 2020-04-08 14:14 | disposition home or self-care (01) ==
PROVIDERS: Emergency Provider Emergency Medicine; PCP Family Medicine
DX: R55 Syncope and collapse (principal); Z79.82 Long term (current) use of aspirin; Z79.02 Long term (current) use of antithrombotics/antiplatelets; I10 Essential (primary) hypertension; E78.5 Hyperlipidemia, unspecified; E11.9 Type 2 diabetes mellitus without complications; F17.210 Nicotine dependence, cigarettes, uncomplicated
CPT/HCPCS: 12345; 80053; 85025; 93005; 96360; 99282; 99283; J7030

== ENCOUNTER → 2020-04-21 10:19 | Outpatient (BNVA) | payer MEDICAID, SELFPAY | PROVIDERS: PCP Family Medicine; Visit Provider Licensed Practical Nurse | DX: M51.16 Intervertebral disc disorders with radiculopathy, lumbar region (principal); G62.9 Polyneuropathy, unspecified; M81.0 Age-related osteoporosis without current pathological fracture; S32.10XA Unspecified fracture of sacrum, initial encounter for closed fracture; X58.XXXA Exposure to other specified factors, initial encounter | CPT/HCPCS: 99213 ==

== ENCOUNTER 2020-04-27 07:55 | Outpatient (CLI) | payer MEDICAID, SELFPAY ==
[2020-04-27 08:20] VITALS: BMI 37.0
--- NOTE | 2020-04-27 08:20 | NMCV_ITS ---
NM adia perf SPECT r/s* [id number] Dana Gusman Age: 59 Gender: F : 1960 Exam Date: 04/27/2020 09:05 Ordering Phys: Charsi Carcamo DO Technologist: KODI Bauman Exam Location: [facility] Indications: Synope STRESS TEST Please see separate stress test report in [facility] for full findings IMAGE PROTOCOL Rest/Stress 1 Lexiscan Day Radiopharmaceutical Dose (mCi) Administration Site Administered by Rest: Tc-99m 10.9 IV KODI Bauman Sestamibi Stress:Tc-99m 33.0 IV KODI Bauman Sestamibi Rest: 27-Apr-2020 60 Discovery 630 Stress: 27-Apr-2020 45 Discovery 630 0.4mg Lexiscan. Images obtained in supine and prone position. SPECT RESULTS Technical Quality: Good Raw Data Analysis: Breast attenuation Image Corrections: No attenuation or motion correction applied Summed Stress Score: 3 Summed Rest Score: 0 Summed Difference Score: 3 PERFUSION FINDINGS SPECT images demonstrate homogeneous tracer distribution throughout the myocardium. FUNCTIONAL RESULTS (calculated via Gated SPECT) Stress Image LV EF (%): 87 Stress EDV (mL):76 TID: 1.15 Stress ESV (mL):10 Rest Image LV EF (%): 80 FUNCTIONAL FINDINGS: There is hyperdynamic left ventricular systolic function. IMPRESSIONS Myocardial perfusion imaging is normal.TID ratio is elevated which could be secondary left ventricle hypertrophy/subendocardial ischemia in the absence of other parameters for obstructive coronary artery disease. EKG segment will be documented separately Carly Buenrostro MD (Electronically Signed) Final Date: 27 April 2020 19:03 S
[2020-04-27] MEDS: regadenoson 0.4 Mg/5 ml Syringe IVP (09:57)
[2020-04-27 09:58] VITALS: BP 160/69; PULSE 99
--- NOTE | 2020-04-27 10:45 | ECG_ITS ---
[facility] Test Date: 2020-04-27 Pat Name: Dana Gusman Department: Room: Gender: Female Governor Assembler: Juliana Asencio : 1960 Requested By: Charis Carcamo Order Number: [id number] Charo MD: LILIA RUTLEDGE Interpretive Statements NAME OF STUDY: LEXISCAN SESTAMIBI STRESS TEST INDICATION: Chest Pain, NOTE: Please note that this is the electrocardiogram portion of the Lexiscan/Sestamibi stress test. The perfusion scan will be documented separately. DATA: Baseline heart rate was 72 beats per minute. Baseline blood pressure was 161/82 millimeters of mercury. Target heart rate was 160. Maximum heart rate achieved was 103. which was 64% of the predicted target heart rate. Maximum blood pressure was 162/82 millimeters of mercury. The reason for ending the test was completion of the protocol. The patient did not experience any symptoms. ELECTROCARDIOGRAM: BASELINE: Sinus rhythm. Normal axis. Old anterior wall myocardial infarction or lead placement EXERCISE: After Lexiscan injection, no ST-T changes suggestive of ischemic noted. No arrhythmia noted. CONCLUSION: Please note due to baseline abnormality of the EKG specificity and sensitivity of the EKG portion of LexiScan MIBI stress test will be low 1. EKG not suggestive of ischemia 2. Lexiscan injection unremarkable. 3. Perfusion scan will be documented separately. Electronically Signed On 04-30-2020 15:40:00 PHP DEVELOPER by LILIA RUTLEDGE [id number]
== END 2020-04-27 07:56 | disposition home or self-care (01) ==
LOC: RAD 08:02 → CDL 08:13
PROVIDERS: PCP Family Medicine; Visit Provider Family Medicine
DX: R55 Syncope and collapse (principal); R07.9 Chest pain, unspecified
CPT/HCPCS: 78452; 93017; A9500; J2785

== ENCOUNTER 2020-04-29 06:50 | Outpatient (CLI) | payer MEDICAID, SELFPAY ==
--- NOTE | 2020-04-29 07:15 | USCV_ITS ---
Dana Gusman Age: 59 Gender: F : 1960 Exam Date: 04/29/2020 07:04 Ordering Phys: Charis Carcamo DO Technologist: Ann-Marie Guaman Exam Location: [facility] Indication: PRE SYNCOPE EPISODE Risk Factors: Unknown Previous Vascular Surgery: None Right Brachial BP: / Left Brachial BP: / Right Left Velocity (cm/s) Spectral Plaque Velocity (cm/s) Spectral Plaque Syst/Diast Broadening Syst/Diast Broadening 88.20/ 15.40 Prox CCA 96.20 / 25.30 79.40/ 24.60 Mid CCA 69.70 / 21.80 78.80/ 17.80 Hetro Distal CCA 64.50 / 25.00 70.70/ 21.00 Hetro Prox ICA 85.30 / 30.20 58.90/ 20.40 Mid ICA 89.70 / 31.50 57.40/ 18.40 Distal ICA 89.70 / 25.90 110.30 Hetro ECA 88.40 0.89 ICA/CCA 1.29 Antegrade Vertebral Antegrade 70.10/ 21.90 cm/s 44.00/ 15.60 cm/s Tri Subclavian Tri 86.00 81.00 FINDINGS Comparison:. 06/30/14. No significant elevation of systolic or diastolic velocities. Waveforms are normal. Mixture of minimal calcified and noncalcified plaque in the carotid arteries. CONCLUSIONS Bilateral ICA stenosis less than 50%. No interval change in stenosis since prior exam. Dr. Luz Elena Canada DO (Electronically Signed) Final Date: 29 April 2020 08:13 S
== END 2020-04-29 06:51 | disposition home or self-care (01) ==
LOC: US 06:50
PROVIDERS: PCP Family Medicine; Visit Provider Family Medicine
DX: R55 Syncope and collapse (principal); I65.23 Occlusion and stenosis of bilateral carotid arteries
CPT/HCPCS: 93880

== ENCOUNTER 2020-05-05 06:01 | Outpatient (CLI) | payer MEDICAID, SELFPAY ==
[2020-05-05 10:17] LABS: Basophils # 0.1 10^3/uL (0.0-0.1); Eosinophils # 0.1 10^3/uL (0.0-0.8); Hematocrit 29.6 % (37.0-47.0); Hemoglobin 8.3 g/dL (11.5-15.3); Lymphocytes # 1.2 10^3/uL (0.8-4.8); Lymphocytes % 19.2 %; Mean Corpuscular Hemoglobin 28.7 pg (28.0-34.0); Mean Corpuscular Volume 102.4 fL (81-99); Mean Platelet Volume 9.4 fL (7.4-10.4); Monocytes # 0.5 10^3/uL (0.2-0.9); Monocytes % 8.5 %; Neutrophils # 4.21 10^3/uL (1.8-7.7); Neutrophils % 69.1 %; Nucleated Red Blood Cells % 0 %; Platelet Count 360 10^3/cmm (130-400); Red Blood Count 2.89 10^6/uL (4.1-5.3); Red Cell Distribution Width 18.6 % (12.1-15.1); White Blood Count 6.1 10^3/uL (4.0-10.0)
[2020-05-05 11:03] LABS: Ferritin 27 ng/mL (15-150); Iron 20 ug/dL (37-145); Percent Saturation 4.3 % (20-50); Total Iron Binding Capacity 463 mcg/dl; Unsaturated Iron Binding 443 ug/dL (112-347)
== END 2020-05-05 06:02 | disposition home or self-care (01) ==
LOC: ONCMED 06:06
PROVIDERS: PCP Family Medicine; Visit Provider Internal Medicine Hematology & Oncology
DX: D50.9 Iron deficiency anemia, unspecified; S32.10XA Unspecified fracture of sacrum, initial encounter for closed fracture; X58.XXXA Exposure to other specified factors, initial encounter; M51.16 Intervertebral disc disorders with radiculopathy, lumbar region; A48.1 Legionnaires' disease; G62.9 Polyneuropathy, unspecified; M81.0 Age-related osteoporosis without current pathological fracture
CPT/HCPCS: 36415; 82728; 83540; 83550; 85025; 99213

== ENCOUNTER 2020-05-06 05:42 | Outpatient (CLI) | payer MEDICAID, SELFPAY ==
--- NOTE | 2020-05-06 13:03 | ONC FU_ITS ---
Dr. Garza follow up note Patient: Dana Gusman Unit #: [id number]: 1960 Dicatated By: Yumiko Garza M.D.Date of Visit:May 06, 2020 Onc Med Follow-up/Prog Note History of Present Illness: Mrs. Dana Gusman, 59 -year-old female with history of palpitation, dyspnea on exertion for the last one year, recently diagnosed with iron deficiency anemia started on oral iron. And she is experiencing some heartburn indigestion with this. Also chew ice all the time. Patient said she was losing blood in her stools so underwent EGD and colonoscopy by Dr. Campbell On 02/07/2017 and both showed no abnormalities subsequently underwent capsule endoscopy on 09/25/2017 for persistent iron deficiency anemia and it showed a few tiny nonbleeding AVMs No history of jaundice, no history of blood transfusion except during her last , no history of gross bleeding, CBC from 04/05/2017 showed white blood count 4.7 with normal differential hemoglobin 7.8 crit 25.3 MCV 61.3, platelets 275,000 Status post Injectafer 750 mg weekly ???2 on January 04 and 2017 With excellent response hemoglobin gone up to 15.8 hematocrit 47.8 and ferritin 104.7 on 02/09/2018 And again Injectafer' 750 mg IV ???2 given on 11/16 and 11/23/2018 with that her hemoglobin improved from 11.3-15.1 and ferritin gone up to 106 compared to 7 prior to infusion. Patient is overweight, and also has issues with sleeping so, clinically she may have underlying sleep apnea Underwent colonoscopy and EGD on 05/14/2019 for progressive iron deficiency anemia and EGD showed no esophageal abnormality and there is mild gastric erosions in the antrum and along with mild duodenitis but no evidence of gross bleeding and colonoscopy was normal exam except internal hemorrhoids. Patient received Injectafer 750 mg IV weekly ???2 on April 11 and 04/18/2019 with excellent response e.g. muslim of iron stores, ferritin 225 compared to 9 prior and improvement in hemoglobin from 12.8 to 15 g Patient underwent thyroidectomy at [facility] in [place] on March 02, 2020, as per patient she was told there is no sign of malignancy and she was started on thyroid supplements. Came for follow-up, complaining of generalized weakness and fatigue, off-and-on darker stools and once blood in her stool. No jaundice, no hemoptysis or hematemesis, no abdominal pain. But dyspnea and palpitation on exertion. No chest pain, occasional lightheadedness. And leg cramps, No fever chills, no nausea or vomiting, no diarrhea or constipation Medications: Aspirin 1 (325 mg) Tablet Oral daily, Crestor 1 (20 mg) Tablet Oral daily, Gabapentin 1 (600 mg) Tablet Oral b.i.d., MetFORMIN HCl 1 (1000 mg) Tablet Oral b.i.d., Metoprolol Tartrate 1 (50 mg) Tablet Oral b.i.d., Nitroglycerin 1 (0.4 mg) Tablet, sublingual Sublingual PRN, Singulair 1 (10 mg) Tablet Oral daily, Synthroid 1 Tablet (of 25 mcg) Oral daily, Tums 2 Tablet Tablet, chewable Oral daily, Vitamin D 1 Tablet Oral daily Allergies: Abilify, AmLODIPine Bes+SyrSpend SF, AmLODIPine Besylate, Amoxicillin, Bactrim DS, BusPIRone HCl, Ceftin, Cefuroxime Axetil, celexa , Cephalexin, Cetirizine HCl, Ciprofloxacin HCl, Cymbalta, Dexilant, DULoxetine HCl, Effexor XR, Enablex, fomotidine, Fosamax, HydroCHLOROthiazide, HydrOXYzine HCl, Levaquin, lisinopril, Lovaza, Lyrica, methocarb, Mirapex, Omeprazole, PARoxetine HCl, Penicillins, PredniSONE, PriLOSEC, Protonix, Pseudoephedrine HCl, SEROquel, traMADol HCl, VESIcare, Zoloft, and ZyrTEC Allergy. Review of Systems: Constitutional - Appetite is fair and weight is stable. No fever, chills, hot flashes, or night sweats. Energy level is poor, ENMT - No sinus congestion/drainage. No mouth sores. No sore throat or difficulty swallowing, Hematologic/Lymphatic - No abnormal bruising or bleeding, Respiratory - Frequent Shortness of breath . No cough. No pleuritic pain or hemoptysis, Cardiovascular - No angina pain. No palpitations, Gastrointestinal - No nausea or vomiting. Occasional heartburn or acid reflux. No diarrhea or constipation. No bloody or black stools, Genitourinary (F) - Patient has some dysuria. No hematuria. No urinary frequency. No urgency or incontinence, Musculoskeletal - Chronic joint pain, Neurologic - Frequent headache, no dizziness. Patient has some occasional numbness/paresthesias in hands and feet.No other focal neurologic symptoms, Psychiatric - No anxiety or depression. Patient reports some insomnia. Vital Signs: Performed on May 06, 2020 12:25 Height - 57.00 in Weight - 182.6 lbs (HIGH) BSA - 1.73 sq.m BMI - 39.51 (HIGH) Temperature - 97.3 F (LOW) Pulse - 70 /min Respiration - 18 /min BP - 120/59 mm(hg) O2 Sat - 100 % Pain - 0 Performance Status: 1 - No physically strenuous activity, but ambulatory and able to carry out light or sedentary work (e.g. office work, light house work). (ECOG) Physical Examination: ENMT - No mouth sores, no thrush, no jaundice, Respiratory - Lungs are clear to auscultation, Cardiovascular - Regular rate and rhythm of heart, Abdomen - Soft, bowel sounds present, Extremities - No visible edema. Lab/Imaging: Test performed on Mar 18, 2020 09:50 Ferritin 13 ng/mL Iron 21 mcg/dL Iron Binding Capacity (TIBC) 382 mcg/dl % Iron Saturation 5.4 % UIBC 361 mcg/dL WBC 8.4 10 3/uL RBC 3.52 10 6/uL HGB 10.5 g/dL HCT 34.7 % MCV 98.6 fL MCH 29.8 pg MCHC 30.3 g/dL RDW 16.7 % Platelet Count 387 10 3/cmm MPV 8.9 fL Neutrophils 6.41 10 3/uL Lymphocytes 1.3 10 3/uL Monocytes 0.5 10 3/uL Eosinophils 0.1 10 3/uL Basophils 0.1 10 3/uL Neutrophil % 76.5 % Lymphocyte % 15.4 % Monocyte % 5.6 % Eosinophil % 1.3 % Basophils % 0.7 % NRBC % 0 % Test performed on Dec 10, 2019 07:55 Folate, Serum 5.1 ng/mL Vitamin B12 337 pg/mL Impression: Microcytic hypochromic anemia due to iron deficiency due to chronic GI blood loss or and iron malabsorption. Now with oral iron intolerance. Colonoscopy and EGD done on 02/07/2017 showed no abnormality Status post Injectafer weekly ???2 in April 2017 With excellent response Status post Injectafer 750???2 in January 2018 With excellent response showed hemoglobin 15.8 hematocrit 47.8 ferritin 104.7 on 02/09/20189 Injectafer infusion done on 11/16/2018 and 11/23/2018 4 hemoglobin 11.3 hematocrit 30 5., ferritin 7 and iron saturation 4.4, postinfusion hemoglobin on 12/24/2018 was 15.1, hematocrit 44.9 and ferritin was 106. Capsule endoscopy done on 09/25/2017 showed there were 2 tiny nonbleeding AVMs that were noted, there was no blood or stigmata of recent bleeding appreciated otherwise normal study. 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 We will proceed with Injectafer 750 mg IV weekly x2 and then she will return to clinic 1 month after with CBC and iron studies, patient was advised in case there is a worsening of symptoms or further bleeding per rectum she need to call us or go to hospital for evaluation.^ We will also refer her to GI clinic at [facility] for evaluation regarding history of small bowel AVMs] Signed By: Yumiko Garza M.D. <<Signature on File>>
== END 2020-05-06 05:43 | disposition home or self-care (01) ==
LOC: ONCMED 05:43
PROVIDERS: PCP Family Medicine; Visit Provider Internal Medicine Hematology & Oncology
DX: D50.0 Iron deficiency anemia secondary to blood loss (chronic) (principal); D50.8 Other iron deficiency anemias; Q27.33 Arteriovenous malformation of digestive system vessel
CPT/HCPCS: 99214

== ENCOUNTER 2020-05-07 06:20 | Outpatient (CLI) | payer MEDICAID, SELFPAY ==
[2020-05-07] MEDS: ferric carboxy (IVPB) 750 MG in sodium chloride 0.9% (100 ml) 100 ML 345 MG IV (14:35)
== END 2020-05-07 06:21 | disposition home or self-care (01) ==
LOC: ONCMED 06:21
PROVIDERS: PCP Family Medicine; Visit Provider Internal Medicine Hematology & Oncology
DX: D50.9 Iron deficiency anemia, unspecified (principal); A48.1 Legionnaires' disease
CPT/HCPCS: 96365; J1439

== ENCOUNTER 2020-05-14 06:24 | Outpatient (CLI) | payer MEDICAID, SELFPAY ==
[2020-05-14] MEDS: ferric carboxy (IVPB) 750 MG in sodium chloride 0.9% (100 ml) 100 ML 345 MG IV (14:14)
== END 2020-05-14 06:25 | disposition home or self-care (01) ==
LOC: ONCMED 06:25
PROVIDERS: PCP Family Medicine; Visit Provider Internal Medicine Hematology & Oncology
DX: D50.9 Iron deficiency anemia, unspecified (principal); A48.1 Legionnaires' disease
CPT/HCPCS: 96365; J1439

== ENCOUNTER 2020-06-18 08:29 | Outpatient (CLI) | payer MEDICAID, SELFPAY ==
[2020-06-18 08:54] LABS: Basophils # 0.1 10^3/uL (0.0-0.1); Basophils % 0.8 %; Eosinophils # 0.2 10^3/uL (0.0-0.8); Eosinophils % 2.9 %; Hematocrit 33.1 % (37.0-47.0); Hemoglobin 9.8 g/dL (11.5-15.3); Lymphocytes # 1.2 10^3/uL (0.8-4.8); Lymphocytes % 20.5 %; Mean Corpuscular HGB Conc 29.6 g/dL (30.0-36.0); Mean Corpuscular Hemoglobin 31.2 pg (28.0-34.0); Mean Corpuscular Volume 105.4 fL (81-99); Mean Platelet Volume 9.2 fL (7.4-10.4); Monocytes # 0.4 10^3/uL (0.2-0.9); Monocytes % 7.4 %; Neutrophils # 4.04 10^3/uL (1.8-7.7); Neutrophils % 68.1 %; Nucleated Red Blood Cells % 0 %; Platelet Count 280 10^3/cmm (130-400); Red Blood Count 3.14 10^6/uL (4.1-5.3); Red Cell Distribution Width 18.7 % (12.1-15.1); White Blood Count 5.9 10^3/uL (4.0-10.0)
[2020-06-18] MEDS: ferric carboxy (IVPB) 750 MG in sodium chloride 0.9% (100 ml) 100 ML 460 MG IV (11:30)
--- NOTE | 2020-06-19 08:10 | ONC FU_ITS ---
Dr. Garza follow up note Patient: Dana Gusman Unit #: [id number]: [id number] Dicatated By: Yumiko Garza M.D.Date of Visit:Jun 18, 2020 Onc Med Follow-up/Prog Note History of Present Illness: Mrs. Dana Gusman, 59 -year-old female with history of palpitation, dyspnea on exertion for the last one year, recently diagnosed with iron deficiency anemia started on oral iron. And she is experiencing some heartburn indigestion with this. Also chew ice all the time. Patient said she was losing blood in her stools so underwent EGD and colonoscopy by Dr. Campbell On 02/07/2017 and both showed no abnormalities subsequently underwent capsule endoscopy on 09/25/2017 for persistent iron deficiency anemia and it showed a few tiny nonbleeding AVMs No history of jaundice, no history of blood transfusion except during her last , no history of gross bleeding, CBC from 04/05/2017 showed white blood count 4.7 with normal differential hemoglobin 7.8 crit 25.3 MCV 61.3, platelets 275,000 Status post Injectafer 750 mg weekly ???2 on January 04 and 2017 With excellent response hemoglobin gone up to 15.8 hematocrit 47.8 and ferritin 104.7 on 02/09/2018 And again Injectafer' 750 mg IV ???2 given on 11/16 and 11/23/2018 with that her hemoglobin improved from 11.3-15.1 and ferritin gone up to 106 compared to 7 prior to infusion. Patient is overweight, and also has issues with sleeping so, clinically she may have underlying sleep apnea Underwent colonoscopy and EGD on 05/14/2019 for progressive iron deficiency anemia and EGD showed no esophageal abnormality and there is mild gastric erosions in the antrum and along with mild duodenitis but no evidence of gross bleeding and colonoscopy was normal exam except internal hemorrhoids. Patient received Injectafer 750 mg IV weekly ???2 on April 11 and 04/18/2019 with excellent response e.g. yarsani of iron stores, ferritin 225 compared to 9 prior and improvement in hemoglobin from 12.8 to 15 g Patient underwent thyroidectomy at [facility] in [place] on March 02, 2020, as per patient she was told there is no sign of malignancy and she was started on thyroid supplements. Came for follow-up, complaining of generalized weakness and fatigue and also dark-colored stools but no fresh blood per rectum., No jaundice, no hemoptysis or hematemesis, no abdominal pain. Patient was referred to [place] for capsule endoscopy, patient still awaiting the appointment., Last time, she was given parenteral Injectafer in May 2020,, which she tolerated well. Medications: Aspirin 1 (81 mg) Tablet Oral daily, Crestor 1 (20 mg) Tablet Oral daily, Gabapentin 1 (600 mg) Tablet Oral b.i.d., MetFORMIN HCl 1 (1000 mg) Tablet Oral b.i.d., Metoprolol Tartrate 1 (50 mg) Tablet Oral b.i.d., Nitroglycerin 1 (0.4 mg) Tablet, sublingual Sublingual PRN, Singulair 1 (10 mg) Tablet Oral daily, Synthroid 1 Tablet (of 25 mcg) Oral daily, Tums 2 Tablet Tablet, chewable Oral daily, Vitamin D 1 Tablet Oral daily Allergies: Abilify, AmLODIPine Bes+SyrSpend SF, AmLODIPine Besylate, Amoxicillin, Bactrim DS, BusPIRone HCl, Ceftin, Cefuroxime Axetil, celexa , Cephalexin, Cetirizine HCl, Ciprofloxacin HCl, Cymbalta, Dexilant, DULoxetine HCl, Effexor XR, Enablex, fomotidine, Fosamax, HydroCHLOROthiazide, HydrOXYzine HCl, Levaquin, lisinopril, Lovaza, Lyrica, methocarb, Mirapex, Omeprazole, PARoxetine HCl, Penicillins, PredniSONE, PriLOSEC, Protonix, Pseudoephedrine HCl, SEROquel, traMADol HCl, VESIcare, Zoloft, and ZyrTEC Allergy. Review of Systems: Review of Systems is not available for this patient. Vital Signs: Performed on Jun 18, 2020 11:13 Height - 57.00 in Weight - 186.0 lbs (HIGH) BSA - 1.74 sq.m BMI - 40.25 (HIGH) Temperature - 97.9 F (LOW) Pulse - 69 /min Respiration - 18 /min BP - 133/68 mm(hg) O2 Sat - 97 % Pain - 8 Performance Status: 1 - No physically strenuous activity, but ambulatory and able to carry out light or sedentary work (e.g. office work, light house work). (ECOG) Physical Examination: ENMT - No mouth sores, no thrush, no jaundice, Respiratory - Lungs are clear to auscultation, Cardiovascular - Regular rate and rhythm of heart, Abdomen - Soft, bowel sounds Present, Extremities - Bilateral trace edema. Lab/Imaging: Test performed on May 05, 2020 09:50 Ferritin 27 ng/mL Iron 20 mcg/dL Iron Binding Capacity (TIBC) 463 mcg/dl % Iron Saturation 4.3 % UIBC 443 mcg/dL WBC 6.1 10 3/uL RBC 2.89 10 6/uL HGB 8.3 g/dL HCT 29.6 % MCV 102.4 fL MCH 28.7 pg MCHC 28.0 g/dL RDW 18.6 % Platelet Count 360 10 3/cmm MPV 9.4 fL Neutrophils 4.21 10 3/uL Lymphocytes 1.2 10 3/uL Monocytes 0.5 10 3/uL Eosinophils 0.1 10 3/uL Basophils 0.1 10 3/uL Neutrophil % 69.1 % Lymphocyte % 19.2 % Monocyte % 8.5 % Eosinophil % 2.0 % Basophils % 1.0 % NRBC % 0 % Impression: Microcytic hypochromic anemia due to iron deficiency due to chronic GI blood loss or and iron malabsorption. Now with oral iron intolerance. Colonoscopy and EGD done on 02/07/2017 showed no abnormality Status post Injectafer weekly ???2 in April 2017 With excellent response Status post Injectafer 750???2 in January 2018 With excellent response showed hemoglobin 15.8 hematocrit 47.8 ferritin 104.7 on 02/09/20189 Injectafer infusion done on 11/16/2018 and 11/23/2018 4 hemoglobin 11.3 hematocrit 30 5., ferritin 7 and iron saturation 4.4, postinfusion hemoglobin on 12/24/2018 was 15.1, hematocrit 44.9 and ferritin was 106. Capsule endoscopy done on 09/25/2017 showed there were 2 tiny nonbleeding AVMs that were noted, there was no blood or stigmata of recent bleeding appreciated otherwise normal study. Recent lab shows progressive iron deficiency anemia probably due to chronic GI bleeding from small bowel AVMs Plan: Discussed with patient regarding her labs white blood count 5.9 hemoglobin 9.8 hematocrit 33.1 platelets 280,000 Clinically, patient is doing reasonably well now with persistent iron deficiency anemia requiring parenteral iron more frequently, patient was referred to [place] for capsule endoscopy as in the past her EGD colonoscopy was unremarkable and capsule endoscopy done in September 2017 showed nonbleeding AVMs, no concern was whether she has active AVMs in small bowel causing persistent/recurrent iron deficiency anemia. Because of mildly symptomatic moderate iron deficiency anemia, will consider Injectafer 750 mg weekly x2 and then she will return to clinic 1 month after second dose with CBC and iron studies and in the meantime we will contact gastroenterology services in [place] for capsule endoscopy to evaluate small bowel for AVMs Signed By: Yumiko Garza M.D. <<Signature on File>>
== END 2020-06-18 08:30 | disposition home or self-care (01) ==
LOC: ONCMED 08:31
PROVIDERS: PCP Family Medicine; Visit Provider Internal Medicine Hematology & Oncology
DX: D50.9 Iron deficiency anemia, unspecified (principal); Q27.33 Arteriovenous malformation of digestive system vessel; Z79.899 Other long term (current) drug therapy
CPT/HCPCS: 85025; 96365; 99215; J1439

== ENCOUNTER 2020-06-25 06:17 | Outpatient (CLI) | payer MEDICAID, SELFPAY ==
[2020-06-25] MEDS: ferric carboxy (IVPB) 750 MG in sodium chloride 0.9% (100 ml) 100 ML 345 MG IV (14:10)
== END 2020-06-25 06:18 | disposition home or self-care (01) ==
LOC: ONCMED 06:17
PROVIDERS: PCP Family Medicine; Visit Provider Internal Medicine Medical Oncology
DX: D50.9 Iron deficiency anemia, unspecified (principal); A48.1 Legionnaires' disease
CPT/HCPCS: 96365; J1439

== ENCOUNTER → 2020-07-02 11:39 | Outpatient (BNVA) | payer MEDICAID, SELFPAY | PROVIDERS: PCP Family Medicine; Visit Provider Orthopaedic Surgery | DX: Z20.822 Contact with and (suspected) exposure to COVID-19 (principal); E11.9 Type 2 diabetes mellitus without complications; Z68.38 Body mass index [BMI] 38.0-38.9, adult; F17.219 Nicotine dependence, cigarettes, with unspecified nicotine-induced disorders | CPT/HCPCS: 80053; 83036; 87635 ==

== ENCOUNTER 2020-07-08 05:50 | Day surgery (SDC) | payer MEDICAID, SELFPAY ==
[2020-07-07 12:58] VITALS: BMI 38.4
--- NOTE | 2020-07-07 13:18 | PC.NURSE ---
During pre-op interview the patient stated that she had not been told to stop her Plavix. this nurse called and spoke with Dr. Turner's nurse who then spoke with him about the Plavix the nurse then told me that the did not think this would be a problem.
[2020-07-08] VITALS (9 sets, daily range): BP systolic 105–136; BP diastolic 61–78; PULSE 71–80; RESP 12–20; TEMP 36.1–36.9; O2SAT 95–100
--- NOTE | 2020-07-08 | XR_ITS ---
WS: [id number] C-ARM RADIOGRAPHS LUMBAR SPINE; 4 IMAGES HISTORY: L4/L5 L5/S1 decompression COMPARISON: 11/18/2019. Intraoperative imaging during spinal decompression at L4-5 and L5-S1. XR/XR lumbar spine 2-3V* [id number] IMPRESSION: Intraoperative imaging during spinal decompression.
--- NOTE | 2020-07-08 | SCC_ITS ---
Procedure Done: 1. L4/5 laminectomy and partial facetectomy bilateral 2. L5/S1 laminectomy and partial facetectomy bilateral 23.4 seconds of fluoroscopic guidance, for a cumulative dose of 10.67 mGy, was provided to Dr. Turner by the radiology department. C-arm images of the lumbar spine were saved for the patient's permanent record. [facility]
--- NOTE | 2020-07-08 06:26 | ANES.PREANE2 ---
Pre-Anesthetic Assessment Pre-Anesthetic Assessment: Height/Weight: Height 1.47 m Weight 83.461 kg Preop Diagnosis: lumbar stenosis Proposed Procedure: Operation Date: 07/08/20 07:00 Proposed Procedures p L4/5 L5/S1 MIS decompression 15871, 89976 M48.06(Not Applicable) - Parminder Turner DO Familial anesthetic complications: None Was Beta Marisel taken within 24 hours: N/A Last intake: NPO > 8 hrs Social: Social History: Tobacco and No alcohol Exam: Pre-Anes Outpt Exam: alert, oriented x 3, clear to auscultation bilaterally and regular rate & rhythm Airway: Cervical ROM: WNL MP: 4 Dentition: Other (no teeth) Pulmonary: Pulmonary: COPD CV/HEM: CV/HEM: CAD (stents > 5 yrs ago, stopped plavix only yesterday, surgeon aware) GI: GI: GERD Metabolic: Metabolic: DM, Hyperlipidemia, Morbid obesity and Thyroid Musc/skel: Musc/skel: Lower Back Pain Anesthetic Plan: ASA status: 3 Anesthesia: General Risk of > 500 ml blood loss (7ml/kg in children): No PFSH Anesthesia PFSH: Medical History Anemia Central sleep apnea Chronic sinusitis Deviated septum Dysphonia Enlarged thyroid Essential hypertension Hyperlipidemia Intervertebral disc disorders with radiculopathy, lumbar region Lumbar stenosis with neurogenic claudication Nasal turbinate hypertrophy Neuropathic peripheral nerve Osteoporosis Postnasal drip Sacral fracture, closed Sensorimotor neuropathy Multifocal Spondylolisthesis, lumbar region Trigger ring finger of right hand Type 2 diabetes mellitus without complications Unspecified fracture of sacrum, initial encounter for closed fracture Vocal cord polyp Surgical History H/O breast biopsy H/O heart artery stent H/O: hysterectomy History of appendectomy History of bladder surgery History of thyroidectomy 03/02/2020 [facility]. Hx of hand surgery Family History Father CAD (coronary artery disease) Hypertension Cancer Diabetes Mother CAD (coronary artery disease) Hypertension Grandmother Cancer Diabetes Social History Smoking and tobacco status: current every day smoker cigarettes Packs smoked per day: 0.5 Alcohol intake: never Household members: spouse Marital status: Current occupational status: disabled History of recent travel: No Data Anesthesia Cardiac Studies: Cardiac Event Monitor 06/02/20
[2020-07-08 06:29] LABS: Glucose Point of Care 130 mg/dL (70-110)
[2020-07-08] MEDS: sodium chloride 0.9% 1,000 ML 30 ML IV (06:31)
--- NOTE | 2020-07-08 06:43 | W.PM.OPSUD ---
Surgery/Procedure H&P Update DATE OF PROCEDURE: July 08, 2020 DATE H&P PERFORMED: 06/16/20 H&P UPDATE INFORMATION: I have reviewed H&P completed within last 30 days, I have examined patient prior to procedure and No changes to prior documentation PREOP DIAGNOSIS: lumbar stenosis PLANNED PROCEDURE: Operation Date: 07/08/20 07:00 Proposed Procedures p L4/5 L5/S1 MIS decompression 98819, 15169 M48.06(Not Applicable) - Parminder Turner DO
[2020-07-08] MEDS: clindamycin 600 MG/50 ML PREMIX 100 MG IV (06:52)
--- NOTE | 2020-07-08 08:48 | P.OP_ITS ---
Operative Report Date of procedure: July 08, 2020 Pre-op Diagnosis: lumbar stenosis Post-op diagnosis: same Procedure Done: 1. L4/5 laminectomy and partial facetectomy bilateral 2. L5/S1 laminectomy and partial facetectomy bilateral Surgeon: Parminder Turner Anesthesia: General Estimated blood loss (mL): 10 Disposition: PACU Procedure: Patient is brought to the operative suite. After undergoing anesthesia they are placed in the supine position. All areas of impingement are well padded. Patient is then prepped and draped in the normal sterile fashion. A skin incision is made over the L4/5/S1 level. This is confirmed under c-arm guidance. A series of dilators are passed and the tubular retractor is docked on the L4 lamina. A bovie is used to clear the soft tissue off the lamina and the L 4/5 facet joint. A high speed ana is then used to perform the laminectomy and take down the medial aspect of the L 4/5 facet joint. A kerrison rongeure was then used to take down the remaining lamina and smooth the edged of the laminectomy up to the point where the ligamentum flavum attaches. Attention was then brought to the medial aspect of the facet joint. The remaining medial aspect of the superior and inferior aspect of the facet joint were taken down with the kerrison from the pedicle of L4 to L 5. The facet joint had significant hypertrophy. Attention was then brought to the Ligamentum Flavum. The ligament was taken down from the lamina of L4 to L5 and out medially to the remaining facet joint. The ligament was thick. The dura was then exposed. The dura was in good repair. The L4 nerve was then traced with a curette out the L4/5 foramen and found to be adequately decompressed. The L5 nerve was traced with a curette around the L5 pedicle. The lateral recess was opened with a kerrison helping to further decompress the L5 nerve. The tubular retractor was then tilted to the contralateral side. The bovie was used to take down the soft tissue on the spinous process. The high speed ana was used to take down the spinous process and then the contralateral lamina of L4. The kerrison rongeur was used to take down the remaining lamina to the point where the ligamentum flavum attached and the ligamentum flavum was taken down from L4 to L5. The kerrison rongeur was then used to reach across and take down the medial aspect of the contralateral L4/5 facet joint.The currete was used to trace the contralateral L4 nerve out the L4/5 foramen to make sure it wa s decompressed adequatesly and the L5 was traced around the L5 pedicle. The lateral recess was opened further with the kerrison to ensure the L5 is adequately decompressed. Next attention is brought to the L5/S1 level: This is confirmed under c-arm guidance. A series of dilators are passed and the tubular retractor is docked on the L5 lamina. A bovie is used to clear the soft tissue off the lamina and the L 5/S1 facet joint. A high speed ana is then used to perform the laminectomy and take down the medial aspect of the L 5/S1 facet joint. A kerrison rongeure was then used to take down the remaining lamina and smooth the edged of the laminectomy up to the point where the ligamentum flavum attaches. Attention was then brought to the medial aspect of the facet joint. The remaining medial aspect of the superior and inferior aspect of the facet joint were taken down with the kerrison from the pedicle of L5 to S1. The facet joint had significant hypertrophy. Attention was then brought to the Ligamentum Flavum. The ligament was taken down from the lamina of L5 to S1 and out medially to the remaining facet joint. The ligament was thick. The dura was then exposed. The dura was in good repair. The L5 nerve was then traced with a curette out the L5/S1 foramen and found to be adequately decompressed. The S1 nerve was traced with a curette around the S1 pedicle. The lateral recess was opened with a kerrison helping to further decompress the L5 nerve. The tubular retractor was then tilted to the contralateral side. The bovie was used to take down the soft tissue on the spinous process. The high speed ana was used to take down the spinous process and then the contralateral lamina of L5. The kerrison rongeur was used to take down the remaining lamina to the point where the ligamentum flavum attached and the ligamentum flavum was taken down from L5 to S1. The kerrison rongeur was then used to reach across and take down the medial aspect of the contralateral L5/S1 facet joint.The currete was used to trace the contralateral L5 nerve out the L5/S1 foramen to make sure it was decompressed adequatesly and the S1 was traced around the S1 pedicle. The lateral recess was opened further with the kerrison to ensure the S1 is adequately decompressed. Wound is then irrigated copiously with saline and surgiflo is used to stop any bleeding. The tubular retractor is removed and the wound is closed with vicryl and monocryl suture. Glue is then used to protect the wound. A sterile dressing is then placed. Patient was then placed in the supine position and transferred to the PACU in stable condition.
[2020-07-08] MEDS: ipratropium 0.5 mg/2.5 mL Neb INHALATION (09:00)
--- NOTE | 2020-07-08 09:08 | SUR.PHASEI ---
0905- ORAL AIRWAY REMOVED, SIMPLE MASK IN PLACE AT 6LPM SAT 100%
[2020-07-08] MEDS: HYDROcodone-acetaminophen 5-325 mg Tablet 2 TAB PO (09:55)
--- NOTE | 2020-07-08 14:56 | ANE.PACU2 ---
Inpatient post-anesthesia follow up: Airway intact: Yes Vital signs: Temperature 98.4 F Pulse Rate 74 Respiratory Rate 18 Blood Pressure 105/61 Pulse Oximetry 98 Oxygen Delivery Me thod Room Air Oxygen Flow Rate 2 Fraction of Inspir ed Oxygen Hydration adequate: Yes Nausea and vomiting: No Pain level: 3 Mental status: Baseline
== END 2020-07-08 10:27 | disposition home or self-care (01) ==
LOC: OR 05:51 → MEDSURG 09:02
PROVIDERS: PCP Family Medicine; Visit Provider Orthopaedic Surgery
PROC: (CPT 63005; principal; 2020-07-08 07:00)
DX: M48.061 Spinal stenosis, lumbar region without neurogenic claudication (principal); J44.9 Chronic obstructive pulmonary disease, unspecified; I25.10 Atherosclerotic heart disease of native coronary artery without angina pectoris; Z95.5 Presence of coronary angioplasty implant and graft; K21.9 Gastro-esophageal reflux disease without esophagitis; E11.9 Type 2 diabetes mellitus without complications; E78.5 Hyperlipidemia, unspecified; E66.01 Morbid (severe) obesity due to excess calories; Z68.38 Body mass index [BMI] 38.0-38.9, adult; Z79.02 Long term (current) use of antithrombotics/antiplatelets; I10 Essential (primary) hypertension; M81.0 Age-related osteoporosis without current pathological fracture; F17.210 Nicotine dependence, cigarettes, uncomplicated; Z82.49 Family history of ischemic heart disease and other diseases of the circulatory system
CPT/HCPCS: 63047; 63048; 12345; 36416; 72100; 76000; 82962; J0131; J1100; J2405; J2704; J2710; J3010; J3490; J7030; J7611; J7644

== ENCOUNTER 2020-07-27 08:34 | Outpatient (CLI) | payer MEDICAID, SELFPAY ==
[2020-07-27 09:31] LABS: Basophils % 0.8 %; Eosinophils # 0.1 10^3/uL (0.0-0.8); Eosinophils % 1.5 %; Hematocrit 29.3 % (37.0-47.0); Hemoglobin 8.7 g/dL (11.5-15.3); Lymphocytes # 0.8 10^3/uL (0.8-4.8); Lymphocytes % 16.4 %; Mean Corpuscular HGB Conc 29.7 g/dL (30.0-36.0); Mean Corpuscular Volume 114.5 fL (81-99); Monocytes # 0.3 10^3/uL (0.2-0.9); Monocytes % 6.7 %; Neutrophils # 3.53 10^3/uL (1.8-7.7); Neutrophils % 74.2 %; Nucleated Red Blood Cells % 0 %; Platelet Count 328 10^3/cmm (130-400); Red Blood Count 2.56 10^6/uL (4.1-5.3); Red Cell Distribution Width 18.8 % (12.1-15.1); White Blood Count 4.8 10^3/uL (4.0-10.0)
[2020-07-27 09:38] LABS: Ferritin 59 ng/mL (15-150); Iron 24 ug/dL (37-145); Percent Saturation 6.1 % (20-50); Total Iron Binding Capacity 392 mcg/dl; Unsaturated Iron Binding 368 ug/dL (112-347)
[2020-07-27] MEDS: ferric carboxy (IVPB) 750 MG in sodium chloride 0.9% (100 ml) 100 ML 460 MG IV (11:00)
--- NOTE | 2020-07-31 21:03 | ONC FU_ITS ---
[facility] Patient Note Patient: Dana Gusman Unit #: [id number]: 1960 Dictated By: Raoul LiDate of Visit: Jul 27, 2020 Onc MED Follow-Up/Prog Note Chief Complaint: Anemia History of Present Illness: Mrs. Gusman is a 59 -year-old female with history of palpitations, dyspnea on exertion for over a year. She was diagnosed with iron deficiency anemia started on oral iron. She experienced significant heartburn/ indigestion with the oral iron. She has received parental iron replacement with Injectafer on multiple occassions. She does have pica sypmtoms when she is iron deficient in that she does crave ice and chews it all the time . Mrs Gusman reported she was losing blood in her stools and she underwent EGD and colonoscopy by Dr. Campbell on 02/07/2017. The scopes did not show any abnormalities and she subsequently underwent capsule endoscopy on 09/25/2017 for persistent iron deficiency anemia and it showed a few tiny nonbleeding AVMs. No history of jaundice, no history of blood transfusion except during her last , no history of gross bleeding, CBC from 04/05/2017 showed white blood count 4.7 with normal differential hemoglobin 7.8 crit 25.3 MCV 61.3, platelets 275,000 Status post Injectafer 750 mg weekly ???2 on January 04 and 2017 with excellent response . Her hemoglobin had gone up to 15.8, hematocrit 47.8 and ferritin 104.7 on 02/09/2018. She again required Injectafer' 750 mg IV ???2 given on 11/16 and 11/23/2018 with that her hemoglobin improved from 11.3-15.1 and ferritin gone up to 106 compared to 7 prior to infusion. She underwent repeat colonoscopy and EGD on 05/14/2019 for progressive iron deficiency anemia. The EGD showed no esophageal abnormality and there is mild gastric erosions in the antrum and along with mild duodenitis but no evidence of gross bleeding and colonoscopy was normal exam except internal hemorrhoids. Ms Gusman received Injectafer 750 mg IV weekly ???2 on April 11 and 04/18/2019 with excellent response e.g. cheondoism of iron stores, ferritin 225 compared to 9 prior and improvement in hemoglobin from 12.8 to 15 g Ms Gusman reported that she underwent thyroidectomy at [facility] in [place] on March 02, 2020, as per patient she was told there is no sign of malignancy and she was started on thyroid supplements. She presented for follow-up, complaining of generalized weakness and fatigue and also dark-colored stools but no fresh blood per rectum., No jaundice, no hemoptysis or hematemesis, no abdominal pain. Patient was referred to [place] for capsule endoscopy, patient still awaiting the appointment. She was given parenteral Injectafer in May 2020 which she tolerated well. Her hemoglobin on June 18, 2020 was 9.8 hematocrit was 33.1. She was again given 2 doses of Injectafer on June 18, 2020 and again on June 25, 2020. Mrs. Gusman is here today for follow-up post her last dose of Injectafer on 2020. She states she is still tired and short of breath more than her normal. She states she is been having new leg cramps and side cramps . She reports she does recently had back surgery as well and is unsure if her side cramps is from the back surgery or just from having limited activity. Review of her records indicate that on July 08, 2020 she had L4/L5 laminectomy with partial facetectomy bilateral and L5/S1 laminectomy and partial facetectomy bilateral by Dr. Villafana at [facility]. She states she is starting to walk a little better on her own now. It is noted that her hemoglobin today is 8.7. She denies any chest pain or palpitations. She denies any nausea or vomiting. Her appetite is normal for her. She denies any new bowel or bladder concerns. Currently due to her recent back surgery her ECOG is 2. 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 Colonoscopy in 2019 Hand surgery x 3, cyst removed from vagina, kidney stone removal, bladder tuck Allergies: Abilify, AmLODIPine Bes+SyrSpend SF, AmLODIPine Besylate, Amoxicillin, Bactrim DS, BusPIRone HCl, Ceftin, Cefuroxime Axetil, celexa , Cephalexin, Cetirizine HCl, Ciprofloxacin HCl, Cymbalta, Dexilant, DULoxetine HCl, Effexor XR, Enablex, fomotidine, Fosamax, HydroCHLOROthiazide, HydrOXYzine HCl, Levaquin, lisinopril, Lovaza, Lyrica, methocarb, Mirapex, Omeprazole, PARoxetine HCl, Penicillins, PredniSONE, PriLOSEC, Protonix, Pseudoephedrine HCl, SEROquel, traMADol HCl, VESIcare, Zoloft, and ZyrTEC Allergy. Medications: Aspirin 1 (81 mg) Tablet Oral daily Crestor 1 (20 mg) Tablet Oral daily Gabapentin 1 (600 mg) Tablet Oral b.i.d. MetFORMIN HCl 1 (500 mg) Tablet Oral daily Metoprolol Tartrate 1 (50 mg) Tablet Oral b.i.d. Nitroglycerin 1 (0.4 mg) Tablet, sublingual Sublingual PRN Singulair 1 (10 mg) Tablet Oral daily Synthroid 1 Tablet (of 25 mcg) Oral daily Tums 2 Tablet Tablet, chewable Oral daily Vitamin D 1 Tablet Oral daily Family History: Ms. Gusman's mother at age 46: heart disease. Ms. Gusman's father at age 80: heart disease. Her maternal grandfather is : lung cancer. Ms. Gusman has 1 brother who is alive. She has 2 sisters: 2 alive. She has 1 maternal uncle who is : colon cancer. Social History: Ms. Gusman is . She is a daily smoker who has smoked 1.5 packs/day for 31 years. She has no history of drinking. Review Of Symptoms: Constitutional Denies fevers, chills, night sweats, excessive fatigue or weight loss. Tired from recent back surgery. Eyes Denies significant visual changes. No diplopia. No amaurosis. ENMT Denies changes in hearing, sore throat, mouth sores, difficulty or changes in swallowing ability, and/or sinus drainage. Hematologic/Lymphatic Denies easy bruising or bleeding. The patient denies any tender or palpable lymph nodes. Breasts no concerns Respiratory Has had dyspnea on exertion but denies chest pain, cough or hemoptysis. Denies orthopnea. Cardiovascular Denies anginal chest pain, palpitations or orthopnea. Gastrointestinal Denies nausea, vomiting, diarrhea, GI bleeding, or constipation. Denies change in bowel habits and/or stool color, no heartburn or early satiety. Genitourinary (F) No hematuria, hesitancy, incontinence, vaginal bleeding, discharge or other problems with urination. Musculoskeletal Denies joint pain, swelling or redness. No decreased range of motion. Integumentary Denies chronic rashes, inflammation, ulcerations or skin changes. Neurologic Denies headache, blurred vision, and no areas of focal weakness or numbness. Psychiatric Denies insomnia, depression, ciara or mood swings. Vital Signs: Performed on Jul 27, 2020 10:16 Height - 57.00 in Weight - 189 lbs (HIGH) BSA - 1.76 sq.m BMI - 40.90 (HIGH) Temperature - 98.5 F Pulse - 103 /min (HIGH) Respiration - 19 /min BP - 103/61 mm(hg) O2 Sat - 97 % Pain - 5,2 - Ambulatory/capable of all self-care, unable to perform any work activities. Up and about more than 50% of waking hours. (ECOG) Physical Examination: Constitutional Alert, oriented, no acute distress. Skin pink, warm and dry. Head Normocephalic; atraumatic. Eyes Conjunctivae and sclerae are clear and without icterus. Pupils are reactive and equal. Neck Supple without masses or thyromegaly. No jugular venous distension. Hematologic/Lymphatic No petechiae or purpura. No tender or palpable lymph nodes in the cervical or supraclavicular areas. Respiratory Lungs are clear to auscultation without rhonchi or wheezing. Cardiovascular Regular rate and rhythm of heart without murmurs,clicks, gallops or rubs. Abdomen Non-tender, non-distended, no masses or ascites. Good bowel sounds noted in all quads. No guarding or rebound tenderness. No pulsatile masses. Back/Spine Non-tender to palpation. Extremities No visible deformities, no cyanosis, clubbing or edema. Musculoskeletal No tenderness or swelling, normal range of motion without obvious weakness. Integumentary No rashes or lesions. Neurologic No sensory or motor deficits, normal cerebellar function, gait not assessed. Psychiatric Alert and oriented times three. Coherent speech. Verbalizes understanding of our discussions today. Laboratory:Test performed on Jul 27, 2020 09:08 Ferritin 59 ng/mL Iron 24 mcg/dL Iron Binding Capacity (TIBC) 392 mcg/dl % Iron Saturation 6.1 % UIBC 368 mcg/dL WBC 4.8 10 3/uL RBC 2.56 10 6/uL HGB 8.7 g/dL HCT 29.3 % MCV 114.5 fL MCH 34.0 pg MCHC 29.7 g/dL RDW 18.8 % Platelet Count 328 10 3/cmm MPV 9.0 fL Neutrophils 3.53 10 3/uL Lymphocytes 0.8 10 3/uL Monocytes 0.3 10 3/uL Eosinophils 0.1 10 3/uL Basophils 0.0 10 3/uL Neutrophil % 74.2 % Lymphocyte % 16.4 % Monocyte % 6.7 % Eosinophil % 1.5 % Basophils % 0.8 % NRBC % 0 % Impression: Microcytic hypochromic anemia due to iron deficiency due to chronic GI blood loss or and iron malabsorption with oral iron intolerance. Colonoscopy and EGD done on 02/07/2017 showed no abnormality Status post Injectafer weekly ???2 in April 2017 With excellent response Status post Injectafer 750???2 in January 2018 With excellent response showed hemoglobin 15.8 hematocrit 47.8 ferritin 104.7 on 02/09/20189 Injectafer infusion done on 11/16/2018 and 11/23/2018 4 hemoglobin 11.3 hematocrit 30 5., ferritin 7 and iron saturation 4.4, postinfusion hemoglobin on 12/24/2018 was 15.1, hematocrit 44.9 and ferritin was 106. Capsule endoscopy done on 09/25/2017 showed there were 2 tiny nonbleeding AVMs that were noted, there was no blood or stigmata of recent bleeding appreciated otherwise normal study. Recent lab shows progressive iron deficiency anemia probably due to chronic GI bleeding from small bowel AVMs Plan: PROBLEMS ADDRESSED TODAY 1. IRON DEFICIENCY ANEMIA A. persistent iron deficiency anemia requiring parenteral iron. She was referred to [place] for capsule endoscopy as in the past her EGD colonoscopy was unremarkable. She had capsule endoscopy done in September 2017 which showed nonbleeding AVM. The concern was whether or not she has active AVMs in small bowel causing persistent/recurrent iron deficiency anemia. She has once again been referred back to gastroenterology services in [place] for followup capsule endoscopy to evaluate small bowel for AVMs. She is awaiting an appointment for that. B. She presents today with symptomaticoderate iron deficiency anemia with a Hemoglobin of 8.7. Her iron saturation is 6.1% iron level is 24 her ferritin is 59. We will proceed with Injectafer 7 or 50 mg weekly for 2 weeks. Her labs from today were reviewed in detail and discussed with Ms. Gsuman and a copy was given to her. C. We will have her return to the clinic 1 month after her second Injectafer with repeat CBC CMP iron studies. D. I have requested a follow-up CBC and type a next next week with her second dose of Injectafer to reevaluate her anemia. She is symptomatic and should she drop further she may need to consider transfusion services. E. Mrs. Gusman has been instructed to contact us in interim should questions or problems arise. Signed By: Raoul Li-, AOELBERT Garza MD <<Signature on File>>
== END 2020-07-27 08:35 | disposition home or self-care (01) ==
LOC: ONCMED 08:35
PROVIDERS: PCP Family Medicine; Visit Provider Nurse Practitioner
DX: D50.8 Other iron deficiency anemias (principal); Q27.33 Arteriovenous malformation of digestive system vessel
CPT/HCPCS: 36415; 82728; 83540; 83550; 85025; 96365; 99214; J1439

== ENCOUNTER 2020-08-03 05:56 | Outpatient (CLI) | payer MEDICAID, SELFPAY ==
[2020-08-03] MEDS: ferric carboxy (IVPB) 750 MG in sodium chloride 0.9% (100 ml) 100 ML 460 MG IV (10:05)
[2020-08-03 10:49] LABS: Basophils # 0.1 10^3/uL (0.0-0.1); Eosinophils # 0.2 10^3/uL (0.0-0.8); Eosinophils % 2.4 %; Hematocrit 37.8 % (37.0-47.0); Hemoglobin 11.4 g/dL (11.5-15.3); Lymphocytes % 15.8 %; Mean Corpuscular HGB Conc 30.2 g/dL (30.0-36.0); Mean Corpuscular Hemoglobin 34.9 pg (28.0-34.0); Mean Corpuscular Volume 115.6 fL (81-99); Mean Platelet Volume 8.9 fL (7.4-10.4); Monocytes # 0.3 10^3/uL (0.2-0.9); Monocytes % 4.9 %; Neutrophils # 4.63 10^3/uL (1.8-7.7); Neutrophils % 75.4 %; Nucleated Red Blood Cells # 0.1 /100WBC; Nucleated Red Blood Cells % 0.8 %; Platelet Count 264 10^3/cmm (130-400); Red Blood Count 3.27 10^6/uL (4.1-5.3); Red Cell Distribution Width 21.3 % (12.1-15.1); White Blood Count 6.1 10^3/uL (4.0-10.0)
[2020-08-03 11:09] LABS: Alanine Aminotransferase 20 U/L (0-33); Albumin Level 4.6 g/dL (3.5-5.2); Alkaline Phosphatase 72 IU/L (35-105); Anion Gap 12.9 (5-19); Aspartate Amino Transferase 30 U/L (0-32); Blood Urea Nitrogen 18 mg/dL (8-23); Calcium 9.2 mg/dL (8.5-10.5); Carbon Dioxide 29 mmol/L (22-29); Chloride 100 mmol/L (98-107); Globulin 2.7 g/dL (1.3-4.6); Glomerular Filtration Rate 56.4 mL/min (90-130); Glucose 108 mg/dL (65-115); Osmolality Calculated 288 mOsm/kg (285-295); Potassium 3.9 mmol/L (3.5-5.1); Sodium 138 mmol/L (136-145); Thyroid Stimulating Hormone 38.46 uIU/mL (0.27-4.20); Total Bilirubin 0.2 mg/dL (0.15-1.2); Total Protein 7.3 g/dL (6.6-8.7)
== END 2020-08-03 05:57 | disposition home or self-care (01) ==
LOC: ONCMED 05:56
PROVIDERS: PCP Family Medicine; Visit Provider Nurse Practitioner
DX: A48.1 Legionnaires' disease (principal); D50.9 Iron deficiency anemia, unspecified
CPT/HCPCS: 80053; 84443; 85025; 96365; J1439

== ENCOUNTER 2020-09-09 08:28 | Outpatient (CLI) | payer MEDICAID, SELFPAY ==
[2020-09-09 13:43] LABS: Basophils % 0.7 %; Eosinophils # 0.1 10^3/uL (0.0-0.8); Eosinophils % 2.1 %; Hematocrit 34.8 % (37.0-47.0); Hemoglobin 10.7 g/dL (11.5-15.3); Lymphocytes # 1.1 10^3/uL (0.8-4.8); Lymphocytes % 18.3 %; Mean Corpuscular HGB Conc 30.7 g/dL (30.0-36.0); Mean Corpuscular Hemoglobin 34.5 pg (28.0-34.0); Mean Corpuscular Volume 112.3 fL (81-99); Mean Platelet Volume 9.2 fL (7.4-10.4); Monocytes # 0.4 10^3/uL (0.2-0.9); Monocytes % 7.5 %; Neutrophils % 71.2 %; Nucleated Red Blood Cells % 0 %; Platelet Count 305 10^3/cmm (130-400); Red Cell Distribution Width 16.1 % (12.1-15.1); White Blood Count 5.8 10^3/uL (4.0-10.0)
[2020-09-09 14:14] LABS: Ferritin 60 ng/mL (15-150); Iron 34 ug/dL (37-145); Percent Saturation 8.4 % (20-50); Total Iron Binding Capacity 402 mcg/dl; Unsaturated Iron Binding 368 ug/dL (112-347)
[2020-09-09] MEDS: ferric carboxy (IVPB) 750 MG in sodium chloride 0.9% (100 ml) 100 ML 345 MG IV (15:20)
--- NOTE | 2020-09-20 22:58 | ONC FU_ITS ---
[facility] Patient Note Patient: Dana Gusman Unit #: [id number]: 1960 Dictated By: Raoul LiDate of Visit: Sep 09, 2020 Onc MED Follow-Up/Prog Note Chief Complaint: Anemia History of Present Illness: Mrs. Gusman is a 59 -year-old female with history of palpitations, dyspnea on exertion for over a year. She was diagnosed with iron deficiency anemia started on oral iron. She experienced significant heartburn/ indigestion with the oral iron. She has received parental iron replacement with Injectafer on multiple occassions. She does have pica sypmtoms when she is iron deficient in that she does crave ice and chews it all the time . Mrs Gusman reported she was losing blood in her stools and she underwent EGD and colonoscopy by Dr. Campbell on 02/07/2017. The scopes did not show any abnormalities and she subsequently underwent capsule endoscopy on 09/25/2017 for persistent iron deficiency anemia and it showed a few tiny nonbleeding AVMs. No history of jaundice, no history of blood transfusion except during her last , no history of gross bleeding, CBC from 04/05/2017 showed white blood count 4.7 with normal differential hemoglobin 7.8 crit 25.3 MCV 61.3, platelets 275,000 Status post Injectafer 750 mg weekly ???2 on January 04 and 2017 with excellent response . Her hemoglobin had gone up to 15.8, hematocrit 47.8 and ferritin 104.7 on 02/09/2018. She again required Injectafer' 750 mg IV ???2 given on 11/16 and 11/23/2018 with that her hemoglobin improved from 11.3-15.1 and ferritin gone up to 106 compared to 7 prior to infusion. She underwent repeat colonoscopy and EGD on 05/14/2019 for progressive iron deficiency anemia. The EGD showed no esophageal abnormality and there is mild gastric erosions in the antrum and along with mild duodenitis but no evidence of gross bleeding and colonoscopy was normal exam except internal hemorrhoids. Ms Gusman received Injectafer 750 mg IV weekly ???2 on April 11 and 04/18/2019 with excellent response e.g. baptism of iron stores, ferritin 225 compared to 9 prior and improvement in hemoglobin from 12.8 to 15 g Ms Gusman reported that she underwent thyroidectomy at [facility] in [place] on March 02, 2020, as per patient she was told there is no sign of malignancy and she was started on thyroid supplements. She presented for follow-up, complaining of generalized weakness and fatigue and also dark-colored stools but no fresh blood per rectum., No jaundice, no hemoptysis or hematemesis, no abdominal pain. Patient was referred to [place] for capsule endoscopy, patient still awaiting the appointment. She was given parenteral Injectafer in May 2020 which she tolerated well. Her hemoglobin on June 18, 2020 was 9.8 hematocrit was 33.1. She was again given 2 doses of Injectafer on June 18, 2020 and again on June 25, 2020. Mrs. Gusamn is here today for follow-up post her last dose of Injectafer on August 03, 2020. She had L4/L5 laminectomy with partial facetectomy bilateral and L5/S1 laminectomy and partial facetectomy bilateral by Dr. Villafana at [facility]. on 07/08/2020 She states she is walking better on her own now. She states she has been scheduled for a balloon endoscopy/enteroscopy at [facility]. She states she thinks to be sometime next week. She states she is little more short of breath. She denies any fever or chills. She denies any hemoptysis. She does have fatigue but states is no worse than what has been. She denies any pica symptoms.. She denies any chest pain or palpitations. She denies any nausea or vomiting. Her appetite is normal for her. She denies any new bowel or bladder concerns. Her ECOG is 1. 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 Colonoscopy in 2019 Hand surgery x 3, cyst removed from vagina, kidney stone removal, bladder tuck Allergies: Abilify, AmLODIPine Bes+SyrSpend SF, AmLODIPine Besylate, Amoxicillin, Bactrim DS, BusPIRone HCl, Ceftin, Cefuroxime Axetil, celexa , Cephalexin, Cetirizine HCl, Ciprofloxacin HCl, Cymbalta, Dexilant, DULoxetine HCl, Effexor XR, Enablex, fomotidine, Fosamax, HydroCHLOROthiazide, HydrOXYzine HCl, Levaquin, lisinopril, Lovaza, Lyrica, methocarb, Mirapex, Omeprazole, PARoxetine HCl, Penicillins, PredniSONE, PriLOSEC, Protonix, Pseudoephedrine HCl, SEROquel, traMADol HCl, VESIcare, Zoloft, and ZyrTEC Allergy. Medications: Aspirin 1 (81 mg) Tablet Oral daily Crestor 1 (20 mg) Tablet Oral daily Gabapentin 1 (600 mg) Tablet Oral b.i.d. MetFORMIN HCl 1 (500 mg) Tablet Oral daily Metoprolol Tartrate 1 (50 mg) Tablet Oral b.i.d. Nitroglycerin 1 (0.4 mg) Tablet, sublingual Sublingual PRN Singulair 1 (10 mg) Tablet Oral daily Synthroid 1 Tablet (of 25 mcg) Oral daily Tums 2 Tablet Tablet, chewable Oral daily Vitamin D 1 Tablet Oral daily Family History: Ms. Gusman's mother at age 46: heart disease. Ms. Gusman's father at age 80: heart disease. Her maternal grandfather is : lung cancer. Ms. Gusman has 1 brother who is alive. She has 2 sisters: 2 alive. She has 1 maternal uncle who is : colon cancer. Social History: Ms. Gusman is . She is a daily smoker who has smoked 1.5 packs/day for 31 years. She has no history of drinking. Review Of Symptoms: Vital Signs: Performed on Sep 09, 2020 14:41 Height - 57.00 in Weight - 184.6 lbs (LOW) BSA - 1.74 sq.m BMI - 39.95 (HIGH) Temperature - 98.0 F (LOW) Pulse - 85 /min Respiration - 18 /min BP - 104/66 mm(hg) O2 Sat - 95 % (LOW) Pain - 8 Fatigue - 9,1 - No physically strenuous activity, but ambulatory and able to carry out light or sedentary work (e.g. office work, light house work). (ECOG) Physical Examination: Constitutional Alert, oriented, no acute distress. Skin pink, warm and dry. Head Normocephalic; atraumatic. Eyes Conjunctivae and sclerae are clear and without icterus. Pupils are reactive and equal. Neck Supple without masses or thyromegaly. No jugular venous distension. Hematologic/Lymphatic No petechiae or purpura. No tender or palpable lymph nodes in the cervical or supraclavicular areas. Respiratory Lungs are clear to auscultation without rhonchi or wheezing. Cardiovascular Regular rate and rhythm of heart without murmurs,clicks, gallops or rubs. Abdomen Non-tender, non-distended, no masses or ascites. Good bowel sounds noted in all quads. No guarding or rebound tenderness. No pulsatile masses. Back/Spine Non-tender to palpation. Extremities No visible deformities, no cyanosis, clubbing or edema. Musculoskeletal No tenderness or swelling, normal range of motion without obvious weakness. Integumentary No rashes or lesions. Neurologic No sensory or motor deficits, normal cerebellar function, gait not assessed. Psychiatric Alert and oriented times three. Coherent speech. Verbalizes understanding of our discussions today. Laboratory:Test performed on Sep 09, 2020 13:25 Ferritin 60 ng/mL Iron 34 mcg/dL Iron Binding Capacity (TIBC) 402 mcg/dl % Iron Saturation 8.4 % UIBC 368 mcg/dL WBC 5.8 10 3/uL RBC 3.10 10 6/uL HGB 10.7 g/dL HCT 34.8 % MCV 112.3 fL MCH 34.5 pg MCHC 30.7 g/dL RDW 16.1 % Platelet Count 305 10 3/cmm MPV 9.2 fL Neutrophils 4.10 10 3/uL Lymphocytes 1.1 10 3/uL Monocytes 0.4 10 3/uL Eosinophils 0.1 10 3/uL Basophils 0.0 10 3/uL Neutrophil % 71.2 % Lymphocyte % 18.3 % Monocyte % 7.5 % Eosinophil % 2.1 % Basophils % 0.7 % NRBC % 0 % Test performed on Jul 02, 2020 15:31 Glucose 74 mg/dL BUN 21 mg/dL Creatinine 0.7 mg/dL Cr Clearance (Est) 114.22 mL/min Sodium 141 mmol/L Potassium 4.1 mmol/L Chloride 102 mmol/L CO2 27 mmol/L Calcium 9.3 mg/dL Protein, Total 7.5 g/dL Albumin 4.7 g/dL Globulin 2.8 g/dL Bilirubin, Total 0.2 mg/dL Alkaline Phosphatase 72 IU/L AST (SGOT) 33 IU/L ALT (SGPT) 28 IU/L Impression: Microcytic hypochromic anemia due to iron deficiency due to chronic GI blood loss or and iron malabsorption with oral iron intolerance. Colonoscopy and EGD done on 02/07/2017 showed no abnormality Status post Injectafer weekly ???2 in April 2017 With excellent response Status post Injectafer 750???2 in January 2018 With excellent response showed hemoglobin 15.8 hematocrit 47.8 ferritin 104.7 on 02/09/20189 Injectafer infusion done on 11/16/2018 and 11/23/2018 4 hemoglobin 11.3 hematocrit 30 5., ferritin 7 and iron saturation 4.4, postinfusion hemoglobin on 12/24/2018 was 15.1, hematocrit 44.9 and ferritin was 106. Capsule endoscopy done on 09/25/2017 showed there were 2 tiny nonbleeding AVMs that were noted, there was no blood or stigmata of recent bleeding appreciated otherwise normal study. Recent lab shows progressive iron deficiency anemia probably due to chronic GI bleeding from small bowel AVMs Plan: PROBLEMS ADDRESSED TODAY 1. IRON DEFICIENCY ANEMIA A. persistent iron deficiency anemia requiring parenteral iron. She was referred to [place] for capsule endoscopy as in the past her EGD colonoscopy was unremarkable. She had capsule endoscopy done in September 2017 which showed nonbleeding AVM. The concern was whether or not she has active AVMs in small bowel causing persistent/recurrent iron deficiency anemia. She has once again been referred back to gastroenterology services in [place] for followup capsule endoscopy to evaluate small bowel for AVMs. She is awaiting an appointment for that. B. She presents today with symptomatic iron deficiency anemia with a Hemoglobin of 10.7. Her iron saturation is 8.4% iron level is 34 her ferritin is 60. We will proceed with Injectafer 750 mg weekly for 2 weeks. She may have to delay next week's plan Injectafer if she has her balloon scope scheduled. Her labs from today were reviewed in detail and discussed with Ms. Gusman and a copy was given to her. C. We will have her return to the clinic 1 month after her second Injectafer with repeat CBC CMP iron studies. D. Mrs. Gusman has been instructed to contact us in interim should questions or problems arise. Signed By: Raoul Li-, [facility] Yumiko Garza MD <<Signature on File>>
== END 2020-09-09 08:29 | disposition home or self-care (01) ==
LOC: ONCMED 08:30
PROVIDERS: PCP Family Medicine; Visit Provider Nurse Practitioner
DX: D50.9 Iron deficiency anemia, unspecified (principal); E11.9 Type 2 diabetes mellitus without complications; E03.9 Hypothyroidism, unspecified; A48.1 Legionnaires' disease; Z79.899 Other long term (current) drug therapy
CPT/HCPCS: 82728; 83540; 83550; 85025; 96365; 99214; J1439

== ENCOUNTER 2020-09-16 07:25 | Outpatient (CLI) | payer MEDICAID, SELFPAY ==
[2020-09-16 13:04] LABS: Basophils # 0.1 10^3/uL (0.0-0.1); Eosinophils # 0.1 10^3/uL (0.0-0.8); Eosinophils % 2.2 %; Hematocrit 36.3 % (37.0-47.0); Hemoglobin 11.4 g/dL (11.5-15.3); Lymphocytes # 1.2 10^3/uL (0.8-4.8); Lymphocytes % 19.4 %; Mean Corpuscular HGB Conc 31.4 g/dL (30.0-36.0); Mean Corpuscular Hemoglobin 36.2 pg (28.0-34.0); Mean Corpuscular Volume 115.2 fL (81-99); Mean Platelet Volume 9.3 fL (7.4-10.4); Monocytes # 0.4 10^3/uL (0.2-0.9); Monocytes % 7.1 %; Neutrophils % 69.3 %; Nucleated Red Blood Cells % 0.7 %; Platelet Count 267 10^3/cmm (130-400); Red Blood Count 3.15 10^6/uL (4.1-5.3); Red Cell Distribution Width 18.5 % (12.1-15.1); White Blood Count 5.9 10^3/uL (4.0-10.0)
[2020-09-16 13:26] LABS: Alanine Aminotransferase 27 U/L (0-33); Albumin Level 4.1 g/dL (3.5-5.2); Alkaline Phosphatase 66 IU/L (35-105); Aspartate Amino Transferase 32 U/L (0-32); Blood Urea Nitrogen 17 mg/dL (8-23); Calcium 8.5 mg/dL (8.5-10.5); Carbon Dioxide 29 mmol/L (22-29); Chloride 100 mmol/L (98-107); Ferritin 411 ng/mL (15-150); Globulin 2.1 g/dL (1.3-4.6); Glomerular Filtration Rate 72.9 mL/min (90-130); Glucose 144 mg/dL (65-115); Iron 66 ug/dL (37-145); Osmolality Calculated 288 mOsm/kg (285-295); Percent Saturation 19.3 % (20-50); Sodium 137 mmol/L (136-145); Total Bilirubin 0.2 mg/dL (0.15-1.2); Total Iron Binding Capacity 341 mcg/dl; Total Protein 6.2 g/dL (6.6-8.7); Unsaturated Iron Binding 275 ug/dL (112-347)
[2020-09-16] MEDS: ferric carboxy (IVPB) 750 MG in sodium chloride 0.9% (100 ml) 100 ML 460 MG IV (14:09)
== END 2020-09-16 07:26 | disposition home or self-care (01) ==
LOC: ONCMED 07:26
PROVIDERS: PCP Family Medicine; Visit Provider Nurse Practitioner
DX: D50.9 Iron deficiency anemia, unspecified (principal); A48.1 Legionnaires' disease
CPT/HCPCS: 80053; 82728; 83540; 83550; 85025; 96365; J1439

== ENCOUNTER → 2020-09-18 15:57 | Outpatient (BNVA) | payer MEDICAID, SELFPAY | PROVIDERS: PCP Family Medicine; Visit Provider Internal Medicine Gastroenterology | DX: Z01.812 Encounter for preprocedural laboratory examination (principal); Z20.822 Contact with and (suspected) exposure to COVID-19 | CPT/HCPCS: 87635 ==

== ENCOUNTER 2020-10-08 15:26 | Outpatient (CLI) | payer MEDICAID, SELFPAY ==
--- NOTE | 2020-10-08 16:22 | ONC FU_ITS ---
Dr. Garza follow up note Patient: Dana Gusman Unit #: [id number]: 1960 Dicatated By: Yumiko Garza M.D.Date of Visit:October 08, 2020 Onc Med Follow-up/Prog Note History of Present Illness: Mrs. Gusman is a 60 -year-old female with history of palpitations, dyspnea on exertion for over a year. She was diagnosed with iron deficiency anemia started on oral iron. She experienced significant heartburn/ indigestion with the oral iron. She has received parental iron replacement with Injectafer on multiple occassions. She does have pica sypmtoms when she is iron deficient in that she does crave ice and chews it all the time . Mrs Gusman reported she was losing blood in her stools and she underwent EGD and colonoscopy by Dr. Campbell on 02/07/2017. The scopes did not show any abnormalities and she subsequently underwent capsule endoscopy on 09/25/2017 for persistent iron deficiency anemia and it showed a few tiny nonbleeding AVMs. No history of jaundice, no history of blood transfusion except during her last , no history of gross bleeding, CBC from 04/05/2017 showed white blood count 4.7 with normal differential hemoglobin 7.8 crit 25.3 MCV 61.3, platelets 275,000 Status post Injectafer 750 mg weekly ???2 on January 04 and 2017 with excellent response . Her hemoglobin had gone up to 15.8, hematocrit 47.8 and ferritin 104.7 on 02/09/2018. She again required Injectafer' 750 mg IV ???2 given on 11/16 and 11/23/2018 with that her hemoglobin improved from 11.3-15.1 and ferritin gone up to 106 compared to 7 prior to infusion. She underwent repeat colonoscopy and EGD on 05/14/2019 for progressive iron deficiency anemia. The EGD showed no esophageal abnormality and there is mild gastric erosions in the antrum and along with mild duodenitis but no evidence of gross bleeding and colonoscopy was normal exam except internal hemorrhoids. Ms Gusman received Injectafer 750 mg IV weekly ???2 on April 11 and 04/18/2019 with excellent response e.g. mu-ism of iron stores, ferritin 225 compared to 9 prior and improvement in hemoglobin from 12.8 to 15 g Ms Gusman reported that she underwent thyroidectomy at [facility] in [place] on March 02, 2020, as per patient she was told there is no sign of malignancy and she was started on thyroid supplements. She presented for follow-up, complaining of generalized weakness and fatigue and also dark-colored stools but no fresh blood per rectum., No jaundice, no hemoptysis or hematemesis, no abdominal pain. Patient was referred to [place] for capsule endoscopy, patient still awaiting the appointment. She was given parenteral Injectafer in May 2020 which she tolerated well. Her hemoglobin on June 18, 2020 was 9.8 hematocrit was 33.1. She was again given 2 doses of Injectafer on June 18, 2020 and again on June 25, 2020. She had L4/L5 laminectomy with partial facetectomy bilateral and L5/S1 laminectomy and partial facetectomy bilateral by Dr. Villafana at [facility]. on 07/08/2020 She states she is walking better on her own now. last dose of Injectafer on September 16, 2020. Patient underwent capsule endoscopy on August 11, 2020 which showed there was active bleeding 15% of the way through the study. There were AVMs and erythematous mucosal break noted within the left mid small bowel, 50 to 60% of the way through the study., As per patient she underwent cauterization in the last week of September and about 9 spots were cauterized, as per patient Dr. Mulligan told her the next procedure will be done not before 3 years. Came for follow-up, denies any specific complaints, no shortness of breath, no palpitation, no nausea or vomiting, no diarrhea or constipation, no melena or hematochezia, no hemoptysis hematemesis, patient tolerated capsule endoscopy followed by small bowel AVM cauterization well Medications: Aspirin 1 (81 mg) Tablet Oral daily, Crestor 1 (20 mg) Tablet Oral daily, Gabapentin 1 (600 mg) Tablet Oral b.i.d., MetFORMIN HCl 1 (500 mg) Tablet Oral daily, Metoprolol Tartrate 1 (50 mg) Tablet Oral b.i.d., Nitroglycerin 1 (0.4 mg) Tablet, sublingual Sublingual PRN, Singulair 1 (10 mg) Tablet Oral daily, Synthroid 1 Tablet (of 25 mcg) Oral daily, Tums 2 Tablet Tablet, chewable Oral daily, Vitamin D 1 Tablet Oral daily Allergies: Abilify, AmLODIPine Bes+SyrSpend SF, AmLODIPine Besylate, Amoxicillin, Bactrim DS, BusPIRone HCl, Ceftin, Cefuroxime Axetil, celexa , Cephalexin, Cetirizine HCl, Ciprofloxacin HCl, Cymbalta, Dexilant, DULoxetine HCl, Effexor XR, Enablex, fomotidine, Fosamax, HydroCHLOROthiazide, HydrOXYzine HCl, Levaquin, lisinopril, Lovaza, Lyrica, methocarb, Mirapex, Omeprazole, PARoxetine HCl, Penicillins, PredniSONE, PriLOSEC, Protonix, Pseudoephedrine HCl, SEROquel, traMADol HCl, VESIcare, Zoloft, and ZyrTEC Allergy. Review of Systems: Review of Systems is not available for this patient. Vital Signs: Performed on October 08, 2020 15:54 Height - 57.00 in Weight - 187.2 lbs (HIGH) BSA - 1.75 sq.m BMI - 40.51 (HIGH) Temperature - 98.0 F (LOW) Pulse - 82 /min Respiration - 17 /min BP - 148/74 mm(hg) (HIGH) O2 Sat - 93 % (LOW) Pain - 5 Performance Status: 1 - No physically strenuous activity, but ambulatory and able to carry out light or sedentary work (e.g. office work, light house work). (ECOG) Physical Examination: ENMT - No mouth sores, no thrush, no jaundice, Respiratory - Lungs are clear to auscultation, Cardiovascular - Regular rate and rhythm of heart, Abdomen - Soft, bowel sounds present, Extremities - No visible edema. Lab/Imaging: Test performed on Sep 09, 2020 13:25 Ferritin 60 ng/mL Iron 34 mcg/dL Iron Binding Capacity (TIBC) 402 mcg/dl % Iron Saturation 8.4 % UIBC 368 mcg/dL WBC 5.8 10 3/uL RBC 3.10 10 6/uL HGB 10.7 g/dL HCT 34.8 % MCV 112.3 fL MCH 34.5 pg MCHC 30.7 g/dL RDW 16.1 % Platelet Count 305 10 3/cmm MPV 9.2 fL Neutrophils 4.10 10 3/uL Lymphocytes 1.1 10 3/uL Monocytes 0.4 10 3/uL Eosinophils 0.1 10 3/uL Basophils 0.0 10 3/uL Neutrophil % 71.2 % Lymphocyte % 18.3 % Monocyte % 7.5 % Eosinophil % 2.1 % Basophils % 0.7 % NRBC % 0 % Test performed on Jul 02, 2020 15:31 Glucose 74 mg/dL BUN 21 mg/dL Creatinine 0.7 mg/dL Cr Clearance (Est) 114.22 mL/min Sodium 141 mmol/L Potassium 4.1 mmol/L Chloride 102 mmol/L CO2 27 mmol/L Calcium 9.3 mg/dL Protein, Total 7.5 g/dL Albumin 4.7 g/dL Globulin 2.8 g/dL Bilirubin, Total 0.2 mg/dL Alkaline Phosphatase 72 IU/L AST (SGOT) 33 IU/L ALT (SGPT) 28 IU/L Impression: Microcytic hypochromic anemia due to iron deficiency due to chronic GI blood loss From small bowel AVMs per capsule endoscopy done on August 11, [address] Mulligan in [facility], status post cauterization in September 2020 Colonoscopy and EGD done on 02/07/2017 showed no abnormality Status post Injectafer weekly ???2 in April 2017 With excellent response Status post Injectafer 750???2 in January 2018 With excellent response showed hemoglobin 15.8 hematocrit 47.8 ferritin 104.7 on 02/09/20189 Injectafer infusion done on 11/16/2018 and 11/23/2018 4 hemoglobin 11.3 hematocrit 30 5., ferritin 7 and iron saturation 4.4, postinfusion hemoglobin on 12/24/2018 was 15.1, hematocrit 44.9 and ferritin was 106. Capsule endoscopy done on 09/25/2017 showed there were 2 tiny nonbleeding AVMs that were noted, there was no blood or stigmata of recent bleeding appreciated otherwise normal study. Recent lab shows progressive iron deficiency anemia probably due to chronic GI bleeding from small bowel AVMs Plan: Discussed with patient regarding her question concern, patient tolerated small bowel AVM cauterization well, denies any new symptoms denies any melena or hematochezia denies any shortness of breath or palpitation, we will continue to monitor and then she will return to clinic in 1 month with CBC and iron studies, we will also discuss with Dr. Mulligan regarding future plans about small bowel AVMs, as per patient only 9 spots were cauterized and she was told she has many more bleeders but next procedure will be in about 3 years. As per patient Dr. Mulligan also told her that Plavix may be making her bleeding from small bowel AVMs worse, so cardiology has taken her off Plavix now. Signed By: Yumiko Garza M.D. <<Signature on File>>
== END 2020-10-08 15:27 | disposition home or self-care (01) ==
PROVIDERS: PCP Family Medicine; Visit Provider Internal Medicine Hematology & Oncology
DX: D50.0 Iron deficiency anemia secondary to blood loss (chronic) (principal); Z79.899 Other long term (current) drug therapy
CPT/HCPCS: 99214

== ENCOUNTER → 2020-11-10 13:06 | Outpatient (BNVA) | payer MEDICAID, SELFPAY | PROVIDERS: PCP Family Medicine; Visit Provider Orthopaedic Surgery | DX: Z48.89 Encounter for other specified surgical aftercare (principal); M47.897 Other spondylosis, lumbosacral region | CPT/HCPCS: 72110; 73502 ==

== ENCOUNTER → 2020-11-12 08:21 | Outpatient (BNVA) | payer MEDICAID, SELFPAY | PROVIDERS: PCP Family Medicine; Referring Provider Orthopaedic Surgery; Visit Provider Anesthesiology Pain Medicine | DX: M51.16 Intervertebral disc disorders with radiculopathy, lumbar region (principal); M48.062 Spinal stenosis, lumbar region with neurogenic claudication; M47.816 Spondylosis without myelopathy or radiculopathy, lumbar region; M79.604 Pain in right leg; F17.210 Nicotine dependence, cigarettes, uncomplicated | CPT/HCPCS: 99205 ==

== ENCOUNTER 2020-11-17 14:22 | Outpatient (CLI) | payer MEDICAID, SELFPAY ==
[2020-11-17 14:48] LABS: Basophils % 0.7 %; Eosinophils # 0.1 10^3/uL (0.0-0.8); Eosinophils % 2.3 %; Hematocrit 49.9 % (37.0-47.0); Hemoglobin 16.9 g/dL (11.5-15.3); Lymphocytes # 1.1 10^3/uL (0.8-4.8); Lymphocytes % 20.5 %; Mean Corpuscular HGB Conc 33.9 g/dL (30.0-36.0); Mean Corpuscular Hemoglobin 35.7 pg (28.0-34.0); Mean Corpuscular Volume 105.5 fL (81-99); Monocytes # 0.6 10^3/uL (0.2-0.9); Monocytes % 10.8 %; Neutrophils # 3.63 10^3/uL (1.8-7.7); Neutrophils % 65.5 %; Nucleated Red Blood Cells % 0 %; Platelet Count 176 10^3/cmm (130-400); Red Blood Count 4.73 10^6/uL (4.1-5.3); Red Cell Distribution Width 15.2 % (12.1-15.1); White Blood Count 5.6 10^3/uL (4.0-10.0)
[2020-11-17 15:23] LABS: Ferritin 104 ng/mL (15-150); Iron 57 ug/dL (37-145); Percent Saturation 16.2 % (20-50); Total Iron Binding Capacity 350 mcg/dl; Unsaturated Iron Binding 293 ug/dL (112-347)
--- NOTE | 2020-11-17 16:59 | ONC FU_ITS ---
Dr. Garza follow up note Patient: Dana Gusman Unit #: [id number]: 1960 Dicatated By: Yumiko Garza M.D.Date of Visit:Nov 17, 2020 Onc Med Follow-up/Prog Note History of Present Illness: Mrs. Gusman is a 60 -year-old female with history of palpitations, dyspnea on exertion for over a year. She was diagnosed with iron deficiency anemia started on oral iron. She experienced significant heartburn/ indigestion with the oral iron. She has received parental iron replacement with Injectafer on multiple occassions. She does have pica sypmtoms when she is iron deficient in that she does crave ice and chews it all the time . Mrs Gusman reported she was losing blood in her stools and she underwent EGD and colonoscopy by Dr. Campbell on 02/07/2017. The scopes did not show any abnormalities and she subsequently underwent capsule endoscopy on 09/25/2017 for persistent iron deficiency anemia and it showed a few tiny nonbleeding AVMs. No history of jaundice, no history of blood transfusion except during her last , no history of gross bleeding, CBC from 04/05/2017 showed white blood count 4.7 with normal differential hemoglobin 7.8 crit 25.3 MCV 61.3, platelets 275,000 Status post Injectafer 750 mg weekly ???2 on January 04 and 2017 with excellent response . Her hemoglobin had gone up to 15.8, hematocrit 47.8 and ferritin 104.7 on 02/09/2018. She again required Injectafer' 750 mg IV ???2 given on 11/16 and 11/23/2018 with that her hemoglobin improved from 11.3-15.1 and ferritin gone up to 106 compared to 7 prior to infusion. She underwent repeat colonoscopy and EGD on 05/14/2019 for progressive iron deficiency anemia. The EGD showed no esophageal abnormality and there is mild gastric erosions in the antrum and along with mild duodenitis but no evidence of gross bleeding and colonoscopy was normal exam except internal hemorrhoids. Ms Gusman received Injectafer 750 mg IV weekly ???2 on April 11 and 04/18/2019 with excellent response e.g. moravian of iron stores, ferritin 225 compared to 9 prior and improvement in hemoglobin from 12.8 to 15 g Ms Gusman reported that she underwent thyroidectomy at [facility] in [place] on March 02, 2020, as per patient she was told there is no sign of malignancy and she was started on thyroid supplements. She presented for follow-up, complaining of generalized weakness and fatigue and also dark-colored stools but no fresh blood per rectum., No jaundice, no hemoptysis or hematemesis, no abdominal pain. Patient was referred to [place] for capsule endoscopy, patient still awaiting the appointment. She was given parenteral Injectafer in May 2020 which she tolerated well. Her hemoglobin on June 18, 2020 was 9.8 hematocrit was 33.1. She was again given 2 doses of Injectafer on June 18, 2020 and again on June 25, 2020. She had L4/L5 laminectomy with partial facetectomy bilateral and L5/S1 laminectomy and partial facetectomy bilateral by Dr. Villafana at [facility]. on 07/08/2020 She states she is walking better on her own now. last dose of Injectafer on September 16, 2020. Patient underwent capsule endoscopy on August 11, 2020 which showed there was active bleeding 15% of the way through the study. There were AVMs and erythematous mucosal break noted within the left mid small bowel, 50 to 60% of the way through the study., As per patient she underwent cauterization in the last week of September and about 9 spots were cauterized, as per patient Dr. Mulligan told her the next procedure will be done not before 3 years. Came for follow-up, denies any specific complaints, no fever chills, no nausea or vomiting, no diarrhea constipation, no melena or hematochezia, no shortness of breath, no jaundice, since her last visit patient underwent, as per patient back surgery for chronic back pain but without much improvement now being referred to pain clinic for possible steroid injection. Medications: Aspirin 1 (81 mg) Tablet Oral daily, Crestor 1 (20 mg) Tablet Oral daily, Gabapentin 1 (600 mg) Tablet Oral b.i.d., MetFORMIN HCl 1 (500 mg) Tablet Oral daily, Metoprolol Tartrate 1 (50 mg) Tablet Oral b.i.d., Nitroglycerin 1 (0.4 mg) Tablet, sublingual Sublingual PRN, Singulair 1 (10 mg) Tablet Oral daily, Synthroid 1 Tablet (of 25 mcg) Oral daily, Tums 2 Tablet Tablet, chewable Oral daily, Vitamin D 1 Tablet Oral daily Allergies: Abilify, AmLODIPine Bes+SyrSpend SF, AmLODIPine Besylate, Amoxicillin, Bactrim DS, BusPIRone HCl, Ceftin, Cefuroxime Axetil, celexa , Cephalexin, Cetirizine HCl, Ciprofloxacin HCl, Cymbalta, Dexilant, DULoxetine HCl, Effexor XR, Enablex, fomotidine, Fosamax, HydroCHLOROthiazide, HydrOXYzine HCl, Levaquin, lisinopril, Lovaza, Lyrica, methocarb, Mirapex, Omeprazole, PARoxetine HCl, Penicillins, PredniSONE, PriLOSEC, Protonix, Pseudoephedrine HCl, SEROquel, traMADol HCl, VESIcare, Zoloft, and ZyrTEC Allergy. Review of Systems: Review of Systems is not available for this patient. Vital Signs: Performed on Nov 17, 2020 15:53 Height - 57.00 in Weight - 187.4 lbs (HIGH) BSA - 1.75 sq.m BMI - 40.55 (HIGH) Temperature - 96.6 F (LOW) Pulse - 78 /min Respiration - 18 /min BP - 119/71 mm(hg) O2 Sat - 94 % (LOW) Pain - 5 Fatigue - 0 Performance Status: 0 - Fully active, able to carry on all predisease activities without restrictions. (ECOG) Physical Examination: ENMT - No mouth sores, no thrush, no jaundice, Respiratory - Lungs are clear to auscultation, Cardiovascular - Regular rate and rhythm of heart, Abdomen - Soft, bowel sounds present, Extremities - No visible edema. Lab/Imaging: Test performed on Sep 09, 2020 13:25 Ferritin 60 ng/mL Iron 34 mcg/dL Iron Binding Capacity (TIBC) 402 mcg/dl % Iron Saturation 8.4 % UIBC 368 mcg/dL WBC 5.8 10 3/uL RBC 3.10 10 6/uL HGB 10.7 g/dL HCT 34.8 % MCV 112.3 fL MCH 34.5 pg MCHC 30.7 g/dL RDW 16.1 % Platelet Count 305 10 3/cmm MPV 9.2 fL Neutrophils 4.10 10 3/uL Lymphocytes 1.1 10 3/uL Monocytes 0.4 10 3/uL Eosinophils 0.1 10 3/uL Basophils 0.0 10 3/uL Neutrophil % 71.2 % Lymphocyte % 18.3 % Monocyte % 7.5 % Eosinophil % 2.1 % Basophils % 0.7 % NRBC % 0 % Test performed on Jul 02, 2020 15:31 Glucose 74 mg/dL BUN 21 mg/dL Creatinine 0.7 mg/dL Cr Clearance (Est) 114.22 mL/min Sodium 141 mmol/L Potassium 4.1 mmol/L Chloride 102 mmol/L CO2 27 mmol/L Calcium 9.3 mg/dL Protein, Total 7.5 g/dL Albumin 4.7 g/dL Globulin 2.8 g/dL Bilirubin, Total 0.2 mg/dL Alkaline Phosphatase 72 IU/L AST (SGOT) 33 IU/L ALT (SGPT) 28 IU/L Impression: Microcytic hypochromic anemia due to iron deficiency due to chronic GI blood loss From small bowel AVMs per capsule endoscopy done on August 11, [address] Mulligan in [facility], status post cauterization in September 2020 Colonoscopy and EGD done on 02/07/2017 showed no abnormality Status post Injectafer weekly ???2 in April 2017 With excellent response Status post Injectafer 750???2 in January 2018 With excellent response showed hemoglobin 15.8 hematocrit 47.8 ferritin 104.7 on 02/09/20189 Injectafer infusion done on 11/16/2018 and 11/23/2018 4 hemoglobin 11.3 hematocrit 30 5., ferritin 7 and iron saturation 4.4, postinfusion hemoglobin on 12/24/2018 was 15.1, hematocrit 44.9 and ferritin was 106. Capsule endoscopy done on 09/25/2017 showed there were 2 tiny nonbleeding AVMs that were noted, there was no blood or stigmata of recent bleeding appreciated otherwise normal study. Recent lab shows progressive iron deficiency anemia probably due to chronic GI bleeding from small bowel AVMs Plan: Discussed with patient regarding her labs white blood count 5.6 hemoglobin 16.9 hematocrit 49.9 platelets 176,000 iron studies shows ferritin 104 compared to 411 on September 16, 2020 iron 57, iron saturation 16.2 Clinically, patient is doing well with no new signs symptoms, follow-up labs shows hemoglobin normal range as well as iron studies, will continue to follow and she will return to clinic in 2 months with CBC and iron studies Chronic back pain, now being managed in pain clinic. Signed By: Yumiko Garza M.D. <<Signature on File>>
== END 2020-11-17 14:23 | disposition home or self-care (01) ==
LOC: ONCMED 14:25
PROVIDERS: PCP Family Medicine; Visit Provider Internal Medicine Hematology & Oncology
DX: D50.0 Iron deficiency anemia secondary to blood loss (chronic) (principal); Q27.33 Arteriovenous malformation of digestive system vessel; Z79.899 Other long term (current) drug therapy; G89.29 Other chronic pain; M54.9 Dorsalgia, unspecified
CPT/HCPCS: 82728; 83540; 83550; 85025; 99214

== ENCOUNTER → 2020-11-25 14:56 | Outpatient (BNVA) | payer MEDICAID, SELFPAY | PROVIDERS: PCP Family Medicine; Visit Provider Family Medicine | DX: E78.2 Mixed hyperlipidemia (principal); E11.9 Type 2 diabetes mellitus without complications; G62.9 Polyneuropathy, unspecified; I10 Essential (primary) hypertension; J06.9 Acute upper respiratory infection, unspecified | CPT/HCPCS: 80053; 80061; 83036; 83721 ==

== ENCOUNTER → 2020-12-02 13:58 | Outpatient (BNVA) | payer MEDICAID, SELFPAY | PROVIDERS: PCP Family Medicine; Visit Provider Anesthesiology Pain Medicine | DX: Z01.812 Encounter for preprocedural laboratory examination (principal); E11.9 Type 2 diabetes mellitus without complications; M51.16 Intervertebral disc disorders with radiculopathy, lumbar region; M48.062 Spinal stenosis, lumbar region with neurogenic claudication; M25.552 Pain in left hip; F17.210 Nicotine dependence, cigarettes, uncomplicated | CPT/HCPCS: 20610; 64483; 64484; J1030; J1100; J3490 ==

== ENCOUNTER 2020-12-14 08:51 | Outpatient (CLI) | payer MEDICAID, SELFPAY ==
--- NOTE | 2020-12-14 09:30 | FL_ITS ---
WS: [id number] MODIFIED BARIUM SWALLOW TECHNIQUE: Modified barium swallow with speech therapy using multiple consistencies. FLUOROSCOPY TIME: 1.7 minutes. CLINICAL INFORMATION: Dysphagia COMPARISON: None. FINDINGS: Multiple consistencies utilized. Penetration is visualized with thin liquids. No christel aspiration. No difficulties with barium tablet. Mild pooling in the vallecula which cleared with additional swallow s. FL/FL barium swallow modifd [id number] IMPRESSION: 1. Penetration with thin liquids. 2. No christel aspiration.
== END 2020-12-14 08:52 | disposition home or self-care (01) ==
LOC: RAD 08:55
PROVIDERS: PCP Family Medicine; Visit Provider Otolaryngology
DX: R13.10 Dysphagia, unspecified (principal)
CPT/HCPCS: 74230; 92611

== ENCOUNTER → 2020-12-24 14:47 | Outpatient (BNVA) | payer MEDICAID, SELFPAY | PROVIDERS: PCP Family Medicine; Visit Provider Family Medicine | DX: G62.9 Polyneuropathy, unspecified (principal); E11.9 Type 2 diabetes mellitus without complications; E87.1 Hypo-osmolality and hyponatremia; E89.0 Postprocedural hypothyroidism; I10 Essential (primary) hypertension; M79.89 Other specified soft tissue disorders | CPT/HCPCS: 80053; 83735; 83880; 85025 ==

== ENCOUNTER 2021-01-13 08:36 | Outpatient (CLI) | payer MEDICAID, SELFPAY ==
[2021-01-13 09:12] LABS: Basophils % 0.6 %; Eosinophils # 0.1 10^3/uL (0.0-0.8); Eosinophils % 1.9 %; Hematocrit 49.2 % (37.0-47.0); Hemoglobin 16.4 g/dL (11.5-15.3); Lymphocytes # 1.3 10^3/uL (0.8-4.8); Mean Corpuscular HGB Conc 33.3 g/dL (30.0-36.0); Mean Corpuscular Hemoglobin 34.6 pg (28.0-34.0); Mean Corpuscular Volume 103.8 fL (81-99); Mean Platelet Volume 10.4 fL (7.4-10.4); Monocytes # 0.6 10^3/uL (0.2-0.9); Monocytes % 10.7 %; Neutrophils # 3.21 10^3/uL (1.8-7.7); Neutrophils % 61.4 %; Nucleated Red Blood Cells % 0 %; Platelet Count 177 10^3/cmm (130-400); Red Blood Count 4.74 10^6/uL (4.1-5.3); Red Cell Distribution Width 15.2 % (12.1-15.1); White Blood Count 5.2 10^3/uL (4.0-10.0)
[2021-01-13 09:42] LABS: Ferritin 58 ng/mL (15-150); Iron 91 ug/dL (37-145); Percent Saturation 28.7 % (20-50); Total Iron Binding Capacity 317 mcg/dl; Unsaturated Iron Binding 226 ug/dL (112-347)
--- NOTE | 2021-01-13 13:40 | ONC FU_ITS ---
Dr. Garza follow up note Patient: Dana Gusman Unit #: [id number]: 1960 Dicatated By: Yumiko Garza M.D.Date of Visit:Jan 13, 2021 Onc Med Follow-up/Prog Note History of Present Illness: Mrs. Gusman is a 60 -year-old female with history of palpitations, dyspnea on exertion for over a year. She was diagnosed with iron deficiency anemia started on oral iron. She experienced significant heartburn/ indigestion with the oral iron. She has received parental iron replacement with Injectafer on multiple occassions. She does have pica sypmtoms when she is iron deficient in that she does crave ice and chews it all the time . Mrs Gusman reported she was losing blood in her stools and she underwent EGD and colonoscopy by Dr. Campbell on 02/07/2017. The scopes did not show any abnormalities and she subsequently underwent capsule endoscopy on 09/25/2017 for persistent iron deficiency anemia and it showed a few tiny nonbleeding AVMs. No history of jaundice, no history of blood transfusion except during her last , no history of gross bleeding, CBC from 04/05/2017 showed white blood count 4.7 with normal differential hemoglobin 7.8 crit 25.3 MCV 61.3, platelets 275,000 Status post Injectafer 750 mg weekly ???2 on January 04 and 2017 with excellent response . Her hemoglobin had gone up to 15.8, hematocrit 47.8 and ferritin 104.7 on 02/09/2018. She again required Injectafer' 750 mg IV ???2 given on 11/16 and 11/23/2018 with that her hemoglobin improved from 11.3-15.1 and ferritin gone up to 106 compared to 7 prior to infusion. She underwent repeat colonoscopy and EGD on 05/14/2019 for progressive iron deficiency anemia. The EGD showed no esophageal abnormality and there is mild gastric erosions in the antrum and along with mild duodenitis but no evidence of gross bleeding and colonoscopy was normal exam except internal hemorrhoids. Ms Gusman received Injectafer 750 mg IV weekly ???2 on April 11 and 04/18/2019 with excellent response e.g. amish of iron stores, ferritin 225 compared to 9 prior and improvement in hemoglobin from 12.8 to 15 g Ms Gusman reported that she underwent thyroidectomy at [facility] in [place] on March 02, 2020, as per patient she was told there is no sign of malignancy and she was started on thyroid supplements. She presented for follow-up, complaining of generalized weakness and fatigue and also dark-colored stools but no fresh blood per rectum., No jaundice, no hemoptysis or hematemesis, no abdominal pain. Patient was referred to [place] for capsule endoscopy, patient still awaiting the appointment. She was given parenteral Injectafer in May 2020 which she tolerated well. Her hemoglobin on June 18, 2020 was 9.8 hematocrit was 33.1. She was again given 2 doses of Injectafer on June 18, 2020 and again on June 25, 2020. She had L4/L5 laminectomy with partial facetectomy bilateral and L5/S1 laminectomy and partial facetectomy bilateral by Dr. Villafana at [facility]. on 07/08/2020 She states she is walking better on her own now. last dose of Injectafer on September 16, 2020. Patient underwent capsule endoscopy on August 11, 2020 which showed there was active bleeding 15% of the way through the study. There were AVMs and erythematous mucosal break noted within the left mid small bowel, 50 to 60% of the way through the study., As per patient she underwent cauterization in the last week of September and about 9 spots were cauterized, as per patient Dr. Mulligan told her the next procedure will be done not before 3 years. Came for follow-up, denies any specific complaint except generalized weakness and fatigue, but no melena or hematochezia no hemoptysis or hematemesis, no shortness of breath at rest, no jaundice, no chest pain, as per patient she been told sometimes she stop breathing during sleep, patient states she cannot sleep on her back and usually do not get enough sleep at night and during daytime she feels sleepy. Medications: Aspirin 1 (81 mg) Tablet Oral daily, Crestor 1 (20 mg) Tablet Oral daily, Gabapentin 1 (600 mg) Tablet Oral b.i.d., MetFORMIN HCl 1 (500 mg) Tablet Oral daily, Metoprolol Tartrate 1 (50 mg) Tablet Oral b.i.d., Nitroglycerin 1 (0.4 mg) Tablet, sublingual Sublingual PRN, Singulair 1 (10 mg) Tablet Oral daily, Synthroid 1 Tablet (of 25 mcg) Oral daily, Tums 2 Tablet Tablet, chewable Oral daily, Vitamin D 1 Tablet Oral daily Allergies: Abilify, AmLODIPine Bes+SyrSpend SF, AmLODIPine Besylate, Amoxicillin, Bactrim DS, BusPIRone HCl, Ceftin, Cefuroxime Axetil, celexa , Cephalexin, Cetirizine HCl, Ciprofloxacin HCl, Cymbalta, Dexilant, DULoxetine HCl, Effexor XR, Enablex, fomotidine, Fosamax, HydroCHLOROthiazide, HydrOXYzine HCl, Levaquin, lisinopril, Lovaza, Lyrica, methocarb, Mirapex, Omeprazole, PARoxetine HCl, Penicillins, PredniSONE, PriLOSEC, Protonix, Pseudoephedrine HCl, SEROquel, traMADol HCl, VESIcare, Zoloft, and ZyrTEC Allergy. Review of Systems: Review of Systems is not available for this patient. Vital Signs: Performed on Jan 13, 2021 11:34 Height - 57.00 in Weight - 189.2 lbs (HIGH) BSA - 1.76 sq.m BMI - 40.94 (HIGH) Temperature - 97.2 F (LOW) Pulse - 70 /min Respiration - 18 /min BP - 118/70 mm(hg) O2 Sat - 99 % Pain - 8 Fatigue - 10 Performance Status: 0 - Fully active, able to carry on all predisease activities without restrictions. (ECOG) Physical Examination: ENMT - No mouth sores no jaundice,, Respiratory - On exam she had expiratory wheezing bilaterally, Cardiovascular - Regular rate and rhythm of heart, Abdomen - Denies any abdominal fullness or pain, Extremities - No visible edema. Lab/Imaging: Test performed on Sep 09, 2020 13:25 Ferritin 60 ng/mL Iron 34 mcg/dL Iron Binding Capacity (TIBC) 402 mcg/dl % Iron Saturation 8.4 % UIBC 368 mcg/dL WBC 5.8 10 3/uL RBC 3.10 10 6/uL HGB 10.7 g/dL HCT 34.8 % MCV 112.3 fL MCH 34.5 pg MCHC 30.7 g/dL RDW 16.1 % Platelet Count 305 10 3/cmm MPV 9.2 fL Neutrophils 4.10 10 3/uL Lymphocytes 1.1 10 3/uL Monocytes 0.4 10 3/uL Eosinophils 0.1 10 3/uL Basophils 0.0 10 3/uL Neutrophil % 71.2 % Lymphocyte % 18.3 % Monocyte % 7.5 % Eosinophil % 2.1 % Basophils % 0.7 % NRBC % 0 % Impression: Microcytic hypochromic anemia due to iron deficiency due to chronic GI blood loss From small bowel AVMs per capsule endoscopy done on August 11, [address] Mulligan in [facility], status post cauterization in September 2020 Colonoscopy and EGD done on 02/07/2017 showed no abnormality Status post Injectafer weekly ???2 in April 2017 With excellent response Status post Injectafer 750???2 in January 2018 With excellent response showed hemoglobin 15.8 hematocrit 47.8 ferritin 104.7 on 02/09/20189 Injectafer infusion done on 11/16/2018 and 11/23/2018 4 hemoglobin 11.3 hematocrit 30 5., ferritin 7 and iron saturation 4.4, postinfusion hemoglobin on 12/24/2018 was 15.1, hematocrit 44.9 and ferritin was 106. Capsule endoscopy done on 09/25/2017 showed there were 2 tiny nonbleeding AVMs that were noted, there was no blood or stigmata of recent bleeding appreciated otherwise normal study. Recent lab shows progressive iron deficiency anemia probably due to chronic GI bleeding from small bowel AVMs Plan: Discussed with patient regarding her labs white blood count 5.2 hemoglobin 16.4 hematocrit 49.2 MCV 103.8 platelets 177 iron studies shows iron saturation 28.7% ferritin 58 iron 91 TIBC 317 Clinically, patient doing well with no new signs symptom her follow-up CBC shows hemoglobin in normal range and iron stores adequate, As far as generalized weakness and fatigue is concerned could be multifactorial including underlying sleep apnea, will suggest PMD to consider sleep study as if sleep apnea is confirmed, CPAP may be helpful. As far as history of hypothyroidism concerned, patient is following with endocrinology Return to clinic in 3 months with CBC and iron studies Signed By: Yumiko Garza M.D. <<Signature on File>>
== END 2021-01-13 08:37 | disposition home or self-care (01) ==
LOC: ONCMED 08:38
PROVIDERS: PCP Family Medicine; Visit Provider Internal Medicine Hematology & Oncology
DX: D50.0 Iron deficiency anemia secondary to blood loss (chronic) (principal); Z79.899 Other long term (current) drug therapy
CPT/HCPCS: 82728; 83540; 83550; 85025; 99214

== ENCOUNTER → 2021-03-22 08:41 | Day surgery (SDC) | payer MEDICAID, SELFPAY | PROVIDERS: PCP Family Medicine; Visit Provider Orthopaedic Surgery | DX: Z01.818 Encounter for other preprocedural examination (principal); M48.061 Spinal stenosis, lumbar region without neurogenic claudication | CPT/HCPCS: 93005 ==

== ENCOUNTER → 2021-03-25 13:21 | Outpatient (BNVA) | payer MEDICAID, SELFPAY | PROVIDERS: PCP Family Medicine; Visit Provider Orthopaedic Surgery | DX: Z01.812 Encounter for preprocedural laboratory examination (principal); Z20.822 Contact with and (suspected) exposure to COVID-19 | CPT/HCPCS: 87635 ==

== ENCOUNTER 2021-03-31 12:47 | Observation (INO) | payer MEDICAID, SELFPAY ==
--- NOTE | 2021-03-22 08:41 | ECG_ITS ---
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 Measurements Intervals [place] Rate: 57 P: 45 ND: 179 QRS: -40 QRSD: 97 T: 10 QT: 410 QTc: 401 Interpretive Statements SINUS BRADYCARDIA LEFT AXIS DEVIATION [QRS AXIS < -30] Compared to ECG 04/08/2020 12:07:01 Left-axis deviation now present Sinus rhythm no longer present Electronically Signed On 03-22-2021 19:25:41 CDT by Andreia Medrano M.D. [id number]
[2021-03-22 08:55] VITALS: BMI 38.6
--- NOTE | 2021-03-22 09:25 | ANES.PREANE2 ---
Pre-Anesthetic Assessment Pre-Anesthetic Assessment: Height/Weight: Height 1.47 m Weight 83.915 kg Preop Diagnosis: lumbar stenosis Proposed Procedure: Operation Date: 03/31/21 07:00 Proposed Procedures p PLIF L4/5 00331, 71824, 79130, 91719, 99851, 40652 m43.16(Not Applicable) - Parminder Turner DO Was Beta Marisel taken within 24 hours: Yes Was Clonidine taken within 24 hours: N/A Social: Social History: Tobacco and No alcohol Exam: Pre-Anes Outpt Exam: alert, oriented x 3 and regular rate & rhythm Additional Exam Findings (including area of procedure): rhonchi Airway: Submandibular: WNL Cervical ROM: WNL MP: 2 Dentition: False Pulmonary: Pulmonary: COPD CV/HEM: CV/HEM: CAD (stents) and HTN GI: GI: GERD Metabolic: Metabolic: DM, Morbid obesity and Thyroid Musc/skel: Musc/skel: Lower Back Pain and Weakness Anesthetic Plan: ASA status: 3 Anesthesia: General Other: A.line Risk of > 500 ml blood loss (7ml/kg in children): No PFSH Anesthesia PFSH: Medical History Anemia Central sleep apnea Chronic sinusitis Deviated septum Dysphonia Enlarged thyroid Essential hypertension Hyperlipidemia Intervertebral disc disorders with radiculopathy, lumbar region Lumbar stenosis with neurogenic claudication Nasal turbinate hypertrophy Neuropathic peripheral nerve Osteoporosis Postnasal drip Sacral fracture, closed Sensorimotor neuropathy Multifocal Spondylolisthesis, lumbar region Trigger ring finger of right hand Type 2 diabetes mellitus without complications Unspecified fracture of sacrum, initial encounter for closed fracture Vocal cord polyp Surgical History H/O breast biopsy H/O heart artery stent H/O: hysterectomy History of appendectomy History of bladder surgery History of lumbar surgery Dr. Turner-lumbar decompression History of thyroidectomy 03/02/2020 [facility]. Hx of hand surgery Family History Father CAD (coronary artery disease) Hypertension Cancer Diabetes Mother CAD (coronary artery disease) Hypertension Grandmother Cancer Diabetes Social History Alcohol intake: never Household members: spouse Marital status: Current occupational status: disabled History of recent travel: No Data Anesthesia Cardiac Studies: Cardiac Event Monitor 06/02/20
[2021-03-31] VITALS (13 sets, daily range): BP systolic 104–172; BP diastolic 54–79; PULSE 63–89; RESP 15–27; TEMP 36.3–36.7; O2SAT 90–100; BMI 38.6
--- NOTE | 2021-03-31 | SCC_ITS ---
Procedure Done: 1. L4/5 Interbody fusion with posterolateral fusion 2. Instrumentation L4/5 3. Cage at L4/5 4. Laminectomy L4 5. use of autograft from same incision 6. allograft 7. Bone marrow aspirate from right iliac crest 8. computer navigation/ stereo tactic of the spine 2 seconds of fluoroscopic guidance, for a cumulative dose of 63.4 mGy, was provided to Dr. Turner by the radiology department. C-arm images of the lumbar spine were saved for the patient's permanent record. ILYA
--- NOTE | 2021-03-31 | XR_ITS ---
WS: [id number] Exam: XR lumbar spine 2-3V* [id number] Date/Time of Exam: 03/31/2021 12:00 AM Reason For Exam: plif l4/l5 Intraoperative AP and lateral images of the lower lumbar spine are submitted for evaluation. The images depict interbody fusion at L4-5 with the pedicle screws and one posterior armand. Hardware po sition and alignment appears to be satisfactory from this limited study. Also noted is a disc spacer in place at the L4-5 disc level. Surgical retractors are noted at the surgical site.
[2021-03-31 08:22] LABS: Glucose Point of Care 207 mg/dL (70-110)
[2021-03-31] MEDS: sodium chloride 0.9% 1,000 ML 30 ML IV (08:25)
[2021-03-31 08:36] LABS: Basophils # 0.1 10^3/uL (0.0-0.1); Basophils % 0.8 %; Eosinophils # 0.1 10^3/uL (0.0-0.8); Eosinophils % 1.8 %; Hemoglobin 17.5 g/dL (11.5-15.3); Lymphocytes # 1.4 10^3/uL (0.8-4.8); Lymphocytes % 19.9 %; Mean Corpuscular HGB Conc 33.7 g/dL (30.0-36.0); Mean Platelet Volume 10.3 fL (7.4-10.4); Monocytes # 0.7 10^3/uL (0.2-0.9); Neutrophils # 4.83 10^3/uL (1.8-7.7); Neutrophils % 67.2 %; Nucleated Red Blood Cells % 0 %; Platelet Count 216 10^3/cmm (130-400); Red Cell Distribution Width 14.2 % (12.1-15.1); White Blood Count 7.2 10^3/uL (4.0-10.0)
--- NOTE | 2021-03-31 08:59 | P.ANESUD_ITS ---
Pre-Anesthetic Update Pre-Anesthetic Assessment: Date of Surgery/Procedure: 03/31/21 Preop Elicia gnosis: L4/5 spondylolisthesis Proposed Procedure: Operation Date: 03/31/21 09:15 Proposed Procedures p PLIF L4/5 07817, 10611, 19160, 06074, 19715, 88854 m43.16(Not Applicable) - Parminder Turner, DO Any changes to Pre-Anesthetic Assessment?: No Last Intake: Intake Last Liquid Date 03/30/21 Last Liquid Time 18:30 Last Solid Date 03/30/21 Last Solid Time 18:00 Labs Last 48hrs: Laboratory Results - last 48 hr 03/31/21 03/31/21 08:15 08:16 WBC 7.2 RBC 5.00 Hgb 17.5 H Hct 52.0 H MCV 104.0 H MCH 35.0 H MCHC 33.7 RDW 14.2 Plt Count 216 MPV 10.3 Neut % (Auto) 67.2 Lymph % (Auto) 19.9 [place] % (Auto) 10.0 Eos % (Auto) 1.8 Baso % (Auto) 0.8 Neut # (Auto) 4.83 Lymph # (Auto) 1.4 [place] # (Auto) 0.7 Eos # (Auto) 0.1 Baso # (Auto) 0.1 Nucleated RBC % (a uto) 0 Nucleated RBCs # 0.0 POC Glucose 207 H Vitals: Temperature 97.4 F L 03/31/21 08:05 Temperature Source Temporal Artery S can 03/31/21 08:05 Pulse Rate 79 03/31/21 08:05 Pulse Rhythm 03/31/21 08:05 Pulse Strength 3+ Normal 03/31/21 08:05 Respiratory Rate 18 03/31/21 08:05 Blood Pressure 172/79 03/31/21 08:05 Blood Pressure Christine n 110 03/31/21 08:05 Pulse Oximetry 98 03/31/21 08:05 Oxygen Delivery Me thod 03/31/21 08:05 Exam: Pre-Anes Outpt Exam: alert, oriented x 3 and regular rate & rhythm Cardiac Studies: Cardiac Event Monitor 06/02/20
--- NOTE | 2021-03-31 09:28 | P.HP_ITS ---
Providers/Chief Complaint Primary Care Provider: Charis Carcamo DO Chief Complaint: PLIF L4/5 21704, 26394, 61361, 70095, 76002, 05585 History of Present Illness Dana Gusman is a 60 year old female follow up after injections Left L4 and L5 transforaminal KIYA 12/02/20 Chief Complaint: low back pain, hip and leg Onset:DOS: 07/08/20 Duration: 4 months Characteristics: L4/5 laminectomy and partial facetectomy bilateral L5/S1 lami nectomy and partial facetectomy bilateral Severity: 01/12 Location: lumbar Radiating symptoms: above incision site bilateral leg pain with the left being worse. radiating into herleft knee Aggravating factors: activities and standing, weight bearing, walking any distance Alleviating factors: hydrocodone, rest Neuro deficits: denies numbness, tingling, weakness, incontinence of bowel/bladder, saddle anesthesia. Prior tx: Review of Systems Narrative: General ROS: negative for weight changes, fever ENT ROS: negative for nasal congestion, drainage or bleeding, sore throat, dysphagia or ear pain Eyes: PERRL Hematological and Lymphatic ROS: negative for swollen glands or abnormal bleeding Endocrine ROS: negative for polyuria/polydpsia or new changes in weight Respiratory ROS: negative for cough, shortness of breath, or wheezing Cardiovascular ROS: negative for chest pain or dyspnea on exertion Gastrointestinal ROS: negative for reflux, abdominal pain, change in bowel habits, or black or bloody stools Musculoskeletal ROS: negative for back pain, neck pain, or joint pain or swelling except for current problem Neurological ROS: negative for TIA or stoke symptoms Skin: no rashes Medications/Allergies Home Medications Medication Instructions Recorded Confirmed Last Taken Type nitroglycerin 0.4 mg sublingual 0.4 mg SUBLINGUAL PRN PRN 06/14/19 03/22/21 Unknown History tablet wheelchair #1 ea 10/17/19 03/22/21 Unknown Rx diabetic shoes #1 ea 01/22/20 03/22/21 Unknown Rx blood sugar diagnostic #100 each 04/06/20 03/22/21 Unknown Rx blood-glucose meter #1 each 04/06/20 03/22/21 Unknown Rx Tums See Rx Instructions .ROUTE .COMPLEX 04/08/20 03/22/21 Unknown History Vitamin B-12 1 tab PO DAILY 04/08/20 03/22/21 Unknown History acetaminophen [Acetaminophen Extra 1,000 mg PO PRN 04/08/20 03/22/21 07/07/20 History Strength] levothyroxine [Euthyrox] 50 mcg PO QAM 04/08/20 03/22/21 07/07/20 History vitamin E 1 applic TOPICAL PRN 04/08/20 03/22/21 Unknown History cholecalciferol (vitamin D3) 50 50 mcg PO DAILY 04/22/20 03/31/21 03/30/21 History mcg (2,000 unit) capsule metoprolol tartrate 50 mg tablet 25 mg PO BID #60 tab 07/06/20 03/31/21 03/31/21 05:00 Rx aspirin 81 mg PO DAILY 07/07/20 03/31/21 03/24/21 History famotidine 20 mg tablet 20 mg PO DAILY 11/12/20 03/31/21 03/30/21 History metformin 500 mg tablet,extended 500 mg PO DAILY 90 Days #90 tab 11/27/20 03/31/21 03/30/21 Rx release 24hr furosemide 40 mg tablet 40 mg PO DAILY #90 tab 12/15/20 03/31/21 03/30/21 Rx potassium gluconate 595 mg (99 mg) 595 mg PO DAILY 12/15/20 03/31/21 03/29/21 History tablet levothyroxine 50 mcg tablet 50 mcg PO DAILY 30 Days #30 tab 12/16/20 03/31/21 03/31/21 Rx albuterol sulfate 90 mcg/actuation 2 puff INHALATION QID PRN 90 Days 12/24/20 03/31/21 03/31/21 Rx aerosol inhaler #8.5 g gabapentin 300 mg capsule 300 mg PO TID #270 cap 12/24/20 03/31/21 03/30/21 Rx magnesium 400 mg PO DAILY 03/22/21 03/31/21 03/30/21 History Allergies Allergy/AdvReac Type Severity Reaction Status Date / Time amlodipine Allergy ADR-Dizzine Verified 12/24/20 13:07 ss clavulanic acid Allergy Unknown Verified 12/24/20 13:07 [From Augmentin] levofloxacin [From Levaquin] Allergy ADR-Dizzine Verified 12/24/20 13:07 ss omeprazole Allergy chest pain Verified 12/24/20 13:07 prednisone Allergy SOB Verified 12/24/20 13:07 PFSH Acute PFSH: Medical History Anemia Central sleep apnea Chronic sinusitis Deviated septum Dysphonia Enlarged thyroid Essential hypertension Hyperlipidemia Intervertebral disc disorders with radiculopathy, lumbar region Lumbar stenosis with neurogenic claudication Nasal turbinate hypertrophy Neuropathic peripheral nerve Osteoporosis Postnasal drip Sacral fracture, closed Sensorimotor neuropathy Multifocal Spondylolisthesis, lumbar region Trigger ring finger of right hand Type 2 diabetes mellitus without complications Unspecified fracture of sacrum, initial encounter for closed fracture Vocal cord polyp Surgical History H/O breast biopsy H/O heart artery stent H/O: hysterectomy History of appendectomy History of bladder surgery History of lumbar surgery Dr. Turner-lumbar decompression History of thyroidectomy 03/02/2020 [facility]. Hx of hand surgery Family History Father CAD (coronary artery disease) Hypertension Cancer Diabetes Mother CAD (coronary artery disease) Hypertension Grandmother Cancer Diabetes Social History Alcohol intake: never Household members: spouse Marital status: Current occupational status: disabled History of recent travel: No Vitals/I&O/Wt Last Vital Signs Temp 97.4 F L 03/31/21 08:05 Pulse 79 03/31/21 08:05 Resp 18 03/31/21 08:05 BP 172/79 03/31/21 08:05 Pulse Ox 98 03/31/21 08:05 Physical Exam 2 Narrative: EXAM NARRATIVE: VITAL SIGNS: [] CONSTITUTIONAL: The patient is a normal appearing [] in no apparent distress. GENERAL: Patient in no acute distress. CARDIAC: Regular rate and rhythm. CHEST: Normal inspiratory effort, normal respiratory rate. ABDOMEN: Soft and nontender. SKIN: Clear, warm and intact. NEURO?PSYCH: The patient is alert and oriented to person, place and time. Sensorv /SILT Motor StrengthShoulder abduction C5 5/5Wrist extension C6 5/5Elbow extension C7 5/5Hand Machine Packaging Technician C8 5/5Finger abduction T15/5 Radial/ Ulnar/ Median n intact LowerSensory (SILT)Motor StrengthHin flexion L2/3Ant/inner thigh 5/5Hip adduc tion L2/3 5/5Knee extension L4 Lat thigh, 5/5Toe dorsiflexion L5 5/5Ankle dorsiflexion L5/ O66Qbnzxic flexion S1 5/5 DTRBleeps 2+Triceps 2+Brachioradialis 2+Patellar 2+Achilles 2+ MUSCULOSKELETAL: [] UPPEREXTREMITIES: The patient had full active ROM in fingers, wrist, elbow, and shoulder. The patient demonstrated ability to fully flex/extend/abduct/adduct fingers, make ok sign, cross 2nd/3rd digits, extend 1st digit fully.. Radial pulse 2+, CR<2 seconds. LOWER EXTREMITIES: Pt has full, active ROM of toes, ankle, knee, and hip. Dorsalis pedis/posterior tibialis pulses 2+, CR<2 seconds. SPINE: Skin warm, dry, intact. Data : 03/31/21 08:15 A&P Assessment and plan (1) Lumbar stenosis with neurogenic claudication: L4/5 PLIF Status: Acute Attestations Medical Necessity Statement*: failed conservative tx Coding Level of Care Code Acute Brigadier for Chg Fwd Diagnoses Lumbar stenosis with neurogenic claudication M48.062
[2021-03-31] MEDS: vancomycin 1,000 MG SDV 1000 MG (11:36)
[2021-03-31] MEDS: heparin, porcine 1,000 unit/mL INJ 10 mL 10000 UNIT INJECTION (11:38)
--- NOTE | 2021-03-31 12:55 | PM.OP ---
Operative Report Date of procedure: March 31, 2021 Pre-op Diagnosis: L4/5 spondylolisthesis; lumbar stenosis with neurogenic claudication Post-op diagnosis: same Procedure Done: 1. L4/5 Interbody fusion with posterolateral fusion 2. Instrumentation L4/5 3. Cage at L4/5 4. Laminectomy L4 5. use of autograft from same incision 6. allograft 7. Bone marrow aspirate from right iliac crest 8. computer navigation/ stereo tactic of the spine Surgeon: Parminder Turner Dictating Machine Transcriber: Brant Roger Dictating Machine Transcriber: The surgical coder, Brant Roger, PAC was needed for his expertise under the microscope. He was important and necessary throughout the procedure to complete in a safe and timely manner. He assisted with patient positioning prepping and draping tissue retraction suctioning of the operative field protection of the dural sac and tissue closure Anesthesia: General Estimated blood loss (mL): 150 Condition: stable Disposition: PACU Procedure: 1. L4/5 Interbody fusion with posterolateral fusion 2. Instrumentation L4/5 3. Cage at L4/5 4. Laminectomy L4 5. use of autograft from same incision 6. allograft 7. Bone marrow aspirate from right iliac crest 8. computer navigation/ stereo tactic of the spine Patient is brought to the operative suite. After undergoing anesthesia, the patient had neuro monitoring attached. Patient was then placed in the prone position on the Mauricio table. All areas of impingement were well-padded. Patient was then prepped and draped in the normal sterile fashion. Skin incision was then made over the L4/5 space. Subperiosteal dissection was made out to the transverse processes of L4 and L5. Once the exposure was complete attention was then brought to placing tobtaining Bone marrow aspirate. The regenicel bone marrow aspirate kit was used to aspirate bone marrow aspirate from the right iliac crest. This was done by using the sharp probe to open up the bone. Aspiration was performed and then the blunt probe was then used to dissect down to through the bone tunnel. An aspirating well drawn back a millimeter approximately 20 cc of bone marrow aspirate was used. Admixed with the allograft and autograft bone that will be used. Next the fiducials for the computer navigation was placed. This was done by placing 2 pins into the right iliac crest. The fiducial was attached. And linked to the computer. Next the C arm was brought in and spun around the patient. The information from the serum was then linked into the computer which length back to the fiducial. Next attention was brought to placing the pedicle screws. The technique for placing the pedicle screws was to use a drill followed by the gearshift probe linked to the computer navigation. Followed by the ball probe to feel the superior inferior medial lateral noguera of the pedicles. Then placement of the screws using computer navigation. Was done at each pedicle. Screws were placed at L4 bilaterally and L5. Next attention was brought to performing the laminectomy ofL4. This was done using the high-speed bur Kerrisons and curettes. Once the lamina was removed and then attention was brought to performing a partial facetectomy on the contralateral side. This was done again using the high-speed bur curettes and Kerrisons. The ligamentum flavum was taken down bilaterally from L4 to L5. Attention was then brought to the facet on the ipsilateral side. The facet was taken down. The L5 nerve was decompressed as it passed around the L5 pedicle. The laminectomy was done for purposes of decompressing the nerve as well as placement of the cage. The L4 nerve was identified as it traversed through the L4/5 foramen. The thecal sac was identified and retracted. The L4/5 disc base was identified. Using a knife the disc base was opened. And then sequential reese were placed. The first shaver was a 6 and the last shaver was a 11. Using a pituitary and down going curette the endplates were scraped and disc material was removed from the space. Once adequate decompression of the disc base was felt to be had. Osteoamp sponge was packed into the anterior aspect of the disc base. Then a size 11 cage from [employer]ara was placed after packing osteoamp into the cage. While placing the cage the thecal sac and L5 nerve was protected. C arm was used to ensure that the cages placed in the appropriate position. Attention was then brought to attaching the rods to the screws placed in the L4 and L5 bilaterally. Caps were torqued into position. Locking the construct in place. Wound was copiously irrigated and then attention was brought to decorticating the facets and transverse processes laterally. Bone that was taken down from the lamina was used along with osteoamp fibers and sponges were packed into the lateral gutters along the facet joints. This was done bilaterally. Wound was then closed in a layered fashion starting with the thoracolumbar fascia. 0-vicryl was used the sub cutaneous tissue was closed with 2-0 vicryl and skin with 4-0 monocryl. Glue was then used to seal the skin and a steril dressing was applied. Patient was then placed in the supine position. The endotracheal tube was removed and patient was transferred to the PACU in stable condition.
--- NOTE | 2021-03-31 13:14 | P.PCN_ITS ---
Documented by User: Carlos Rasheed CRNA 03/31/21 13:14 PACU note PACU note: VSS, Good respiratory effort, report to CLAY ARTIST Post-Anesthesia Exam: awake
--- NOTE | 2021-03-31 13:14 | PM.PACU ---
Documented by User: Carlos Rasheed CRNA 03/31/21 13:14 PACU note PACU note: VSS, Good respiratory effort, report to PASTE UP ARTIST APPRENTICE Post-Anesthesia Exam: awake
[2021-03-31] MEDS: ipratropium 0.5 mg/2.5 mL Neb INHALATION (13:28)
--- NOTE | 2021-03-31 14:37 | PM.CONSULT ---
Providers/Reason For Consult Consulting Physician/Specialty*: Hospitalist Reason for Consult*: med management Attending Physician: Parminder Turner DO Primary Care Provider: Charis Carcamo DO History of Present Illness History of Present Illness Very pleasant 60-year-old lady current smoker with history of CAD, status post stenting of coronary artery 6 years ago, on chronic aspirin therapy, following with cardiology, with history of HTN, HLD, sleep apnea, recommended to use CPAP at night but does not, has been dealing with chronic pain of lower back unresponsive to conservative management. Today underwent L4/5 PLIF without reported complications, minimal blood loss. Reports feeling sore after surgery, but denies chest pain or pressure, no trouble breathing. Moving all extremities. Reports apart from her back problems she has otherwise been at baseline state of health. Review of Systems Const: Denies: fever(s), chills, body aches or malaise Eyes: Denies: change in vision or eye redness ENMT: Denies: throat pain, oral sores or ear or mastoid pain Card: Denies: chest pain, edema, pre-syncope or dyspnea on exertion Resp: Denies: dyspnea, productive cough, change in phlegm color or hemoptysis GI: Denies: abdominal pain, nausea, vomiting, diarrhea, constipation, hematochezia or melena : Denies: flank pain, urinary frequency or hematuria Musc: Reports: back pain; Denies: joint swelling or joint redness Skin/Breast: Denies: rash, sores or new lesions Neuro: Denies: headache(s), numbness in extremities, weakness in extremities, dizziness, confusion or seizure-like activity Endo: Denies: polyuria or polydipsia Dinh/Lymph: Denies: easy bleeding or purpura All/Imm: Denies: urticaria, throat swelling or tongue swelling Meds/Allergies Home Medications and Allergies Home Medications Medication Instructions Recorded Confirmed Last Taken Type nitroglycerin 0.4 mg sublingual 0.4 mg SUBLINGUAL PRN PRN 06/14/19 03/22/21 Unknown History tablet wheelchair #1 ea 10/17/19 03/22/21 Unknown Rx diabetic shoes #1 ea 01/22/20 03/22/21 Unknown Rx blood sugar diagnostic #100 each 04/06/20 03/22/21 Unknown Rx blood-glucose meter #1 each 04/06/20 03/22/21 Unknown Rx Tums See Rx Instructions .ROUTE .COMPLEX 04/08/20 03/22/21 Unknown History Vitamin B-12 1 tab PO DAILY 04/08/20 03/22/21 Unknown History acetaminophen [Acetaminophen Extra 1,000 mg PO PRN 04/08/20 03/22/21 07/07/20 History Strength] levothyroxine [Euthyrox] 50 mcg PO QAM 04/08/20 03/22/21 07/07/20 History vitamin E 1 applic TOPICAL PRN 04/08/20 03/22/21 Unknown History cholecalciferol (vitamin D3) 50 50 mcg PO DAILY 04/22/20 03/31/21 03/30/21 History mcg (2,000 unit) capsule metoprolol tartrate 50 mg tablet 25 mg PO BID #60 tab 07/06/20 03/31/21 03/31/21 05:00 Rx aspirin 81 mg PO DAILY 07/07/20 03/31/21 03/24/21 History famotidine 20 mg tablet 20 mg PO DAILY 11/12/20 03/31/21 03/30/21 History metformin 500 mg tablet,extended 500 mg PO DAILY 90 Days #90 tab 11/27/20 03/31/21 03/30/21 Rx release 24hr furosemide 40 mg tablet 40 mg PO DAILY #90 tab 12/15/20 03/31/21 03/30/21 Rx potassium gluconate 595 mg (99 mg) 595 mg PO DAILY 12/15/20 03/31/21 03/29/21 History tablet levothyroxine 50 mcg tablet 50 mcg PO DAILY 30 Days #30 tab 12/16/20 03/31/21 03/31/21 Rx albuterol sulfate 90 mcg/actuation 2 puff INHALATION QID PRN 90 Days 12/24/20 03/31/21 03/31/21 Rx aerosol inhaler #8.5 g gabapentin 300 mg capsule 300 mg PO TID #270 cap 12/24/20 03/31/21 03/30/21 Rx magnesium 400 mg PO DAILY 03/22/21 03/31/21 03/30/21 History Allergies Allergy/AdvReac Type Severity Reaction Status Date / Time amlodipine Allergy ADR-Dizzine Verified 12/24/20 13:07 ss clavulanic acid Allergy Unknown Verified 12/24/20 13:07 [From Augmentin] levofloxacin [From Levaquin] Allergy ADR-Dizzine Verified 12/24/20 13:07 ss omeprazole Allergy chest pain Verified 12/24/20 13:07 prednisone Allergy SOB Verified 12/24/20 13:07 PFSH Acute PFSH: Medical History (Updated 03/31/21 @ 14:42 by Rajinder Arriaga MD) Anemia CAD (coronary artery disease) Central sleep apnea Chronic sinusitis Deviated septum Dysphonia Enlarged thyroid Essential hypertension Hyperlipidemia Intervertebral disc disorders with radiculopathy, lumbar region Lumbar stenosis with neurogenic claudication Nasal turbinate hypertrophy Neuropathic peripheral nerve Osteoporosis Postnasal drip Sacral fracture, closed Sensorimotor neuropathy Multifocal Smoking Spondylolisthesis, lumbar region Trigger ring finger of right hand Type 2 diabetes mellitus without complications Unspecified fracture of sacrum, initial encounter for closed fracture Vocal cord polyp Surgical History H/O breast biopsy H/O heart artery stent H/O: hysterectomy History of appendectomy History of bladder surgery History of lumbar surgery Dr. Turner-lumbar decompression History of thyroidectomy 03/02/2020 [facility]. Hx of hand surgery Family History Father CAD (coronary artery disease) Hypertension Cancer Diabetes Mother CAD (coronary artery disease) Hypertension Grandmother Cancer Diabetes Social History Smoking and tobacco status: current every day smoker cigarettes Packs smoked per day: 0.5 Years cigarettes smoked: 52 Alcohol intake: never Lives independently: Yes Household members: spouse Marital status: Current occupational status: disabled History of recent travel: No Vitals/I&O/Wt Last Vital Signs Temp 97.8 F 03/31/21 13:40 Pulse 78 03/31/21 13:40 Resp 15 03/31/21 13:40 BP 121/58 03/31/21 13:40 Pulse Ox 90 03/31/21 13:40 03/30/21 03/31/21 03/31/21 22:59 06:59 14:59 Intake Total 1260 / 1260 Output Total 300 / 300 Balance 960 / 960 Physical Exam Const: COMMON NORMALS: no acute distress and patient oriented x3 HENMT: COMMON NORMALS: oropharynx normal Neck/C-Spine: COMMON NORMALS: no JVD Resp: COMMON NORMALS: normal respiratory effort and clear to auscultation bilaterally AUSCULTATION: clear to auscultation bilaterally Cardio: COMMON NORMALS: no JVD, regular rhythm, S1 normal heart sound present, S2 normal heart sound present and No murmurs present (Cardio) RHYTHM: regular rhythm HEART SOUNDS: S1 normal heart sound present and S2 normal heart sound present GI: COMMON NORMALS: Normal to inspection, nondistended, normoactive bowel sounds present, Soft to palpation and non-tender PALPATION: Yes Soft to palpation Extremity: COMMON NORMALS: no joint enlargement and no pedal edema Neuro: COMMON NORMALS: patient oriented x3 and moves all extremities Skin: COMMON NORMALS: no rashes or lesions noted GENERAL SKIN EXAM: no rashes or lesions noted A&P Assessment and plan (1) Lumbar stenosis with neurogenic claudication: S/P L4/5 PLIF. No reported complications. Minimal blood loss. She is waking up, moving all extremities. Reports she is doing all right other than being sore. Status: Acute (2) Smoking: Discussed smoking cessation with her for 5 minutes, encouraged her to quit. She reports has been trying and has cut down to half pack per day. She declines nicotine replacement at this time. Status: Acute (3) Type 2 diabetes mellitus without complications: Hold oral hypoglycemics. Low-dose sliding scale insulin. Diabetic diet. Status: Chronic Qualifiers: Diabetes mellitus longwall machine operator helper insulin use: without longwall machine operator helper use Qualified Code(s): E11.9 - Type 2 diabetes mellitus without complications (4) CAD (coronary artery disease): Continue aspirin, metoprolol. If no contraindication would benefit from statin. Status: Acute (5) Hyperlipidemia: Status: Chronic Qualifiers: Hyperlipidemia type: mixed hyperlipidemia Qualified Code(s): E78.2 - Mixed hyperlipidemia (6) Essential hypertension: Monitor blood pressures. Continue metoprolol. Status: Chronic Additional A&P Information Hypothyroidism: Continue levothyroxine. Consult Attestations Medical Necessity Statement: Postoperative care after L4/5 PLIF. 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
[2021-03-31] MEDS: gabapentin 300 mg Capsule PO ×2 (15:32→21:44)
[2021-03-31] MEDS: lactated ringers 1,000 ML 90 ML IV ×2 (15:32→23:33)
[2021-03-31] MEDS: ketorolac 30 mg/mL INJ IVP (17:04)
[2021-03-31] MEDS: docusate sodium 100 mg Capsule PO (17:06)
[2021-03-31] MEDS: metoprolol tartrate 50 mg Tablet 25 MG PO (17:06)
[2021-03-31 17:29] LABS: Glucose Point of Care 377 mg/dL (70-110)
[2021-03-31] MEDS: insulin lispro 100 unit/1 mL SUBCUT ×2 (17:37→22:02)
[2021-03-31 21:20] LABS: Glucose Point of Care > 600 mg/dL (70-110)
[2021-03-31 21:55] LABS: Glucose Point of Care 427 mg/dL (70-110)
[2021-04-01] VITALS: BP 134/70; PULSE 79; RESP 17; TEMP 36.8; O2SAT 97
[2021-04-01] MEDS: ketorolac 30 mg/mL INJ IVP (02:45)
[2021-04-01 03:45] LABS: Basophils % 0.3 %; Eosinophils % 0.1 %; Lymphocytes # 0.9 10^3/uL (0.8-4.8); Lymphocytes % 6.7 %; Mean Corpuscular HGB Conc 31.9 g/dL (30.0-36.0); Mean Corpuscular Hemoglobin 35.4 pg (28.0-34.0); Mean Corpuscular Volume 110.8 fl (81-99); Mean Platelet Volume 11.4 fL (7.4-10.4); Monocytes # 1.2 10^3/uL (0.2-0.9); Monocytes % 8.8 %; Neutrophils # 10.91 10^3/uL (1.8-7.7); Neutrophils % 83.7 %; Nucleated Red Blood Cells % 0 %; Platelet Count 144 10^3/cmm (130-400); Red Blood Count 4.24 10^6/uL (4.1-5.3); Red Cell Distribution Width 14.2 % (12.1-15.1)
[2021-04-01 03:51] LABS: Blood Urea Nitrogen 25 mg/dL (8-23); Calcium 9.3 mg/dL (8.5-10.5); Carbon Dioxide 28 mmol/L (22-29); Chloride 98 mmol/L (98-107); Glomerular Filtration Rate 72.9 mL/min (90-130); Glucose 158 mg/dL (65-115); Osmolality Calculated 288 mOsm/kg (285-295); Sodium 135 mmol/L (136-145)
[2021-04-01 03:53] LABS: Anion Gap 13.6 (5-19); Potassium 4.6 mmol/L (3.5-5.1)
[2021-04-01 04:00] VITALS: BP 158/62; PULSE 68; RESP 17; TEMP 36.5; O2SAT 94
[2021-04-01] MEDS: enoxaparin 40 mg/0.4 mL Syringe SUBCUT (05:31)
[2021-04-01 06:49] LABS: Glucose Point of Care 226 mg/dL (70-110)
[2021-04-01] MEDS: gabapentin 300 mg Capsule PO (07:48)
[2021-04-01] MEDS: FUROsemide 40 mg Tablet PO (07:48)
[2021-04-01] MEDS: famotidine 20 mg Tablet PO (07:48)
[2021-04-01] MEDS: cholecalciferol (vitamin D3) 1,000 unit Tablet 2000 UNIT PO (07:48)
[2021-04-01] MEDS: aspirin 81 mg EC Tablet PO (07:48)
[2021-04-01] MEDS: insulin lispro 100 unit/1 mL SUBCUT (07:49)
[2021-04-01] MEDS: docusate sodium 100 mg Capsule PO (07:49)
[2021-04-01] MEDS: levothyroxine 50 mcg Tablet PO (07:49)
[2021-04-01 07:57] VITALS: BP 168/76; PULSE 72; RESP 17; TEMP 36.4; O2SAT 95
--- NOTE | 2021-04-01 08:08 | PM.PN ---
Documented by User: TRACY Michel 04/01/21 08:18 Subjective Subjective: Interval history: POD 1 Patient ambulating to the restroom back pain leg pain much improved. Denies any chest pain, shortness of breath, headaches. She is inquiring about when she can go home. Vitals/I&O/Wt Last Vital Signs Temp 97.5 F L 04/01/21 07:57 Pulse 72 04/01/21 07:57 Resp 17 04/01/21 07:57 BP 168/76 04/01/21 07:57 Pulse Ox 95 04/01/21 07:57 03/31/21 04/01/21 04/01/21 22:59 06:59 14:59 Intake Total 60 / 1320 1141.5 / 2461.5 Output Total 100 / 400 1180 / 1580 Balance -40 / 920 -38.5 / 881.5 Weight last 48 hrs Weight 185 lb Physical Exam Narrative: EXAM NARRATIVE: Patient presents alert and oriented x3 with a good general appearance normal normal affect. Normal coordination normal stability. Mild tenderness around the incisional site with the incision appear to be healing nicely. No signs of erythema or drainage. No signs of infection. Patient denies any fevers or chills. 5/5 motor strength both lower extremities with negative straight leg raise bilaterally. Calves are supple no medial thigh tenderness. Pulses are 2+ at the dorsalis pedis and posterior tibial region. Good capillary refill throughout normal sensation light touch both lower extremities. Data : 04/01/21 02:30 04/01/21 02:30 A&P Assessment and plan (1) Status post lumbar spinal fusion: Encouraged her to continue walking program with no bending lifting or twisting. Physical therapy will continue to prepare her for discharge home. We will see her back in the office in 1 week's time for wound check and she can call if she is having problems. Status: Acute Attestations Medical Necessity Statement*: ok for DC home Coding Level of Care Code Acute Outer Diameter Grinder for [facility] Fwjoseph Diagnoses Status post lumbar spinal fusion Z98.1 Documented by User: Parminder Turner DO 04/01/21 08:40 Data : 04/01/21 02:30 04/01/21 02:30 Coding Level of Care Code Acute Outer Diameter Grinder for Chg Fwd Diagnoses Status post lumbar spinal fusion Z98.1
--- NOTE | 2021-04-01 08:41 | P.DS_ITS ---
Discharge Providers Date of Admission: 03/31/21 12:47 Date of Discharge: April 01, 2021 Attending Provider at Admission: Parminder Turner DO Attending Provider at Discharge: Parminder Turner DO Primary Care Provider: Charis Carcamo DO Diagnoses at Discharge Discharge Diagnosis (1) Status post lumbar spinal fusion: Status: Acute Reason for Visit Reason for Visit: PLIF L4/5 40103, 36430, 99809, 95291, 81550, 96374 Hospital Course Hospital Course Patient mated on 03/31/2021. She had a 1 level posterior lumbar interbody fusion. She will be discharged on 03/24/2021 her stay was uneventful. Discharge Data Data Completed and Pending: Completed Studies During Hospitalization Category Date Time Status XR lumbar spine 2 -3V* 14473 Routine Exams 03/31/21 Completed Pending at discharge Category Date Time Status C-arm Fluoroscopy 55070 Routine Exams 03/31/21 07:52 Taken Complete Blood Co unt w/Auto AM LABS Lab 04/02/21 04:00 Ordered Complete Blood Co unt w/Auto AM LABS Lab 04/03/21 04:00 Ordered Labs from last 24 hours 04/01/21 04/01/21 04/01/21 06:45 02:30 02:30 WBC 13.0 H RBC 4.24 Hgb 15.0 Hct 47.0 MCV 110.8 H D MCH 35.4 H MCHC 31.9 D RDW 14.2 Plt Count 144 D MPV 11.4 H Neut % (Auto) 83.7 Lymph % (Auto) 6.7 [place] % (Auto) 8.8 Eos % (Auto) 0.1 Baso % (Auto) 0.3 Neut # (Auto) 10.91 H Lymph # (Auto) 0.9 [place] # (Auto) 1.2 H Eos # (Auto) 0.0 Baso # (Auto) 0.0 Nucleated RBC % (a uto) 0 Nucleated RBCs # 0.0 Sodium 135 L Potassium 4.6 Chloride 98 Carbon Dioxide 28 Anion Gap 13.6 BUN 25 H Creatinine 0.8 GFR Calculation 72.9 L Glucose 158 H POC Glucose 226 H Calculated Osmolal ity 288 Calcium 9.3 Blood Type Rho(D) Type Antibody Screen 03/31/21 03/31/21 03/31/21 21:52 18:55 17:11 WBC RBC Hgb Hct MCV MCH MCHC RDW Plt Count MPV Neut % (Auto) Lymph % (Auto) [place] % (Auto) Eos % (Auto) Baso % (Auto) Neut # (Auto) Lymph # (Auto) [place] # (Auto) Eos # (Auto) Baso # (Auto) Nucleated RBC % (a uto) Nucleated RBCs # Sodium Potassium Chloride Carbon Dioxide Anion Gap BUN Creatinine GFR Calculation Glucose POC Glucose 427 H > 600 H* 377 H Calculated Osmolal ity Calcium Blood Type Rho(D) Type Antibody Screen 03/31/21 08:15 WBC RBC Hgb Hct MCV MCH MCHC RDW Plt Count MPV Neut % (Auto) Lymph % (Auto) [place] % (Auto) Eos % (Auto) Baso % (Auto) Neut # (Auto) Lymph # (Auto) [place] # (Auto) Eos # (Auto) Baso # (Auto) Nucleated RBC % (a uto) Nucleated RBCs # Sodium Potassium Chloride Carbon Dioxide Anion Gap BUN Creatinine GFR Calculation Glucose POC Glucose Calculated Osmolal ity Calcium Blood Type A Negative Rho(D) Type Negative Antibody Screen Negative Vitals: Last Vital Signs Temp 97.5 F L 04/01/21 07:57 Pulse 72 04/01/21 07:57 Resp 17 04/01/21 07:57 BP 168/76 04/01/21 07:57 Pulse Ox 95 04/01/21 07:57 Discharge Plan Discharge Patient Disposition: Home Condition: Stable Prescriptions: New hydrocodone-acetaminophen 5-325 mg tablet 1 - 2 tab PO .Q4-6H Qty: 40 RF: 0 Continued potassium gluconate 595 mg (99 mg) tablet 595 mg PO DAILY RF: 0 furosemide 40 mg tablet 40 mg PO DAILY Qty: 90 RF: 3 famotidine 20 mg tablet 20 mg PO DAILY RF: 0 albuterol sulfate [ProAir HFA] 90 mcg/actuation HFA aerosol inhaler 2 puff INHALATION QID PRN (Reason: Shortness Of Breath) 90 Days Qty: 8.5 RF: 3 gabapentin [Neurontin] 300 mg capsule 300 mg PO TID Qty: 270 RF: 1 levothyroxine 50 mcg tablet 50 mcg PO DAILY 30 Days Qty: 30 RF: 11 nitroglycerin [Nitrostat] 0.4 mg tablet, sublingual 0.4 mg SUBLINGUAL PRN PRN (Reason: Chest Pain) RF: 0 (DME) wheelchair See Rx Instructions .Route .MEDSUPPLY Qty: 1 RF: 0 (DME) diabetic shoes See Rx Instructions .Route .MEDSUPPLY Qty: 1 RF: 0 cholecalciferol (vitamin D3) 50 mcg (2,000 unit) capsule 50 mcg PO DAILY RF: 0 (DME) blood-glucose meter [Accu-Chek Alyson Plus Meter] Misc See Rx Instructions .ROUTE .MEDSUPPLY Qty: 1 RF: 0 (DME) Accu-Chek Alyson Plus test strp Strip See Rx Instructions .ROUTE .MEDSUPPLY Qty: 100 RF: 3 metoprolol tartrate 50 mg tablet 25 mg PO BID Qty: 60 RF: 4 metformin 500 mg tablet extended release 24hr 500 mg PO DAILY 90 Days Qty: 90 RF: 1 acetaminophen [Acetaminophen Extra Strength] 500 mg Tablet 1,000 mg PO PRN RF: 0 levothyroxine [Euthyrox] 50 mcg tablet 50 mcg PO QAM RF: 0 vitamin E Oil 1 applic TOPICAL PRN RF: 0 Tums See Rx Instructions .ROUTE .COMPLEX RF: 0 Vitamin B-12 1 tab PO DAILY RF: 0 aspirin 81 mg Tablet,Delayed Release (Dr/Ec) 81 mg PO DAILY RF: 0 magnesium 200 mg Tablet 400 mg PO DAILY RF: 0 Discharge Orders: Discharge Order (Routine); Ordered 04/01/21 Ordered By: Parminder Turner Discharge Diet: Advance as tolerated Discharge Activity: Limit activity as instructed Patient Instructions: Opioid Safety Activity Restrictions/Additional Instructions: Thank you for [facility] for your care! The following is a list of instructions, from your provider, to follow upon your di scharge to ensure you have the optimal recovery from your recent injury orsurgery. Follow-up care is a bundy part of your treatment and safety. Be sure to make and go to all appointments, and call your doctor if you are having problems. If you do not already have a follow-up appointment made, call Dr. Turner office in the next 1-3 days to make follow up appointment for 1 weeks at [phone]. It is also a good idea to know your test results and keep a list of the medicines you take. Medications will be prescribed for you at your provider's discretion. These medications are to be used as instructed; if they are taken more often that prescribed they will not be refilled early and in most cases will not be refilled at all. > When a refill is needed,you should contact [facility] 2-3 business days before your prescription runs out. Medications will NOT be refilled by motion picture film examiner providers after hours! > Many pain medications contain Tylenol (Acetaminophen). Do not consume more than 4,000 mg of Tylenol per day in total with any combination ofmedications. > Pain medications can cause constipation. Please use an over the counter stool softener as directed, while taking pain medications. Consulty our local pharmacist with questions or recommendations on stool softeners. If constipation persists, contact our office or your primary care provider. > While under our care,you are not to receive pain medications or other controlled substances from any other provider unless our office is notified and approves. Any attempts to do so will result in refusal to prescribe any further pain medications and possible dismissal from our practice. Keep dressing on until seen in the office ? ? Walking is essential for the healing process after surgery. We would like you to slowly advance your walking. This should be done on relatively flat clear ground (inside or out) or can be done on a treadmill. Remember this goal does not have to happen all at once, slowly increase your distance and duration. This can be broken into more more than one walk per day as tolerated. Patients who walk as directed after surgery rarely require Physical Therapy. In the unlikely event this issue arises your provider will direct hospital staff to make the appropriate arrangements. ? No lifting over 5 pounds {a gallon of milk) or bending/twisting until further notice. Each of these activities places an unnecessary amount of stress onto the body and can impede the delicate healing process. > Instead of bending at the waist, keep your back straight and bend at the knees. > Instead of twisting your torso, keep your back straight and turn your entire body with your feet. ? You may sleep in any position which makes you comfortable. Many patients find comfort sleeping in a reclining chair. It is not abnormal to have difficulty sleeping for the first several weeks following your surgery. We recommend trying Benadry! or Tylenol PM as directed to help with your sleeping difficulties. Both medications are over the counter and available withoutprescription. ? NO SMOKING!!! Smoking dramatically increases the probability of developing postoperative wound infections. ? Common complaints after lumbar and/or thoracic spine surgery include, but are not limited to: numbness and/or tingling in the legs, pain around the incision and surrounding tissues, muscle spasms, or stiffness of the middle to low back. Contact our office if these symptoms persist or if an acute change occurs. ? No driving for the first 3-5days, and not while taking narcotics [] until seen at your follow-up appointment and cleared. There are no restrictions for riding on short trips, however if you take a longer trip, arrangements should be made to make regular stops to get out of the vehicle and stretch . ? Swelling is an unfortunate event that will take place with any surgery and is the primary source of your postoperative discomfort. While walking and regular approved activities helps control inflammation, there are additional steps you can take to minimizeswelling. > Place ice over the surgical site and surrounding tissue for twenty minutes, followed by applying a low/medium heat (heating pad) for an additional twenty minutes every 1-2 hours as needed for painrelief. > You may use of over the counter anti-inflammatory medications (Ibuprofen, Motrin, Aleve, Advil, etc) as directed on the package label. These types of medicines wm significantly reduce the amount of discomfort you experience after surgery from swelling. It should be noted that if you have and allergy to any of these medications, or a history of ulcers or kidney disease you should consult you primary care provider prior to starting these medications. Discharge Attestations Time Spent in Discharge Care*: less than 30 min Quality Metrics Clinical Quality Measures During this hospital stay, did patient experience: None Coding Level of Care Code Acute Elva JAMES DC note Diagnoses Status post lumbar spinal fusion Z98.1
--- NOTE | 2021-04-01 09:07 | PC.NURSE ---
Hemovac discontinued with no complications. Dressing is CDI.
[2021-04-01] MEDS: metoprolol tartrate 50 mg Tablet 25 MG PO (09:29)
--- NOTE | 2021-04-01 09:30 | PM.PN ---
Subjective Subjective: Interval history: She reports she is doing well today. She is being released home and is eager to return there. Does report that she has been having cough for a while, probably close to a month, with sinus drainage, with yellowish sputum production. With some chest discomfort with that which she states has been investigated by her primary provider. Sputum is yellow. Does report that she has COPD. She has not been requiring any oxygen here. She is otherwise feeling well and wants to return home, but is okay to complete a short antibiotic course and follow-up with primary provider for resolution. Discussed with her consideration of steroids, which we would rather avoid for now given she is freshly postop. Vitals/I&O/Wt Last Vital Signs Temp 97.5 F L 04/01/21 07:57 Pulse 72 04/01/21 07:57 Resp 17 04/01/21 07:57 BP 168/76 04/01/21 07:57 Pulse Ox 95 04/01/21 07:57 03/31/21 04/01/21 04/01/21 22:59 06:59 14:59 Intake Total 60 / 1320 1141.5 / 2461.5 Output Total 100 / 400 1180 / 1580 Balance -40 / 920 -38.5 / 881.5 Weight last 48 hrs Weight 83.915 kg Physical Exam Const: COMMON NORMALS: no acute distress and patient oriented x3 HENMT: COMMON NORMALS: oropharynx normal Neck/C-Spine: COMMON NORMALS: no JVD Resp: COMMON NORMALS: normal respiratory effort and clear to auscultation bilaterally AUSCULTATION: clear to auscultation bilaterally and rhonchi (Minimal) Cardio: COMMON NORMALS: no JVD, regular rhythm, S1 normal heart sound present, S2 normal heart sound present and No murmurs present (Cardio) RHYTHM: regular rhythm HEART SOUNDS: S1 normal heart sound present and S2 normal heart sound present GI: COMMON NORMALS: Normal to inspection, nondistended, normoactive bowel sounds present, Soft to palpation and non-tender PALPATION: Yes Soft to palpation Extremity: COMMON NORMALS: no joint enlargement and no pedal edema Neuro: COMMON NORMALS: patient oriented x3 and moves all extremities Skin: COMMON NORMALS: no rashes or lesions noted GENERAL SKIN EXAM: no rashes or lesions noted Data : 04/01/21 02:30 04/01/21 02:30 A&P Assessment and plan (1) Lumbar stenosis with neurogenic claudication: S/P L4/5 PLIF. No reported complications. She is doing well. Returning home today. Status: Acute (2) Smoking: Discussed smoking cessation with her for 5 minutes, encouraged her to quit. She reports has been trying and has cut down to half pack per day. She declines nicotine replacement at this time. Status: Acute (3) Type 2 diabetes mellitus without complications: Hold oral hypoglycemics. Low-dose sliding scale insulin. Diabetic diet. Status: Chronic Qualifiers: Diabetes mellitus loading unit operator seating insulin use: without loading unit operator seating use Qualified Code(s): E11.9 - Type 2 diabetes mellitus without complications (4) CAD (coronary artery disease): Continue aspirin, metoprolol. If no contraindication would benefit from statin. Status: Acute (5) Hyperlipidemia: Status: Chronic Qualifiers: Hyperlipidemia type: mixed hyperlipidemia Qualified Code(s): E78.2 - Mixed hyperlipidemia (6) Essential hypertension: Monitor blood pressures. Continue metoprolol. Status: Chronic (7) COPD exacerbation: As per above discussion, short course of antibiotic with doxycycline. Avoid steroids for now due to being freshly postop. Follow-up with primary provider. She is otherwise doing well and wants to return home. Status: Acute Additional A&P Information Hypothyroidism: Continue levothyroxine as per plans. Attestations Medical Necessity Statement*: He is being discharged home with outpatient follow-up. Coding Level of Care Code Acute Foreign Language Stenographer for Elva Lopez Diagnoses Lumbar stenosis with neurogenic claudication M48.062 Smoking F17.200 Type 2 diabetes mellitus without complications E11.9 Diabetes mellitus loading unit operator seating insulin use: without penitentiary use CAD (coronary artery disease) I25.10 Hyperlipidemia E78.2 Hyperlipidemia type: mixed hyperlipidemia Essential hypertension I10 COPD exacerbation J44.1
--- NOTE | 2021-04-05 15:12 | PC.RESP ---
SMOKING CESSATION INFORMATION SENT TO PATIENT.
== END 2021-04-01 10:34 | disposition home or self-care (01) ==
LOC: MEDSURG 12:48
PROVIDERS: Internal Medicine; Admitting Provider Orthopaedic Surgery; PCP Family Medicine; Visit Provider Orthopaedic Surgery
PROC: (CPT 22612; principal; 2021-03-31 09:15)
DX: M48.062 Spinal stenosis, lumbar region with neurogenic claudication (principal); M43.16 Spondylolisthesis, lumbar region; E11.9 Type 2 diabetes mellitus without complications; I10 Essential (primary) hypertension; E78.2 Mixed hyperlipidemia; I25.10 Atherosclerotic heart disease of native coronary artery without angina pectoris; J44.1 Chronic obstructive pulmonary disease with (acute) exacerbation; F17.200 Nicotine dependence, unspecified, uncomplicated; Z98.1 Arthrodesis status; E66.01 Morbid (severe) obesity due to excess calories; Z68.38 Body mass index [BMI] 38.0-38.9, adult; Z79.82 Long term (current) use of aspirin; Z79.4 Long term (current) use of insulin
CPT/HCPCS: 20930; 20936; 20939; 22614; 22633; 22840; 22853; 61783; 63047; 36415; 36416; 72100; 76000; 80048; 82962; 85025; 86850; 86900; 96372; 97161; 97530; C1713; G0378; J0690; J1100; J1644; J1650; J1815; J1885; J2405; J2704; J2710; J3010; J3370; J3490; J7030; J7611; J7644

== ENCOUNTER → 2021-04-28 11:35 | Outpatient (BNVA) | payer MEDICAID, SELFPAY | PROVIDERS: PCP Family Medicine; Visit Provider Internal Medicine Cardiovascular Disease | DX: I25.10 Atherosclerotic heart disease of native coronary artery without angina pectoris (principal); E11.9 Type 2 diabetes mellitus without complications; E78.2 Mixed hyperlipidemia; I10 Essential (primary) hypertension; J44.1 Chronic obstructive pulmonary disease with (acute) exacerbation; E04.9 Nontoxic goiter, unspecified | CPT/HCPCS: 80048; 83735; 83880 ==

== ENCOUNTER → 2021-05-06 14:14 | Outpatient (BNVA) | payer MEDICAID, SELFPAY | PROVIDERS: PCP Family Medicine; Visit Provider Family Medicine | DX: E11.9 Type 2 diabetes mellitus without complications (principal) | CPT/HCPCS: 80053; 83036 ==

== ENCOUNTER → 2021-05-11 11:21 | Outpatient (BNVA) | payer MEDICAID, SELFPAY | PROVIDERS: PCP Family Medicine; Visit Provider Orthopaedic Surgery | DX: Z48.89 Encounter for other specified surgical aftercare (principal); M51.16 Intervertebral disc disorders with radiculopathy, lumbar region | CPT/HCPCS: 72100 ==

== ENCOUNTER 2021-05-13 10:34 | Outpatient (CLI) | payer MEDICAID, SELFPAY ==
[2021-05-13 11:02] LABS: Basophils # 0.1 10^3/uL (0.0-0.1); Basophils % 0.7 %; Eosinophils # 0.1 10^3/uL (0.0-0.8); Eosinophils % 1.5 %; Hematocrit 47.3 % (37.0-47.0); Hemoglobin 15.1 g/dL (11.5-15.3); Lymphocytes # 1.4 10^3/uL (0.8-4.8); Lymphocytes % 20.8 %; Mean Corpuscular HGB Conc 31.9 g/dL (30.0-36.0); Mean Corpuscular Hemoglobin 30.8 pg (28.0-34.0); Mean Corpuscular Volume 96.5 fl (81-99); Mean Platelet Volume 9.6 fL (7.4-10.4); Monocytes # 0.5 10^3/uL (0.2-0.9); Monocytes % 7.6 %; Neutrophils # 4.73 10^3/uL (1.8-7.7); Neutrophils % 69.3 %; Nucleated Red Blood Cells % 0 %; Platelet Count 267 10^3/cmm (130-400); Red Cell Distribution Width 15.8 % (12.1-15.1); White Blood Count 6.8 10^3/uL (4.0-10.0)
[2021-05-13 11:21] LABS: Ferritin 40 ng/mL (15-150); Iron 41 ug/dL (37-145); Percent Saturation 9.4 % (20-50); Total Iron Binding Capacity 434 mcg/dl; Unsaturated Iron Binding 393 ug/dL (112-347)
[2021-05-13 14:05] LABS: Thyroid Stimulating Hormone 5.42 uIU/mL (0.27-4.20)
--- NOTE | 2021-05-13 14:28 | ONC FU_ITS ---
Dr. Garza follow up note Patient: Dana Gusman Unit #: [id number]: [id number] Dicatated By: Yumiko Garza M.D.Date of Visit:May 13, 2021 Onc Med Follow-up/Prog Note History of Present Illness: Mrs. Gusman is a 60 -year-old female with history of palpitations, dyspnea on exertion for over a year. She was diagnosed with iron deficiency anemia started on oral iron. She experienced significant heartburn/ indigestion with the oral iron. She has received parental iron replacement with Injectafer on multiple occassions. She does have pica sypmtoms when she is iron deficient in that she does crave ice and chews it all the time . Mrs Gusman reported she was losing blood in her stools and she underwent EGD and colonoscopy by Dr. Campbell on 02/07/2017. The scopes did not show any abnormalities and she subsequently underwent capsule endoscopy on 09/25/2017 for persistent iron deficiency anemia and it showed a few tiny nonbleeding AVMs. No history of jaundice, no history of blood transfusion except during her last , no history of gross bleeding, CBC from 04/05/2017 showed white blood count 4.7 with normal differential hemoglobin 7.8 crit 25.3 MCV 61.3, platelets 275,000 Status post Injectafer 750 mg weekly ???2 on January 04 and 2017 with excellent response . Her hemoglobin had gone up to 15.8, hematocrit 47.8 and ferritin 104.7 on 02/09/2018. She again required Injectafer' 750 mg IV ???2 given on 11/16 and 11/23/2018 with that her hemoglobin improved from 11.3-15.1 and ferritin gone up to 106 compared to 7 prior to infusion. She underwent repeat colonoscopy and EGD on 05/14/2019 for progressive iron deficiency anemia. The EGD showed no esophageal abnormality and there is mild gastric erosions in the antrum and along with mild duodenitis but no evidence of gross bleeding and colonoscopy was normal exam except internal hemorrhoids. Ms Gusman received Injectafer 750 mg IV weekly ???2 on April 11 and 04/18/2019 with excellent response e.g. mu-ism of iron stores, ferritin 225 compared to 9 prior and improvement in hemoglobin from 12.8 to 15 g Ms Gusman reported that she underwent thyroidectomy at [facility] in [place] on March 02, 2020, as per patient she was told there is no sign of malignancy and she was started on thyroid supplements. She presented for follow-up, complaining of generalized weakness and fatigue and also dark-colored stools but no fresh blood per rectum., No jaundice, no hemoptysis or hematemesis, no abdominal pain. Patient was referred to [place] for capsule endoscopy, patient still awaiting the appointment. She was given parenteral Injectafer in May 2020 which she tolerated well. Her hemoglobin on June 18, 2020 was 9.8 hematocrit was 33.1. She was again given 2 doses of Injectafer on June 18, 2020 and again on June 25, 2020. She had L4/L5 laminectomy with partial facetectomy bilateral and L5/S1 laminectomy and partial facetectomy bilateral by Dr. Villafana at [facility]. on 07/08/2020 She states she is walking better on her own now. last dose of Injectafer on September 16, 2020. Patient underwent capsule endoscopy on August 11, 2020 which showed there was active bleeding 15% of the way through the study. There were AVMs and erythematous mucosal break noted within the left mid small bowel, 50 to 60% of the way through the study., As per patient she underwent cauterization in the last week of September and about 9 spots were cauterized, as per patient Dr. Mulligan told her the next procedure will be done not before 3 years. Came for follow-up, denies any specific complaint except generalized weakness and fatigue, no fever chills, no nausea or vomiting, no diarrhea constipation, no melena or hematochezia, no hemoptysis or hematemesis, no jaundice, patient is on thyroid supplement for hypothyroidism and her PMD is managing as per patient she been referred to endocrinology for evaluation. Patient said her PMD informed her that her TSH is out of control that is why she was referred to endocrinology. Medications: Aspirin 1 (81 mg) Tablet Oral daily, Crestor 1 (20 mg) Tablet Oral daily, Gabapentin 1 (600 mg) Tablet Oral b.i.d., MetFORMIN HCl 1 (500 mg) Tablet Oral daily, Metoprolol Tartrate 1 (50 mg) Tablet Oral b.i.d., Nitroglycerin 1 (0.4 mg) Tablet, sublingual Sublingual PRN, Singulair 1 (10 mg) Tablet Oral daily, Synthroid 1 Tablet (of 25 mcg) Oral daily, Tums 2 Tablet Tablet, chewable Oral daily, Vitamin D 1 Tablet Oral daily Allergies: Abilify, AmLODIPine Bes+SyrSpend SF, AmLODIPine Besylate, Amoxicillin, Bactrim DS, BusPIRone HCl, Ceftin, Cefuroxime Axetil, celexa , Cephalexin, Cetirizine HCl, Ciprofloxacin HCl, Cymbalta, Dexilant, DULoxetine HCl, Effexor XR, Enablex, fomotidine, Fosamax, HydroCHLOROthiazide, HydrOXYzine HCl, Levaquin, lisinopril, Lovaza, Lyrica, methocarb, Mirapex, Omeprazole, PARoxetine HCl, Penicillins, PredniSONE, PriLOSEC, Protonix, Pseudoephedrine HCl, SEROquel, traMADol HCl, VESIcare, Zoloft, and ZyrTEC Allergy. Review of Systems: Review of Systems is not available for this patient. Vital Signs: Performed on May 13, 2021 13:15 Height - 57.00 in Weight - 189.8 lbs (HIGH) BSA - 1.76 sq.m BMI - 41.07 (HIGH) Temperature - 96.1 F (LOW) Pulse - 87 /min Respiration - 18 /min BP - 112/71 mm(hg) O2 Sat - 97 % Pain - 5 Fatigue - 2 Performance Status: 0 - Fully active, able to carry on all predisease activities without restrictions. (ECOG) Physical Examination: ENMT - No mouth sores, no thrush, no jaundice, Respiratory - Poor air entry, mild wheezing, Cardiovascular - Regular rate and rhythm of heart, Abdomen - Soft, bowel sounds present, Extremities - No visible edema. Lab/Imaging: Most recent lab results are not available for this patient. Impression: Microcytic hypochromic anemia due to iron deficiency due to chronic GI blood loss From small bowel AVMs per capsule endoscopy done on August 11, [address] Mulligan in [facility], status post cauterization in September 2020 Colonoscopy and EGD done on 02/07/2017 showed no abnormality Status post Injectafer weekly ???2 in April 2017 With excellent response Status post Injectafer 750???2 in January 2018 With excellent response showed hemoglobin 15.8 hematocrit 47.8 ferritin 104.7 on 02/09/20189 Injectafer infusion done on 11/16/2018 and 11/23/2018 4 hemoglobin 11.3 hematocrit 30 5., ferritin 7 and iron saturation 4.4, postinfusion hemoglobin on 12/24/2018 was 15.1, hematocrit 44.9 and ferritin was 106. Capsule endoscopy done on 09/25/2017 showed there were 2 tiny nonbleeding AVMs that were noted, there was no blood or stigmata of recent bleeding appreciated otherwise normal study. Recent lab shows progressive iron deficiency anemia probably due to chronic GI bleeding from small bowel AVMs Plan: Discussed with patient regarding her labs white blood count 6.8 hemoglobin 15.1 hematocrit 47.3 platelets 267,000 iron studies shows iron saturation 9.4% ferritin 40 compared to 58 previously iron 41 TIBC 434 Clinically, patient is doing reasonably well but now with generalized weakness and fatigue which could be multifactorial, considering her weight, she may have underlying sleep apnea and still smoke and also has history of COPD, at this point will refer her to pulmonology for evaluation for COPD as well as sleep apnea, as per patient in the past she was told about pulmonary nodule for which she had CT scan done years ago and her PMD is following, will request pulmonology to evaluate her. Patient is on thyroid supplement, will check a TSH and adjust as thyroid supplement while she is waiting for endocrinology evaluation. For follow-up CBC shows hemoglobin/hematocrit within normal range but iron stores continue to decrease this reason for her hemoglobin/hematocrit being in normal range could be due to underlying secondary polycythemia due to sleep apnea and chronic smoking, we will continue to monitor her blood counts and iron studies she return to clinic in 1 month with CBC and iron studies in the meantime, patient was advised to quit smoking and was offered any assistance she may need. And also with the proper management of sleep apnea, her overall performance status/energy level may improve. Return to clinic in 1 month with CBC and iron studies Signed By: Yumiko Garza M.D. <<Signature on File>>
== END 2021-05-13 10:35 | disposition home or self-care (01) ==
LOC: ONCMED 10:36
PROVIDERS: PCP Family Medicine; Visit Provider Internal Medicine Hematology & Oncology
DX: D50.0 Iron deficiency anemia secondary to blood loss (chronic) (principal); Q27.33 Arteriovenous malformation of digestive system vessel; Z79.899 Other long term (current) drug therapy
CPT/HCPCS: 36415; 82728; 83540; 83550; 84443; 85025; 99214

== ENCOUNTER → 2021-05-26 12:58 | Outpatient (BNVA) | payer MEDICAID, SELFPAY | PROVIDERS: PCP Family Medicine; Referring Provider Otolaryngology; Visit Provider Internal Medicine | DX: E89.0 Postprocedural hypothyroidism (principal); K29.70 Gastritis, unspecified, without bleeding; F17.200 Nicotine dependence, unspecified, uncomplicated | CPT/HCPCS: 84439; 99204 ==

== ENCOUNTER → 2021-06-03 11:41 | Outpatient (BNVA) | payer MEDICAID, SELFPAY | PROVIDERS: PCP Family Medicine; Visit Provider Physician Assistant | DX: Z48.89 Encounter for other specified surgical aftercare (principal) | CPT/HCPCS: 72100 ==

== ENCOUNTER 2021-06-08 14:16 | Outpatient (CLI) | payer MEDICAID, SELFPAY ==
[2021-06-08 14:56] LABS: Basophils % 0.6 %; Eosinophils # 0.1 10^3/uL (0.0-0.8); Eosinophils % 1.9 %; Hemoglobin 15.4 g/dL (11.5-15.3); Lymphocytes # 1.4 10^3/uL (0.8-4.8); Lymphocytes % 22.5 %; Mean Corpuscular HGB Conc 32.1 g/dL (30.0-36.0); Mean Corpuscular Hemoglobin 30.9 pg (28.0-34.0); Mean Corpuscular Volume 96.2 fl (81-99); Mean Platelet Volume 9.7 fL (7.4-10.4); Monocytes # 0.6 10^3/uL (0.2-0.9); Monocytes % 9.4 %; Neutrophils # 4.11 10^3/uL (1.8-7.7); Neutrophils % 65.3 %; Nucleated Red Blood Cells % 0 %; Platelet Count 242 10^3/cmm (130-400); Red Blood Count 4.99 10^6/uL (4.1-5.3); Red Cell Distribution Width 17.4 % (12.1-15.1); White Blood Count 6.3 10^3/uL (4.0-10.0)
[2021-06-08 15:32] LABS: Ferritin 24 ng/mL (15-150); Iron 54 ug/dL (37-145); Percent Saturation 12.6 % (20-50); Total Iron Binding Capacity 428 mcg/dl; Unsaturated Iron Binding 374 ug/dL (112-347)
[2021-06-08 15:45] LABS: Vitamin B12 1115 pg/mL (232-1245)
[2021-06-08 15:49] LABS: Folate Level 7.2 ng/mL (4.8-37.3)
== END 2021-06-08 14:17 | disposition home or self-care (01) ==
LOC: ONCMED 14:19
PROVIDERS: PCP Family Medicine; Visit Provider Internal Medicine Hematology & Oncology
DX: D50.9 Iron deficiency anemia, unspecified (principal); A48.1 Legionnaires' disease
CPT/HCPCS: 36415; 82607; 82728; 82746; 83540; 83550; 85025

== ENCOUNTER 2021-06-21 08:17 | Outpatient (CLI) | payer MEDICAID, SELFPAY ==
[2021-06-21 08:47] LABS: Basophils % 0.4 %; Eosinophils # 0.1 10^3/uL (0.0-0.8); Eosinophils % 0.9 %; Hematocrit 46.9 % (37.0-47.0); Lymphocytes # 0.9 10^3/uL (0.8-4.8); Lymphocytes % 9.2 %; Mean Corpuscular Hemoglobin 30.2 pg (28.0-34.0); Mean Corpuscular Volume 94.6 fl (81-99); Mean Platelet Volume 10.1 fL (7.4-10.4); Monocytes # 0.9 10^3/uL (0.2-0.9); Monocytes % 8.7 %; Neutrophils # 8.25 10^3/uL (1.8-7.7); Neutrophils % 80.6 %; Nucleated Red Blood Cells % 0 %; Platelet Count 241 10^3/cmm (130-400); Red Blood Count 4.96 10^6/uL (4.1-5.3); Red Cell Distribution Width 17.4 % (12.1-15.1); White Blood Count 10.2 10^3/uL (4.0-10.0)
[2021-06-21 09:06] LABS: Ferritin 21 ng/mL (15-150); Iron 64 ug/dL (37-145); Percent Saturation 16.7 % (20-50); Total Iron Binding Capacity 383 mcg/dl; Unsaturated Iron Binding 319 ug/dL (112-347)
[2021-06-21 09:22] LABS: Vitamin B12 1076 pg/mL (232-1245)
--- NOTE | 2021-06-21 17:10 | ONC FU_ITS ---
Dr. Garza follow up note Patient: Dana Gusman Unit #: [id number]: 1960 Dicatated By: Yumiko Garza M.D.Date of Visit:Jun 21, 2021 Onc Med Follow-up/Prog Note History of Present Illness: Mrs. Gusman is a 60 -year-old female with history of palpitations, dyspnea on exertion for over a year. She was diagnosed with iron deficiency anemia started on oral iron. She experienced significant heartburn/ indigestion with the oral iron. She has received parental iron replacement with Injectafer on multiple occassions. She does have pica sypmtoms when she is iron deficient in that she does crave ice and chews it all the time . Mrs Gusman reported she was losing blood in her stools and she underwent EGD and colonoscopy by Dr. Campbell on 02/07/2017. The scopes did not show any abnormalities and she subsequently underwent capsule endoscopy on 09/25/2017 for persistent iron deficiency anemia and it showed a few tiny nonbleeding AVMs. No history of jaundice, no history of blood transfusion except during her last , no history of gross bleeding, CBC from 04/05/2017 showed white blood count 4.7 with normal differential hemoglobin 7.8 crit 25.3 MCV 61.3, platelets 275,000 Status post Injectafer 750 mg weekly ???2 on January 04 and 2017 with excellent response . Her hemoglobin had gone up to 15.8, hematocrit 47.8 and ferritin 104.7 on 02/09/2018. She again required Injectafer' 750 mg IV ???2 given on 11/16 and 11/23/2018 with that her hemoglobin improved from 11.3-15.1 and ferritin gone up to 106 compared to 7 prior to infusion. She underwent repeat colonoscopy and EGD on 05/14/2019 for progressive iron deficiency anemia. The EGD showed no esophageal abnormality and there is mild gastric erosions in the antrum and along with mild duodenitis but no evidence of gross bleeding and colonoscopy was normal exam except internal hemorrhoids. Ms Gusman received Injectafer 750 mg IV weekly ???2 on April 11 and 04/18/2019 with excellent response e.g. mu-ism of iron stores, ferritin 225 compared to 9 prior and improvement in hemoglobin from 12.8 to 15 g Ms Gusman reported that she underwent thyroidectomy at [facility] in [place] on March 02, 2020, as per patient she was told there is no sign of malignancy and she was started on thyroid supplements. She presented for follow-up, complaining of generalized weakness and fatigue and also dark-colored stools but no fresh blood per rectum., No jaundice, no hemoptysis or hematemesis, no abdominal pain. Patient was referred to [place] for capsule endoscopy, patient still awaiting the appointment. She was given parenteral Injectafer in May 2020 which she tolerated well. Her hemoglobin on June 18, 2020 was 9.8 hematocrit was 33.1. She was again given 2 doses of Injectafer on June 18, 2020 and again on June 25, 2020. She had L4/L5 laminectomy with partial facetectomy bilateral and L5/S1 laminectomy and partial facetectomy bilateral by Dr. Villafana at [facility]. on 07/08/2020 She states she is walking better on her own now. last dose of Injectafer on September 16, 2020. Patient underwent capsule endoscopy on August 11, 2020 which showed there was active bleeding 15% of the way through the study. There were AVMs and erythematous mucosal break noted within the left mid small bowel, 50 to 60% of the way through the study., As per patient she underwent cauterization in the last week of September and about 9 spots were cauterized, as per patient Dr. Mulligan told her the next procedure will be done not before 3 years. Came for follow-up, denies any specific complaint except generalized weakness and fatigue, as per patient she has seen endocrinology for her hypothyroidism and now being managed, she is also following with pulmonology for a lung spot and Dr. Flaherty is considering sleep study to rule out sleep apnea. Patient states she had episode of fresh blood per rectum x1 otherwise no hemoptysis or hematemesis, no melena or hematochezia, no dysuria or hematuria, no jaundice, still smoke about a pack a day Medications: Aspirin 1 (81 mg) Tablet Oral daily, Crestor 1 (20 mg) Tablet Oral daily, Gabapentin 1 (600 mg) Tablet Oral b.i.d., MetFORMIN HCl 1 (500 mg) Tablet Oral daily, Metoprolol Tartrate 1 (50 mg) Tablet Oral b.i.d., Nitroglycerin 1 (0.4 mg) Tablet, sublingual Sublingual PRN, Singulair 1 (10 mg) Tablet Oral daily, Synthroid 1 Tablet (of 25 mcg) Oral daily, Tums 2 Tablet Tablet, chewable Oral daily, Vitamin D 1 Tablet Oral daily Allergies: Abilify, AmLODIPine Bes+SyrSpend SF, AmLODIPine Besylate, Amoxicillin, Bactrim DS, BusPIRone HCl, Ceftin, Cefuroxime Axetil, celexa , Cephalexin, Cetirizine HCl, Ciprofloxacin HCl, Cymbalta, Dexilant, DULoxetine HCl, Effexor XR, Enablex, fomotidine, Fosamax, HydroCHLOROthiazide, HydrOXYzine HCl, Levaquin, lisinopril, Lovaza, Lyrica, methocarb, Mirapex, Omeprazole, PARoxetine HCl, Penicillins, PredniSONE, PriLOSEC, Protonix, Pseudoephedrine HCl, SEROquel, traMADol HCl, VESIcare, Zoloft, and ZyrTEC Allergy. Review of Systems: Review of Systems is not available for this patient. Vital Signs: Vitals are not available for this patient. Performance Status: 0 - Fully active, able to carry on all predisease activities without restrictions. (ECOG) Physical Examination: ENMT - No mouth sores, no thrush, no jaundice, Respiratory - Poor air entry otherwise clear, Cardiovascular - Regular rate and rhythm of heart, Abdomen - Soft, bowel sounds present, Extremities - No visible edema. Lab/Imaging: Most recent lab results are not available for this patient. Impression: Microcytic hypochromic anemia due to iron deficiency due to chronic GI blood loss From small bowel AVMs per capsule endoscopy done on August 11, [address] Mulligan in [facility], status post cauterization in September 2020 Colonoscopy and EGD done on 02/07/2017 showed no abnormality Status post Injectafer weekly ???2 in April 2017 With excellent response Status post Injectafer 750???2 in January 2018 With excellent response showed hemoglobin 15.8 hematocrit 47.8 ferritin 104.7 on 02/09/20189 Injectafer infusion done on 11/16/2018 and 11/23/2018 4 hemoglobin 11.3 hematocrit 30 5., ferritin 7 and iron saturation 4.4, postinfusion hemoglobin on 12/24/2018 was 15.1, hematocrit 44.9 and ferritin was 106. Capsule endoscopy done on 09/25/2017 showed there were 2 tiny nonbleeding AVMs that were noted, there was no blood or stigmata of recent bleeding appreciated otherwise normal study. Recent lab shows progressive iron deficiency anemia probably due to chronic GI bleeding from small bowel AVMs Plan: Discussed with patient regarding her labs white blood count 10.2 hemoglobin 15 hematocrit 46.9 platelets 241,000 iron saturation 16.7 ferritin 21 compared to 24 previously iron 64, TIBC 383, vitamin B12 1076 Clinically, patient is doing reasonably well with no new signs symptoms except generalized weakness and fatigue, not getting restful sleep at night, probably due to underlying sleep apnea, pulmonology is considering sleep study to confirm, she may benefit from CPAP machine. As per his iron deficiency anemia is concerned, hemoglobin is normal range and iron stores on the low side of normal, will continue to monitor as iron infusion at this point, may cause polycythemia, reactive to underlying sleep apnea. Patient was advised to quit smoking, was offered any assistance she may need, return to clinic in 2 months with CBC and iron studies Signed By: Yumiko Garza M.D. <<Signature on File>>
== END 2021-06-21 08:18 | disposition home or self-care (01) ==
LOC: ONCMED 08:21
PROVIDERS: Internal Medicine Hematology & Oncology; PCP Family Medicine; Visit Provider Hospitalist
DX: D50.9 Iron deficiency anemia, unspecified (principal); E03.9 Hypothyroidism, unspecified
CPT/HCPCS: 36415; 82607; 82728; 82746; 83540; 83550; 85025; 99214

== ENCOUNTER → 2021-08-06 08:17 | Outpatient (BNVA) | payer MEDICAID, SELFPAY | PROVIDERS: PCP Family Medicine; Visit Provider Internal Medicine | DX: E89.0 Postprocedural hypothyroidism (principal); K29.70 Gastritis, unspecified, without bleeding; F17.210 Nicotine dependence, cigarettes, uncomplicated; I25.10 Atherosclerotic heart disease of native coronary artery without angina pectoris; I10 Essential (primary) hypertension | CPT/HCPCS: 84439; 84443; 99214 ==

== ENCOUNTER → 2021-08-31 13:00 | Outpatient (BNVA) | payer MEDICAID, SELFPAY | PROVIDERS: PCP Family Medicine; Visit Provider Physician Assistant | DX: Z47.89 Encounter for other orthopedic aftercare (principal); Z98.1 Arthrodesis status | CPT/HCPCS: 72110 ==

== ENCOUNTER 2021-09-10 12:09 | Outpatient (CLI) | payer MEDICAID, SELFPAY ==
--- NOTE | 2021-09-10 12:22 | CT_ITS ---
WS: [id number] CT CHEST WITH INTRAVENOUS CONTRAST HISTORY: pulmonary nodules TECHNIQUE: Contiguous 5 mm axial imaging performed on the thorax. Coronal and sagittal reformats are submitted. All CT scans at [facility] use at least one of these dose optimization techniques: automated exposure control; mA and/or kV adjustment per patient size (includes targeted exams where dose is matched to clinical indication); or iterative reconstruction. CONTRAST: Omnipaque 300; 95 mL IV. DLP: 756.63 mGy.cm COMPARISON: 10/09/2019, 07/11/2017 Lungs and central airway: Numerous bilateral pulmonary nodules are identified. Majority of these nodu les are 2 to 3 mm. There is a more solid 7 mm nodule with slight spiculation at the LEFT apex. This n odule was present on the study of 10/09/2019 with only minimal increase in size. There is an additional nodule along the LEFT fissure measuring 10 mm was seen on a study of 07/11/2017. Pleura: Normal. No pleural effusion. Heart and pericardium: Normal size heart. No effusion. Mediastinum and nay: Prominent bilateral perihilar lymph nodes. 9 mm lymph node along the inferior R IGHT pulmonary artery. This lymph node was present on the prior examination. No significant increase in size of the lymph nodes. Vessels: Mild atherosclerosis thoracic aorta. No aneurysm. There is calcified and noncalcified plaque . Coronary artery stent. Chest wall and lower neck: No soft tissue masses. Upper abdomen: Markedly enlarged liver with low attenuation from hepatic steatosis. Normal enhancemen t of the portal vein. Gallbladder is negative. No bile duct dilatation. No adrenal mass. Osseous structures: No destructive process. CT/CT chest w con* [id number] IMPRESSION: 1. Bilateral pulmonary nodules. The largest nodule is 10 mm along the LEFT codi or fissure. 7 mm solid nodule LEFT apex. These nodules were present since at le ast 2018 with only minimal increase in size. There are additional micronodules scattered throughout both lungs. Some of these are present and some were not on the prior study. Variable appearance is probably due to small size and volume averaging. 2. Complete resolution LEFT lower lobe pneumonia. 3. Mildly prominent mediastinal and hilar lymph nodes are stable. 4. Hepatic steatosis and hepatomegaly.
[2021-09-10 12:53] LABS: Blood Urea Nitrogen 17 mg/dL (8-23); Glomerular Filtration Rate 63.4 mL/min (90-130)
[2021-09-10] MEDS: iohexol 300 mg/mL 100 mL Btl IV (12:54)
== END 2021-09-10 12:10 | disposition home or self-care (01) ==
PROVIDERS: PCP Family Medicine; Visit Provider Internal Medicine Pulmonary Disease
DX: R91.8 Other nonspecific abnormal finding of lung field (principal); K76.0 Fatty (change of) liver, not elsewhere classified; R16.0 Hepatomegaly, not elsewhere classified
CPT/HCPCS: 71260; 82565; 84520

== ENCOUNTER 2021-09-16 13:25 | Outpatient (CLI) | payer MEDICAID, SELFPAY ==
[2021-09-16 14:09] LABS: Basophils % 0.7 %; Eosinophils # 0.1 10^3/uL (0.0-0.8); Eosinophils % 1.3 %; Hematocrit 46.1 % (37.0-47.0); Hemoglobin 14.8 g/dL (11.5-15.3); Lymphocytes # 1.4 10^3/uL (0.8-4.8); Lymphocytes % 22.1 %; Mean Corpuscular HGB Conc 32.1 g/dL (30.0-36.0); Mean Corpuscular Hemoglobin 31.2 pg (28.0-34.0); Mean Corpuscular Volume 97.3 fl (81-99); Mean Platelet Volume 9.7 fL (7.4-10.4); Monocytes # 0.5 10^3/uL (0.2-0.9); Monocytes % 8.7 %; Neutrophils # 4.06 10^3/uL (1.8-7.7); Neutrophils % 66.2 %; Nucleated Red Blood Cells % 0 %; Platelet Count 205 10^3/cmm (130-400); Red Blood Count 4.74 10^6/uL (4.1-5.3); Red Cell Distribution Width 16.6 % (12.1-15.1); White Blood Count 6.1 10^3/uL (4.0-10.0)
[2021-09-16 14:32] LABS: Ferritin 17 ng/mL (15-150); Iron 69 ug/dL (37-145); Percent Saturation 16.4 % (20-50); Total Iron Binding Capacity 419 mcg/dl; Unsaturated Iron Binding 350 ug/dL (112-347)
--- NOTE | 2021-09-16 15:46 | ONC FU_ITS ---
Dr. Garza follow up note Patient: Dana Gusman Unit #: [id number]: 1960 Dicatated By: Yumiko Garza M.D.Date of Visit:Sep 16, 2021 Onc Med Follow-up/Prog Note History of Present Illness: Mrs. Gusman is a 61 -year-old female with history of palpitations, dyspnea on exertion for over a year. She was diagnosed with iron deficiency anemia started on oral iron. She experienced significant heartburn/ indigestion with the oral iron. She has received parental iron replacement with Injectafer on multiple occassions. She does have pica sypmtoms when she is iron deficient in that she does crave ice and chews it all the time . Mrs Gusman reported she was losing blood in her stools and she underwent EGD and colonoscopy by Dr. Campbell on 02/07/2017. The scopes did not show any abnormalities and she subsequently underwent capsule endoscopy on 09/25/2017 for persistent iron deficiency anemia and it showed a few tiny nonbleeding AVMs. No history of jaundice, no history of blood transfusion except during her last , no history of gross bleeding, CBC from 04/05/2017 showed white blood count 4.7 with normal differential hemoglobin 7.8 crit 25.3 MCV 61.3, platelets 275,000 Status post Injectafer 750 mg weekly ???2 on January 04 and 2017 with excellent response . Her hemoglobin had gone up to 15.8, hematocrit 47.8 and ferritin 104.7 on 02/09/2018. She again required Injectafer' 750 mg IV ???2 given on 11/16 and 11/23/2018 with that her hemoglobin improved from 11.3-15.1 and ferritin gone up to 106 compared to 7 prior to infusion. She underwent repeat colonoscopy and EGD on 05/14/2019 for progressive iron deficiency anemia. The EGD showed no esophageal abnormality and there is mild gastric erosions in the antrum and along with mild duodenitis but no evidence of gross bleeding and colonoscopy was normal exam except internal hemorrhoids. Ms Gusman received Injectafer 750 mg IV weekly ???2 on April 11 and 04/18/2019 with excellent response e.g. yazidism of iron stores, ferritin 225 compared to 9 prior and improvement in hemoglobin from 12.8 to 15 g Ms Gusman reported that she underwent thyroidectomy at [facility] in [place] on March 02, 2020, as per patient she was told there is no sign of malignancy and she was started on thyroid supplements. She presented for follow-up, complaining of generalized weakness and fatigue and also dark-colored stools but no fresh blood per rectum., No jaundice, no hemoptysis or hematemesis, no abdominal pain. Patient was referred to [place] for capsule endoscopy, patient still awaiting the appointment. She was given parenteral Injectafer in May 2020 which she tolerated well. Her hemoglobin on June 18, 2020 was 9.8 hematocrit was 33.1. She was again given 2 doses of Injectafer on June 18, 2020 and again on June 25, 2020. She had L4/L5 laminectomy with partial facetectomy bilateral and L5/S1 laminectomy and partial facetectomy bilateral by Dr. Villafana at [facility]. on 07/08/2020 She states she is walking better on her own now. last dose of Injectafer on September 16, 2020. Patient underwent capsule endoscopy on August 11, 2020 which showed there was active bleeding 15% of the way through the study. There were AVMs and erythematous mucosal break noted within the left mid small bowel, 50 to 60% of the way through the study., As per patient she underwent cauterization in the last week of September and about 9 spots were cauterized, as per patient Dr. Mulligan told her the next procedure will be done not before 3 years. Came for follow-up, denies any specific complaints, cough with postnasal discharge, as per patient she is being evaluated by pulmonology for some lung nodules seen on her recent CT scan. She is also scheduled for sleep study on next Thursday. No fever or chills, no nausea or vomiting diarrhea. No shortness of breath no chest pain no palpitation but generalized weakness and fatigue. Medications: Aspirin 1 (81 mg) Tablet Oral daily, Crestor 1 (20 mg) Tablet Oral daily, Gabapentin 1 (600 mg) Tablet Oral b.i.d., MetFORMIN HCl 1 (500 mg) Tablet Oral daily, Metoprolol Tartrate 1 (50 mg) Tablet Oral b.i.d., Nitroglycerin 1 (0.4 mg) Tablet, sublingual Sublingual PRN, Singulair 1 (10 mg) Tablet Oral daily, Synthroid 1 Tablet (of 25 mcg) Oral daily, Tums 2 Tablet Tablet, chewable Oral daily, Vitamin D 1 Tablet Oral daily Allergies: Abilify, AmLODIPine Bes+SyrSpend SF, AmLODIPine Besylate, Amoxicillin, Bactrim DS, BusPIRone HCl, Ceftin, Cefuroxime Axetil, celexa , Cephalexin, Cetirizine HCl, Ciprofloxacin HCl, Cymbalta, Dexilant, DULoxetine HCl, Effexor XR, Enablex, fomotidine, Fosamax, HydroCHLOROthiazide, HydrOXYzine HCl, Levaquin, lisinopril, Lovaza, Lyrica, methocarb, Mirapex, Omeprazole, PARoxetine HCl, Penicillins, PredniSONE, PriLOSEC, Protonix, Pseudoephedrine HCl, SEROquel, traMADol HCl, VESIcare, Zoloft, and ZyrTEC Allergy. Review of Systems: Review of Systems is not available for this patient. Vital Signs: Performed on Sep 16, 2021 15:00 Height - 57.00 in Weight - 197.2 lbs (HIGH) BSA - 1.79 sq.m BMI - 42.67 (HIGH) Temperature - 97.5 F (LOW) Pulse - 85 /min Respiration - 18 /min BP - 132/77 mm(hg) O2 Sat - 94 % (LOW) Pain - 5 Fatigue - 2 Performance Status: 1 - No physically strenuous activity, but ambulatory and able to carry out light or sedentary work (e.g. office work, light house work). (ECOG) Physical Examination: ENMT - No mouth sores, no thrush, no jaundice, Respiratory - Poor air entry with mild wheezing, Cardiovascular - Regular rate and rhythm of heart, Abdomen - Soft, bowel sounds present, Extremities - No visible edema. Lab/Imaging: Most recent lab results are not available for this patient. Impression: Microcytic hypochromic anemia due to iron deficiency due to chronic GI blood loss From small bowel AVMs per capsule endoscopy done on August 11, [address] Mulligan in [facility], status post cauterization in September 2020 Colonoscopy and EGD done on 02/07/2017 showed no abnormality Status post Injectafer weekly ???2 in April 2017 With excellent response Status post Injectafer 750???2 in January 2018 With excellent response showed hemoglobin 15.8 hematocrit 47.8 ferritin 104.7 on 02/09/20189 Injectafer infusion done on 11/16/2018 and 11/23/2018 4 hemoglobin 11.3 hematocrit 30 5., ferritin 7 and iron saturation 4.4, postinfusion hemoglobin on 12/24/2018 was 15.1, hematocrit 44.9 and ferritin was 106. Capsule endoscopy done on 09/25/2017 showed there were 2 tiny nonbleeding AVMs that were noted, there was no blood or stigmata of recent bleeding appreciated otherwise normal study. Recent lab shows progressive iron deficiency anemia probably due to chronic GI bleeding from small bowel AVMs Plan: Discussed with patient regarding her labs White blood count 6.1 hemoglobin 14.4 hematocrit 46.1 platelets 205,000 iron studies shows ferritin 17 iron saturation 16.4% iron 69 TIBC 419 Clinically, patient is doing well with no new signs symptoms or follow-up lab work-up shows progressive/persistent iron deficiency but with hemoglobin in normal range which could be due to hypoxia caused by underlying untreated sleep apnea, as per patient she is scheduled for sleep study on coming , if sleep apnea is confirmed, she may benefit from CPAP machine. Because of progressive/persistent generalized weakness and fatigue which could be due to iron deficiency, will consider Injectafer 750 mg IV x1 and monitor her blood counts along with iron studies Patient return to clinic in 1 month after Injectafer infusion with CBC and iron studies. Signed By: Yumiko Garza M.D. <<Signature on File>>
== END 2021-09-16 13:26 | disposition home or self-care (01) ==
PROVIDERS: PCP Family Medicine; Visit Provider Internal Medicine Hematology & Oncology
DX: D50.9 Iron deficiency anemia, unspecified (principal); Q27.33 Arteriovenous malformation of digestive system vessel; R53.1 Weakness; R53.83 Other fatigue
CPT/HCPCS: 36415; 82728; 83540; 83550; 85025; 99214

== ENCOUNTER 2021-09-22 09:26 | Outpatient (CLI) | payer MEDICAID, SELFPAY ==
--- NOTE | 2021-09-22 13:51 | PFTS_ITS ---
Date of Study:09/22/21 Date of Dictation: MECHANICS: Forced vital capacity (FVC) is reduced. Forced expiratory volume in one second (FEV1) is reduced. FEV1/FVC is normal. FLOW VOLUME LOOP: Reduced flow at all lung volumes without significant scooping. LUNG VOLUMES: Total lung capacity (TLC) is normal. Residual volume (RV) is increased. DIFFUSING CAPACITY FOR CARBON MONOXIDE: Mildly reduced. INTERPRETATION: The pulmonary function tests are consistent with nonspecific ventilatory limitations. The postbronchodilator spirometry is consistent with mild restriction however the lung volumes are not suggestive of restrictive lung disease. 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 There is a significant postbronchodilator response. Lung volumes are consistent with air trapping. Gas exchange (DLCO) is mildly reduced. MTDD
== END 2021-09-22 09:27 | disposition home or self-care (01) ==
LOC: RT 09:28
PROVIDERS: PCP Family Medicine; Visit Provider Internal Medicine Pulmonary Disease
DX: J44.9 Chronic obstructive pulmonary disease, unspecified (principal)
CPT/HCPCS: 94060; 94618; 94726; 94729; J7611

== ENCOUNTER 2021-09-23 07:32 | Outpatient (CLI) | payer MEDICAID, SELFPAY ==
[2021-09-23] MEDS: acetaminophen 325 mg Tablet 650 MG PO (09:05)
[2021-09-23] MEDS: diphenhydrAMINE 25 mg Capsule PO (09:05)
[2021-09-23] MEDS: sodium chloride 0.9% 250 ML 50 ML IV (09:05)
[2021-09-23] MEDS: iron dextran 25 MG in SYRINGE 1 EACH 30 MG IVP (09:48)
[2021-09-23] MEDS: SODIUM CHLORIDE 0.9% IV (10:37)
[2021-09-23] MEDS: IRON DEXTRAN IV (10:37)
== END 2021-09-23 07:33 | disposition home or self-care (01) ==
LOC: ONCMED 07:34
PROVIDERS: PCP Family Medicine; Visit Provider Internal Medicine Hematology & Oncology
DX: D50.9 Iron deficiency anemia, unspecified (principal); Z79.899 Other long term (current) drug therapy
CPT/HCPCS: 96365; 96366; 96367; J1100; J1750; J7030; J7050

== ENCOUNTER → 2021-10-07 14:48 | Outpatient (BNVA) | payer MEDICAID, SELFPAY | PROVIDERS: PCP Family Medicine; Visit Provider Internal Medicine | DX: E89.0 Postprocedural hypothyroidism (principal) | CPT/HCPCS: 84439; 84443 ==

== ENCOUNTER → 2021-10-11 13:56 | Outpatient (BNVA) | payer MEDICAID, SELFPAY | PROVIDERS: PCP Family Medicine; Visit Provider Internal Medicine | DX: E89.0 Postprocedural hypothyroidism (principal); K29.70 Gastritis, unspecified, without bleeding; E11.9 Type 2 diabetes mellitus without complications; E78.5 Hyperlipidemia, unspecified; Z90.09 Acquired absence of other part of head and neck; E87.1 Hypo-osmolality and hyponatremia; Z79.84 Long term (current) use of oral hypoglycemic drugs; F17.210 Nicotine dependence, cigarettes, uncomplicated | CPT/HCPCS: 99214 ==

== ENCOUNTER 2021-10-12 20:00 | Outpatient (CLI) | payer MEDICAID, SELFPAY | END 2021-10-12 20:01 | disposition home or self-care (01) | LOC: SLEEP 10-13 07:59 | PROVIDERS: PCP Family Medicine; Visit Provider Internal Medicine Pulmonary Disease | DX: G47.33 Obstructive sleep apnea (adult) (pediatric) (principal) | CPT/HCPCS: 95810 ==

== ENCOUNTER 2021-10-19 13:52 | Outpatient (CLI) | payer MEDICAID, SELFPAY ==
--- NOTE | 2021-10-19 14:30 | MR_ITS ---
WS: [id number] MRI LUMBAR SPINE NONCONTRAST HISTORY: M48.062 - Spinal stenosis, lumbar region pain. COMPARISON: 11/18/2019 TECHNIQUE: Sagittal and axial multisequence imaging is submitted. Small central disc protrusion at C6-7 with contact on the cord. Mild straightening of the normal lumbar lordosis. Posterior lumbar fusion at L4-5. Interbody spacer a t L4-5. No acute fractures. The remaining disc spaces are normally preserved. Conus terminates normally at L1-2 disc level. L1-L2: Normal. L2-L3: Mild ligamentum flavum hypertrophy and facet disease. No stenosis. L3-L4: Mild ligamentum flavum hypertrophy and facet arthritis. Mild bilateral foraminal stenosis. No focal disc protrusion. L4-L5: LEFT hemilaminectomy defect. Thecal sac is slightly more patulous than prior due to the sid ctomy. Mild ligamentum flavum hypertrophy. Very mild disc and osteophyte encroachment into the forami na similar to the prior study. No recurrent central disc protrusions or herniations. L5-S1: Diffuse moderate annular disc bulging. Small amount of fluid in the facet joints. LEFT hemilam inectomy defect. Mild bilateral foraminal stenosis with small protrusions as seen on the prior study. Foraminal stenosis has slightly progressed since the prior study. Marrow edema within the sacrum seen on the prior examination has resolved. MR/MR lumbar spine wo con* [id number] IMPRESSION: 1. Status post posterior lumbar fusion at L4-5 with interbody spacer since 11/03. 2. Mild bilateral foraminal stenosis at L5-S1 with minimal progression due to osteophytes and small foraminal disc protrusions. 3. LEFT hemilaminectomy defects at L4-5 and L5-S1. 4. Mild disc and osteophyte encroachment into the L4-5 foramina with no obviou s change. 5. Resolved marrow edema within the sacrum.
== END 2021-10-19 13:53 | disposition home or self-care (01) ==
LOC: RAD 13:52
PROVIDERS: PCP Family Medicine; Visit Provider Physician Assistant
DX: M48.062 Spinal stenosis, lumbar region with neurogenic claudication (principal); M51.16 Intervertebral disc disorders with radiculopathy, lumbar region; M51.27 Other intervertebral disc displacement, lumbosacral region; M50.923 Unspecified cervical disc disorder at C6-C7 level; Z98.1 Arthrodesis status
CPT/HCPCS: 72148

== ENCOUNTER → 2021-10-21 13:11 | Outpatient (BNVA) | payer MEDICAID, SELFPAY | PROVIDERS: PCP Family Medicine; Visit Provider Orthopaedic Surgery | DX: M53.2X7 Spinal instabilities, lumbosacral region (principal); Z98.1 Arthrodesis status | CPT/HCPCS: 99214 ==

== ENCOUNTER 2021-11-03 14:25 | Oncology outpatient (recurring) (ONCR) | payer MEDICAID, SELFPAY ==
[2021-11-03 15:05] LABS: Basophils % 0.4 %; Eosinophils # 0.1 10^3/uL (0.0-0.8); Eosinophils % 1.4 %; Hemoglobin 16.2 g/dL (11.5-15.3); Lymphocytes # 1.5 10^3/uL (0.8-4.8); Lymphocytes % 20.9 %; Mean Corpuscular HGB Conc 33.1 g/dL (30.0-36.0); Mean Corpuscular Hemoglobin 33.5 pg (28.0-34.0); Mean Corpuscular Volume 101.2 fl (81-99); Mean Platelet Volume 10.2 fL (7.4-10.4); Monocytes # 0.6 10^3/uL (0.2-0.9); Monocytes % 8.3 %; Neutrophils # 4.86 10^3/uL (1.8-7.7); Neutrophils % 68.7 %; Nucleated Red Blood Cells % 0 %; Platelet Count 181 10^3/cmm (130-400); Red Blood Count 4.84 10^6/uL (4.1-5.3); Red Cell Distribution Width 19.7 % (12.1-15.1); White Blood Count 7.1 10^3/uL (4.0-10.0)
[2021-11-03 15:23] LABS: Ferritin 42 ng/mL (15-150); Iron 48 ug/dL (37-145); Total Iron Binding Capacity 369 mcg/dl; Unsaturated Iron Binding 321 ug/dL (112-347)
== END 2021-12-02 23:59 | disposition home or self-care (01) ==
PROVIDERS: PCP Family Medicine; Visit Provider Internal Medicine Hematology & Oncology
DX: D50.9 Iron deficiency anemia, unspecified (principal); E11.8 Type 2 diabetes mellitus with unspecified complications; M53.3 Sacrococcygeal disorders, not elsewhere classified; J44.9 Chronic obstructive pulmonary disease, unspecified; I25.10 Atherosclerotic heart disease of native coronary artery without angina pectoris; Z87.891 Personal history of nicotine dependence
CPT/HCPCS: 82728; 83540; 83550; 85025; 99214

== ENCOUNTER 2021-11-08 15:19 | Inpatient (IN) | payer MEDICAID, SELFPAY ==
[2021-11-04 13:09] VITALS: BMI 40.7
--- NOTE | 2021-11-04 13:20 | ECG_ITS ---
[facility] Test Date: 2021-11-04 Pat Name: Dana Gusman Department: Room: Gender: Female [employer]: : 1960 Requested By: Jorge Nava Order Number: [id number] Charo MD: Parth Currie M.D. Measurements Intervals Star Rate: 59 P: 46 UT: 179 QRS: -33 QRSD: 101 T: 25 QT: 400 QTc: 399 Interpretive Statements SINUS BRADYCARDIA LEFT AXIS DEVIATION [QRS AXIS < -30] PATTERN CONSISTENT WITH PULMONARY DISEASE Compared to ECG 03/22/2021 09:11:15 No significant changes Electronically Signed On 11-04-2021 17:15:07 CDT by Parth Currie M.D. [email or web address]
[2021-11-04 13:40] LABS: Blood Urea Nitrogen 15 mg/dL (8-23); Calcium 9.6 mg/dL (8.5-10.5); Carbon Dioxide 22 mmol/L (22-29); Chloride 103 mmol/L (98-107); Glomerular Filtration Rate 84.8 mL/min (90-130); Glucose 133 mg/dL (65-115); Osmolality Calculated 293 mOsm/kg (285-295); Sodium 140 mmol/L (136-145)
--- NOTE | 2021-11-04 13:41 | P.ANESASSM_ITS ---
Pre-Anesthetic Assessment Height/Weight: Height 1.47 m Weight 88.451 kg Preop Diagnosis: L4/5 spondylolisthesis; lumbar stenosis with neurogenic claudication Operation Date: 11/08/21 11:25 Proposed Procedures p Posterior Lumbar Interbody Fusion L5/S1 W REVISION 4/5 HARDWARE REMOVAL [id number]/70433/M54.50/M79.604/M79.605(Not Applicable) - Parminder Turner DO Familial anesthetic complications: None Was Beta Marisel taken within 24 hours: Yes Was Clonidine taken within 24 hours: N/A Social Tobacco and No alcohol Exam alert, oriented x 3 and regular rate & rhythm rhonchi Airway Submandibular: within normal limits Cervical ROM: within normal limits Mallampati: Class II Dentition: false Pulmonary Chronic Obstructive Pulmonary Disease and Sleep Apnea CV/HEM Anemia, Coronary Artery Disease (stents) and Hypertension GI Gastroesophageal Reflux Disease Metabolic Diabetes Mellitus and Morbid Obesity Musc/skel Lower Back Pain and Osteoarthritis/DJD Neuropsych Neuropathy Anesthetic Plan ASA status: 3 Anesthesia: General Other: a.line, transfusion OK Medications/Allergies Home Medications Medication Instructions Recorded Confirmed Last Taken Type nitroglycerin 0.4 mg sublingual 0.4 mg SUBLINGUAL PRN PRN 06/14/19 11/04/21 Unknown History tablet (Nitrostat) wheelchair #1 ea 10/17/19 11/03/21 Unknown Rx diabetic shoes #1 ea 01/22/20 11/03/21 Unknown Rx blood sugar diagnostic (Accu-Chek #100 each 04/06/20 11/03/21 Unknown Rx Alyson Plus test strp) blood-glucose meter (Accu-Chek #1 each 04/06/20 11/03/21 Unknown Rx Alyson Plus Meter) Tums See Rx Instructions .ROUTE .COMPLEX 04/08/20 11/04/21 Unknown History Vitamin B-12 1 tab PO DAILY 04/08/20 11/04/21 Unknown History acetaminophen 500 mg tablet 1,000 mg PO PRN 04/08/20 11/04/21 07/07/20 History (Acetaminophen Extra Strength) cholecalciferol (vitamin D3) 50 50 mcg PO DAILY 04/22/20 11/04/21 03/30/21 History mcg (2,000 unit) capsule aspirin 81 mg tablet,delayed 81 mg PO DAILY 07/07/20 11/04/21 03/24/21 History release potassium gluconate 595 mg (99 mg) 595 mg PO DAILY 12/15/20 11/04/21 03/29/21 History tablet albuterol sulfate 90 mcg/actuation 2 puff INHALATION QID PRN 90 Days 12/24/20 11/04/21 03/31/21 Rx aerosol inhaler (ProAir HFA) #8.5 g magnesium 200 mg tablet 400 mg PO DAILY 04/21/21 11/04/21 Unknown History furosemide 40 mg tablet (Lasix) 40 mg PO BID #180 tab 05/04/21 11/04/21 Unknown Rx polyethylene glycol 3350 17 17 g PO BID #510 g 05/06/21 11/04/21 Unknown Rx gram/dose oral powder (Miralax) metoprolol tartrate 50 mg tablet 25 mg PO BID #60 tab 05/10/21 11/04/21 Unknown Rx vitamin E 200 unit capsule 200 unit PO DAILY 06/16/21 11/04/21 Unknown History gabapentin 300 mg capsule See Rx Instructions .ROUTE 07/19/21 11/04/21 Unknown Rx .COMPLEX #270 cap metformin 500 mg tablet,extended 500 mg PO BID #180 tab 09/10/21 11/04/21 Unknown Rx release 24 hr levothyroxine 112 mcg tablet 124 mcg PO DAILY 11/04/21 11/04/21 Unknown History Allergies Allergy/AdvReac Type Severity Reaction Status Date / Time amlodipine Allergy ADR-Dizzine Verified 11/03/21 15:46 ss clavulanic acid Allergy Unknown Verified 11/03/21 15:46 [From Augmentin] levofloxacin [From Levaquin] Allergy ADR-Dizzine Verified 11/03/21 15:46 ss omeprazole Allergy chest pain Verified 11/03/21 15:46 prednisone Allergy SOB Verified 11/03/21 15:46 FOR[facility], [facility] Anesthesia Medical History Anemia CAD (coronary artery disease) Central sleep apnea Chronic sinusitis Deviated septum Dysphonia Enlarged thyroid Essential hypertension Hyperlipidemia Intervertebral disc disorders with radiculopathy, lumbar region Lumbar stenosis with neurogenic claudication Nasal turbinate hypertrophy Neuropathic peripheral nerve Osteoporosis Postnasal drip Sacral fracture, closed Sensorimotor neuropathy Multifocal Smoking Spondylolisthesis, lumbar region Trigger ring finger of right hand Type 2 diabetes mellitus without complications Unspecified fracture of sacrum, initial encounter for closed fracture Vocal cord polyp Surgical History H/O breast biopsy H/O heart artery stent H/O: hysterectomy History of appendectomy History of bladder surgery History of lumbar surgery Dr. Turner-lumbar decompression History of thyroidectomy 03/02/2020 [facility]. Hx of hand surgery Family History Father CAD (coronary artery disease) Hypertension Cancer Diabetes Mother CAD (coronary artery disease) Hypertension Grandmother Cancer Diabetes Social History Smoking and tobacco status: current every day smoker cigarettes Packs smoked per day: 0.5 Years cigarettes smoked: 52 Alcohol intake: never Lives independently: Yes Household members: spouse Marital status: Current occupational status: disabled History of recent travel: No Data Anesthesia : 11/03/21 14:40 BMP 11/03/21 14:40 Sodium 140 Chloride 103 Carbon Dioxide 22 BUN 15 Creatinine 0.7 Calcium 9.6 Cardiac Studies: Echocardiogram Ultrasound 10/09/19 Sestamibi Stress Test (Cardiology) 04/27/20 Cardiac Event Monitor 06/02/20
[2021-11-04 13:50] LABS: Anion Gap 21.1 (5-19); Potassium 6.1 mmol/L (3.5-5.1)
[2021-11-08] VITALS (19 sets, daily range): BP systolic 105–150; BP diastolic 63–92; PULSE 74–96; RESP 14–22; TEMP 36.1–37.2; O2SAT 93–100; BMI 40.7
--- NOTE | 2021-11-08 | SCC_ITS ---
Procedure done: 1. L5/S1 Interbody fusion with posterolateral fusion 2. Instrumentation L4-S1 3. Cage at L5/S1 4. Laminectomy L5 5. use of autograft from same incision 6. allograft 7. Bone marrow aspirate from right iliac crest 8. computer navigation/ stereotactic for the spine 2 seconds of fluoroscopic guidance, for a cumulative dose of 71.7 mGy, was provided to Dr. Turner by the radiology department. C-arm images of the lumbar spine were saved for the patient's permanent record. ILYA
--- NOTE | 2021-11-08 | XR_ITS ---
WS: [id number] INTRAOPERATIVE TECHNIQUE: 4 Spot fluoroscopic images for intraoperative purposes. FLUOROSCOPY TIME: 13 seconds CLINICAL INFORMATION: plif l5/s1 revision COMPARISON: None. FINDINGS: Intraoperative changes Pedicle screw fixation L3-S1. Interbody fusion grafts L4-L5 and L5-S1. XR/XR lumbar spine 2-3V* [id number] IMPRESSION: Images obtained for intraoperative purposes.
[2021-11-08] MEDS: sodium chloride 0.9% 1,000 ML 30 ML IV (09:42)
[2021-11-08 09:43] LABS: Glucose Point of Care 278 mg/dL (70-110)
[2021-11-08] MEDS: insulin regular-human 100 units/1 mL 10 UNIT IVP (09:56)
--- NOTE | 2021-11-08 10:41 | P.ANESUD_ITS ---
Pre-Anesthetic Update Pre-Anesthetic Assessment: Date of Surgery/Procedure: 11/08/21 Preop Elicia gnosis: lumbar stenosis with neurogenic claudication Proposed Procedure: Operation Date: 11/08/21 10:55 Proposed Procedures p Posterior Lumbar Interbody Fusion L5/S1 W REVISION 09/07 HARDWARE REMOVAL [id number]/[id number]/58957/M54.50/M79.604/M79.605(Not Applicable) - Parminder Turner, DO Any changes to Pre-Anesthetic Assessment?: No Last Intake: Intake Last Liquid Date 11/07/21 Last Liquid Time 00:00 Last Solid Date 11/07/21 Last Solid Time 15:00 Vitals: Temperature 97 F L 11/08/21 09:26 Temperature Source Temporal Artery S can 11/08/21 09:26 Pulse Rate 74 11/08/21 09:26 Respiratory Rate 18 11/08/21 09:26 Blood Pressure 150/87 11/08/21 09:26 Blood Pressure Christine n 108 11/08/21 09:26 Pulse Oximetry 97 11/08/21 09:26 Oxygen Delivery Me thod 11/08/21 09:26 Exam: Pre-Anes Outpt Exam: alert, oriented x 3, clear to auscultation bilaterally and regular rate & rhythm Cardiac Studies: Echocardiogram Ultrasound 10/09/19 Sestamibi Stress Test (Cardiology) 04/27/20 Cardiac Event Monitor 06/02/20
[2021-11-08 10:58] LABS: Glucose Point of Care 208 mg/dL (70-110)
--- NOTE | 2021-11-08 11:00 | W.PM.OPSUD ---
Surgery/Procedure H&P Update DATE OF PROCEDURE: November 08, 2021 DATE H&P PERFORMED: 10/21/21 H&P UPDATE INFORMATION: I have reviewed H&P completed within last 30 days, I have examined patient prior to procedure and No changes to prior documentation PREOP DIAGNOSIS: lumbar stenosis with neurogenic claudication PLANNED PROCEDURE: Operation Date: 11/08/21 10:55 Proposed Procedures p Posterior Lumbar Interbody Fusion L5/S1 W REVISION / HARDWARE REMOVAL [id number]/[id number]/90283/M54.50/M79.604/M79.605(Not Applicable) - Parminder Turner,
--- NOTE | 2021-11-08 12:03 | ANES.PROC ---
Anesthesia Procedures Procedure/Date: 11/08/21 Arterial Line: Time Out Performed: Yes Consent: from patient Size (Gauge): 20 Technique Used: other (Real time US guidance and visualization ) Post-Procedure: dry sterile dressing placed Patient Tolerated Procedure: well Complications: none Additional Comments: After induction of anesthesia, sterile prep, using sterile technique, and using real time US guidance for vessel selection an 20 g radial arterial was inserted with real time visualization of needle entry and real time visualization of catheter advancement. Tolerated well. 2 attempts left unsuccessful, pressure held, no hematoma, pressure dressing. 1 attempt right radial, successful.
[2021-11-08] MEDS: vancomycin 1,000 MG SDV 1000 MG XX (12:07)
[2021-11-08] MEDS: heparin, porcine 1,000 unit/mL INJ 10 mL 10000 UNIT IRRIGATION (12:08)
--- NOTE | 2021-11-08 14:08 | PM.OP ---
Operative Report Date of procedure: November 08, 2021 Pre-op diagnosis: Preop Diagnosis lumbar stenosis with neurogenic claudication Post-op diagnosis: same Procedure done: 1. L5/S1 Interbody fusion with posterolateral fusion 2. Instrumentation L4-S1 3. Cage at L5/S1 4. Laminectomy L5 5. use of autograft from same incision 6. allograft 7. Bone marrow aspirate from right iliac crest 8. computer navigation/ stereotactic for the spine Surgeon: Parminder Turner Senior Manufacturing Technician: Brant Roger Senior Manufacturing Technician: The assembler surgical garment, Brant Roger, PAC was needed for his expertise under the microscope. He was important and necessary throughout the procedure to complete in a safe and timely manner. He assisted with patient positioning prepping and draping tissue retraction suctioning of the operative field protection of the dural sac and tissue closure Estimated blood loss (mL): 200 Procedure: 1. L5/S1 Interbody fusion with posterolateral fusion 2. Instrumentation L3-S1 3. Cage at L5/S1 4. Laminectomy L5 5. use of autograft from same incision 6. allograft 7. Bone marrow aspirate from right iliac crest 8. computer navigation/ stereotactic for the spine Patient is brought to the operative suite. After undergoing anesthesia, the patient had neuro monitoring attached. Patient was then placed in the prone position on the Mauricio table. All areas of impingement were well-padded. Patient was then prepped and draped in the normal sterile fashion. Skin incision was then made over the L3-S1 space. Subperiosteal dissection was made out to the transverse processes of L3, L4, L5 and sacral ala. The previously placed L4-L5 pedicle screws were identified. The caps removed from the screws and the rods were removed. Was then brought to getting the bone marrow aspirate. This was done by using the region of cell bone marrow aspiration kit. This was done by using the sharp probe to open up the bone. Aspiration was performed and then the blunt probe was then used to dissect down to through the bone tunnel. An aspirating well drawn back a millimeter approximately 20 cc of bone marrow aspirate was used. And mixed with the allograft and autograft bone that will be used. Next attention was brought to placing the fiducial for computer navigation. 2 pins were placed into the iliac crest on the right side. The pins were then removed at the end of the case. The fiducial was then attached to the pins. The C-arm was brought in and spun around the patient and the information from the C-arm was then linked to the computer in order to allow for computer navigation to be used to place pedicle screws. The technique for placing the pedicle screws was to use a drill followed by the gearshift probe linked to computer navigation Followed by the ball probe to feel the superior inferior medial lateral noguera of the pedicles. Then placement of the screws with computer navigation Was done at each pedicle. Screws were placed at L3 bilaterally and S1 bilaterally. Next attention was brought to performing the laminectomy ofL5. This was done using the high-speed bur Kerrisons and curettes. Once the lamina was removed and then attention was brought to performing a partial facetectomy on the contralateral side. This was done again using the high-speed bur curettes and Kerrisons. The ligamentum flavum was taken down bilaterally from L5 to S1. Attention was then brought to the facet on the ipsilateral side. The facet was taken down. The S1 nerve was decompressed as it passed around the S1 pedicle. The laminectomy was done for purposes of decompressing the nerve as well as placement of the cage. The L5 nerve was identified as it traversed through the L5/S1 foramen. The thecal sac was identified and retracted. The L5/S1 disc base was identified. Using a knife the disc base was opened. And then sequential reese were placed. The first shaver was a 6 and the last shaver was a 10. Using a pituitary and down going curette the endplates were scraped and disc material was removed from the space. Once adequate decompression of the disc base was felt to be had. Osteoamp sponge was packed into the anterior aspect of the disc base. Then a size 10 cage from [place] was placed after packing osteoamp into the cage. While placing the cage the thecal sac and S1 nerve was protected. C arm was used to ensure that the cages placed in the appropriate position. Attention was then brought to attaching the rods to the screws placed in the L3,L4, L5 and S1 bilaterally. Caps were torqued into position. Locking the construct in place. Wound was copiously irrigated and then attention was brought to decorticating the facets and transverse processes laterally. Bone that was taken down from the lamina was used along with osteoamp fibers and sponges were packed into the lateral gutters along the facet joints. This was done bilaterally. Wound was then closed in a layered fashion starting with the thoracolumbar fascia. 0-vicryl was used the sub cutaneous tissue was closed with 2-0 vicryl and skin with 4-0 monocryl. Glue was then used to seal the skin and a steril dressing was applied. Patient was then placed in the supine position. The endotracheal tube was removed and patient was transferred to the PACU in stable condition.
--- NOTE | 2021-11-08 16:28 | ANE.PACU2 ---
Inpatient post-anesthesia follow up: Airway intact: Yes Vital signs: Temperature 97.2 F Pulse Rate 96 Respiratory Rate 18 Blood Pressure 116/92 Pulse Oximetry 98 Oxygen Delivery Me thod Nasal Cannula Oxygen Flow Rate 3 Fraction of Inspir ed Oxygen 30 Hydration adequate: Yes Nausea and vomiting: No Pain level: 2 Mental status: Baseline
[2021-11-08] MEDS: HYDROcodone-acetaminophen 5-325 mg Tablet PO (17:45)
[2021-11-08] MEDS: polyethylene glycol 3350 Pkt 17 gm PO (17:46)
[2021-11-08] MEDS: FUROsemide 40 mg Tablet PO (17:47)
[2021-11-08] MEDS: metoprolol tartrate 50 mg Tablet 25 MG PO (17:47)
[2021-11-08] MEDS: docusate sodium 100 mg Capsule PO (17:47)
[2021-11-08] MEDS: gabapentin 300 mg Capsule PO ×2 (17:47→21:18)
[2021-11-08] MEDS: lactated ringers 1,000 ML 90 ML IV (17:48)
[2021-11-08] MEDS: metformin XR 500 MG Tablet PO (21:18)
[2021-11-09] VITALS: BP 120/80; PULSE 80; RESP 14; TEMP 36.7; O2SAT 93
[2021-11-09] MEDS: lactated ringers 1,000 ML 90 ML IV (05:00)
[2021-11-09] MEDS: HYDROcodone-acetaminophen 5-325 mg Tablet PO ×2 (05:06→09:48)
[2021-11-09 05:12] VITALS: BP 139/67; PULSE 79; RESP 16; TEMP 36.6; O2SAT 91
[2021-11-09] MEDS: enoxaparin 40 mg/0.4 mL Syringe SUBCUT (06:11)
[2021-11-09] MEDS: levothyroxine 50 mcg Tablet 100 MCG PO (06:11)
[2021-11-09 07:44] VITALS: PULSE 84; RESP 17; O2SAT 94
--- NOTE | 2021-11-09 07:57 | P.PN_ITS ---
Subjective Subjective: POD 1 Patient sitting at the bedside with mild back pain. She is ready to go home. She states her legs do feel she denies any chest pain, shortness of breath or headaches. Vitals/I&O/Wt Last Vital Signs Temp 98 F 11/09/21 05:12 Pulse 84 11/09/21 07:44 Resp 17 11/09/21 07:44 BP 139/67 11/09/21 05:12 Pulse Ox 94 11/09/21 07:44 11/08/21 11/09/21 11/09/21 22:59 06:59 14:59 Intake Total 1350 / 3200 2130 / 5330 Output Total 415 / 1040 3350 / 4390 Balance 935 / 2160 -1220 / 940 Weight last 48 hrs Weight 195 lb Physical Exam Narrative: Patient presents alert and oriented x3 with a good general appearance normal mood and affect. Normal coordination normal stability. Mild tenderness around the incisional site with the incision appearing clean and dry. No signs of erythema or drainage. No signs of infection. Patient denies any fevers or chills. 5/5 motor strength both lower extremities with negative straight leg raise bilaterally. Calves are supple no medial thigh tenderness. Pulses are 2+ at the dorsalis pedis and posterior tibial region. Good capillary refill throughout normal sensation light touch both lower extremities. Urinary Catheter Management: Silvestre: Cath Placed During This Visit: yes Reason for Continuing Indwelling Catheter: Acute Urinary Retention or Obstruction Urinary Catheter Date of Insertion: 11/08/21 Urinary Catheter Time of Insertion: 11:40 Data : 11/03/21 14:40 A&P Assessment and plan (1) Status post lumbar spinal fusion: We will have physical therapy mobilize with a walker. Discussed no bending lifting or twisting activities. Okay to discharge home and encouraged to continue walking program. Encouraged her to continue to use incentive spirometry at home. We will see her back in the office in 1 week's time for wound check. She will call if she is having problems or questions. Status: Acute Attestations Medical Necessity Statement*: Home later this morning Procedures Arterial Line Size (Gauge): 20 Coding Level of Care Code Acute Business Line Controller for Elva Lopez Diagnoses Status post lumbar spinal fusion Z98.1
[2021-11-09 08:16] VITALS: BP 125/78; PULSE 89; RESP 16; TEMP 36.8; O2SAT 93
[2021-11-09] MEDS: magnesium oxide 400 mg tablet PO (09:42)
[2021-11-09] MEDS: metoprolol tartrate 50 mg Tablet 25 MG PO (09:42)
[2021-11-09] MEDS: FUROsemide 40 mg Tablet PO (09:42)
[2021-11-09] MEDS: metformin XR 500 MG Tablet PO (09:42)
[2021-11-09] MEDS: gabapentin 300 mg Capsule PO (09:42)
[2021-11-09] MEDS: cyanocobalamin 1,000 mcg Tablet 1000 MCG PO (09:42)
[2021-11-09] MEDS: docusate sodium 100 mg Capsule PO (09:42)
[2021-11-09] MEDS: aspirin 81 mg EC Tablet PO (09:42)
[2021-11-09] MEDS: cholecalciferol (vitamin D3) 1,000 unit Tablet 2000 UNIT PO (09:42)
--- NOTE | 2021-11-09 10:35 | PC.NURSE ---
HEMOVAC DRAIN AND FRITZ BOTH PULLED. PT TOLERATED WELL. PT HAS VOIDED SINCE REMOVAL OF FRITZ. IV HAS BEEN REMOVED. PT TOLERATED WELL. CATHETER TIP INTACT. DISCHARGE PAPERWORK GONE OVER WITH PT AND HER . ALL QUESTIONS ANSWERED. PT IS BEING WHEELED OUT BY AID.
[2021-11-09 11:22] VITALS: BP 125/78; PULSE 89; RESP 16; TEMP 36.8; O2SAT 93
[2021-11-09 11:44] VITALS: BP 125/78; PULSE 89; RESP 16; TEMP 36.8; O2SAT 93
--- NOTE | 2021-11-10 20:01 | PM.DCS ---
Discharge Providers Date of Admission: 11/08/21 15:19 Date of Discharge: November 09, 2021 Attending Provider at Admission: Parminder Turner DO Attending Provider at Discharge: Parminder Turner DO Primary Care Provider: Charis Carcamo DO Diagnoses at Discharge Discharge Diagnosis (1) Status post lumbar spinal fusion: Status: Acute Reason for Visit Reason for Visit: PLIF L5/S1 REVISION 09/07 [id number] Hospital Course Hospital Course Uneventful Physical Exam Urinary Catheter Management: Silvestre: Cath Placed During This Visit: yes Reason for Continuing Indwelling Catheter: Acute Urinary Retention or Obstruction Urinary Catheter Date of Insertion: 11/08/21 Urinary Catheter Time of Insertion: 11:40 Discharge Data Studies Completed and Pending Completed Studies During Hospitalization Category Date Time Status XR lumbar spine 2-3V* 66100 Routine Exams 11/08/21 Completed Radiology Impressions Lumbar Spine X-Ray 11/08/21 00:00 IMPRESSION: Images obtained for intraoperative purposes. Laboratory Results Sodium 140 mmol/L (136-145) 11/03/21 14:40 Potassium 6.1 mmol/L (3.5-5.1) H 11/03/21 14:40 Chloride 103 mmol/L (98-107) 11/03/21 14:40 Carbon Dioxide 22 mmol/L (22-29) 11/03/21 14:40 Anion Gap 21.1 (5-19) H 11/03/21 14:40 BUN 15 mg/dL (8-23) 11/03/21 14:40 Creatinine 0.7 mg/dL (0.5-0.9) 11/03/21 14:40 GFR Calculation 84.8 mL/min (90-130) L 11/03/21 14:40 Glucose 133 mg/dL (65-115) H 11/03/21 14:40 POC Glucose 208 mg/dL (70-110) H 11/08/21 10:55 Calculated Osmolality 293 mOsm/kg (285-295) 11/03/21 14:40 Calcium 9.6 mg/dL (8.5-10.5) 11/03/21 14:40 Vitals Last Vital Signs Temp 98.2 F 11/09/21 11:44 Pulse 89 11/09/21 11:44 Resp 16 11/09/21 11:44 BP 125/78 11/09/21 11:44 Pulse Ox 93 11/09/21 11:44 Discharge Plan Discharge Patient Disposition: Home Condition: Stable Prescriptions: New hydrocodone-acetaminophen 5-325 mg tablet 1 tab PO Q4H 7 Days Qty: 30 0RF Continued potassium gluconate 595 mg (99 mg) tablet 595 mg PO DAILY 0RF albuterol sulfate [ProAir HFA] 90 mcg/actuation HFA aerosol inhaler 2 puff INHALATION QID PRN (Reason: Shortness Of Breath) 90 Days Qty: 8.5 3RF nitroglycerin [Nitrostat] 0.4 mg tablet, sublingual 0.4 mg SUBLINGUAL PRN PRN (Reason: Chest Pain) 0RF (DME) wheelchair See Rx Instructions .Route .MEDSUPPLY Qty: 1 0RF Rx Instructions: As directed (DME) diabetic shoes See Rx Instructions .Route .MEDSUPPLY Qty: 1 0RF Rx Instructions: As directed cholecalciferol (vitamin D3) 50 mcg (2,000 unit) capsule 50 mcg PO DAILY 0RF polyethylene glycol 3350 [Miralax] 17 gram/dose powder 17 g PO BID Qty: 510 5RF vitamin E 200 unit capsule 200 unit PO DAILY 0RF (DME) blood-glucose meter [Accu-Chek Alyson Plus Meter] Misc See Rx Instructions .ROUTE .MEDSUPPLY Qty: 1 0RF Rx Instructions: As directed (DME) Accu-Chek Alyson Plus test strp Strip See Rx Instructions .ROUTE .MEDSUPPLY Qty: 100 3RF Rx Instructions: twice daily furosemide [Lasix] 40 mg tablet 40 mg PO BID Qty: 180 3RF metoprolol tartrate 50 mg tablet 25 mg PO BID Qty: 60 4RF metformin 500 mg tablet extended release 24 hr 500 mg PO BID Qty: 180 0RF acetaminophen [Acetaminophen Extra Strength] 500 mg Tablet 1,000 mg PO PRN 0RF Tums See Rx Instructions .ROUTE .COMPLEX 0RF Rx Instructions: prn Vitamin B-12 1 tab PO DAILY 0RF aspirin 81 mg Tablet,Delayed Release (Dr/Ec) 81 mg PO DAILY 0RF magnesium 200 mg tablet 400 mg PO DAILY 0RF levothyroxine 112 mcg tablet 124 mcg PO DAILY 0RF Rx Instructions: Take one tablet by mouth daily. gabapentin 300 mg capsule 300 mg PO TID 0RF Rx Instructions: TAKE 1 CAPSULE BY MOUTH THREE TIMES DAILY Discharge Orders: Discharge Order (Routine); Ordered 11/09/21 Ordered By: Brant Roger Referrals: Parminder Turner DO [Physician] - 11/16/21 10:45 am Discharge Diet: Advance as tolerated Discharge Activity: Resume usual activity Patient Instructions: Hydrocodone/Acetaminophen (By mouth), Lumbar Spinal Fusion (GEN), Opioid Safety Activity Restrictions/Additional Instructions: Thank you for choosing [facility] for your care! The following is a list of instructions, from your provider, to follow upon your discharge to ensure you have the optimal recovery from your recent injury or surgery. Follow-up care is a bundy part of your treatment and safety. Be sure to make and go to all appointments and call your doctor if you are having problems. If you do not already have a follow-up appointment made, call Dr. Turner's] office in the next 1-3 days to make follow up appointment for 1 weeks at [phone]. It is also a good idea to know your test results and keep a list of the medicines you take. Medications will be prescribed for you at your provider's discretion. These medications are to be used as instructed; if they are taken more often that prescribed they will not be refilled early and in most cases will not be refilled at all. > When a refill is needed, you should contact [facility] 2-3 business days before your prescription runs out. Medications will NOT be refilled by engine repairer production providers after hours! > Many pain medications contain Tylenol (Acetaminophen). Do not consume more than 4,000 mg of Tylenol per day in total with any combination of medications. > Pain medications can cause constipation. Please use an over the counter stool softener as directed, while taking pain medications. Consult your local pharmacist with questions or recommendations on stool softeners. If constipation persists, contact our office or your primary care provider. > While under our care, you are not to receive pain medications or other controlled substances from any other provider unless our office is notified and approves. Any attempts to do so will result in refusal to prescribe any further pain medications and possible dismissal from our practice. ? Walking is essential for the healing process after surgery. We would like you to slowly advance your walking. This should be done on relatively flat clear ground (inside or out) or can be done on a treadmill. Remember this goal does not have to happen all at once, slowly increase your distance and duration. This can be broken into more more than one walk per day as tolerated. Patients who walk as directed after surgery rarely require Physical Therapy. In the unlikely event this issue arises your provider will direct hospital staff to make the appropriate arrangements. ? No lifting over 5 pounds {a gallon of milk) or bending/twisting until further notice. Each of these activities places an unnecessary amount of stress onto the body and can impede the delicate healing process. > Instead of bending at the waist, keep your back straight and bend at the knees. > Instead of twisting your torso, keep your back straight and turn your entire body with your feet. ? You may sleep in any position which makes you comfortable. Many patients find comfort sleeping in a reclining chair. It is not abnormal to have difficulty sleeping for the first several weeks following your surgery. We recommend trying Benadry! or Tylenol PM as directed to help with your sleeping difficulties. Both medications are over the counter and available without prescription. ? NO SMOKING!!! Smoking dramatically increases the probability of developing postoperative wound infections. ? Common complaints after lumbar and/or thoracic spine surgery include, but are not limited to: numbness and/or tingling in the legs, pain around the incision and surrounding tissues, muscle spasms, or stiffness of the middle to low back. Contact our office if these symptoms persist or if an acute change occurs. ? No driving for the first 3-5days, and not while taking narcotics until seen at your follow-up appointment and cleared. There are no restrictions for riding on short trips, however if you take a longer trip, arrangements should be made to make regular stops to get out of the vehicle and stretch . ? Swelling is an unfortunate event that will take place with any surgery and is the primary source of your postoperative discomfort. While walking and regular approved activities helps control inflammation, there are additional steps you can take to minimize swelling. > Place ice over the surgical site and surrounding tissue for twenty minutes, followed by applying a low/medium heat (heating pad) for an additional twenty minutes every 1-2 hours as needed for painrelief. > You may use of over the counter anti-inflammatory medications (Ibuprofen, Motrin, Aleve, Advil, etc) as directed on the package label. These types of medicines will significantly reduce the amount of discomfort you experience after surgery from swelling. It should be noted that if you have and allergy to any of these medications, or a history of ulcers or kidney disease you should consult you primary care provider prior to starting these medications. Discharge Attestations Time Spent in Discharge Care*: less than 30 min Quality Metrics Clinical Quality Measures [ No reported AMI, CVA or VTE this stay] Coding Level of Care Code Acute [facility] note Diagnoses Status post lumbar spinal fusion Z98.1
== END 2021-11-09 10:30 | disposition home or self-care (01) | DRG 455 ==
LOC: MEDSURG 11-09 07:40
PROVIDERS: Anesthesiology; Admitting Provider Orthopaedic Surgery; PCP Family Medicine; Visit Provider Orthopaedic Surgery
PROC: 0SG30AJ Fusion of Lumbosacral Joint with Interbody Fusion Device, Posterior Approach, Anterior Column, Open Approach (ICD-10-PCS; CPT 22612; principal; 2021-11-08 10:55)
DX: M53.2X7 Spinal instabilities, lumbosacral region (principal); Z98.1 Arthrodesis status; I25.10 Atherosclerotic heart disease of native coronary artery without angina pectoris; Z95.5 Presence of coronary angioplasty implant and graft; G47.31 Primary central sleep apnea; I10 Essential (primary) hypertension; E78.5 Hyperlipidemia, unspecified; Z79.82 Long term (current) use of aspirin; Z79.84 Long term (current) use of oral hypoglycemic drugs; Z79.891 Long term (current) use of opiate analgesic; M81.0 Age-related osteoporosis without current pathological fracture; F17.210 Nicotine dependence, cigarettes, uncomplicated; E11.9 Type 2 diabetes mellitus without complications; E89.0 Postprocedural hypothyroidism; M48.062 Spinal stenosis, lumbar region with neurogenic claudication
CPT/HCPCS: 36416; 36620; 51702; 72100; 76000; 76937; 80048; 82962; 93005; 94660; 96372; C1713; J1100; J1170; J1200; J1644; J1650; J1815; J2405; J2704; J3010; J3370; J3490; J7030

== ENCOUNTER → 2021-11-16 12:11 | Outpatient (BNVA) | payer MEDICAID, SELFPAY | PROVIDERS: PCP Family Medicine; Visit Provider Physician Assistant | DX: Z98.1 Arthrodesis status (principal); Z47.89 Encounter for other orthopedic aftercare | CPT/HCPCS: 72100; 99024 ==

== ENCOUNTER → 2021-11-23 12:56 | Outpatient (BNVA) | payer MEDICAID, SELFPAY | PROVIDERS: PCP Family Medicine; Visit Provider Physician Assistant | DX: Z98.1 Arthrodesis status (principal); Z47.89 Encounter for other orthopedic aftercare; Z98.890 Other specified postprocedural states; E11.9 Type 2 diabetes mellitus without complications; Z79.84 Long term (current) use of oral hypoglycemic drugs | CPT/HCPCS: 72100; 99024 ==

== ENCOUNTER → 2021-12-13 14:33 | Outpatient (BNVA) | payer MEDICAID, SELFPAY | PROVIDERS: PCP Family Medicine; Visit Provider Family Medicine | DX: M79.89 Other specified soft tissue disorders (principal) | CPT/HCPCS: 80053 ==

== ENCOUNTER → 2021-12-14 15:58 | Outpatient (BNVA) | payer MEDICAID, SELFPAY | PROVIDERS: PCP Family Medicine; Visit Provider Family Medicine | DX: R30.0 Dysuria (principal); M79.89 Other specified soft tissue disorders | CPT/HCPCS: 87077; 87086; 87184 ==

== ENCOUNTER 2022-01-04 12:24 | Oncology outpatient (recurring) (ONCR) | payer MEDICAID, SELFPAY ==
[2022-01-03 15:09] LABS: Basophils % 0.4 %; Eosinophils # 0.1 10^3/uL (0.0-0.8); Eosinophils % 1.5 %; Hematocrit 47.8 % (37.0-47.0); Hemoglobin 15.3 g/dL (11.5-15.3); Lymphocytes % 19.3 %; Mean Corpuscular Hemoglobin 30.7 pg (28.0-34.0); Mean Platelet Volume 9.7 fL (7.4-10.4); Monocytes # 0.4 10^3/uL (0.2-0.9); Monocytes % 7.9 %; Neutrophils # 3.79 10^3/uL (1.8-7.7); Neutrophils % 70.7 %; Nucleated Red Blood Cells % 0 %; Platelet Count 276 10^3/cmm (130-400); Red Blood Count 4.98 10^6/uL (4.1-5.3); Red Cell Distribution Width 17.2 % (12.1-15.1); White Blood Count 5.4 10^3/uL (4.0-10.0)
[2022-01-03 15:48] LABS: Estmated Average Glucose 151; Hemoglobin A1C 6.9 % (4.0-6.0)
[2022-01-03 16:09] LABS: Alanine Aminotransferase 29 U/L (0-33); Albumin Level 4.5 g/dL (3.5-5.2); Alkaline Phosphatase 117 IU/L (35-105); Aspartate Amino Transferase 29 U/L (0-32); Blood Urea Nitrogen 20 mg/dL (8-23); Calcium 9.5 mg/dL (8.5-10.5); Carbon Dioxide 29 mmol/L (22-29); Chloride 96 mmol/L (98-107); Chol HDL Ratio 6.04 mg/dL (0.0-4.40); Cholesterol 157 mg/dL (0-200); Ferritin 17 ng/mL (15-150); Globulin 3.2 g/dL (1.3-4.6); Glomerular Filtration Rate 72.7 mL/min (90-130); Glucose 171 mg/dL (65-115); HDL Cholesterol 26 mg/dL (60-100); Iron 35 ug/dL (37-145); Osmolality Calculated 295 mOsm/kg (285-295); Percent Saturation 8.4 % (20-50); Sodium 139 mmol/L (136-145); Thyroid Stimulating Hormone 2.78 uIU/mL (0.27-4.20); Total Bilirubin 0.3 mg/dL (0.15-1.2); Total Iron Binding Capacity 416 mcg/dl; Total Protein 7.7 g/dL (6.6-8.7); Triglycerides 438 mg/dL (0-150); Unsaturated Iron Binding 381 ug/dL (112-347)
[2022-01-03 17:31] LABS: LDL Cholesterol Direct 54 mg/dL (0-100)
[2022-01-03 17:34] LABS: Free T4 Free Thyroxine 1.62 ng/dL (0.82-1.77)
== END 2022-02-02 23:59 | disposition home or self-care (01) ==
PROVIDERS: Internal Medicine; Internal Medicine Hematology & Oncology; PCP Family Medicine; Visit Provider Nurse Practitioner Family
DX: D50.9 Iron deficiency anemia, unspecified (principal); K30 Functional dyspepsia; K29.80 Duodenitis without bleeding; K64.8 Other hemorrhoids; Z79.899 Other long term (current) drug therapy
CPT/HCPCS: 80053; 80061; 82728; 83036; 83540; 83550; 83721; 84439; 84443; 85025; 99214

== ENCOUNTER → 2022-01-06 14:42 | Outpatient (BNVA) | payer MEDICAID, SELFPAY | PROVIDERS: PCP Family Medicine; Visit Provider Physician Assistant | DX: Z98.1 Arthrodesis status (principal); Z47.89 Encounter for other orthopedic aftercare; M70.62 Trochanteric bursitis, left hip; M53.3 Sacrococcygeal disorders, not elsewhere classified | CPT/HCPCS: 72100; 99213 ==

== ENCOUNTER → 2022-01-11 14:05 | Outpatient (BNVA) | payer MEDICAID, SELFPAY | PROVIDERS: PCP Family Medicine; Visit Provider Internal Medicine | DX: E11.9 Type 2 diabetes mellitus without complications (principal); D50.9 Iron deficiency anemia, unspecified; R25.2 Cramp and spasm; K29.70 Gastritis, unspecified, without bleeding; E89.0 Postprocedural hypothyroidism; E04.1 Nontoxic single thyroid nodule; F17.210 Nicotine dependence, cigarettes, uncomplicated; Z79.84 Long term (current) use of oral hypoglycemic drugs | CPT/HCPCS: 36415; 80048; 99214 ==

== ENCOUNTER → 2022-02-09 14:03 | Outpatient (BNVA) | payer MEDICAID, SELFPAY | PROVIDERS: PCP Family Medicine; Visit Provider Internal Medicine Cardiovascular Disease | DX: M79.89 Other specified soft tissue disorders (principal); E78.2 Mixed hyperlipidemia; I10 Essential (primary) hypertension; I25.10 Atherosclerotic heart disease of native coronary artery without angina pectoris; E11.9 Type 2 diabetes mellitus without complications; Z79.84 Long term (current) use of oral hypoglycemic drugs; F17.219 Nicotine dependence, cigarettes, with unspecified nicotine-induced disorders | CPT/HCPCS: 99214 ==

== ENCOUNTER → 2022-05-09 14:18 | Outpatient (BNVA) | payer MEDICAID, SELFPAY | PROVIDERS: PCP Family Medicine; Visit Provider Family Medicine | DX: R30.0 Dysuria (principal) | CPT/HCPCS: 81003; 87086 ==

== ENCOUNTER 2022-05-13 07:31 | Oncology outpatient (recurring) (ONCR) | payer MEDICAID, SELFPAY ==
[2022-05-13 07:49] LABS: Basophils % 0.6 %; Eosinophils # 0.1 10^3/uL (0.0-0.8); Eosinophils % 2.1 %; Hematocrit 49.3 % (37.0-47.0); Hemoglobin 14.8 g/dL (11.5-15.3); Lymphocytes # 1.1 10^3/uL (0.8-4.8); Lymphocytes % 21.7 %; Mean Corpuscular Hemoglobin 27.9 pg (28.0-34.0); Monocytes # 0.5 10^3/uL (0.2-0.9); Monocytes % 9.7 %; Neutrophils # 3.45 10^3/uL (1.8-7.7); Neutrophils % 65.7 %; Nucleated Red Blood Cells % 0 %; Platelet Count 235 10^3/cmm (130-400); White Blood Count 5.3 10^3/uL (4.0-10.0)
[2022-05-13 08:01] LABS: Alanine Aminotransferase 28 U/L (0-33); Albumin Level 3.6 g/dL (3.5-5.2); Alkaline Phosphatase 97 U/L (35-105); Anion Gap 12.3 (5-19); Aspartate Amino Transferase 22 U/L (0-32); Blood Urea Nitrogen 18 mg/dL (8-23); Carbon Dioxide 28 mmol/L (22-29); Chloride 100 mmol/L (98-107); Ferritin 13 ng/mL (15-150); Globulin 3.5 g/dL (1.3-4.6); Glomerular Filtration Rate 84.8 mL/min (90-130); Glucose 153 mg/dL (65-115); Iron 32 ug/dL (37-145); Osmolality Calculated 287 mOsm/kg (285-295); Percent Saturation 8.3 % (20-50); Potassium 4.3 mmol/L (3.5-5.1); Sodium 136 mmol/L (136-145); Total Bilirubin 0.2 mg/dL (0.15-1.2); Total Iron Binding Capacity 384 mcg/dl; Total Protein 7.1 g/dL (6.6-8.7); Unsaturated Iron Binding 352 ug/dL (112-347)
== END 2022-06-04 23:59 | disposition home or self-care (01) ==
PROVIDERS: Internal Medicine Hematology & Oncology; PCP Family Medicine; Visit Provider Nurse Practitioner Family
DX: D50.9 Iron deficiency anemia, unspecified (principal); F17.210 Nicotine dependence, cigarettes, uncomplicated; Z98.890 Other specified postprocedural states; Z79.899 Other long term (current) drug therapy; G47.30 Sleep apnea, unspecified
CPT/HCPCS: 36415; 80053; 82728; 83540; 83550; 85025; 99214

== ENCOUNTER → 2022-05-17 10:31 | Outpatient (BNVA) | payer MEDICAID, SELFPAY | PROVIDERS: PCP Family Medicine; Visit Provider Anesthesiology Pain Medicine | DX: G89.29 Other chronic pain (principal); M54.42 Lumbago with sciatica, left side | CPT/HCPCS: 99214 ==

== ENCOUNTER → 2022-06-15 15:25 | Outpatient (BNVA) | payer MEDICAID, SELFPAY | PROVIDERS: PCP Family Medicine; Visit Provider Internal Medicine | DX: E89.0 Postprocedural hypothyroidism (principal); E11.9 Type 2 diabetes mellitus without complications; K29.70 Gastritis, unspecified, without bleeding; Z79.84 Long term (current) use of oral hypoglycemic drugs; Z79.890 Hormone replacement therapy | CPT/HCPCS: 36415; 80053; 80061; 83036; 84439; 84443; 99214 ==

== ENCOUNTER → 2022-06-23 14:06 | Outpatient (BNVA) | payer MEDICAID, SELFPAY | PROVIDERS: PCP Family Medicine; Visit Provider Registered Nurse Neonatal Intensive Care | DX: R10.9 Unspecified abdominal pain (principal) | CPT/HCPCS: 81000; 87077; 87086; 87184 ==

== ENCOUNTER → 2022-06-27 10:44 | Outpatient (BNVA) | payer MEDICAID, SELFPAY | PROVIDERS: PCP Family Medicine; Visit Provider Anesthesiology Pain Medicine | DX: G89.29 Other chronic pain (principal); M54.42 Lumbago with sciatica, left side | CPT/HCPCS: 99214 ==

== ENCOUNTER → 2022-07-26 08:37 | Outpatient (BNVA) | payer MEDICAID, SELFPAY | PROVIDERS: PCP Family Medicine; Referring Provider Internal Medicine Hematology & Oncology; Visit Provider Surgery | DX: I87.8 Other specified disorders of veins (principal); D50.9 Iron deficiency anemia, unspecified | CPT/HCPCS: 99203 ==

== ENCOUNTER 2022-07-28 10:08 | Day surgery (SDC) | payer MEDICAID, SELFPAY ==
[2022-07-27 10:01] VITALS: BMI 37.2
[2022-07-28] VITALS (9 sets, daily range): BP systolic 103–177; BP diastolic 52–108; PULSE 63–68; RESP 14–18; TEMP 36.1–36.7; O2SAT 92–97
--- NOTE | 2022-07-28 10:15 | XR_ITS ---
WS: [id number] Exam: XR chest 1V portable [id number] Date/Time of Exam: 07/28/2022 10:24 AM Reason For Exam: Postop mediport insertion Comparison 10/08/2019. A left subclavian MediPort has been placed and ends in the right atrium. The lungs are clear and full y inflated. Normal mediastinal silhouette. Heart size top limits normal. No pleural effusion. Surgica l clips in the neck. XR/XR chest 1V portable [id number] IMPRESSION: 1. Left subclavian Mediport ending in the right atrium. 2. No acute cardiopulmonary finding.
--- NOTE | 2022-07-28 10:15 | SC_ITS ---
WS: [id number] Exam: C-arm FL for CVA [id number] Date/Time of Exam: 07/28/2022 10:15 AM Reason For Exam: mediport insertion Single anterior posterior C-arm image of the upper left chest is submitted for evaluation. A left subclavian MediPort catheter courses along the upper left chest however the tip is out of the [id number]. No other significant finding on this limited image.
[2022-07-28] MEDS: sodium chloride 0.9% 1,000 ML 30 ML IV (10:52)
[2022-07-28 10:54] LABS: Glucose Point of Care 113 mg/dL (70-110)
--- NOTE | 2022-07-28 11:25 | P.ANESASSM_ITS ---
Pre-Anesthetic Assessment Height/Weight: Height 1.47 m Weight 80.739 kg Temp Pulse Resp BP Pulse Ox O2 Del Method 98.1 F 67 18 177/108 96 07/28/22 10:24 07/28/22 10:24 07/28/22 10:24 07/28/22 10:24 07/28/22 10:24 07/28/22 10:27 Preop Diagnosis: Iron deficiency anemia Operation Date: 07/28/22 12:00 Proposed Procedures p port placement [id number] I87.8(Not Applicable) - Vicente Grossman, DO Familial anesthetic complications: None Was Beta Marisel taken within 24 hours: Yes Was Clonidine taken within 24 hours: N/A Last intake: Intake Last Liquid Date 07/27/22 Last Liquid Time 16:00 Last Solid Date 07/27/22 Last Solid Time 16:00 Social Tobacco and No alcohol Exam alert, oriented x 3, clear to auscultation bilaterally and regular rate & rhythm Airway Mallampati: Class III Dentition: false Pulmonary Chronic Obstructive Pulmonary Disease and Sleep Apnea CV/HEM Anemia, Coronary Artery Disease (stents) and Hypertension 04/29/20 CAROTID US CONCLUSIONS ?Bilateral ICA stenosis less than 50%. ?No interval change in stenosis since prior exam. 04/27/20 LEXISCAN IMPRESSIONS ?Myocardial perfusion imaging is normal.TID ratio is elevated which could be ?secondary left ventricle hypertrophy/subendocardial ischemia in the absence of ?other parameters for obstructive coronary artery disease.? EKG segment will be ?documented separately CONCLUSION: Please note due to baseline abnormality of the EKG specificity and sensitivity of the EKG portion of LexiScan MIBI stress test will be low 1.? EKG not suggestive of ischemia 2.? Lexiscan injection unremarkable. 3.? Perfusion scan will be documented separately. 10/09/19 ECHO CONCLUSIONS ?1. Normal left ventricular cavity size and systolic function. ?Left ventricular ejection fraction is estimated at 60 %. No ?regional wall motion abnormalities.? Normal diastolic function. ?2. Normal right ventricular size and systolic function, RVSP 24.2 mmHg. ?3. Mildly? increased left atrial size. ?4.? No significant valvular abnormality. ?5.? No prior similar studies to compare. Event monitor (05/2020) Conclusion: 1. Baseline rhythm is sinus bradycardia or sinus rhythm. Heart rate ranging from 52-117 bpm. Average heart rate of 68 bpm. 2. Patient's symptoms did not correlate with any arrhythmias. 3. Normal event monitor. GI Gastroesophageal Reflux Disease Metabolic Diabetes Mellitus, Morbid Obesity and Thyroid Disease Musc/skel Lower Back Pain Anesthetic Plan ASA status: 4 Anesthesia: MAC Risk of > 500 ml blood loss (7ml/kg in children): No Medications/Allergies Home Medications Medication Instructions Recorded Confirmed Last Taken Type nitroglycerin 0.4 mg sublingual 0.4 mg sublingual PRN PRN Chest 06/14/19 07/28/22 Unknown History tablet (Nitrostat) Pain wheelchair #1 ea 10/17/19 07/26/22 Unknown Rx diabetic shoes #1 ea 01/22/20 07/26/22 Unknown Rx blood sugar diagnostic (Accu-Chek #100 ea 04/06/20 07/26/22 Unknown Rx Alyson Plus test strips) blood-glucose meter (Accu-Chek #1 ea 04/06/20 07/26/22 Unknown Rx Alyson Plus Meter) Tums See Rx Instructions .Route .COMPLEX 04/08/20 07/28/22 07/27/22 History Vitamin B-12 1 tab PO DAILY 04/08/20 07/28/22 07/27/22 History acetaminophen 500 mg tablet 1,000 mg PO PRN 04/08/20 07/28/22 07/27/22 History (Acetaminophen Extra Strength) cholecalciferol (vitamin D3) 50 50 mcg PO DAILY 04/22/20 07/28/22 07/27/22 History mcg (2,000 unit) capsule aspirin 81 mg tablet,delayed 81 mg PO DAILY 07/07/20 07/27/22 07/27/22 History release albuterol sulfate 90 mcg/actuation 2 puff inhalation QID PRN 12/24/20 07/28/22 07/21/22 Rx aerosol inhaler (ProAir HFA) Shortness Of Breath 90 days #8.5 grams polyethylene glycol 3350 17 17 g PO BID #510 grams 05/06/21 07/28/22 07/13/22 Rx gram/dose oral powder (Miralax) vitamin E 200 unit capsule 200 unit PO DAILY 06/16/21 07/28/22 07/27/22 History levothyroxine 112 mcg tablet 124 mcg PO DAILY 11/04/21 07/28/22 07/27/22 History cetirizine 10 mg capsule (All Day 10 mg PO DAILY #30 caps 04/06/22 07/28/22 07/27/22 Rx Allergy (cetirizine)) guaifenesin 400 mg tablet 400 mg PO QID PRN cough #30 tabs 04/09/22 07/28/22 07/27/22 Rx rosuvastatin 20 mg tablet 20 mg PO DAILY 90 days #90 tabs 05/23/22 07/28/22 07/27/22 Rx metformin 500 mg tablet,extended See Rx Instructions .Route 06/03/22 07/28/22 07/27/22 Rx release 24 hr .COMPLEX #180 tabs icosapent ethyl 1 gram capsule 2 g PO BID #360 caps 06/15/22 07/28/22 07/27/22 Rx (Vascepa) gabapentin 300 mg capsule See Rx Instructions .Route 07/06/22 07/28/22 07/27/22 Rx .COMPLEX #90 caps metoprolol tartrate 50 mg tablet See Rx Instructions .Route 07/06/22 07/28/22 07/28/22 06:00 Rx .COMPLEX #60 tabs famotidine 20 mg tablet See Rx Instructions .Route 07/19/22 07/28/22 07/27/22 Rx .COMPLEX #90 tabs tizanidine 2 mg tablet See Rx Instructions .Route 07/19/22 07/28/22 07/27/22 Rx .COMPLEX #90 tabs tramadol 50 mg tablet 50 mg PO BID PRN pain #60 tabs 07/19/22 07/27/22 Unknown Rx Allergies Allergy/AdvReac Type Severity Reaction Status Date / Time amlodipine Allergy ADR-Dizzine Verified 07/28/22 10:19 ss clavulanic acid Allergy Unknown Verified 07/28/22 10:19 [From Augmentin] hydrocodone Allergy urinary Verified 07/28/22 10:19 retention levofloxacin [From Levaquin] Allergy ADR-Dizzine Verified 07/28/22 10:19 ss omeprazole Allergy chest pain Verified 07/28/22 10:19 prednisone Allergy SOB Verified 07/28/22 10:19 Current Medications Generic Name Dose Route Start Last Admin Trade Name Freq PRN Reason Stop Dose Admin Sodium Chloride 1,000 mls @ 30 mls/hr 07/28/22 10:15 07/28/22 10:52 Sodium Chloride 0.9% IV 07/29/22 10:14 30 mls/hr .Q24H VERONICA Administration PFSH Anesthesia Medical History (Updated 07/26/22 @ 09:43 by Vicente Grossman DO) Anemia CAD (coronary artery disease) Central sleep apnea Chronic sinusitis Deviated septum Dysphonia Enlarged thyroid Essential hypertension Hyperlipidemia Intervertebral disc disorders with radiculopathy, lumbar region Lumbar stenosis with neurogenic claudication Nasal turbinate hypertrophy Neuropathic peripheral nerve Osteoporosis Postnasal drip Sacral fracture, closed Sensorimotor neuropathy Multifocal Smoking Spondylolisthesis, lumbar region Trigger ring finger of right hand Type 2 diabetes mellitus without complications Unspecified fracture of sacrum, initial encounter for closed fracture Vocal cord polyp Surgical History (Updated 07/26/22 @ 09:43 by Vicente Grossman DO) H/O breast biopsy H/O heart artery stent H/O: hysterectomy Hanna History of appendectomy History of bladder surgery History of lumbar surgery Dr. Turner-lumbar decompression History of lumpectomy of both breasts History of thyroidectomy 03/02/2020 [facility]. Hx of hand surgery Family History Father CAD (coronary artery disease) Hypertension Cancer Diabetes Mother CAD (coronary artery disease) Hypertension Grandmother Cancer Diabetes Social History Smoking and tobacco status: current every day smoker cigarettes Packs smoked per day: 0.5 Years cigarettes smoked: 52 Alcohol intake: never Lives independently: Yes Household members: spouse Marital status: Current occupational status: disabled Data Anesthesia Cardiac Studies: Echocardiogram Ultrasound 10/09/19 Sestamibi Stress Test (Cardiology) 04/27 Cardiac Event Monitor 06/02/20
--- NOTE | 2022-07-28 12:09 | W.PM.OPSUD ---
Surgery/Procedure H&P Update DATE OF PROCEDURE: July 28, 2022 DATE H&P PERFORMED: 07/26/22 H&P UPDATE INFORMATION: I have reviewed H&P completed within last 30 days, I have examined patient prior to procedure and No changes to prior documentation PREOP DIAGNOSIS: Iron deficiency anemia PLANNED PROCEDURE: Operation Date: 07/28/22 12:00 Proposed Procedures p port placement 23688 I87.8(Not Applicable) - Vicente Grossman DO
[2022-07-28] MEDS: ceFAZolin 2,000 MG in sodium chloride 0.9% (plus) 50 ML 100 MG IV (12:48)
[2022-07-28] MEDS: lidocaine-epi 2% 20 mL INJ 10 ML INJECTION (13:20)
[2022-07-28] MEDS: heparin, porcine 1,000 unit/mL INJ 10 mL 10000 UNIT INJECTION (13:21)
--- NOTE | 2022-07-28 13:41 | P.OP_ITS ---
Operative Report Date of procedure: July 28, 2022 Pre-op diagnosis: Preop Diagnosis Iron deficiency anemia, Poor venous access Post-op diagnosis: same Procedure done: Mediport insertion Implants: PowerPort Surgeon: Dr. Vicente Grossman, DO Anesthesia: MAC Estimated blood loss (mL): 5 Complications: None apparent Brief History: This very pleasant 62-year-old female with poor venous access. She gets regular infusions. Mediport insertion is indicated. The risk and benefits were explained and documented. Procedure: They put another order I will do right now things the patient was taken to the operating room and placed supine on the operating room table. All bony prominences were padded. She was given IV sedation and monitored throughout the case by the anesthesia personnel. SCDs were placed and turned on. The arms were tucked to the side. Patient received Ancef 2 g preoperatively IV. The bilateral chest wall was prepped and draped in usual sterile fashion using chlorhexidine base prep. Sterile drapes were applied. We did procedure pause prior to beginning. An 18 gauge needle was placed in the left subclavian vein. Dark, nonpulsatile blood was aspirated. A guidewire was placed through the needle centrally toward the atrial/vena caval junction. Fluoroscopy visualized good placement. The needle was removed and the guidewire was clipped to the drape with a hemostat. Further local anesthetic was infiltrated in the soft tissues of the left chest wall and a #15 blade was used to make a horizontal skin incision. A subcutaneous Mediport pocket was created using Bovie cautery, dissecting down through the skin and subcutaneous tissues. Meticulous hemostasis was achieved. The Mediport was sutured in position using 3-0 vicryl suture x2 stitches. A #15 blade was used to make a small skin gwen around the guidewire insertion area. The Mediport tubing was tunneled through the subcutaneous tissues up to the needle insertion location. A dilator with a peel-away sheath was placed over the guidewire and placed c entrally. After measuring the Mediport tubing was cut to length so that the tip would end at the atrial/vena caval junction. The inner cannula and the guidewire were removed, leaving the dilator sheath in place. The Mediport was flushed. The tip of the catheter was inserted through the peel-away sheath and the peel-away sheath removed in the standard fashion. The Mediport was accessed with a strai ght Busby needle and dark, nonpulsatile blood was aspirated and flushed using heparinized saline to hep-lock the Mediport. Final fluoroscopy visualization showed no kink in the catheter and the tip of the Mediport tubing near the atrial/vena caval junction. Both skin incisions were thoroughly irrigated and suctioned dry. Meticulous hemostasis noted. The dermis was approximated with 3-0 Vicryl in an interrupted fashion. Skin was closed with Dermabond. Patient was awakened from anesthesia and transferred via her cart to the recovery room in stable condition. All needle, sponge, and instrument counts were correct per the operating personnel x2 counts.
--- NOTE | 2022-07-28 14:44 | ANE.PACU2 ---
Inpatient post-anesthesia follow up: Airway intact: Yes Vital signs: Temperature 97.2 F Pulse Rate 65 Respiratory Rate 18 Blood Pressure 175/68 Pulse Oximetry 95 Oxygen Delivery Me thod Room Air Oxygen Flow Rate Fraction of Inspir ed Oxygen Hydration adequate: Yes Nausea and vomiting: No Pain level: 1 Mental status: Baseline
== END 2022-07-28 14:44 | disposition home or self-care (01) ==
PROVIDERS: PCP Family Medicine; Visit Provider Surgery
PROC: (CPT 36561; principal; 2022-07-28 12:00)
DX: I87.8 Other specified disorders of veins (principal); D50.9 Iron deficiency anemia, unspecified; J44.9 Chronic obstructive pulmonary disease, unspecified; G47.30 Sleep apnea, unspecified; I25.10 Atherosclerotic heart disease of native coronary artery without angina pectoris; Z95.5 Presence of coronary angioplasty implant and graft; I10 Essential (primary) hypertension; K21.9 Gastro-esophageal reflux disease without esophagitis; E11.9 Type 2 diabetes mellitus without complications; E66.01 Morbid (severe) obesity due to excess calories; Z68.37 Body mass index [BMI] 37.0-37.9, adult; F17.210 Nicotine dependence, cigarettes, uncomplicated
CPT/HCPCS: 36561; 36416; 71045; 76000; 77001; 82962; C1788; J0690; J1644; J2704; J3010; J7030

== ENCOUNTER 2022-08-01 14:00 | Oncology outpatient (recurring) (ONCR) | payer MEDICAID, SELFPAY ==
[2022-07-19] MEDS: acetaminophen 325 mg Tablet 650 MG PO (12:18)
[2022-07-19] MEDS: sodium chloride 0.9% 250 ML 100 ML IV (12:18)
[2022-07-19] MEDS: diphenhydrAMINE 50 mg/mL SDV 1mL 25 MG IVP (12:20)
[2022-07-19] MEDS: iron sucrose 200 MG in sodium chloride 0.9% (100 ml) 100 ML 220 MG IV (12:26)
[2022-07-19 13:15] VITALS: BP 142/75; PULSE 63; O2SAT 94
[2022-07-21] MEDS: acetaminophen 325 mg Tablet 650 MG PO (13:15)
[2022-07-21] MEDS: sodium chloride 0.9% 250 ML 75 ML IV (13:16)
[2022-07-21] MEDS: diphenhydrAMINE 50 mg/mL SDV 1mL 25 MG IVP (14:07)
[2022-07-21] MEDS: iron sucrose 200 MG in sodium chloride 0.9% (100 ml) 100 ML 220 MG IV (14:11)
[2022-07-21 15:30] VITALS: BP 149/89; PULSE 84; RESP 18; TEMP 36.6; O2SAT 98
[2022-07-25] MEDS: acetaminophen 325 mg Tablet 650 MG PO (12:58)
[2022-07-25] MEDS: sodium chloride 0.9% 250 ML 100 ML IV (13:00)
[2022-07-25] MEDS: diphenhydrAMINE 50 mg/mL SDV 1mL 25 MG IVP (13:01)
[2022-07-25] MEDS: iron sucrose 200 MG in sodium chloride 0.9% (100 ml) 100 ML 220 MG IV (13:04)
[2022-07-25 13:57] VITALS: BP 169/78; PULSE 61; TEMP 36.6; O2SAT 94
[2022-07-27] MEDS: acetaminophen 325 mg Tablet 650 MG PO (13:06)
[2022-07-27] MEDS: diphenhydrAMINE 50 mg/mL SDV 1mL 25 MG IVP (13:07)
[2022-07-27] MEDS: sodium chloride 0.9% 250 ML 100 ML IV (13:08)
[2022-07-27] MEDS: iron sucrose 200 MG in sodium chloride 0.9% (100 ml) 100 ML 220 MG IV (13:11)
[2022-07-27 13:58] VITALS: BP 166/75; PULSE 77; RESP 17; TEMP 37.1; O2SAT 97
[2022-08-01] MEDS: acetaminophen 325 mg Tablet 650 MG PO (13:53)
[2022-08-01] MEDS: diphenhydrAMINE 50 mg/mL SDV 1mL 25 MG IVP (13:53)
[2022-08-01] MEDS: sodium chloride 0.9% 250 ML 75 ML IV (13:54)
[2022-08-01] MEDS: iron sucrose 200 MG in sodium chloride 0.9% (100 ml) 100 ML 220 MG IV (14:01)
[2022-08-01 14:02] VITALS: BP 187/94; PULSE 60; RESP 18; TEMP 36.6; O2SAT 95
[2022-08-01 14:24] VITALS: BP 158/82; PULSE 60
[2022-08-01 14:36] VITALS: BP 152/78; PULSE 60; RESP 16; TEMP 36.7; O2SAT 95
== END 2022-08-02 23:59 | disposition home or self-care (01) ==
PROVIDERS: PCP Family Medicine; Visit Provider Internal Medicine Hematology & Oncology
DX: D50.9 Iron deficiency anemia, unspecified (principal)
CPT/HCPCS: 87086; 96365; 96374; 96375; J1200; J1756; J7050

== ENCOUNTER 2022-08-01 20:00 | Outpatient (CLI) | payer MEDICAID, SELFPAY | END 2022-08-01 20:01 | disposition home or self-care (01) | LOC: SLEEP 08-02 05:36 | PROVIDERS: PCP Family Medicine; Visit Provider Internal Medicine Pulmonary Disease | DX: G47.33 Obstructive sleep apnea (adult) (pediatric) (principal) | CPT/HCPCS: 95811 ==

== ENCOUNTER → 2022-08-02 08:06 | Outpatient (BNVA) | payer MEDICAID, SELFPAY | PROVIDERS: PCP Family Medicine; Visit Provider Surgery | DX: Z95.828 Presence of other vascular implants and grafts (principal) | CPT/HCPCS: 99024 ==

== ENCOUNTER → 2022-08-10 14:27 | Outpatient (BNVA) | payer MEDICAID, SELFPAY | PROVIDERS: PCP Family Medicine; Visit Provider Surgery | DX: Z95.828 Presence of other vascular implants and grafts (principal); Z90.49 Acquired absence of other specified parts of digestive tract | CPT/HCPCS: 99024 ==

== ENCOUNTER 2022-08-12 13:05 | Outpatient (CLI) | payer MEDICAID, SELFPAY ==
[2022-08-12] MEDS: iohexol 350 mg/mL 500 mL Btl (per mL) IV (13:19)
[2022-08-12] MEDS: iohexol 350 mg/mL 500 mL Btl (per mL) PO (13:19)
--- NOTE | 2022-08-12 14:30 | CT_ITS ---
WS: [id number] CT ABDOMEN PELVIS TECHNIQUE: Noncontrast CT of the abdomen and contrast-enhanced CT of the abdomen and pelvis with lorenza nal and sagittal reformatted images. CLINICAL INFORMATION: R10.32 - Left lower quadrant pain COMPARISON: CTA October 09, 2019 DLP: 1546.[address] scans at [facility] use at least one of these dose optimization techniques: automated e xposure control; mA and/or kV adjustment per patient size (includes targeted exams where dose is matc hed to clinical indication); or iterative reconstruction. FINDINGS: Hepatomegaly. Diffuse fatty infiltration liver. Normal portal vein and splenic vein. Normal gallbladder. Normal spleen. Normal GE junction. Lung bases are well aerated. Calcified granuloma LEF T lower lobe. Normal pancreatic parenchymal enhancement. Normal portal vein and splenic vein. Adrenal glands are normal. Normal renal parenchymal enhancement. No hydronephrosis. No obstructing re nal or ureteral calculi. Normal caliber abdominal aorta. Mild aortic calcification. Celiac and SMA ar e patent. Urine distended bladder. Sigmoid diverticulosis. No evidence of acute diverticulitis. Tiny fat-containing umbilical hernia. Pedicle screw fixation L3-S1. Interbody fusion grafts L4-L5 and L5-S 1. Prior appendectomy and hysterectomy. CT/CT abdomen pelvis wo/w [id number] IMPRESSION: 1. Hepatomegaly with diffuse fatty infiltration of the liver. 2. Normal renal parenchymal enhancement. No hydronephrosis. No obstructing dominique al or ureteral calculi. 3. Sigmoid diverticulosis. No evidence of acute diverticulitis. 4. Urine distended bladder. 5. Prior postoperative changes pedicle screw fixation L3-S1 with interbody fus ion grafts L4-L5 and L5-S1. 6. No other remarkable findings.
== END 2022-08-12 13:06 | disposition home or self-care (01) ==
LOC: RAD 13:06
PROVIDERS: PCP Family Medicine; Visit Provider Family Medicine
DX: R10.32 Left lower quadrant pain (principal); G89.29 Other chronic pain; R16.0 Hepatomegaly, not elsewhere classified; K76.0 Fatty (change of) liver, not elsewhere classified; K57.30 Diverticulosis of large intestine without perforation or abscess without bleeding; Q42.8 Congenital absence, atresia and stenosis of other parts of large intestine; Z90.710 Acquired absence of both cervix and uterus
CPT/HCPCS: 74178; Q9967

== ENCOUNTER 2022-08-16 15:57 | Outpatient (CLI) | payer MEDICAID, SELFPAY ==
--- NOTE | 2022-08-16 15:30 | USCV_ITS ---
Dana Gusman Age: 62 Gender: F : 1960 Exam Date: 08/16/2022 16:13 Ordering Phys: Loraine Sánchez Technologist: [place] [facility] [place]ication: post left port placement PROCEDURES: Venous duplex imaging was performed in bilateral upper extremities. The following venous structures were evaluated: internal jugular vein, subclavian vein, axillary vein, and brachial veins. FINDINGS: Normal 2-D, color Doppler and phasicity noted in the bilateral upper extremity venous system extending from the internal jugular veins through the main forearms. No thrombosis or occlusion noted. Left subclavian port. CONCLUSIONS No evidence of bilateral upper extremity DVT. Dr. Luz Elena Canada DO (Electronically Signed) Final Date: 17 August 2022 07:42 S
[2022-08-16 17:42] LABS: D Dimer 0.74 ug/mIFEU (0-0.59)
== END 2022-08-16 15:58 | disposition home or self-care (01) ==
PROVIDERS: PCP Family Medicine; Visit Provider Nurse Practitioner Family
DX: I25.10 Atherosclerotic heart disease of native coronary artery without angina pectoris (principal); I10 Essential (primary) hypertension; F17.210 Nicotine dependence, cigarettes, uncomplicated
CPT/HCPCS: 36415; 85378; 93970; 99214

== ENCOUNTER 2022-08-19 10:07 | Outpatient (CLI) | payer MEDICAID, SELFPAY ==
--- NOTE | 2022-08-19 10:29 | US_ITS ---
WS: [id number] ULTRASOUND THYROID TECHNIQUE: Ultrasound of the thyroid. CLINICAL INFORMATION: THYROID NODULE COMPARISON: Ultrasound September 23, 2019 FINDINGS: Thyroid: Prior postoperative changes total thyroidectomy. Normal surgical bed. No evidence of recurre nt mass or lesion in the surgical bed. Cervical lymphadenopathy: Normal-appearing lymph node in the area of palpable concern LEFT neck. Norm al lymph node measures 10 mm with normal fatty hilum. US/US thyroid [id number] IMPRESSION: 1. Palpable area in LEFT neck corresponds to a normal-appearing lymph node. 2. Prior postoperative changes total thyroidectomy. 3. No evidence of recurrent mass or lesion in the surgical bed. 4. No other suspicious findings.
== END 2022-08-19 10:08 | disposition home or self-care (01) ==
LOC: RAD 10:10
PROVIDERS: PCP Family Medicine; Visit Provider Internal Medicine
DX: E04.1 Nontoxic single thyroid nodule (principal)
CPT/HCPCS: 76536

== ENCOUNTER → 2022-08-23 14:27 | Outpatient (BNVA) | payer MEDICAID, SELFPAY | PROVIDERS: PCP Family Medicine; Visit Provider Physician Assistant | DX: Z98.1 Arthrodesis status (principal); M54.42 Lumbago with sciatica, left side; G89.29 Other chronic pain | CPT/HCPCS: 72100; 99213 ==

== ENCOUNTER → 2022-11-08 13:29 | Outpatient (BNVA) | payer MEDICAID, SELFPAY | PROVIDERS: PCP Family Medicine; Visit Provider Internal Medicine | DX: E89.0 Postprocedural hypothyroidism (principal); K29.50 Unspecified chronic gastritis without bleeding | CPT/HCPCS: 99214 ==

== ENCOUNTER 2022-11-17 11:36 | Oncology outpatient (recurring) (ONCR) | payer MEDICAID, SELFPAY ==
[2022-11-17 11:56] VITALS: BP 168/80; PULSE 62; RESP 18; TEMP 36.9; O2SAT 94
[2022-11-17 12:11] LABS: Basophils % 0.6 %; Eosinophils # 0.1 10^3/uL (0.0-0.8); Eosinophils % 1.2 %; Hematocrit 51.9 % (37.0-47.0); Hemoglobin 17.8 g/dL (11.5-15.3); Lymphocytes # 1.7 10^3/uL (0.8-4.8); Lymphocytes % 25.7 %; Mean Corpuscular HGB Conc 34.3 g/dL (30.0-36.0); Mean Corpuscular Hemoglobin 35.2 pg (28.0-34.0); Mean Corpuscular Volume 102.6 fl (81-99); Mean Platelet Volume 9.3 fL (7.4-10.4); Monocytes # 0.5 10^3/uL (0.2-0.9); Monocytes % 7.5 %; Neutrophils # 4.38 10^3/uL (1.8-7.7); Neutrophils % 64.9 %; Nucleated Red Blood Cells % 0 %; Platelet Count 183 10^3/cmm (130-400); Red Blood Count 5.06 10^6/uL (4.1-5.3); Red Cell Distribution Width 14.9 % (12.1-15.1); White Blood Count 6.8 10^3/uL (4.0-10.0)
[2022-11-17 12:41] LABS: Ferritin 40 ng/mL (15-150); Iron 64 ug/dL (37-145); Percent Saturation 17.9 % (20-50); Total Iron Binding Capacity 357 mcg/dl; Unsaturated Iron Binding 293 ug/dL (112-347)
== END 2022-12-02 23:59 | disposition home or self-care (01) ==
PROVIDERS: PCP Family Medicine; Visit Provider Internal Medicine Hematology & Oncology
DX: D50.9 Iron deficiency anemia, unspecified (principal); F17.210 Nicotine dependence, cigarettes, uncomplicated; Z98.890 Other specified postprocedural states; Z79.899 Other long term (current) drug therapy
CPT/HCPCS: 82728; 83540; 83550; 85025; 99213; 99214

== ENCOUNTER 2022-11-21 14:23 | Outpatient (CLI) | payer MEDICAID, SELFPAY ==
--- NOTE | 2022-11-21 14:31 | MM_ITS ---
WS: [id number] BILATERAL 3D TOMOSYNTHESIS DIGITAL SCREENING MAMMOGRAPHY WITH CAD CLINICAL INFORMATION: screening mammogram HISTORY: Screening mammogram. No current complaints. COMPARISON: 2019 TECHNIQUE: Bilateral CC and MLO views. FINDINGS: Scattered fibroglandular densities bilaterally. No suspicious focal mass, asymmetry, calcifications, or architectural distortion. No evidence of malignancy. Punctate and lucent centered calcifications. MM/[place] [id number] IMPRESSION: BI-RADS: 2-Benign FOLLOW UP: 1 Year Follow-up Recommend return to annual screening mammography.
== END 2022-11-21 14:24 | disposition home or self-care (01) ==
LOC: RAD 14:25
PROVIDERS: PCP Family Medicine; Visit Provider Family Medicine
DX: Z12.31 Encounter for screening mammogram for malignant neoplasm of breast (principal); I10 Essential (primary) hypertension
CPT/HCPCS: 77063; 77067; 80053; 85025

== ENCOUNTER → 2022-12-01 14:30 | Outpatient (BNVA) | payer MEDICAID, SELFPAY | PROVIDERS: PCP Family Medicine; Visit Provider Surgery | DX: Z95.828 Presence of other vascular implants and grafts (principal) | CPT/HCPCS: 36590; 99214 ==

== ENCOUNTER 2022-12-15 11:27 | Oncology outpatient (recurring) (ONCR) | payer MEDICAID, SELFPAY ==
[2022-12-15 11:33] VITALS: BP 184/78; PULSE 59; RESP 18; TEMP 36.6; O2SAT 95
[2022-12-15 11:48] LABS: Basophils % 0.5 %; Eosinophils # 0.1 10^3/uL (0.0-0.8); Eosinophils % 1.7 %; Hematocrit 54.9 % (37.0-47.0); Hemoglobin 18.2 g/dL (11.5-15.3); Lymphocytes # 1.5 10^3/uL (0.8-4.8); Lymphocytes % 25.2 %; Mean Corpuscular HGB Conc 33.2 g/dL (30.0-36.0); Mean Corpuscular Hemoglobin 34.4 pg (28.0-34.0); Mean Corpuscular Volume 103.8 fl (81-99); Mean Platelet Volume 9.5 fL (7.4-10.4); Monocytes # 0.4 10^3/uL (0.2-0.9); Monocytes % 7.3 %; Neutrophils # 3.85 10^3/uL (1.8-7.7); Neutrophils % 65.1 %; Nucleated Red Blood Cells % 0 %; Platelet Count 183 10^3/cmm (130-400); Red Blood Count 5.29 10^6/uL (4.1-5.3); Red Cell Distribution Width 14.1 % (12.1-15.1); White Blood Count 5.9 10^3/uL (4.0-10.0)
[2022-12-15 12:02] LABS: Ferritin 26 ng/mL (15-150); Iron 93 ug/dL (37-145); Percent Saturation 24.5 % (20-50); Total Iron Binding Capacity 379 mcg/dl; Unsaturated Iron Binding 286 ug/dL (112-347)
[2022-12-15 14:36] VITALS: BP 158/87; PULSE 56
[2022-12-15 15:05] VITALS: BP 136/79; PULSE 57; RESP 18; TEMP 36.3; O2SAT 93
[2022-12-24 17:05] LABS: CALR Exon 9 Mutation NOT DETECTED (NOT DETECTED); CSF3R Exon 14/17 Mutation NOT DETECTED (NOT DETECTED); JAK2 Exon 12 Mutation NOT DETECTED (NOT DETECTED); JAK2 V617 Block Specimen ID NG; JAK2 V617 Clinical Indication NG; JAK2 V617 Mutation NOT DETECTED (NOT DETECTED); JAK2 V617 Specimen Source NG; MPL Exon 12 Mutation NOT DETECTED (NOT DETECTED)
== END 2023-01-02 23:59 | disposition home or self-care (01) ==
PROVIDERS: Nurse Practitioner Family; PCP Family Medicine; Visit Provider Internal Medicine Hematology & Oncology
DX: D75.1 Secondary polycythemia; G47.30 Sleep apnea, unspecified; F17.210 Nicotine dependence, cigarettes, uncomplicated; D50.9 Iron deficiency anemia, unspecified; Z79.899 Other long term (current) drug therapy
CPT/HCPCS: 81270; 81279; 81339; 81479; 82728; 83540; 83550; 85025; 99195; 99214

== ENCOUNTER 2023-01-12 09:33 | Oncology outpatient (recurring) (ONCR) | payer MEDICAID, SELFPAY ==
[2023-01-12 09:43] VITALS: BP 167/84; PULSE 63; RESP 18; TEMP 36.4; O2SAT 99
[2023-01-12 10:04] LABS: Basophils % 0.6 %; Eosinophils # 0.1 10^3/uL (0.0-0.8); Eosinophils % 1.7 %; Hematocrit 54.6 % (37.0-47.0); Hemoglobin 18.3 g/dL (11.5-15.3); Lymphocytes # 1.4 10^3/uL (0.8-4.8); Lymphocytes % 19.2 %; Mean Corpuscular HGB Conc 33.5 g/dL (30.0-36.0); Mean Corpuscular Hemoglobin 34.3 pg (28.0-34.0); Mean Corpuscular Volume 102.4 fl (81-99); Mean Platelet Volume 9.7 fL (7.4-10.4); Monocytes # 0.5 10^3/uL (0.2-0.9); Monocytes % 7.2 %; Neutrophils # 5.02 10^3/uL (1.8-7.7); Nucleated Red Blood Cells % 0 %; Platelet Count 214 10^3/cmm (130-400); Red Blood Count 5.33 10^6/uL (4.1-5.3); Red Cell Distribution Width 13.7 % (12.1-15.1); White Blood Count 7.1 10^3/uL (4.0-10.0)
[2023-01-12 11:47] LABS: Alanine Aminotransferase 22 U/L (0-33); Albumin Level 4.2 g/dL (3.5-5.2); Alkaline Phosphatase 71 U/L (35-105); Anion Gap 15.3 (5-19); Aspartate Amino Transferase 23 U/L (0-32); Blood Urea Nitrogen 18 mg/dL (8-23); Calcium 9.9 mg/dL (8.5-10.5); Carbon Dioxide 26 mmol/L (22-29); Chloride 101 mmol/L (98-107); Ferritin 15 ng/mL (15-150); Globulin 2.8 g/dL (1.3-4.6); Glomerular Filtration Rate 84.5 mL/min (90-130); Glucose 88 mg/dL (65-115); Iron 113 ug/dL (37-145); Osmolality Calculated 287 mOsm/kg (285-295); Percent Saturation 28.7 % (20-50); Potassium 4.3 mmol/L (3.5-5.1); Sodium 138 mmol/L (136-145); Total Bilirubin 0.2 mg/dL (0.15-1.2); Total Iron Binding Capacity 393 mcg/dl; Unsaturated Iron Binding 280 ug/dL (112-347)
[2023-01-18 14:44] LABS: Erythropoietin 22.6 mIU/mL (2.6-18.5)
== END 2023-02-02 23:59 | disposition home or self-care (01) ==
PROVIDERS: Internal Medicine Medical Oncology; PCP Family Medicine; Visit Provider Internal Medicine Hematology & Oncology
DX: D75.1 Secondary polycythemia (principal); G47.30 Sleep apnea, unspecified; F17.210 Nicotine dependence, cigarettes, uncomplicated; D50.9 Iron deficiency anemia, unspecified; Z79.899 Other long term (current) drug therapy
CPT/HCPCS: 36415; 80053; 82668; 82728; 83540; 83550; 85025; 99213

== ENCOUNTER 2023-01-17 14:49 | Outpatient (CLI) | payer MEDICAID, SELFPAY ==
--- NOTE | 2023-01-17 15:30 | USCV_ITS ---
Dana Gusman Age: 62 Gender: F : 1960 Exam Date: 01/17/2023 15:01 Ordering Phys: Saleem Bloom MD Technologist: Exam Location: [facility] [place] Indication: chest pain BP: 160 / 80 HR: 58 Rhythm: Sinus Technical Quality: Adequate MEASUREMENTS (Male / Female) Normal Values 2D ECHO LV Diastolic Diameter PLAX 3.7 cm 4.2 - 5.9 / 3.9 - 5.3 cm LV Systolic Diameter PLAX 2.4 cm IVS Diastolic Thickness 1.0 cm 0.6 - 1.0 / 0.6 - 0.9 cm IVS Systolic Thickness 1.8 cm LVPW Diastolic Thickness 1.4 cm 0.6 - 1.0 / 0.6 - 0.9 cm LVPW Systolic Thickness 1.5 cm LVOT Diameter 2.0 cm LV Ejection Fraction 2D Teich 66.3 % LV Ejection Fraction MOD 2C 60.6 % LV Ejection Fraction 2C AL 59.3 % LA Diameter 3.9 cm IVC Diameter 1.5 cm M-MODE Aortic Annulus Diameter 3.0 cm LA Ao Ratio MM 1.4 MV E Point Septal Separation 0.5 cm DOPPLER AV Peak Velocity 171.0 cm/s LVOT Peak Velocity 112.0 cm/s AV Area Cont Eq vti 2.2 cm squared AV Area Cont Eq pk 2.1 cm squared MV Area PHT 3.5 cm squared Mitral E to A Ratio 1.0 MV E' Velocity 51.0 cm/s Mitral E to MV E' Ratio 10.8 Mitral E to LV E' Lateral Ratio 14.0 Mitral E to LV E' Septal Ratio 8.8 TR Peak Velocity 216.0 cm/s TR Peak Gradient 18.7 mmHg TV Peak E Velocity 77.0 cm/s Right Atrial Pressure 3.0 mmHg Pulmonary Artery Systolic Pressu 21.7 mmHg RV Acceleration Time 0.2 s FINDINGS Left Ventricle Normal left ventricular size, systolic function and wall thickness, with no regional wall motion abnormalities. Normal left ventricular wall thickness. Normal diastolic filling pattern. Left ventricular ejection fraction is estimated at 65 %. Right Ventricle The right ventricle is normal in size and function. Right Atrium The right atrium is normal in size. Left Atrium The left atrium is normal in size. Mitral Valve Structurally normal mitral valve without significant stenosis or prolapse. There is no mitral regurgitation. Aortic Valve Structurally normal aortic valve without significant sclerosis or stenosis. There is no aortic regurgitation. Tricuspid Valve Structurally normal tricuspid valve without significant stenosis or regurgitation. Pulmonary artery systolic pressure is normal. Pulmonic Valve Structurally normal pulmonic valve without significant stenosis. There is no pulmonic regurgitation. Pericardium Normal pericardium without effusion. Aorta Normal ascending aorta dimension. IVC The inferior vena cava appears normal. CONCLUSIONS Normal transthoracic echocardiogram. No change from the previous study done October 09, 2019 Dr. Parth Currie MD (Electronically Signed) Final Date: 18 January 2023 10:10 S
== END 2023-01-17 14:50 | disposition home or self-care (01) ==
LOC: RAD 14:51
PROVIDERS: PCP Family Medicine; Visit Provider Internal Medicine Medical Oncology
DX: R07.9 Chest pain, unspecified (principal)
CPT/HCPCS: 93306

== ENCOUNTER 2023-02-03 14:24 | Outpatient (CLI) | payer MEDICAID, SELFPAY ==
[2023-02-03 15:27] LABS: Estmated Average Glucose 108; Hemoglobin A1C 5.4 % (4.0-6.0)
[2023-02-03 15:37] LABS: Alanine Aminotransferase 16 U/L (0-33); Albumin Level 4.7 g/dL (3.5-5.2); Alkaline Phosphatase 62 U/L (35-105); Anion Gap 16.1 (5-19); Aspartate Amino Transferase 21 U/L (0-32); Blood Urea Nitrogen 13 mg/dL (8-23); Calcium 10.4 mg/dL (8.5-10.5); Carbon Dioxide 26 mmol/L (22-29); Chloride 105 mmol/L (98-107); Chol HDL Ratio 3.87 mg/dL (0.0-4.40); Cholesterol 120 mg/dL (0-200); Globulin 2.7 g/dL (1.3-4.6); Glucose 89 mg/dL (65-115); HDL Cholesterol 31 mg/dL (60-100); LDL Cholesterol Calculated 21 mg/dL (50-129); LDL HDL Ratio 0.68 RATIO (0.00-3.22); Osmolality Calculated 296 mOsm/kg (285-295); Potassium 4.1 mmol/L (3.5-5.1); Sodium 143 mmol/L (136-145); Thyroid Stimulating Hormone 2.54 uIU/mL (0.27-4.20); Total Bilirubin 0.3 mg/dL (0.15-1.2); Total Protein 7.4 g/dL (6.6-8.7); Triglycerides 341 mg/dL (0-150)
[2023-02-03 15:38] LABS: Free T4 Free Thyroxine 1.54 ng/dL (0.82-1.77)
[2023-02-03 15:47] LABS: Creatinine Urine, Random 24 mg/dL (28-217); Microalbumin Random Urine 2 ug/dL (0-20)
[2023-02-03 15:48] LABS: Microalbum Creatinine Ratio Ur 83 mg/dL (0-20)
== END 2023-02-03 14:25 | disposition home or self-care (01) ==
LOC: LAB 14:25
PROVIDERS: PCP Family Medicine; Visit Provider Internal Medicine
DX: E89.0 Postprocedural hypothyroidism (principal); K29.70 Gastritis, unspecified, without bleeding
CPT/HCPCS: 36415; 80053; 80061; 82044; 83036; 84439; 84443

== ENCOUNTER → 2023-03-22 10:39 | Outpatient (BNVA) | payer MEDICAID, SELFPAY | PROVIDERS: PCP Family Medicine; Visit Provider Internal Medicine | DX: E89.0 Postprocedural hypothyroidism (principal); K29.50 Unspecified chronic gastritis without bleeding; E11.9 Type 2 diabetes mellitus without complications; Z79.84 Long term (current) use of oral hypoglycemic drugs; Z79.890 Hormone replacement therapy | CPT/HCPCS: 99214 ==

== ENCOUNTER → 2023-04-05 13:09 | Outpatient (BNVA) | payer MEDICAID, SELFPAY | PROVIDERS: PCP Family Medicine; Visit Provider Internal Medicine Cardiovascular Disease | DX: M79.89 Other specified soft tissue disorders (principal); I10 Essential (primary) hypertension; I25.10 Atherosclerotic heart disease of native coronary artery without angina pectoris; F17.219 Nicotine dependence, cigarettes, with unspecified nicotine-induced disorders | CPT/HCPCS: 99214 ==

== ENCOUNTER 2023-04-21 08:15 | Oncology outpatient (recurring) (ONCR) | payer MEDICAID, SELFPAY ==
[2023-04-21 07:57] LABS: Basophils % 0.5 %; Eosinophils # 0.1 10^3/uL (0.0-0.8); Eosinophils % 1.3 %; Hematocrit 49.9 % (36-47); Lymphocytes # 1.5 10^3/uL (0.8-4.8); Lymphocytes % 19.1 %; Mean Corpuscular HGB Conc 31.9 g/dL (30-55); Mean Corpuscular Hemoglobin 30.6 pg (27-33); Monocytes # 0.7 10^3/uL (0.2-0.9); Monocytes % 9.1 %; Neutrophils # 5.36 10^3/uL (1.8-7.7); Neutrophils % 69.7 %; Nucleated Red Blood Cells % 0 %; Platelet Count 231 10^3/cmm (157-399); Red Cell Distribution Width 15.3 % (12.1-15.1); White Blood Count 7.69 10^3/uL (3.29-11.43)
[2023-04-21 08:17] LABS: Alanine Aminotransferase 27 U/L (0-33); Albumin Level 4.4 g/dL (3.5-5.2); Alkaline Phosphatase 78 U/L (35-105); Blood Urea Nitrogen 15 mg/dL (8-23); Calcium 9.3 mg/dL (8.5-10.5); Carbon Dioxide 30 mmol/L (22-29); Chloride 104 mmol/L (98-107); Ferritin 12 ng/mL (15-150); Globulin 3.1 g/dL (1.3-4.6); Glomerular Filtration Rate 84.5 mL/min (90-130); Glucose 108 mg/dL (65-115); Iron 44 ug/dL (37-145); Osmolality Calculated 297 mOsm/kg (285-295); Sodium 143 mmol/L (136-145); Total Bilirubin 0.2 mg/dL (0.15-1.2); Total Protein 7.5 g/dL (6.6-8.7)
[2023-04-21 08:25] LABS: Anion Gap 13.9 (5-19); Aspartate Amino Transferase 25 U/L (0-32); Percent Saturation 9.4 % (20-50); Potassium 4.9 mmol/L (3.5-5.1); Total Iron Binding Capacity 468 mcg/dl; Unsaturated Iron Binding 424 ug/dL (112-347)
--- NOTE | 2023-04-21 11:28 | XR_ITS ---
WS: [id number] Exam: XR abdomen 1V* [id number] Date/Time of Exam: 04/21/2023 11:37 AM Reason For Exam: fecal content Comparison 06/06/2008. No bowel obstruction or free air. No sign of constipation. Normal-appearing organ margins. Lumbosacra l fusion from L3-S1. Bony structures are otherwise unremarkable. IMPRESSION: 1. No acute abdominal finding. No sign of constipation.
== END 2023-05-04 23:59 | disposition home or self-care (01) ==
PROVIDERS: Internal Medicine Medical Oncology; PCP Family Medicine; Visit Provider Internal Medicine Medical Oncology
DX: E87.1 Hypo-osmolality and hyponatremia (principal); R10.9 Unspecified abdominal pain; K92.1 Melena; D75.1 Secondary polycythemia; D50.9 Iron deficiency anemia, unspecified; Z79.899 Other long term (current) drug therapy
CPT/HCPCS: 36415; 74018; 80053; 82728; 83540; 83550; 85025; 96365; 99214; J1756; J7050

== ENCOUNTER 2023-06-01 15:36 | Outpatient (CLI) | payer MEDICAID, SELFPAY ==
--- NOTE | 2023-06-01 15:40 | XRR_ITS ---
PROCEDURE INFORMATION: Exam: XR Left Hip Exam date and time: 06/01/2023 3:44 PM Age: 62 years old Clinical indication: Pain and injury or trauma; Fall; Blunt trauma (contusions or hematomas); Hip pain; Left hip; Injury date: 6 weeks ago; Additional info: Fall / acute left hip pain TECHNIQUE: Imaging protocol: Radiologic exam of the left hip. Views: 2 or 3 views hip with pelvis when performed. COMPARISON: CT abdomen pelvis wo/w [id number] 08/12/2022 2:25 PM FINDINGS: Bones/joints: Unremarkable. No acute fracture. No significant arthritic changes. Soft tissues: Bilateral inguinal herniorrhaphy. Vasculature: Vascular calcifications. XR/XR hip LT 2-3V wo/w pel* [id number] IMPRESSION: No acute findings.
== END 2023-06-01 15:37 | disposition home or self-care (01) ==
LOC: RAD 15:37
PROVIDERS: PCP Family Medicine; Visit Provider Family Medicine
DX: M25.552 Pain in left hip (principal); W19.XXXA Unspecified fall, initial encounter
CPT/HCPCS: 73502

== ENCOUNTER 2023-06-14 11:27 | Oncology outpatient (recurring) (ONCR) | payer MEDICAID, SELFPAY ==
[2023-06-14 12:19] VITALS: BP 153/86; PULSE 66; RESP 16; TEMP 36.3; O2SAT 92
[2023-06-14 12:40] LABS: Basophils % 0.5 %; Eosinophils # 0.1 10^3/uL (0.0-0.8); Eosinophils % 1.6 %; Hematocrit 47.9 % (36-47); Lymphocytes # 1.6 10^3/uL (0.8-4.8); Lymphocytes % 24.8 %; Mean Corpuscular HGB Conc 32.4 g/dL (30-55); Mean Corpuscular Hemoglobin 30.6 pg (27-33); Mean Corpuscular Volume 94.7 fl (85-98); Mean Platelet Volume 9.4 fL (7.4-10.4); Monocytes # 0.6 10^3/uL (0.2-0.9); Neutrophils # 3.98 10^3/uL (1.8-7.7); Neutrophils % 63.8 %; Nucleated Red Blood Cells % 0 %; Platelet Count 220 10^3/cmm (157-399); Red Blood Count 5.06 10^6/uL (3.85-5.65); Red Cell Distribution Width 16.8 % (12.1-15.1); White Blood Count 6.24 10^3/uL (3.29-11.43)
[2023-06-14 12:53] LABS: Alanine Aminotransferase 34 U/L (0-33); Albumin Level 4.2 g/dL (3.5-5.2); Alkaline Phosphatase 76 U/L (35-105); Blood Urea Nitrogen 19 mg/dL (8-23); Calcium 10.4 mg/dL (8.5-10.5); Carbon Dioxide 32 mmol/L (22-29); Chloride 100 mmol/L (98-107); Glomerular Filtration Rate 84.5 mL/min (90-130); Glucose 102 mg/dL (65-115); Osmolality Calculated 292 mOsm/kg (285-295); Sodium 140 mmol/L (136-145); Total Bilirubin 0.2 mg/dL (0.15-1.2); Total Protein 7.2 g/dL (6.6-8.7)
[2023-06-14 13:00] LABS: Anion Gap 12.3 (5-19); Aspartate Amino Transferase 23 U/L (0-32); Potassium 4.3 mmol/L (3.5-5.1)
== END 2023-07-05 23:59 | disposition home or self-care (01) ==
LOC: ONCMED 11:28
PROVIDERS: PCP Family Medicine; Visit Provider Internal Medicine Medical Oncology
DX: E87.1 Hypo-osmolality and hyponatremia (principal); R10.9 Unspecified abdominal pain; K92.1 Melena; D75.1 Secondary polycythemia; D50.9 Iron deficiency anemia, unspecified; Z79.899 Other long term (current) drug therapy; Z53.9 Procedure and treatment not carried out, unspecified reason
CPT/HCPCS: 36415; 80053; 85025; 99214

== ENCOUNTER 2023-07-06 12:34 | Outpatient (CLI) | payer MEDICAID, SELFPAY ==
--- NOTE | 2023-07-06 13:15 | CT_ITS ---
WS: [id number] LDCT LUNG CANCER SCREENING HISTORY: tobacco use TECHNIQUE: Axial imaging performed from the apices to 1 cm below the costophrenic angles. Coronal and sagittal reformats are submitted with axial MIP series. All CT scans at [facility] use at least one of these dose optimization techniques: automated exposure control; mA and/or kV adjustment per patient size (includes targeted exams where dose is matched to clinical indication); or iterativ e reconstruction. DLP: 86.62 mGy.cm DIvol: Mean CTDIvol: 2.30 (mGy) COMPARISON: 09/10/2021 Diagnostic quality: Satisfactory Lungs: Calcified granuloma at the LEFT apex. There are several peripheral noncalcified nodules in the LEFT upper lobe which were present on prior studies with no increase in size. No new mass or nodule. No pneumonia. Heart: Normal size heart with no pericardial effusion.. Other findings: Atherosclerosis aorta. Pulmonary arteries mildly prominent. There is dense heavy calc ification in the [place] coronary arteries. No pericardial or pleural effusions. Liver is enlarged. IMPRESSION: CT/CT lung screening [id number] LUNG-RADS: 2-Benign Appearance or Behavior FOLLOW UP: 12 Month: Continue annual screening with LDCT OTHER FINDINGS (S MODIFIER): None.
== END 2023-07-06 12:35 | disposition home or self-care (01) ==
LOC: RAD 12:34
PROVIDERS: PCP Family Medicine; Visit Provider Internal Medicine Medical Oncology
DX: Z12.2 Encounter for screening for malignant neoplasm of respiratory organs (principal); Z72.0 Tobacco use
CPT/HCPCS: 71271

== ENCOUNTER → 2023-08-24 12:45 | Outpatient (BNVA) | payer MEDICAID, SELFPAY | PROVIDERS: PCP Family Medicine; Visit Provider Orthopaedic Surgery | DX: Z98.1 Arthrodesis status (principal) | CPT/HCPCS: 72110; 99214 ==

== ENCOUNTER 2023-09-05 07:42 | Outpatient (CLI) | payer MEDICAID, SELFPAY ==
--- NOTE | 2023-09-05 08:00 | CT_ITS ---
WS: [id number] CT LUMBAR SPINE TECHNIQUE: Noncontrast CT of the lumbar spine with coronal and sagittal reformatted images. CLINICAL INFORMATION: back pain COMPARISON: 2019 DLP: 1161.[address] scans at [facility] use at least one of these dose optimization techniques: automated e xposure control; mA and/or kV adjustment per patient size (includes targeted exams where dose is matc hed to clinical indication); or iterative reconstruction. FINDINGS: Tiny hairline fracture through the RIGHT S1 pedicle screw only well seen on the sagittal imaging. No displacement. Hardware otherwise appears intact. Interbody fusion graft L4-L5 and L5-S1. Slight anter olisthesis L5 on S1. Slight anterior subluxation of the L5-S1 interbody fusion graft relative to the L5 endplate plate. Subsidence along the interbody fusion grafst. Lucency along the LEFT S1 pedicle sc rew suspicious for loosening. L1-L2: Normal. L2-L3: Mild annular bulging. Slight effacement of the ventral thecal sac. Moderate facet arthropathy. Spinal canal and foramen are patent. L3-L4: Mild annular bulging. Slight effacement of the ventral thecal sac. Mild central canal stenosis . Foramen are patent. Moderate facet arthropathy with ligamentum flavum hypertrophy. L4-L5: Postoperative changes laminectomy defects. Spinal canal is patent. Mild RIGHT and no significa nt LEFT foraminal narrowing. L5-S1: Postoperative changes laminectomy defects. Spinal canal is patent. Mild RIGHT foraminal narrow ing. Moderate facet arthropathy. IMPRESSION: 1. Tiny hairline nondisplaced fracture of the RIGHT S1 pedicle screw. This is only well visualized o n the sagittal imaging. 2. Loosening of the LEFT S1 pedicle screw. 3. Mild central canal stenosis L3-4. 4. Mild RIGHT L4-5 and L5-S1 foraminal narrowing.
--- NOTE | 2023-09-05 09:00 | CT_ITS ---
WS: [id number] CT pelvis TECHNIQUE: Noncontrast CT of the pelvis with coronal and sagittal reformatted images. CLINICAL INFORMATION: back pain COMPARISON: CT 2020 DLP: 1161.[address] scans at [facility] use at least one of these dose optimization techniques: automated e xposure control; mA and/or kV adjustment per patient size (includes targeted exams where dose is matc hed to clinical indication); or iterative reconstruction. FINDINGS: Postoperative changes lower lumbar spine and sacrum with S1 fixation screws. Lucency about the LEFT s acral fixation screw. Degenerative arthritis both sacroiliac joints. No acute appearing sacral insuff iciency fractures. Prior healed fracture in the sacrum seen in 2020 at S2-S3. Normal sacrococcygeal j unction. Vascular calcification. Tiny nondisplaced hairline fracture through the RIGHT S1 pedicle screw only well seen on sagittal cb ging Evidence of bladder sling procedure. Sigmoid diverticulosis. Small bladder cystocele. Moderate degene rative narrowing both hips with slight hypertrophic spurring about the acetabulum. Degenerative arthr itis at the pubic symphysis. Prior hysterectomy. IMPRESSION: 1. Lucency along the LEFT S1 fixation screw suspicious for loosening. 2. Tiny nondisplaced hairline fracture through the RIGHT S1 pedicle screw only well seen on sagittal imaging. 3. No acute appearing bony pelvis or sacral fractures. 4. Evidence of prior bladder sling procedure. 5. Osteopenia. 6. Degenerative arthritis both sacroiliac joints. 7. No other acute findings.
== END 2023-09-05 07:43 | disposition home or self-care (01) ==
LOC: RAD 07:43
PROVIDERS: PCP Family Medicine; Visit Provider Orthopaedic Surgery
DX: M54.9 Dorsalgia, unspecified (principal); M48.061 Spinal stenosis, lumbar region without neurogenic claudication; S32.10XA Unspecified fracture of sacrum, initial encounter for closed fracture; M85.88 Other specified disorders of bone density and structure, other site
CPT/HCPCS: 72131; 72192

== ENCOUNTER 2023-09-14 14:20 | Outpatient (CLI) | payer MEDICAID, SELFPAY ==
[2023-09-14 15:10] LABS: Creatinine Urine, Random 22 mg/dL (28-217); Microalbumin Random Urine 2 ug/dL (0-20)
[2023-09-14 15:11] LABS: Microalbum Creatinine Ratio Ur 91 mg/dL (0-20)
[2023-09-14 15:13] LABS: Estmated Average Glucose 120; Hemoglobin A1C 5.8 % (4.0-6.0)
[2023-09-14 15:19] LABS: Alanine Aminotransferase 23 U/L (0-33); Albumin Level 4.3 g/dL (3.5-5.2); Alkaline Phosphatase 77 U/L (35-105); Anion Gap 13.4 (5-19); Aspartate Amino Transferase 21 U/L (0-32); Blood Urea Nitrogen 23 mg/dL (8-23); Calcium 9.6 mg/dL (8.5-10.5); Carbon Dioxide 27 mmol/L (22-29); Chloride 103 mmol/L (98-107); Chol HDL Ratio 4.79 mg/dL (0.0-4.40); Cholesterol 182 mg/dL (0-200); Glomerular Filtration Rate 84.2 mL/min (90-130); Glucose 90 mg/dL (65-115); HDL Cholesterol 38 mg/dL (60-100); LDL Cholesterol Calculated 74 mg/dL (50-129); LDL HDL Ratio 1.95 RATIO (0.00-3.22); Osmolality Calculated 291 mOsm/kg (285-295); Potassium 4.4 mmol/L (3.5-5.1); Sodium 139 mmol/L (136-145); Total Bilirubin 0.2 mg/dL (0.15-1.2); Total Protein 7.3 g/dL (6.6-8.7); Triglycerides 348 mg/dL (0-150)
[2023-09-14 16:52] LABS: Add Urine Microscopic? NO; Charge for UA Resulting for Rev
[2023-09-14 18:09] LABS: Basophils # 0.1 10^3/uL (0.0-0.1); Basophils % 0.9 %; Eosinophils # 0.1 10^3/uL (0.0-0.8); Hematocrit 47.3 % (36-47); Mean Corpuscular HGB Conc 30.4 g/dL (30-55); Mean Corpuscular Hemoglobin 27.8 pg (27-33); Mean Corpuscular Volume 91.3 fl (85-98); Mean Platelet Volume 10.2 fL (7.4-10.4); Monocytes # 0.6 10^3/uL (0.2-0.9); Monocytes % 8.6 %; Neutrophils # 3.65 10^3/uL (1.8-7.7); Neutrophils % 57.3 %; Nucleated Red Blood Cells % 0 %; Platelet Count 292 10^3/cmm (157-399); Red Blood Count 5.18 10^6/uL (3.85-5.65); White Blood Count 6.38 10^3/uL (3.29-11.43)
[2023-09-14 18:26] LABS: Specific Gravity, Urine 1.005 (1.005-1.030); Urine Appearance Clear (CLEAR); Urine Color Light yellow (Yellow); pH Urine 6 (5-7)
[2023-09-14 18:27] LABS: Bilirubin Urine Neg (Negative); Blood Urine Neg (Negative); Glucose Urine UA Norm (Normal); Ketones Urine Negative (Negative); Leukocyte Esterase Urine Negative (Negative); Nitrate Urine Negative (Negative); Protein Urine Neg (Negative); Urobilinogen Urine Norm (Negative)
== END 2023-09-14 14:21 | disposition home or self-care (01) ==
LOC: LAB 14:21
PROVIDERS: Orthopaedic Surgery; PCP Family Medicine; Visit Provider Internal Medicine
DX: M54.9 Dorsalgia, unspecified; Z79.899 Other long term (current) drug therapy
CPT/HCPCS: 36415; 80053; 80061; 81003; 82044; 83036; 84439; 84443; 85025; 99214

== ENCOUNTER → 2023-09-27 08:39 | Outpatient (BNVA) | payer MEDICAID, SELFPAY | PROVIDERS: PCP Family Medicine; Visit Provider Family Medicine | DX: Z01.818 Encounter for other preprocedural examination (principal) | CPT/HCPCS: 93005 ==

== ENCOUNTER 2023-10-11 14:26 | Inpatient (IN) | payer MEDICAID, SELFPAY ==
[2023-10-11] VITALS (14 sets, daily range): BP systolic 111–177; BP diastolic 64–84; PULSE 57–87; RESP 15–20; TEMP 36.1–36.9; O2SAT 92–99; BMI 37.2
--- NOTE | 2023-10-11 | XR_ITS ---
WS: [id number] Lumbar spine, C-arm fluoroscopy views, 10/11/2023 Clinical Data: KELLEE PICS Comparison: Lumbar spine, 08/24/2023 Findings: Dr. Turner performed a posterior lumbar fusion. XR/XR lumbar spine 2-3V* [id number] Impression: Posterior lumbar fusion
[2023-10-11 10:23] LABS: Glucose Point of Care 127 mg/dL (70-110)
--- NOTE | 2023-10-11 10:33 | ANES.PREANE2 ---
Pre-Anesthetic Assessment Height/Weight: Height 1.47 m Weight 80.739 kg Temp Pulse Resp BP Pulse Ox O2 Del Method 97.0 F L 57 L 16 177/82 96 Room Air 10/11/23 10:02 10/11/23 10:02 10/11/23 10:02 10/11/23 10:02 10/11/23 10:02 10/11/23 10:02 Preop Diagnosis: Nonunion lumbar fusion Operation Date: 10/11/23 11:55 Proposed Procedures p Spinal Fusion PSF(Not Applicable) - Parminder Turner DO s Lumbopelvic Fixation(Not Applicable) - Parminder Turner DO s SI Joint Fusion open(Not Applicable) - Parminder Turner DO Familial anesthetic complications: None Was Beta Marisel taken within 24 hours: N/A Was Clonidine taken within 24 hours: N/A Last intake: Intake Last Liquid Date 10/10/23 Last Liquid Time 23:00 Last Solid Date 10/10/23 Last Solid Time 14:30 Social Tobacco and No alcohol Exam alert, oriented x 3, clear to auscultation bilaterally and regular rate & rhythm Airway Mallampati: Class II Dentition: other (no teeth) Pulmonary Asthma, Chronic Obstructive Pulmonary Disease and Sleep Apnea CV/HEM Coronary Artery Disease (2 stents many years ago, normal stress test, echo since) GI Gastroesophageal Reflux Disease Metabolic Diabetes Mellitus, Hyperlipidemia, Morbid Obesity and Thyroid Disease Anesthetic Plan ASA status: 3 Anesthesia: General Risk of > 500 ml blood loss (7ml/kg in children): No Medications/Allergies Home Medications Medication Instructions Recorded Confirmed Last Taken Type nitroglycerin 0.4 mg sublingual 0.4 mg sublingual PRN PRN Chest 06/14/19 10/10/23 Unknown History tablet (Nitrostat) Pain wheelchair #1 ea 10/17/19 09/19/23 Unknown Rx diabetic shoes #1 ea 01/22/20 09/19/23 Unknown Rx blood sugar diagnostic (Accu-Chek #100 ea 04/06/20 09/19/23 Unknown Rx Alyson Plus test strips) blood-glucose meter (Accu-Chek #1 ea 04/06/20 09/19/23 Unknown Rx Alyson Plus Meter) Tums See Rx Instructions .Route .COMPLEX 04/08/20 10/10/23 10/09/23 History Vitamin B-12 1 tab PO DAILY 04/08/20 10/10/23 10/09/23 History acetaminophen 500 mg tablet 1,000 mg PO PRN 04/08/20 10/10/23 10/09/23 History (Acetaminophen Extra Strength) cholecalciferol (vitamin D3) 50 50 mcg PO DAILY 04/22/20 10/10/23 10/09/23 History mcg (2,000 unit) capsule aspirin 81 mg tablet,delayed 81 mg PO DAILY 07/07/20 10/10/23 10/05/23 History release albuterol sulfate 90 mcg/actuation 2 puff inhalation QID PRN 12/24/20 10/10/23 10/09/23 Rx aerosol inhaler (ProAir HFA) Shortness Of Breath 90 days #8.5 grams vitamin E 200 unit capsule 200 unit PO DAILY 06/16/21 10/10/23 10/11/23 07:30 History famotidine 20 mg tablet See Rx Instructions .Route 06/01/23 10/10/23 10/11/23 07:30 Rx .COMPLEX #180 tabs metformin 500 mg tablet,extended See Rx Instructions .Route 06/01/23 10/10/23 10/09/23 Rx release 24 hr .COMPLEX #180 tabs rosuvastatin 20 mg tablet 20 mg PO DAILY 90 days #90 tabs 06/01/23 10/10/23 10/09/23 Rx Synthroid 112 mcg tablet See Rx Instructions .Route 08/01/23 10/10/23 10/11/23 07:30 Rx (levothyroxine) .COMPLEX #90 tabs tramadol 50 mg tablet 50 mg PO BID PRN pain #60 tabs 09/15/23 10/10/23 Unknown Rx Bone Growth Stimulator #1 ea 09/18/23 09/19/23 Unknown Rx gabapentin 300 mg capsule See Rx Instructions .Route 09/28/23 10/10/23 10/11/23 07:30 Rx .COMPLEX #180 caps metoprolol tartrate 50 mg tablet 50 mg PO BID #90 tabs 10/04/23 10/10/23 10/11/23 07:30 Rx Allergies Allergy/AdvReac Type Severity Reaction Status Date / Time amlodipine Allergy ADR-Dizzine Verified 10/10/23 10:14 ss clavulanic acid Allergy Unknown Verified 10/10/23 10:14 [From Augmentin] hydrocodone Allergy urinary Verified 10/10/23 10:14 retention levofloxacin [From Levaquin] Allergy ADR-Dizzine Verified 10/10/23 10:14 ss omeprazole Allergy chest pain Verified 10/10/23 10:14 prednisone Allergy SOB Verified 10/10/23 10:14 [facility] Anesthesia Medical History Port-A-Cath in place Smoking CAD (coronary artery disease) Sensorimotor neuropathy Multifocal Unspecified fracture of sacrum, initial encounter for closed fracture Sacral fracture, closed Osteoporosis Spondylolisthesis, lumbar region Dysphonia Vocal cord polyp Postnasal drip Chronic sinusitis Enlarged thyroid Nasal turbinate hypertrophy Deviated septum Anemia Type 2 diabetes mellitus without complications Trigger ring finger of right hand Hyperlipidemia Central sleep apnea Essential hypertension Neuropathic peripheral nerve Lumbar stenosis with neurogenic claudication Intervertebral disc disorders with radiculopathy, lumbar region Surgical History History of lumpectomy of both breasts History of lumbar surgery Dr. Turner-lumbar decompression History of thyroidectomy 03/02/[facility]. History of appendectomy Hx of hand surgery H/O: hysterectomy Hanna H/O breast biopsy History of bladder surgery H/O heart artery stent Family History Father CAD (coronary artery disease) Hypertension Cancer Diabetes Mother CAD (coronary artery disease) Hypertension Grandmother Cancer Diabetes Social History Smoking and tobacco/nicotine status: current every day tobacco/nicotine user cigarettes Packs smoked per day: 1 Years cigarettes smoked: 50 Alcohol intake: never Substance/Drug Use: never Lives independently: Yes Household members: spouse Marital status: Current occupational status: disabled Data Anesthesia Cardiac Studies: Echocardiogram 01/17/23 Echocardiogram Ultrasound 10/09/19 Sestamibi Stress Test (Cardiology) 04/27/20 Cardiac Event Monitor 06/02/20
[2023-10-11] MEDS: sodium chloride 0.9% 1,000 ML 30 ML IV (10:48)
--- NOTE | 2023-10-11 11:18 | W.PM.OPSUD ---
Surgery/Procedure H&P Update DATE OF PROCEDURE: October 11, 2023 DATE H&P PERFORMED: 09/27/23 H&P UPDATE INFORMATION: I have reviewed H&P completed within last 30 days, I have examined patient prior to procedure and No changes to prior documentation PREOP DIAGNOSIS: Nonunion lumbar fusion PLANNED PROCEDURE: Operation Date: 10/11/23 11:55 Proposed Procedures p Spinal Fusion PSF(Not Applicable) - Parminder Turner DO s Lumbopelvic Fixation(Not Applicable) - Parminder Turner DO s SI Joint Fusion open(Not Applicable) - Parminder Turner DO
[2023-10-11] MEDS: ceFAZolin 2,000 MG in sodium chloride 0.9% (plus) 50 ML 100 MG IV ×2 (12:11→20:32)
[2023-10-11] MEDS: vancomycin 1,000 MG SDV 1000 MG XX (12:58)
[2023-10-11] MEDS: lidocaine-epi 1% 20 mL INJ INJECTION (14:00)
--- NOTE | 2023-10-11 14:42 | P.OP_ITS ---
Operative Report Date of procedure: October 11, 2023 Pre-op diagnosis: Nonunion L5-S1 Post-op diagnosis: same Procedure done: 1. L3 - S1 posterior instrumentation 2. Lumbopelvic fixation 3. L5 to pelvis posterior spine fusion 4. open Right Sacral iliac fusion 5. open Left sacral iliac fusion 6. use of computer navigation/ stereotactic for spine 7. removal deep hardware from spine 8. exploration of nonunion L5 /S1 9. use of allograft. Surgeon: Parminder Turner DO Estimated blood loss (mL): 50 Procedure: 1. L3 - S1 posterior instrumentation 2. Lumbopelvic fixation 3. L5 to pelvis posterior spine fusion 4. open Right Sacral iliac fusion 5. open Left sacral iliac fusion 6. use of computer navigation/ stereotactic for spine 7. removal deep hardware from spine 8. exploration of nonunion L5 /S1 9. use of allograft. Patient is brought to the operative suite after undergoing anesthesia placed in the prone position. All his impingement well-padded. Patient was prepped and draped normal sterile fashion. Neuromonitoring was used throughout the entire case. Skin incision was made using previous skin incision. Dissection was down to the L3-S1 screws and out the sacral ala bilaterally. The screw caps from L3-4-5 and S1 were removed bilaterally. Rods were removed bilaterally. The broken screw on the right was removed. Next tension was brought to placing the fiducial in the right iliac crest. This was done by placing 2 pins were later removed at the end of the case. These p ins then attached to the fiducial. The C-arm was brought in and spun around the patient and the information from serum was then loaded in the computer for the later used for placing the iliac screws and the sacral screws. Next attention was brought to placing the iliac screws. This was done using the gearshift probe the probe was placed through the sacrum crossed the ala across the sacroiliac joint and into the iliac crest. Next a tap was used and then a screw on the right side was a 80 mm 9.5 screw. This process was repeated on the left side and this was an 70 mm screw placed on the left side. Next attension was brought to doing the open sacroiliac fusion. This was done by exposing the SI joint. The gearshift probe linked to computer navigation was used to cross from the sacral ala across the sacroiliac joint and into the iliac crest. Next a wire was placed through this hole. And then the wire was overdrilled. And then the screw was placed under C-arm guidance. This process was done on both the right and the left side screws were found to be in appropriate position bilaterally. Next attention was brought to next lowering the nonunion site. This was done by dissecting out the sacral ala bilaterally to the L5 transverse processes bilaterally. Rongeur was used to remove any fibrous nonunion. The transverse process and sacral ala were exposed decorticated and the allograft was then packed into this gutter in order to provide for the L5 to the pelvis fusion. Next the rods were attached from L3-S1 and then to the iliac screws bilaterally. Screw caps were placed and torqued down. From L3 to the pelvis. Providing the lumbopelvic fixation. Wounds were then irrigated and vancomycin powder and deep drain placed wound was closed in layered fashion with 0 Vicryl 2-0 Vicryl and Monocryl suture. Sterile dressings were applied patient transferred to the PACU in stable condition.
--- NOTE | 2023-10-11 15:05 | ANE.PACU2 ---
Inpatient post-anesthesia follow up: Airway intact: Yes Vital signs: Temperature 97.9 F Pulse Rate 69 Respiratory Rate 16 Blood Pressure 129/70 Pulse Oximetry 96 Oxygen Delivery Me thod Nasal Cannula Oxygen Flow Rate 2 Fraction of Inspir ed Oxygen Hydration adequate: Yes Nausea and vomiting: No Pain level: 1 Mental status: Baseline
[2023-10-11] MEDS: gabapentin 300 mg Capsule PO ×2 (15:55→20:32)
[2023-10-11] MEDS: lactated ringers 1,000 ML 90 ML IV (15:56)
[2023-10-11] MEDS: docusate sodium 100 mg Capsule PO (17:15)
[2023-10-11] MEDS: metformin XR 500 MG Tablet PO (17:15)
[2023-10-11] MEDS: metoprolol tartrate 50 mg Tablet PO (17:15)
[2023-10-11] MEDS: famotidine 20 mg Tablet PO (17:16)
[2023-10-11] MEDS: morphine 4 mg/mL SDV 1 mL 2 MG IVP (17:16)
[2023-10-11] MEDS: ketorolac 30 mg/mL INJ IVP (20:33)
[2023-10-11] MEDS: TRAMadol 50 mg Tablet PO (23:25)
[2023-10-12] VITALS (7 sets, daily range): BP systolic 144–196; BP diastolic 64–83; PULSE 61–70; RESP 16–18; TEMP 36.4–36.7; O2SAT 94–97
[2023-10-12 03:22] LABS: Basophils % 0.2 %; Hematocrit 44.5 % (36-47); Lymphocytes # 0.7 10^3/uL (0.8-4.8); Lymphocytes % 7.2 %; Mean Corpuscular HGB Conc 30.1 g/dL (30-55); Mean Corpuscular Hemoglobin 26.1 pg (27-33); Mean Corpuscular Volume 86.7 fl (85-98); Mean Platelet Volume 8.7 fL (7.4-10.4); Monocytes # 0.8 10^3/uL (0.2-0.9); Monocytes % 7.4 %; Neutrophils # 8.65 10^3/uL (1.8-7.7); Neutrophils % 84.7 %; Nucleated Red Blood Cells % 0 %; Platelet Count 204 10^3/cmm (157-399); Red Blood Count 5.13 10^6/uL (3.85-5.65); Red Cell Distribution Width 16.1 % (12.1-15.1); White Blood Count 10.22 10^3/uL (3.29-11.43)
[2023-10-12] MEDS: lactated ringers 1,000 ML 90 ML IV (04:32)
[2023-10-12] MEDS: ceFAZolin 2,000 MG in sodium chloride 0.9% (plus) 50 ML 100 MG IV (04:39)
[2023-10-12] MEDS: morphine 4 mg/mL SDV 1 mL 2 MG IVP (04:40)
--- NOTE | 2023-10-12 07:07 | PC.NURSE ---
high blood pressure Nurse attempted to call Dr. Turner 3 times prior to 7 a.m. about this patient's hypertension, and attempted to call Dr. Villareal twice after 7 a.m. Charge nurse and dayshift patient care nurse notified in report.
[2023-10-12] MEDS: gabapentin 300 mg Capsule PO (09:13)
[2023-10-12] MEDS: atorvastatin 40 mg Tablet PO (09:13)
[2023-10-12] MEDS: docusate sodium 100 mg Capsule PO (09:14)
[2023-10-12] MEDS: famotidine 20 mg Tablet PO (09:14)
[2023-10-12] MEDS: cholecalciferol (vitamin D3) 1,000 unit Tablet 1000 UNIT PO (09:14)
[2023-10-12] MEDS: levothyroxine 112 mcg Tablet PO (09:14)
[2023-10-12] MEDS: aspirin 81 mg EC Tablet PO (09:14)
[2023-10-12] MEDS: metoprolol tartrate 50 mg Tablet PO (09:14)
[2023-10-12] MEDS: metformin XR 500 MG Tablet PO (09:14)
[2023-10-12] MEDS: TRAMadol 50 mg Tablet PO (09:49)
--- NOTE | 2023-10-12 10:01 | P.DS_ITS ---
Discharge Providers Date of Admission: 10/11/23 14:26 Date of Discharge: October 12, 2023 Attending Provider at Admission: Parminder Turner DO Attending Provider at Discharge: Parminder Turner DO Primary Care Provider: Charis Carcamo DO Reason for Visit Reason for Visit: M48.062 Physical Exam Narrative: Patient doing well ambulating with physical therapy. Blood pressure is elevated we will have her follow-up with her primary care doctor for her blood pressure. Urinary Catheter Management: Silvestre: Cath Placed During This Visit: yes Reason for Continuing Indwelling Catheter: Other Urinary Catheter Date of Insertion: 10/11/23 Urinary Catheter Time of Insertion: 12:25 Discharge Data Studies Completed and Pending Pending at discharge Category Date Time Status XR lumbar spine 2-3V* [id number] Routine Exams 10/11/23 00:00 Taken Laboratory Results WBC 10.22 10^3/uL (3.29-11.43) 10/12/23 03:06 RBC 5.13 10^6/uL (3.85-5.65) 10/12/23 03:06 Hgb 13.40 g/dL (11.27-16.99) 10/12/23 03:06 Hct 44.5 % (36-47) 10/12/23 03:06 MCV 86.7 fl (85-98) 10/12/23 03:06 MCH 26.1 pg (27-33) L 10/12/23 03:06 MCHC 30.1 g/dL (30-55) 10/12/23 03:06 RDW 16.1 % (12.1-15.1) H 10/12/23 03:06 Plt Count 204 10^3/cmm (157-399) 10/12/23 03:06 MPV 8.7 fL (7.4-10.4) 10/12/23 03:06 Neut % (Auto) 84.7 % 10/12/23 03:06 Lymph % (Auto) 7.2 % 10/12/23 03:06 [place] % (Auto) 7.4 % 10/12/23 03:06 Eos % (Auto) 0.0 % 10/12/23 03:06 Baso % (Auto) 0.2 % 10/12/23 03:06 Neut # (Auto) 8.65 10^3/uL (1.8-7.7) H 10/12/23 03:06 Lymph # (Auto) 0.7 10^3/uL (0.8-4.8) L 10/12/23 03:06 [place] # (Auto) 0.8 10^3/uL (0.2-0.9) 10/12/23 03:06 Eos # (Auto) 0.0 10^3/uL (0.0-0.8) 10/12/23 03:06 Baso # (Auto) 0.0 10^3/uL (0.0-0.1) 10/12/23 03:06 Nucleated RBC % (auto) 0 % 10/12/23 03:06 Nucleated RBCs # 0.0 /100WBC 10/12/23 03:06 POC Glucose 127 mg/dL (70-110) H 10/11/23 10:19 Blood Type A Negative 10/11/23 10:37 Rho(D) Type Rh negative 10/11/23 10:37 Antibody Screen Negative 10/11/23 10:37 Vitals Last Vital Signs Temp 98.0 F 10/12/23 07:33 Pulse 62 10/12/23 07:33 Resp 16 10/12/23 07:33 BP 181/64 10/12/23 07:33 Pulse Ox 94 10/12/23 07:33 O2 Del Method Room Air 10/12/23 07:33 O2 Flow Rate 1 10/11/23 20:00 Discharge Plan Discharge Patient Disposition: Home Condition: Stable Prescriptions: New oxycodone 5 mg tablet 5 mg PO Q4H PRN (Reason: pain) 7 Days Qty: 40 0RF Continued albuterol sulfate [ProAir HFA] 90 mcg/actuation HFA aerosol inhaler 2 puff INHALATION QID PRN (Reason: Shortness Of Breath) 90 Days Qty: 8.5 3RF nitroglycerin [Nitrostat] 0.4 mg tablet, sublingual 0.4 mg SUBLINGUAL PRN PRN (Reason: Chest Pain) (DME) wheelchair See Rx Instructions .Route .MEDSUPPLY Qty: 1 0RF Rx Instructions: As directed (DME) diabetic shoes See Rx Instructions .Route .MEDSUPPLY Qty: 1 0RF Rx Instructions: As directed cholecalciferol (vitamin D3) 50 mcg (2,000 unit) capsule 50 mcg PO DAILY vitamin E 200 unit capsule 200 unit PO DAILY metformin 500 mg tablet extended release 24 hr See Rx Instructions .ROUTE .COMPLEX Qty: 180 1RF Dose Instruction: Take 1 tablet by mouth twice daily Rx Instructions: Take 1 tablet by mouth twice daily rosuvastatin 20 mg tablet 20 mg PO DAILY 90 Days Qty: 90 1RF Hold Instructions: Resume on 10/25/19. after follow up of liver function with PMD famotidine 20 mg tablet See Rx Instructions .ROUTE .COMPLEX Qty: 180 1RF Dose Instruction: Take 1 tablet by mouth twice daily Rx Instructions: Take 1 tablet by mouth twice daily tramadol 50 mg tablet 50 mg PO BID PRN (Reason: pain) Qty: 60 2RF (DME) blood-glucose meter [Accu-Chek Alyson Plus Meter] Misc See Rx Instructions .ROUTE .MEDSUPPLY Qty: 1 0RF Rx Instructions: As directed (DME) Accu-Chek Alyson Plus test strp Strip See Rx Instructions .ROUTE .MEDSUPPLY Qty: 100 3RF Rx Instructions: twice daily levothyroxine [Synthroid] 112 mcg tablet See Rx Instructions .ROUTE .COMPLEX Qty: 90 0RF Dose Instruction: Take 1 tablet by mouth once daily Rx Instructions: Take 1 tablet by mouth once daily (DME) Bone Growth Stimulator See Rx Instructions .Route .MEDSUPPLY Qty: 1 0RF Rx Instructions: As directed gabapentin 300 mg capsule See Rx Instructions .ROUTE .COMPLEX Qty: 180 0RF Dose Instruction: TAKE 1 CAPSULE BY MOUTH THREE TIMES DAILY Rx Instructions: TAKE 1 CAPSULE BY MOUTH THREE TIMES DAILY metoprolol tartrate 50 mg tablet 50 mg PO BID Qty: 90 0RF acetaminophen [Acetaminophen Extra Strength] 500 mg Tablet 1,000 mg PO PRN Tums See Rx Instructions .ROUTE .COMPLEX Rx Instructions: prn Vitamin B-12 1 tab PO DAILY aspirin 81 mg Tablet,Delayed Release (Dr/Ec) 81 mg PO DAILY Discharge Orders: Discharge Order (Routine); Ordered 10/12/23 Ordered By: Parminder Turner Discharge Diet: Advance as tolerated Discharge Activity: Limit activity as instructed Patient Instructions: Opioid Safety Activity Restrictions/Additional Instructions: Follow-up with primary care doctor for blood pressure issues. Thank you for [facility] for your care! The following is a list of instructions, from your provider, to follow upon your discharge to ensure you have the optimal recovery from your recent injury orsurgery. Follow-up care is a bundy part of your treatment and safety. Be sure to make and go to all appointments, and call your doctor if you are having problems. If you do not already have a follow-up appointment made, call Dr. Turner office in the next 1-3 days to make follow up appointment for 1 weeks at [phone]. It is also a good idea to know your test results and keep a list of the medicines you take. Medications will be prescribed for you at your provider's discretion. These medications are to be used as instructed; if they are taken more often that prescribed they will not be refilled early and in most cases will not be refilled at all. > When a refill is needed,you should contact [facility] 2-3 business days before your prescription runs out. Medications will NOT be refilled by electronic console display operator providers after hours! > Many pain medications contain Tylenol (Acetaminophen). Do not consume more than 4,000 mg of Tylenol per day in total with any combination ofmedications. > Pain medications can cause constipation. Please use an over the counter stool softener as directed, while taking pain medications. Consulty our local pharmacist with questions or recommendations on stool softeners. If constipation persists, contact our office or your primary care provider. > While under our care,you are not to receive pain medications or other controlled substances from any other provider unless our office is notified and approves. Any attempts to do so will result in refusal to prescribe any further pain medications and possible dismissal from our practice. ? Your wound and/or dressing should remain clean and dry for 7 days after surgery. On postoperative day 7 we will change in the office Pad dry afterwards. No further dressing should be required from that point on. Do not put any creams or ointments on theincision > It is normal for there to be a small amount of discharge (bloody or blood tinged) present from a surgical wound for the first 1-3days. > The wound should be examined twice a day for signs of infection. Mild redness or bruising is to be expected but indications that an infection maybe starting would include; An increase in redness, swelling, or discharge, a foul odor present around the incision, and/or a fever greater than 101 ?F ? Showering is permitted, however we ask that you do not take a bath, sit in a whirlpool / Jacuzzi, or go swimming for 1 month. For only the first 2 days after surgery, lt wilt be necessary for you to cover your wound/dressing with plastic and tape to keep it dry. ? Walking is essential for the healing process after surgery. We would like you to slowly advance your walking. This should be done on relatively flat clear ground (inside or out) or can be done on a treadmill. Remember this goal does not have to happen all at once, slowly increase your distance and duration. This can be broken into more more than one walk per day as tolerated. Patients who walk as directed after surgery rarely require Physical Therapy. In the unlikely event this issue arises your provider will direct hospital staff to make the appropriate arrangements. ? No lifting over 5 pounds {a gallon of milk) or bending/twisting until further notice. Each of these activities places an unnecessary amount of stress onto the body and can impede the delicate healing process. > Instead of bending at the waist, keep your back straight and bend at the knees. > Instead of twisting your torso, keep your back straight and turn your entire body with your feet. ? You may sleep in any position which makes you comfortable. Many patients find comfort sleeping in a reclining chair. It is not abnormal to have difficulty sleeping for the first several weeks following your surgery. We recommend trying Benadry! or Tylenol PM as directed to help with your sleeping difficulties. Both medications are over the counter and available withoutprescription. ? NO SMOKING!!! Smoking dramatically increases the probability of developing postoperative wound infections. ? Common complaints after lumbar and/or thoracic spine surgery include, but are not limited to: numbness and/or tingling in the legs, pain around the incision and surrounding tissues, muscle spasms, or stiffness of the middle to low back. Contact our office if these symptoms persist or if an acute change occurs. ? No driving for the first 3-5days, and not while taking narcotics [] until seen at your follow-up appointment and cleared. There are no restrictions for riding on short trips, however if you take a longer trip, arrangements should be made to make regular stops to get out of the vehicle and stretch . ? Swelling is an unfortunate event that will take place with any surgery and is the primary source of your postoperative discomfort. While walking and regular approved activities helps control inflammation, there are ad ditional steps you can take to minimizeswelling. > Place ice over the surgical site and surrounding tissue for twenty minutes, followed by applying a low/medium heat (heating pad) for an additional twenty minutes every 1-2 hours as needed for painrelief. > You may use of over the counter anti-inflammatory medications (Ibuprofen, Motrin, Aleve, Advil, etc) as directed on the package label. These types of medicines wm significantly reduce the amount of discomfort you experience after surgery from swelling. It should be noted that if you have and allergy to any of these medications, or a history of ulcers or kidney disease you should consult you primary care provider prior to starting these medications. Discharge Attestations Time Spent in Discharge Care*: less than 30 min Quality Metrics Clinical Quality Measures [ No reported AMI, CVA or VTE this stay] Coding Level of Care Code Acute Code for Chg Jessica
--- NOTE | 2023-10-12 10:42 | PC.NURSE ---
hemovac drain removed from patient by this nurse. Tip of drain intact and patient tolerated well.
== END 2023-10-12 11:55 | disposition home or self-care (01) | DRG 460 ==
LOC: MEDSURG 10-12 07:11
PROVIDERS: Admitting Provider Orthopaedic Surgery; PCP Family Medicine; Visit Provider Orthopaedic Surgery
PROC: 0SG10K1 Fusion of 2 or more Lumbar Vertebral Joints with Nonautologous Tissue Substitute, Posterior Approach, Posterior Column, Open Approach (ICD-10-PCS; principal; 2023-10-11 11:35)
PROC: 0SG10K1 Fusion of 2 or more Lumbar Vertebral Joints with Nonautologous Tissue Substitute, Posterior Approach, Posterior Column, Open Approach (ICD-10-PCS; 2023-10-11 11:35)
PROC: 0SG10K1 Fusion of 2 or more Lumbar Vertebral Joints with Nonautologous Tissue Substitute, Posterior Approach, Posterior Column, Open Approach (ICD-10-PCS; CPT 27280; 2023-10-11 11:35)
DX: M96.0 Pseudarthrosis after fusion or arthrodesis (principal); M51.16 Intervertebral disc disorders with radiculopathy, lumbar region; M48.062 Spinal stenosis, lumbar region with neurogenic claudication; I25.10 Atherosclerotic heart disease of native coronary artery without angina pectoris; J44.9 Chronic obstructive pulmonary disease, unspecified; E11.40 Type 2 diabetes mellitus with diabetic neuropathy, unspecified; E78.5 Hyperlipidemia, unspecified; I10 Essential (primary) hypertension; G47.31 Primary central sleep apnea; M81.0 Age-related osteoporosis without current pathological fracture; E66.01 Morbid (severe) obesity due to excess calories; E89.0 Postprocedural hypothyroidism; Z79.82 Long term (current) use of aspirin; Z79.84 Long term (current) use of oral hypoglycemic drugs; Z95.5 Presence of coronary angioplasty implant and graft; Z91.199 Patient's noncompliance with other medical treatment and regimen due to unspecified reason; Z87.891 Personal history of nicotine dependence; Z68.37 Body mass index [BMI] 37.0-37.9, adult
CPT/HCPCS: 36415; 36416; 51702; 72100; 76000; 82962; 85025; 86850; 86900; 97116; 97161; C1713; J0690; J1100; J1885; J2250; J2270; J2405; J2704; J2710; J3010; J3370; J3490; J7030; J7120

== ENCOUNTER → 2023-10-24 08:17 | Outpatient (BNVA) | payer MEDICAID, SELFPAY | PROVIDERS: PCP Family Medicine; Visit Provider Orthopaedic Surgery | DX: Z98.1 Arthrodesis status (principal) | CPT/HCPCS: 99024 ==

== ENCOUNTER → 2023-10-27 07:34 | Outpatient (BNVA) | payer MEDICAID, SELFPAY | PROVIDERS: PCP Family Medicine; Visit Provider Internal Medicine | DX: E89.0 Postprocedural hypothyroidism (principal); K29.50 Unspecified chronic gastritis without bleeding; Z79.890 Hormone replacement therapy; Z79.84 Long term (current) use of oral hypoglycemic drugs | CPT/HCPCS: 99214 ==

== ENCOUNTER → 2024-02-15 13:58 | Outpatient (BNVA) | payer MEDICAID, SELFPAY | PROVIDERS: PCP Family Medicine; Visit Provider Orthopaedic Surgery | DX: M48.062 Spinal stenosis, lumbar region with neurogenic claudication (principal); Z98.1 Arthrodesis status | CPT/HCPCS: 72100; 99213 ==

== ENCOUNTER → 2024-02-20 08:27 | Outpatient (BNVA) | payer MEDICAID, SELFPAY | PROVIDERS: PCP Family Medicine; Visit Provider Family Medicine | DX: D50.0 Iron deficiency anemia secondary to blood loss (chronic) (principal); I10 Essential (primary) hypertension; I25.10 Atherosclerotic heart disease of native coronary artery without angina pectoris; E78.2 Mixed hyperlipidemia; E11.9 Type 2 diabetes mellitus without complications; M81.0 Age-related osteoporosis without current pathological fracture | CPT/HCPCS: 80053; 82607; 82652; 83550; 83735; 85025 ==

== ENCOUNTER → 2024-05-14 12:44 | Outpatient (BNVA) | payer MEDICAID, SELFPAY | PROVIDERS: PCP Family Medicine; Visit Provider Orthopaedic Surgery | DX: Z98.890 Other specified postprocedural states (principal); Z98.1 Arthrodesis status; T84.84XA Pain due to internal orthopedic prosthetic devices, implants and grafts, initial encounter; Y79.2 Prosthetic and other implants, materials and accessory orthopedic devices associated with adverse incidents | CPT/HCPCS: 36415; 72100; 80053; 81001; 83036; 85025; 99214 ==

== ENCOUNTER → 2024-08-19 16:07 | Outpatient (BNVA) | payer MEDICARE, MEDICAID, SELFPAY | PROVIDERS: PCP Family Medicine; Visit Provider Family Medicine | DX: D50.0 Iron deficiency anemia secondary to blood loss (chronic) (principal) | CPT/HCPCS: 83540; 85025 ==

== ENCOUNTER 2024-08-28 08:43 | Day surgery (SDC) | payer MEDICARE, MEDICAID, SELFPAY ==
[2024-08-28] VITALS (11 sets, daily range): BP systolic 107–168; BP diastolic 57–74; PULSE 58–86; RESP 15–18; TEMP 36.1–36.6; O2SAT 95–100; BMI 35.5
--- NOTE | 2024-08-28 09:16 | ANES.PREANE2 ---
Pre-Anesthetic Assessment Height/Weight: Height 4 ft 10 in Weight 170 lb Temp Pulse Resp BP Pulse Ox O2 Del Method 97.9 F 58 L 17 152/73 100 Room Air 08/28/24 09:04 08/28/24 09:04 08/28/24 09:04 08/28/24 09:04 08/28/24 09:04 08/28/24 09:04 Preop Diagnosis: Painful orthopedic hardware lumbar spine Operation Date: 08/28/24 10:45 Proposed Procedures p Hardware Removal Iliac Screw(Bilateral) - Parminder Turner, DO Was Beta Marisel taken within 24 hours: Yes Was Clonidine taken within 24 hours: N/A Last intake: Intake Last Liquid Date 08/27/24 Last Liquid Time 23:30 Last Solid Date 08/27/24 Last Solid Time 15:00 Social Tobacco and No alcohol Exam alert, oriented x 3, clear to auscultation bilaterally and regular rate & rhythm Airway Submandibular: within normal limits Cervical ROM: within normal limits Mallampati: Class III Comments: Comments: Edentulous Anesthetic Plan ASA status: 3 Anesthesia: General Other: No prior issues with anesthesia NPO since yesterday evening History of CAD, s/p stent x 2 in 1991. Only takes baby aspirin Hypothyroidism on Synthroid Hypertension on losartan and metoprolol. BB taken yesterday Type 2 diabetes, no insulin. COPD, still smoking. Occasional inhalers Labs 08/19/2024 reviewed acceptable for procedure today Prior EKG showing sinus rhythm with a mild T wave abnormality Plan for general anesthesia Medications/Allergies Home Medications ?Medication ?Instructions ?Recorded ?Confirmed ?Last Taken ?Type nitroglycerin 0.4 mg sublingual 0.4 mg sublingual PRN PRN Chest 06/14/19 08/27/24 Unknown History tablet (Nitrostat) Pain wheelchair #1 ea 10/17/19 08/19/24 Unknown Rx diabetic shoes #1 ea 01/22/20 08/19/24 Unknown Rx blood sugar diagnostic (Accu-Chek #100 ea 04/06/20 08/19/24 Unknown Rx Alyson Plus test strips) blood-glucose meter (Accu-Chek #1 ea 04/06/20 08/19/24 Unknown Rx Alyson Plus Meter) Tums 1 tab PO DIRECTED 04/08/20 08/27/24 10/09/23 History acetaminophen 500 mg tablet 1,000 mg PO PRN 04/08/20 08/27/24 08/27/24 History (Acetaminophen Extra Strength) aspirin 81 mg tablet,delayed 81 mg PO DAILY 07/07/20 08/27/24 08/23/24 History release albuterol sulfate 90 mcg/actuation 2 puff inhalation QID PRN 12/24/20 08/27/24 06/13/24 Rx aerosol inhaler (ProAir HFA) Shortness Of Breath 90 days #8.5 grams cholecalciferol (vitamin D3) 50 50 mcg PO DAILY #90 caps 02/26/24 08/28/24 08/27/24 Rx mcg (2,000 unit) capsule metoprolol tartrate 50 mg tablet 50 mg PO BID #180 tabs 05/13/24 08/27/24 08/27/24 Rx tramadol 50 mg tablet 50 mg PO BID PRN pain #60 tabs 08/12/24 08/27/24 08/27/24 Rx losartan 25 mg tablet 25 mg PO DAILY #90 tabs 08/19/24 08/27/24 08/27/24 Rx ferrous gluconate 324 mg (38 mg 324 mg PO DAILY #90 tabs 08/20/24 08/27/24 Unknown Rx iron) tablet famotidine 20 mg tablet 20 mg PO BID 08/27/24 08/27/24 08/27/24 History gabapentin 300 mg capsule 300 mg PO TID 08/27/24 08/27/24 08/27/24 History levothyroxine 125 mcg tablet 125 mcg PO DAILY 08/27/24 08/27/24 08/27/24 History (Synthroid) metformin 500 mg tablet,extended 500 mg PO BID 08/27/24 08/27/24 08/27/24 History release 24 hr rosuvastatin 20 mg tablet 20 mg PO DAILY 08/27/24 08/27/24 08/27/24 History Allergies Allergy/AdvReac Type Severity Reaction Status Date / Time amlodipine Allergy ADR-Dizzine Verified 08/19/24 14:30 ss clavulanic acid (From Allergy Unknown Verified 08/19/24 14:30 Augmentin) hydrocodone Allergy urinary Verified 08/19/24 14:30 retention levofloxacin (From Levaquin) Allergy ADR-Dizzine Verified 08/19/24 14:30 ss omeprazole Allergy chest pain Verified 08/19/24 14:30 prednisone Allergy SOB Verified 08/19/24 14:30 [facility] Anesthesia Medical History Iron deficiency anemia, unspecified has seen hematology--has had iron infusions; gets scopes for GI bleeds at [facility] in [place] Nicotine dependence, cigarettes, with other nicotine-induced disorders Vitamin D deficiency Encounter for chronic pain management Postlaminectomy syndrome of lumbar region Gastritis Chronic constipation Encounter for screening for malignant neoplasm of lung Smoking CAD (coronary artery disease) hx of stents Sensorimotor neuropathy Multifocal Sacral fracture, closed Osteoporosis Spondylolisthesis, lumbar region Dysphonia Vocal cord polyp Postnasal drip Chronic sinusitis Nasal turbinate hypertrophy Deviated septum Type 2 diabetes mellitus without complications Trigger ring finger of right hand Hyperlipidemia Central sleep apnea Essential hypertension Neuropathic peripheral nerve Lumbar stenosis with neurogenic claudication Intervertebral disc disorders with radiculopathy, lumbar region Surgical History History of thyroidectomy, total 03.02.20 [facility] History of lumpectomy of both breasts fibrocysts removed History of lumbar surgery Dr. Turner-lumbar decompression; has now had total of 4 lumbar surgeries total History of thyroidectomy 03/02/2020 [facility]. History of appendectomy Hx of hand surgery trigger finger surgeries--multiple H/O: hysterectomy PINKY w/ BSO done for benign fibroids; no cancer H/O breast biopsy benign History of bladder surgery bladder tie up H/O heart artery stent 2 stents Family History Father CAD (coronary artery disease) Hypertension Cancer Diabetes Mother CAD (coronary artery disease) Hypertension Grandmother Cancer Diabetes Social History Smoking and tobacco/nicotine status: current every day tobacco/nicotine user cigarettes Packs smoked per day: 2 Years cigarettes smoked: 55 [ Other cigarette details: 2ppd X 55 yrs; started age 8; 110 pk yr hx; ] Alcohol intake: never Substance/Drug Use: never Lives independently: Yes Household members: spouse Marital status: Number of children: 2 Highest education level completed: 9th Grade Current occupational status: disabled 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
--- NOTE | 2024-08-28 09:17 | W.PM.OPSFHP ---
Same Day Surgery H&P Indication for Procedure/HPI DATE OF PROCEDURE: August 28, 2024 CHIEF COMPLAINT/INDICATIONFOR SURGICAL PROCEDURE: Low back pain PREOP DIAGNOSIS: Painful orthopedic hardware lumbar spine PLANNED PROCEDURE: Operation Date: 08/28/24 10:45 Proposed Procedures p Hardware Removal Iliac Screw(Bilateral) - Parminder Turner, DO Medications/Allergies* Home Medications ?Medication ?Instructions ?Recorded ?Confirmed ?Type nitroglycerin 0.4 mg sublingual 0.4 mg sublingual PRN PRN Chest 06/14/19 08/27/24 History tablet (Nitrostat) Pain Tums 1 tab PO DIRECTED 04/08/20 08/27/24 History acetaminophen 500 mg tablet 1,000 mg PO PRN 04/08/20 08/27/24 History (Acetaminophen Extra Strength) aspirin 81 mg tablet,delayed 81 mg PO DAILY 07/07/20 08/27/24 History release famotidine 20 mg tablet 20 mg PO BID 08/27/24 08/27/24 History gabapentin 300 mg capsule 300 mg PO TID 08/27/24 08/27/24 History levothyroxine 125 mcg tablet 125 mcg PO DAILY 08/27/24 08/27/24 History (Synthroid) metformin 500 mg tablet,extended 500 mg PO BID 08/27/24 08/27/24 History release 24 hr rosuvastatin 20 mg tablet 20 mg PO DAILY 08/27/24 08/27/24 History Allergies/Adverse Reactions Allergy/AdvReac Type Severity Reaction Status Date / Time amlodipine Allergy ADR-Dizzine Verified 08/19/24 14:30 ss clavulanic acid (From Allergy Unknown Verified 08/19/24 14:30 Augmentin) hydrocodone Allergy urinary Verified 08/19/24 14:30 retention levofloxacin (From Levaquin) Allergy ADR-Dizzine Verified 08/19/24 14:30 ss omeprazole Allergy chest pain Verified 08/19/24 14:30 prednisone Allergy SOB Verified 08/19/24 14:30 Pertinent History/Comorbid Conditions* Medical History (Updated 08/19/24 @ 15:52 by Zainab Luna MD) Iron deficiency anemia, unspecified has seen hematology--has had iron infusions; gets scopes for GI bleeds at [facility] in [facility] Nicotine dependence, cigarettes, with other nicotine-induced disorders Vitamin D deficiency Encounter for chronic pain management Postlaminectomy syndrome of lumbar region Gastritis Chronic constipation Encounter for screening for malignant neoplasm of lung Smoking CAD (coronary artery disease) hx of stents Sensorimotor neuropathy Multifocal Sacral fracture, closed Osteoporosis Spondylolisthesis, lumbar region Dysphonia Vocal cord polyp Postnasal drip Chronic sinusitis Nasal turbinate hypertrophy Deviated septum Type 2 diabetes mellitus without complications Trigger ring finger of right hand Hyperlipidemia Central sleep apnea Essential hypertension Neuropathic peripheral nerve Lumbar stenosis with neurogenic claudication Intervertebral disc disorders with radiculopathy, lumbar region Surgical History (Updated 02/20/24 @ 10:06 by Zainab Luna MD) History of thyroidectomy, total 03.02.20 [facility] History of lumpectomy of both breasts fibrocysts removed History of lumbar surgery Dr. Turner-lumbar decompression; has now had total of 4 lumbar surgeries total History of thyroidectomy 03/02/2020 [facility]. History of appendectomy Hx of hand surgery trigger finger surgeries--multiple H/O: hysterectomy PINKY w/ BSO done for benign fibroids; no cancer H/O breast biopsy benign History of bladder surgery bladder tie up H/O heart artery stent 2 stents Family History (Updated 06/14/19 @ 14:23 by Vdihi Santana LPN) Diabetes Father Grandmother CAD (coronary artery disease) Father Mother Cancer Father Grandmother Hypertension Father Mother Social History Smoking and tobacco/nicotine status: current every day tobacco/nicotine user cigarettes Packs smoked per day: 2 Years cigarettes smoked: 55 [ Other cigarette details: 2ppd X 55 yrs; started age 8; 110 pk yr hx; ] Alcohol intake: never Substance/Drug Use: never Lives independently: Yes Household members: spouse Marital status: Number of children: 2 Highest education level completed: 9th Grade Current occupational status: disabled 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
[2024-08-28] MEDS: sodium chloride 0.9% 1,000 ML 30 ML IV (09:19)
[2024-08-28] MEDS: ceFAZolin 2,000 mg SDV 2000 MG IVP (09:42)
[2024-08-28 10:05] LABS: Glucose Point of Care 148 mg/dL (70-110)
[2024-08-28] MEDS: VANCOMYCIN ADD-Vantage 1,000 MG VIAL 1000 MG XX (10:14)
[2024-08-28] MEDS: lidocaine-epi 1% 20 mL INJ INJECTION (10:15)
--- NOTE | 2024-08-28 11:22 | PM.OP ---
Operative Report Date of procedure: August 28, 2024 Pre-op diagnosis: Painful orthopedic hardware lumbar spine Post-op diagnosis: same Procedure done: Removal of deep hardware from lumbar spine bilateral iliac screws Surgeon: Parminder Turner DO Estimated blood loss (mL): 10 Procedure: Removal of deep hardware from lumbar spine bilateral iliac screws Patient brought the operative suite after undergoing anesthesia was placed in the prone position. All areas impingement well-padded. Patient's prepped and draped normal sterile fashion. Skin incisions made over the lower lumbar area using the previous incision. A Wiltsie approach was used bilaterally to get to the screw heads. Incision was made through the fascia screw head was identified the screw Was removed. The armand was identified. The armand was then cut. This was done on both the right and the left sides. Wounds were irrigated vancomycin powder was placed and wounds closed in layered fashion with 0 Vicryl 2-0 Vicryl and Monocryl suture. Sterile dressings were applied patient transferred to the PACU in stable condition.
--- NOTE | 2024-08-28 11:43 | XR_ITS ---
WS: [id number] Exam: XR lumbar spine 1V [id number] Date/Time of Exam: 08/28/2024 11:43 AM Reason For Exam: OR PIC, hardware removal Anterior posterior intraoperative images of the lower lumbar and sacral spine are submitted. Images obtained for intraoperative purposes.
--- NOTE | 2024-08-28 12:21 | SUR.PHASEII ---
Patient states her back feels better now than it did before surgery.
--- NOTE | 2024-08-28 12:31 | ANE.PACU2 ---
Inpatient post-anesthesia follow up: Airway intact: Yes Vital signs: Temperature 97.0 F Pulse Rate 69 Respiratory Rate 16 Blood Pressure 122/59 Pulse Oximetry 97 Oxygen Delivery Me thod Room Air Oxygen Flow Rate 6 Fraction of Inspir ed Oxygen Hydration adequate: Yes Nausea and vomiting: No Pain level: 2 Mental status: Baseline
== END 2024-08-28 12:31 | disposition home or self-care (01) ==
PROVIDERS: PCP Family Medicine; Visit Provider Orthopaedic Surgery
PROC: (CPT 20680; principal; 2024-08-28 10:25)
DX: T84.84XA Pain due to internal orthopedic prosthetic devices, implants and grafts, initial encounter (principal); Y79.3 Surgical instruments, materials and orthopedic devices (including sutures) associated with adverse incidents; I25.10 Atherosclerotic heart disease of native coronary artery without angina pectoris; I10 Essential (primary) hypertension; E78.5 Hyperlipidemia, unspecified; E89.0 Postprocedural hypothyroidism; E11.9 Type 2 diabetes mellitus without complications; F17.210 Nicotine dependence, cigarettes, uncomplicated; J44.9 Chronic obstructive pulmonary disease, unspecified; Z79.82 Long term (current) use of aspirin; G47.31 Primary central sleep apnea; Z79.890 Hormone replacement therapy; Z79.84 Long term (current) use of oral hypoglycemic drugs; Z88.5 Allergy status to narcotic agent; Z88.8 Allergy status to other drugs, medicaments and biological substances; Z79.899 Other long term (current) drug therapy; Z95.5 Presence of coronary angioplasty implant and graft
CPT/HCPCS: 20680; 36416; 72020; 76000; 82962; J0690; J2250; J2704; J3010; J3370; J7030; J9999

== ENCOUNTER → 2024-09-12 14:19 | Outpatient (BNVA) | payer MEDICARE, MEDICAID, SELFPAY | PROVIDERS: PCP Family Medicine; Visit Provider Orthopaedic Surgery | DX: Z48.89 Encounter for other specified surgical aftercare (principal) | CPT/HCPCS: 99024 ==

== ENCOUNTER 2024-09-20 11:25 | Outpatient (CLI) | payer MEDICARE, MEDICAID, SELFPAY ==
--- NOTE | 2024-09-20 12:00 | CT_ITS ---
WS: [id number] LDCT LUNG CANCER SCREENING HISTORY: smoker; 116 pk yr; screening TECHNIQUE: Axial imaging performed from the apices to 1 cm below the costophrenic angles. Coronal and sagittal reformats are submitted with axial MIP series. All CT scans at [facility] use at least one of these dose optimization techniques: automated exposure control; mA and/or kV adjustment per patient size (includes targeted exams where dose is matched to clinical indication); or iterative reconstruction. DLP: 104.79 mGy.cm DIvol: Mean CTDIvol: 2.50 (mGy) COMPARISON: 09/10/2021, 07/06/2023 Diagnostic quality: Satisfactory Lungs: There are several benign granulomata. Largest in the LEFT upper lobe and along the LEFT fissure. Numerous very small LEFT upper lobe pulmonary nodules are stable. There is an additional 3 mm nodule superior segment LEFT lower lobe. No new or enlarging pulmonary nodule. No endobronchial lesions. Heart: Normal size heart with no pericardial effusion.. Other findings: Dense coronary artery calcifications. Pulmonary artery size is equal to the aorta. No adenopathy. Small hiatal hernia. No adrenal mass. Liver is enlarged. CT/CT lung screening [id number] IMPRESSION: LUNG-RADS: 2-Benign Appearance or Behavior FOLLOW UP: 12 Month: Continue annual screening with LDCT OTHER FINDINGS (S MODIFIER): None.
== END 2024-09-20 11:26 | disposition home or self-care (01) ==
PROVIDERS: PCP Family Medicine; Visit Provider Family Medicine
DX: Z12.2 Encounter for screening for malignant neoplasm of respiratory organs (principal); F17.218 Nicotine dependence, cigarettes, with other nicotine-induced disorders; J84.10 Pulmonary fibrosis, unspecified; R91.8 Other nonspecific abnormal finding of lung field; I25.10 Atherosclerotic heart disease of native coronary artery without angina pectoris; K44.9 Diaphragmatic hernia without obstruction or gangrene; R16.0 Hepatomegaly, not elsewhere classified
CPT/HCPCS: 71271

== ENCOUNTER → 2024-10-10 10:19 | Outpatient (BNVA) | payer MEDICARE, MEDICAID, SELFPAY | PROVIDERS: PCP Family Medicine; Visit Provider Orthopaedic Surgery | DX: M54.9 Dorsalgia, unspecified (principal); Z48.89 Encounter for other specified surgical aftercare | CPT/HCPCS: 36415; 72100; 80053; 80061; 82044; 83036; 83721; 84439; 84443; 99024 ==

== ENCOUNTER 2024-10-24 10:04 | Outpatient (CLI) | payer MEDICARE, MEDICAID, SELFPAY ==
--- NOTE | 2024-10-24 10:30 | US_ITS ---
WS: [id number] THYROID ULTRASOUND HISTORY: see below COMPARISON: 08/19/2022 Complete prior thyroidectomy. No recurrent mass or pathologically enlarged lymph nodes within the neck. There are a few benign cervical chain lymph nodes. US/US thyroid [id number] IMPRESSION: 1. Status post thyroidectomy. No recurrent mass. 2. No cervical chain pathologically enlarged lymph nodes.
== END 2024-10-24 10:05 | disposition home or self-care (01) ==
LOC: RAD 10:05
PROVIDERS: PCP Family Medicine; Visit Provider Internal Medicine
DX: E89.0 Postprocedural hypothyroidism (principal); Z98.890 Other specified postprocedural states; R59.0 Localized enlarged lymph nodes
CPT/HCPCS: 11721; 76536; 99204

== ENCOUNTER 2024-11-05 08:18 | Outpatient (CLI) | payer MEDICARE, MEDICAID, SELFPAY ==
[2024-11-05] MEDS: iohexol 350 mg/mL 500 mL Btl (per mL) IV (08:56)
--- NOTE | 2024-11-05 09:15 | CTR_ITS ---
PROCEDURE INFORMATION: Exam: CTA Abdominal Aorta and Bilateral Lower Extremities (Run-off) With Contrast Exam date and time: 11/05/2024 8:51 AM Age: 64 years old Clinical indication: Other: Discoloration of toes; Prior surgery; Surgery date: 6+ months; Surgery type: Appy, total hysterectomy, lspine; Additional info: Blockages, toe discoloration TECHNIQUE: Imaging protocol: Computed tomographic angiography of the of the abdominal aorta, pelvis and bilateral lower extremities with contrast. 3D rendering (Not supervised by radiologist): MIP and/or 3D reconstructed images were created by the technologist. Radiation optimization: All CT scans at this facility use at least one of these dose optimization techniques: automated exposure control; mA and/or kV adjustment per patient size (includes targeted exams where dose is matched to clinical indication); or iterative reconstruction. Contrast material: OMNIPAQUE 350; Contrast volume: 125 ml; Contrast route: INTRAVENOUS (IV); COMPARISON: 1. CT angio chest w abd pel w con 10/09/2019 10:[address] abdomen pelvis wo/w [id number] 08/12/2022 2:25 PM RADIATION DOSE METRICS: Total DLP (mGy-cm): 1477.62 FINDINGS: Aorta: No aortic aneurysm. No aortic dissection. Moderate calcified and noncalcified plaques throughout the abdominal aorta. Celiac trunk and mesenteric arteries: Moderate stenosis along the proximal splenic artery due to atherosclerotic plaques (for example series 5, images 91-99 and series 9, image 172). Otherwise the celiac trunk and its branch arteries are patent. Moderate to severe stenosis along the proximal 4 cm of the superior mesenteric artery, most pronounced near the ostium where the lumen is narrowed to 2 mm due to atherosclerotic plaques. Renal arteries: No occlusion or significant stenosis. Right iliac arteries: Intermittent moderate stenosis of the right common and external iliac arteries due to atherosclerotic plaques. Moderate to severe stenosis along the origin of the internal iliac artery with areas of moderate stenosis intermittently along the course of the artery. Right femoral/popliteal arteries: Moderate stenosis along the common femoral artery. Severe stenosis of the origin of the superficial femoral artery with high-grade stenosis/occlusion of the superficial femoral artery beginning in the upper to mid thigh and extending along an approximate 5 cm segment with some distal reconstitution, though the artery remains severely narrowed. The popliteal artery is patent with areas of [id number] stenosis. Right infrapopliteal arteries: The tibioperoneal trunk is patent with areas of mild stenosis. The anterior tibial artery is patent and gives rise to the dorsalis pedis artery, though the latter is not well opacified on this examination, suggesting at least a degree of stenosis. The posterior tibial artery is patent to the distal lower leg. The peroneal artery has areas of severe stenosis with high-grade stenosis/occlusion in the mid to distal lower leg with distal reconstitution near the ankle. Left iliac arteries: Moderate to severe stenosis of the left common iliac artery with areas of intermittent moderate stenosis along the external iliac artery. Severe stenosis of the origin of the internal iliac artery. Left femoral/popliteal arteries: Areas of [id number] stenosis along the common femoral artery with moderate to severe stenosis of the superficial femoral artery which is otherwise patent throughout its course. The popliteal artery is patent with areas of mild stenosis. Left infrapopliteal arteries: The tibioperoneal trunk is patent. The anterior tibial artery is patent and gives rise to the dorsalis pedis artery. The posterior tibial artery is patent to the level of the ankle. The peroneal artery has areas of moderate to severe stenosis but appears patent to the distal lower leg where it becomes diminutive and possibly occluded. Lungs: Mild bibasilar atelectasis. Heart: Reflux of contrast into the IVC and hepatic veins can be seen with tricuspid regurgitation and/or elevated right heart pressures. Liver: No mass. Gallbladder and biliary ducts: Unremarkable. No calcified stones. No ductal dilation. Pancreas: Unremarkable. No mass. No ductal dilation. Spleen: Normal. No splenomegaly. Adrenal glands: Normal. No mass. Kidneys and ureters: Normal. No mass. Stomach and bowel: Sigmoid diverticulosis without evidence of acute diverticulitis. No bowel obstruction. Appendix: Status post appendectomy. Urinary bladder: Unremarkable. No mass. Reproductive: Status post hysterectomy. No suspicious adnexal mass. Intraperitoneal space: Unremarkable. No free air. No significant fluid collection. Lymph nodes: No lymphadenopathy. Bones/joints: Posterior instrumented fusion again seen from L3-S1 with interbody fusion grafts at L4-L5 and L5-S1. Hardware appears intact without complication. Soft tissues: Unremarkable. CT/CT angio abd aorta runof [id number] IMPRESSION: 1. Severe atherosclerotic disease involving the abdominal aorta and its branch vessels into the lower extremities. 2. High-grade stenosis/occlusion of the right superficial femoral artery along an approximate 5 cm segment in the mid thigh. The artery appears to have distal reconstitution, likely from collateral flow. Three-vessel runoff is patent to the level of the mid lower leg, at which point the posterior tibial artery appears to have a segment of near-complete occlusion with distal reconstitution near the ankle. 3. Three-vessel runoff in the left lower extremity with areas of moderate to severe stenosis as detailed above. 4. Please see detailed description above for each of the arteries. 5. Moderate stenosis along the proximal segment of the splenic artery. 6. Severe stenosis at the origin of the superior mesenteric artery with moderate to severe stenosis along the proximal 4 cm of the artery. 7. Additional nonemergent findings as above.
== END 2024-11-05 08:19 | disposition home or self-care (01) ==
PROVIDERS: PCP Family Medicine; Visit Provider Podiatrist Foot & Ankle Surgery
DX: I70.202 Unspecified atherosclerosis of native arteries of extremities, left leg (principal); I70.291 Other atherosclerosis of native arteries of extremities, right leg; I70.0 Atherosclerosis of aorta; I70.8 Atherosclerosis of other arteries; K55.1 Chronic vascular disorders of intestine; J98.11 Atelectasis; R93.89 Abnormal findings on diagnostic imaging of other specified body structures; K57.30 Diverticulosis of large intestine without perforation or abscess without bleeding; Z98.890 Other specified postprocedural states; Z98.1 Arthrodesis status
CPT/HCPCS: 75635

== ENCOUNTER 2024-11-22 13:02 | Outpatient (CLI) | payer OTHER, MEDICAID, SELFPAY ==
--- NOTE | 2024-11-22 13:40 | MM_ITS ---
WS: [id number] BILATERAL 3D TOMOSYNTHESIS DIGITAL SCREENING MAMMOGRAPHY WITH CAD CLINICAL INFORMATION: sreening HISTORY: Screening mammogram. No current complaints. COMPARISON: 2022 TECHNIQUE: Bilateral CC and MLO views. FINDINGS: Scattered fibroglandular densities bilaterally. No suspicious focal mass, asymmetry, calcifications, or architectural distortion. No evidence of malignancy. Punctate and lucent centered calcifications. MM/MM scr BI tomosynthesis [id number] IMPRESSION: DENSITY: There are scattered areas of fibroglandular density. BI-RADS: 2 - Benign. FOLLOW UP: 1 Year Follow-up Recommend return to annual screening mammography.
== END 2024-11-22 13:03 | disposition home or self-care (01) ==
PROVIDERS: PCP Family Medicine; Visit Provider Family Medicine
DX: Z12.31 Encounter for screening mammogram for malignant neoplasm of breast (principal)
CPT/HCPCS: 77063; 77067

== ENCOUNTER 2024-11-29 12:16 | Outpatient (CLI) | payer OTHER, MEDICAID, SELFPAY ==
--- NOTE | 2024-11-29 12:45 | USCV_ITS ---
Dana Gusman Age: 64 Gender: F : 1960 Exam Date: 11/29/2024 12:44 Ordering Phys: Zainab Luna MD Technologist: [employer] Exam Location: [facility] – [place], [place] Indication: stenosis Risk Factors: Previous Vascular Surgery: Right Brachial BP: / Left Brachial BP: / Right Left Velocity (cm/s) Spectral Plaque Velocity (cm/s) Spectral Plaque Syst/Diast Broadening Syst/Diast Broadening 75.70/ 11.40 Prox CCA 79.00 / 12.30 72.00/ 14.20 Mid CCA 80.70 / 16.70 68.60/ 13.90 Distal CCA 63.70 / 9.20 45.50/ 10.00 Prox ICA 59.70 / 17.60 55.30/ 14.00 Mid ICA 75.50 / 20.70 48.90/ 11.90 Distal ICA 74.20 / 18.10 131.70 ECA 78.00 0.70 ICA/CCA 0.90 Antegrade Vertebral Antegrade 62.40/ 9.20 cm/s 28.60/ 7.70 cm/s Tri Subclavian Tri 98.90 88.50 FINDINGS Comparison:. 04/29/20 No significant elevation of systolic or diastolic velocities. Waveforms are normal. Mild scattered carotid plaque. Antegrade vertebral arteries. CONCLUSIONS No interval change in stenosis since prior exam. Bilateral ICA stenosis less than 50%. Mild carotid plaque. Dr. Luz Elena Canada DO (Electronically Signed) Final Date: 29 November 2024 13:23 S
== END 2024-11-29 12:17 | disposition home or self-care (01) ==
PROVIDERS: PCP Family Medicine; Visit Provider Family Medicine
DX: R09.89 Other specified symptoms and signs involving the circulatory and respiratory systems (principal); I65.23 Occlusion and stenosis of bilateral carotid arteries
CPT/HCPCS: 93880

== ENCOUNTER → 2024-12-19 14:53 | Outpatient (BNVA) | payer MEDICARE, MEDICAID, SELFPAY | PROVIDERS: PCP Family Medicine; Visit Provider Internal Medicine Cardiovascular Disease | DX: R07.9 Chest pain, unspecified (principal) | CPT/HCPCS: 93005 ==

== ENCOUNTER 2025-01-04 15:25 | Outpatient (CLI) | payer MEDICARE, MEDICAID, SELFPAY ==
[2025-01-04 16:08] LABS: Hematocrit 42.7 % (36-47); Hemoglobin 12.80 g/dL (11.27-16.99); Mean Corpuscular HGB Conc 30.0 g/dL (30-55); Mean Corpuscular Hemoglobin 25.4 pg (27-33); Mean Corpuscular Volume 84.7 fl (85-98); Nucleated Red Blood Cells % 0 %; Platelet Count 255 10^3/cmm (157-399); Red Blood Count 5.04 10^6/uL (3.85-5.65); White Blood Count 4.49 10^3/uL (3.29-11.43)
[2025-01-04 16:20] LABS: INR 0.86 (0.83-1.21)
[2025-01-04 16:28] LABS: Anion Gap 15.4 (5-19); Blood Urea Nitrogen 17 mg/dL (8-23); Calcium 9.6 mg/dL (8.5-10.5); Carbon Dioxide 26 mmol/L (22-29); Chloride 101 mmol/L (98-107); Glucose 115 mg/dL (65-115); Osmolality Calculated 288 mOsm/kg (285-295); Potassium 4.4 mmol/L (3.5-5.1); Sodium 138 mmol/L (136-145)
== END 2025-01-04 15:26 | disposition home or self-care (01) ==
PROVIDERS: PCP Family Medicine; Visit Provider Internal Medicine Cardiovascular Disease
DX: I73.9 Peripheral vascular disease, unspecified (principal); I10 Essential (primary) hypertension; R58 Hemorrhage, not elsewhere classified
CPT/HCPCS: 80048; 85025; 85610

== ENCOUNTER 2025-01-21 05:41 | Outpatient (CLI) | payer MEDICARE, MEDICAID, SELFPAY ==
[2025-01-21] VITALS (19 sets, daily range): BP systolic 104–177; BP diastolic 57–151; PULSE 67–90; RESP 13–21; TEMP 36.6–36.9; O2SAT 88–98; BMI 36.8
--- NOTE | 2025-01-21 07:00 | XACV_ITS ---
Ht: 147 cm Wt: 80 kg BSA: 1.85 m2 Any Known Allergies: Other Gender: Female : 1960 Exam Type: Invasive Peripheral Vascular Procedure(s): Procedure Description: Diagnostic procedure Procedure Description: Peripheral Cath Diagnostic Procedure Procedure Description: Abdominal aortic angiography Procedure Description: Lower extremities' angiography Procedure Description: Miscellaneous Procedure Description: ACT Exam Priority: Routine KHAMU2, Buenrostro; Conclusions Indication for peripheral angiogram: Severe bilateral claudication Catheters used: Pigtail through right radial approach abdominal aortic angiogram was performedAbdominal aortogram: Severe atherosclerosis in the distal abdominal aorta leading to severely narrowed lumen there is distal 99% occlusion before the bifurcation of both common iliac arteries Right renal artery: Patent Left renal artery: PatentAnterior SMA is 99% occludedRight common iliac: 100% occluded Right external iliac: Patent Right internal iliac: Luminal irregularity Right common femoral artery: Luminal Right profundofemoral artery: Diffuse disease Right SFA: Appeared to be occluded but insufficient contrast Right: Popliteal artery: Not well-visualized probably insufficient contrast Right: Tibioperoneal trunk: Not well-visualized probably insufficient contrast Right: Anterior tibial artery: Not well-visualized probably insufficient contrast Right anterior tibial artery: Not well-visualized probably insufficient contrast Right peroneal artery: Not well-visualized probably insufficient contrastLeft common iliac artery: 100% occluded at the ostium Left external iliac artery: Proximal to mid severe stenosis around 80 to 90% Left internal iliac artery: Luminal irregular Left common femoral artery: Luminal regular Left profundofemoral artery: Luminal irregularity Left SFA artery: Proximal segment has moderate stenosis, rest of the vessel has luminal irregularity Left popliteal artery: Patent Left tibioperoneal artery: Patent Left anterior tibial artery: Patent Left posterior tibial artery: Patent Left peroneal artery: Patent. Recommendations Refer to vascular surgery for aorto iliac and femoral bypass. Hemodynamic Data Phase:Rest AO : 161.0 / 70.0 ( 103.0 ) @ 9:14:00 AM 166.0 / 63.0 ( 110.0 ) @ 9:29:00 AM 191.0 / 72.0 ( 111.0 ) @ 9:53:00 AM 142.0 / 90.0 ( 116.0 ) @ 9:56:00 AM 140.0 / 90.0 ( 115.0 ) @ 10:00:00 AM 125.0 / 70.0 ( 93.0 ) @ 10:03:00 AM Access Site Site: Left Femoral artery Sheath Size: 6 Fr Hemost... Method: Suture Hemost... Success: Successful Site: Right Radial artery Sheath Size: 6 Fr Hemost... Method: TR Band Hemost... Success: Successful Procedure Details Findings Procedure Consent Obtained. Pre-Procedure Time Out. Identified patient by full name and date of as verbalized by the patient/guarantor. Does the consent match the physician's order: Yes. Accurate & Complete Informed Consent: Yes. Inpatient/Outpatient History & Physical on Chart: Yes. Visualize and Verify Site with Patient/Guarantor: N/A. If H&P is completed, is and addenduem needed: No. Relevant Radiology Images available: Yes. The risks, benefits, and alternatives of sedation and/or procedure were discussed by physician. The patient agrees to continue. Procedure started. 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 Correct patient, site and procedure confirmed by cath team. PERRLA. Strong, equal hand dock supervisor bilaterally. Lungs clear x 5 lobes. IV Site on Arrival: 20 gauge in the left anticubital. IV Fluids: 0.9% NaCl at KVO. 0 mL infused prior to laboratory mechanic helper. Pre Procedural Pulses: bilateral posterior tibial was Doppled. Pre Procedural Pulses: bilateral dorsalis pedis was Doppled. Pre Procedural Pulses: bilateral radial was 2+. Oxygen started at 2liters/min via nasal canula. bilateral groins was prepped with chloroprep then draped in the usual sterile fashion. Physician notified. Baseline sample Acquired. HR: 78 BPM. Patient's family in CPRU Room #4. Dr. Buenrostro will update at the completion of the procedure. Equipment: 6F - Femoral. Cardiac Cath Pack. ACIST Manifold Kit Model BT 2000. Heparinized Saline (2 units/mL), 1000 mL bag. Kit, Micropuncture. Physician arrived. Physician scrubbed in. Immediate Pre-Procedure Time Out. Correct Patient: Yes; Correct Procedure: Yes; Correct Site: Yes; Correct Patient Position: Yes; Correct Supplies: Yes; Dried Flammable Prep: Yes; Blood Products Available: N/A;. Lidocaine 1% infiltrated to the left groin. Ultrasound called to help with access. Haim Contreras ElectroCore tech here. Arterial access obtained with micropuncture set. A Left femoral angiogram was performed. A 5Fr UF catheter in over the standard J wire. Standard J wire out. 0.035 x 260cm stiff angled glidewire in. Glidewire out. Standard J wire in. Standard J wire out. Moving to right radial access. Side port of sheath attached to Heparinized Saline flush at KVO to maintain patency. Lidocaine 1% infiltrated to the right radial. Arterial access obtained. A 5 algerian JR4 catheter in over the exchange J wire. Exchange J wire out. Glidewire in. UF Catheter removed over the standard J wire on the left femoral. JR 4 Catheter removed over the exchange J wire. A 5 algerian MPA2 catheter in over the exchange J wire. MPA 2 Catheter removed over the exchange wire. A 5 algerian Angled Pig catheter in over the exchange J wire. Pigtail postioned above the bifurcation of the iliacs. Aortagram performed @ 10 mL/sec for a total of 30 mL. Pigtail postioned above the bifurcation of the iliacs. Aortagram performed @ 10 mL/sec for a total of 30 mL with runoff down the left leg. Pigtail catheter out over the exchange J wire. ACT drawn. Results 169 seconds. Therapeutic limits - pre-heparin administration 90-150 seconds and monitoring heparin during a vascular procedure >250 seconds. Sheath injected in Left common femoral artery and runoff performed. Physician scrubbed out. A Suture was successful obtaining hemostatsis at the Left Femoral artery insertion site. A TR Band was successful obtaining hemostatsis at the Right Radial artery insertion site. Sheath(s) sutured into position with 2-0 silk and sterile 4x4's and Op-site applied over the site. No oozing or signs and symptoms of hematoma noted. Arterial sheath flushed and connected to tranducer and pressure bag with heparinized saline. Post Procedure: Pulses reassessed and unchanged. PERRLA. Strong, equal hand dock supervisor bilaterally. No VTE prophylaxis required. Medication's Wasted: Lidocaine 1% = 10 mL. Medication's Wasted: Nitro = 49.8 mg. Total IV fluids: 150 mL. Post-op diagnosis: Severe PVD. Complications: none. Estimated blood loss: 5mL-10mL. Responsiveness - Normal response to verbal stimuli; alert and oriented, PERRLA. Airway - Unaffected, no intervention required; spontaneous ventilation. Circulation: W/N/L, pulses unchanged. Nausea/Vomiting: No. Procedure completed. Patient transferred by bed to 1st floor. Vital chart was stopped. Procedure Medications Start: 7:28 AM Stop: 7:28 AM Medication: Benadryl Amount: 50 mg Route: I.V. Start: 7:38 AM Stop: 7:38 AM Medication: Versed Amount: 1 mg Route: I.V. Start: 7:38 AM Stop: 7:38 AM Medication: Fentanyl Amount: 50 mcg Route: I.V. Start: 8:24 AM Stop: 8:24 AM Medication: Heparin Amount: 5000 units Route: I.V. Start: 8:25 AM Stop: 8:25 AM Medication: Versed Amount: 1 mg Route: I.V. Start: 8:25 AM Stop: 8:25 AM Medication: Fentanyl Amount: 50 mcg Route: I.V. Start: 8:30 AM Stop: 8:30 AM Medication: Nitrogylcerin Amount: 200 mcg Route: I.A. I, the attending physician, have reviewed and verified all procedure medications. Yes, all medications given per verbal order History/Risk Factors Hypertension: Yes Dyslipidemia: Yes Peripheral Arterial Disease (PAD): Yes Obesity: Yes Renal Disease: No Tobacco Use: Current/Recent(w/in 1 year) Prior Interventions PCI: Yes CABG: No Valve Surgery: No Report Signatures Finalized by Carly Buenrostro MD on 02/03/2025 08:23 PM
--- NOTE | 2025-01-21 07:32 | P.HP_ITS ---
Same Day Surgery H&P Indication for Procedure/HPI DATE OF PROCEDURE: January 21, 2025 CHIEF COMPLAINT/INDICATIONFOR SURGICAL PROCEDURE: Lifestyle-limiting claudication Severe peripheral arterial disease Abnormal CTA PREOP DIAGNOSIS: Lifestyle-limiting claudication, severe PAD, abnormal CTA PLANNED PROCEDURE: Operation Date: 01/21/25 07:00 Proposed Procedures p Peripheral Diagnostic - Periph Angio Bilat(Bilateral) - Carly Buenrostro MD 64-year-old female past medical history significant for hypertension hyperlipidemia cardiovascular problem severe PAD for worsening of lifestyle- limiting claudication underwent CTA with runoff noted to have high-grade stenosis of SFA popliteal system and moderate stenosis of the iliac, since symptoms are getting worse and patient has ingrowing toenail with nonhealing wounds, we decided to proceed with peripheral angiogram. Medications/Allergies* Home Medications ?Medication ?Instructions ?Recorded ?Confirmed ?Type nitroglycerin 0.4 mg sublingual 0.4 mg sublingual PRN PRN Chest 06/14/19 01/21/25 History tablet (Nitrostat) Pain Tums 1 tab PO DIRECTED 0 01/21/25 History acetaminophen 500 mg tablet 1,000 mg PO PRN 04/08/20 0 01/21/25 History (Acetaminophen Extra Strength) aspirin 81 mg tablet,delayed 81 mg PO DAILY 07/07/20 0 01/21/25 History release Held on 08/28/24. Instructions: Resume on 08/30/24. Allergies/Adverse Reactions Allergy/AdvReac Type Severity Reaction Status Date / Time amlodipine Allergy ADR-Dizzine Verified 12/19/24 15:13 ss clavulanic acid (From Allergy Unknown Verified 12/19/24 15:13 Augmentin) hydrocodone Allergy urinary Verified 12/19/24 15:13 retention levofloxacin (From Levaquin) Allergy ADR-Dizzine Verified 12/19/24 15:13 ss omeprazole Allergy chest pain Verified 12/19/24 15:13 prednisone Allergy SOB Verified 12/19/24 15:13 Current Medications: Generic Name Dose Route Start Last Admin Trade Name Freq PRN Reason Stop Dose Admin Sodium Chloride 1,000 mls @ 50 mls/hr 01/21/25 06:00 01/21/25 05:58 Sodium Chloride 0.9% IV 01/22/25 01:59 Not Given .Q20H ONE Pertinent History/Comorbid Conditions* Medical History (Updated 01/07/25 @ 21:21 by Carly Buenrostro MD) HTN (hypertension) with goal to be determined PAD (peripheral artery disease) Atherosclerosis of both carotid arteries 11.29.24 Bilateral ICA stenosis less than 50%. Mild carotid plaque. Iron deficiency anemia, unspecified has seen hematology--has had iron infusions; gets scopes for GI bleeds at [facility] in [place] Nicotine dependence, cigarettes, with other nicotine-induced disorders Vitamin D deficiency Encounter for chronic pain management legacy pain patient on tramadol for chronic back pain Postlaminectomy syndrome of lumbar region Gastritis Chronic constipation Encounter for screening for malignant neoplasm of lung CAD (coronary artery disease) hx of stents Sensorimotor neuropathy Multifocal Sacral fracture, closed Osteoporosis Spondylolisthesis, lumbar region Dysphonia Vocal cord polyp Postnasal drip Chronic sinusitis Nasal turbinate hypertrophy Deviated septum Type 2 diabetes mellitus without complications Trigger ring finger of right hand Hyperlipidemia Central sleep apnea didn't tolerate CPAP Essential hypertension Neuropathic peripheral nerve Lumbar stenosis with neurogenic claudication Intervertebral disc disorders with radiculopathy, lumbar region Surgical History (Updated 02/20/24 @ 10:06 by Zainab Luna MD) History of thyroidectomy, total 03.02.20 [facility] History of lumpectomy of both breasts fibrocysts removed History of lumbar surgery Dr. Turner-lumbar decompression; has now had total of 4 lumbar surgeries total History of thyroidectomy 03/02/2020 [facility]. History of appendectomy Hx of hand surgery trigger finger surgeries--multiple H/O: hysterectomy PINKY w/ BSO done for benign fibroids; no cancer H/O breast biopsy benign History of bladder surgery bladder tie up H/O heart artery stent 2 stents Family History (Updated 06/14/19 @ 14:23 by Vidhi Santana LPN) Diabetes Father Grandmother CAD (coronary artery disease) Father Mother Cancer Father Grandmother Hypertension Father Mother Social History Smoking and tobacco/nicotine status: current every day tobacco/nicotine user cigarettes Packs smoked per day: 2 Years cigarettes smoked: 55 [ Other cigarette details: 2ppd X 55 yrs; started age 8; 110 pk yr hx; ] Alcohol intake: never Substance/Drug Use: never Lives independently: Yes Household members: spouse Marital status: Number of children: 2 Highest education level completed: 9th Grade Current occupational status: disabled 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 Patient understand 2% risk of stroke major bleed. Patient understand 5% risk of amputation acute limb ischemia contrast-induced nephropathy urgent emergent vascular surgery aneurysm pseudoaneurysm. Patient clearly understood and would like to proceed with it. Conscious Sedation Assessment PATIENT ASSESSED PRIOR TO SEDATION, WITH NO CHANGE NOTED: Yes Recommendations Other Coding Level of Care Code Acute Code for Chg Fwd
[2025-01-21 12:52] LABS: Partial Thromboplastin Time 28.2 SECONDS (23.9-36.7)
--- NOTE | 2025-01-21 18:15 | PM.DCS ---
Discharge Providers Date of Discharge: January 21, 2025 Attending Provider at Discharge: Carly Buenrostro MD Primary Care Provider: Zainab Luna MD Reason for Visit Reason for Visit: i73.9 Brief History: For critical limb ischemia and abnormal CTA with runoff patient underwent peripheral angiogram. She was noted to have high-grade distal abdominal aortic stenosis with diffuse atherosclerotic process. 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 Through left common femoral artery using [address] peripheral angiogram of the left lower extremity was obtained which showed subtotally occluded left common femoral ostial artery,There appeared to be high-grade left common iliac and proximal external iliac artery disease. Rest of below the knee vessels are luminal irregularity without significant stenosis. Patient has three-vessel runoff below the knee. Physical Exam Const: OTHER: GENERAL: Patient is alert, awake and oriented x3. HEART: Regular S1 and S2. No murmur, rub or gallop. LUNGS: Clear to auscultate bilaterally. CENTRAL NERVOUS SYSTEM: Grossly nonfocal. 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 request for service Routine Exams 01/21/25 07:00 Taken Laboratory Results APTT 28.2 SECONDS (23.9-36.7) 01/21/25 12:24 Vitals Last Vital Signs Temp 97.8 F 01/21/25 09:13 Pulse 86 01/21/25 17:38 Resp 16 01/21/25 17:15 BP 113/76 01/21/25 17:38 Pulse Ox 94 01/21/25 17:38 O2 Del Method Room Air 01/21/25 06:16 Discharge Plan Discharge Patient Disposition: Home Prescriptions: Continued albuterol sulfate [ProAir HFA] 90 mcg/actuation HFA aerosol inhaler 2 puff INHALATION QID PRN (Reason: Shortness Of Breath) 90 Days Qty: 8.5 3RF nitroglycerin [Nitrostat] 0.4 mg tablet, sublingual 0.4 mg SUBLINGUAL PRN PRN (Reason: Chest Pain) ([facility]) wheelchair See Rx Instructions .Route .MEDSUPPLY Qty: 1 0RF Rx Instructions: As directed ([facility]) diabetic shoes See Rx Instructions .Route .MEDSUPPLY Qty: 1 0RF Rx Instructions: As directed rosuvastatin 20 mg tablet 20 mg PO DAILY Qty: 90 1RF Rx Instructions: Take 1 tablet by mouth once daily ([facility]) Diabetic shoes with 3 inserts See Rx Instructions .Route .MEDSUPPLY Qty: 1 0RF Rx Instructions: As directed to the shoe talat cilostazol 50 mg tablet 50 mg PO BID Qty: 180 3RF ([facility]) blood-glucose meter [Accu-Chek Alyson Plus Meter] Misc See Rx Instructions .ROUTE .MEDSUPPLY Qty: 1 0RF Rx Instructions: As directed ([facility]) Accu-Chek Alyson Plus test strp Strip See Rx Instructions .ROUTE .MEDSUPPLY Qty: 100 3RF Rx Instructions: twice daily cholecalciferol (vitamin D3) 50 mcg (2,000 unit) capsule 50 mcg PO DAILY Qty: 90 3RF metoprolol tartrate 50 mg tablet 50 mg PO BID Qty: 180 1RF famotidine 20 mg tablet 20 mg PO BID Qty: 180 1RF Rx Instructions: Take 1 tablet by mouth twice daily metformin 500 mg tablet extended release 24 hr See Rx Instructions .ROUTE .COMPLEX Qty: 180 0RF Dose Instruction: Take 1 tablet by mouth twice daily Rx Instructions: Take 1 tablet by mouth twice daily losartan 25 mg tablet 25 mg PO DAILY Qty: 90 1RF levothyroxine [Synthroid] 125 mcg tablet See Rx Instructions .ROUTE .COMPLEX Qty: 90 0RF Dose Instruction: Take 1 tablet by mouth once daily Rx Instructions: Take 1 tablet by mouth once daily gabapentin 300 mg capsule 300 mg PO TID Qty: 90 3RF Rx Instructions: TAKE 1 CAPSULE BY MOUTH THREE TIMES DAILY acetaminophen [Acetaminophen Extra Strength] 500 mg Tablet 1,000 mg PO PRN Tums 1 tab PO DIRECTED Rx Instructions: prn aspirin 81 mg Tablet,Delayed Release (Dr/Ec) 81 mg PO DAILY Cellars Supervisor OK for DC: Cardiology Discharge Order = DC NOW: Discharge Order (Routine); Ordered 01/21/25 Ordered By: Carly Buenrostro Referrals: Zainab Luna MD [Primary Care Provider, Family Practice] - 02/18/25 1:30 pm Ernesto Myers MD [Physician, Cardiology] - 02/13/25 2:30 pm Diet: Cardiac Patient Instructions: Peripheral Vascular Angioplasty (DC), Post Angiogram Home Care Instructions Activity Restrictions/Additional Instructions: Follow-up with cardiology nurse practitioner in 10 days Refer to vascular surgery in [facility] for severe distal abdominal aortic disease and bilateral lower extremity iliac SFA disease for possible bypass Advised patient not to lift anything heavy than gallon of milk for next 3 days Print Language: Guatemalan Discharge Attestations Time Spent in Discharge Care*: greater than 30 min Quality Metrics Clinical Quality Measures [ No reported AMI, CVA or VTE this stay] Coding Level of Care Code Acute Code for Chg Fwd
== END 2025-01-21 18:18 | disposition home or self-care (01) ==
LOC: CCL 05:45 → CSU 12:41
PROVIDERS: PCP Family Medicine; Visit Provider Internal Medicine Cardiovascular Disease
DX: I70.223 Atherosclerosis of native arteries of extremities with rest pain, bilateral legs (principal); I74.5 Embolism and thrombosis of iliac artery; I10 Essential (primary) hypertension; E78.5 Hyperlipidemia, unspecified; E66.89 Other obesity not elsewhere classified; Z68.36 Body mass index [BMI] 36.0-36.9, adult; Z79.82 Long term (current) use of aspirin; I25.10 Atherosclerotic heart disease of native coronary artery without angina pectoris; D50.9 Iron deficiency anemia, unspecified; F17.210 Nicotine dependence, cigarettes, uncomplicated; K29.70 Gastritis, unspecified, without bleeding; Z95.5 Presence of coronary angioplasty implant and graft; E11.9 Type 2 diabetes mellitus without complications; G47.31 Primary central sleep apnea; Z79.84 Long term (current) use of oral hypoglycemic drugs
CPT/HCPCS: 36415; 75625; 75716; 85347; 85730; 99152; 99153; C1769; C1887; C1894; J1200; J1644; J2250; J3010; J3490; J7030; J9999; Q9967

== ENCOUNTER → 2025-02-05 10:08 | Outpatient (BNVA) | payer MEDICARE, MEDICAID, SELFPAY | PROVIDERS: PCP Family Medicine; Visit Provider Internal Medicine | DX: E11.9 Type 2 diabetes mellitus without complications (principal); L60.3 Nail dystrophy; E89.0 Postprocedural hypothyroidism; I65.23 Occlusion and stenosis of bilateral carotid arteries | CPT/HCPCS: 36415; 80053; 80061; 82044; 83036; 83721; 84439; 84443 ==

== ENCOUNTER 2025-02-13 13:56 | Outpatient (CLI) | payer MEDICARE, MEDICAID, SELFPAY ==
[2025-02-13 14:44] LABS: Hematocrit 40.4 % (36-47); Hemoglobin 12.10 g/dL (11.27-16.99); Mean Corpuscular HGB Conc 30.0 g/dL (30-55); Mean Corpuscular Hemoglobin 25.1 pg (27-33); Mean Corpuscular Volume 83.8 fl (85-98); Nucleated Red Blood Cells % 0 %; Platelet Count 248 10^3/cmm (157-399); Red Blood Count 4.82 10^6/uL (3.85-5.65); White Blood Count 5.67 10^3/uL (3.29-11.43)
[2025-02-13 15:04] LABS: Anion Gap 14.5 (5-19); Blood Urea Nitrogen 24 mg/dL (8-23); Calcium 9.4 mg/dL (8.5-10.5); Carbon Dioxide 25 mmol/L (22-29); Chloride 100 mmol/L (98-107); Glucose 104 mg/dL (65-115); Osmolality Calculated 284 mOsm/kg (285-295); Potassium 4.5 mmol/L (3.5-5.1); Sodium 135 mmol/L (136-145)
== END 2025-02-13 13:57 | disposition home or self-care (01) ==
PROVIDERS: PCP Family Medicine; Visit Provider Surgery Surgical Critical Care
DX: Z01.818 Encounter for other preprocedural examination (principal); I70.223 Atherosclerosis of native arteries of extremities with rest pain, bilateral legs; I10 Essential (primary) hypertension; E11.9 Type 2 diabetes mellitus without complications
CPT/HCPCS: 36415; 80048; 85025

== ENCOUNTER → 2025-03-06 07:43 | Outpatient (BNVA) | payer MEDICARE, MEDICAID, SELFPAY | PROVIDERS: PCP Family Medicine; Visit Provider Orthopaedic Surgery | DX: M54.9 Dorsalgia, unspecified (principal); Z98.890 Other specified postprocedural states; M48.062 Spinal stenosis, lumbar region with neurogenic claudication | CPT/HCPCS: 72100; 99213 ==

== ENCOUNTER 2025-03-25 14:02 | Outpatient (CLI) | payer MEDICARE, MEDICAID, SELFPAY ==
--- NOTE | 2025-03-25 14:30 | MR_ITS ---
WS: [id number] MRI LUMBAR SPINE NONCONTRAST HISTORY: back pain COMPARISON: 10/19/2021 TECHNIQUE: Sagittal and axial multisequence imaging is submitted. Status post posterior decompression from L3-S1 with interconnecting rods. Intervertebral spacers at L4-5 and L5-S1. SI joint screws. Posterior lumbar alignment remains intact. No acute fracture or marrow edema. Conus terminates normally at L1-2 disc level. L1-L2: Normal. L2-L3: Mild bilateral facet joint arthritis encroaching upon the central canal. No significant stenosis. There is mild bilateral foraminal stenosis. L3-L4: Diffuse disc bulging with mild facet joint arthritis and ligamentum flavum hypertrophy. There is encroachment upon the central canal. Very similar to the prior study from 10/19/2021. L4-L5: Patulous thecal sac. Hemilaminectomy defect. Mild ligamentum flavum hypertrophy. Mild foraminal stenosis. L5-S1: Diffuse disc bulging. Artifact from the patient's fusion hardware. Annular disc bulging with small foraminal disc protrusions into extending into the foramina causing mild stenosis. Similar to the prior study. MR/MR lumbar spine wo con* [id number] IMPRESSION: 1. Status post lumbar decompression from L3-S1 with interconnecting rods. 2. Intervertebral spacers at L4-5 and L5-S1. 3. No high-grade central or foraminal stenosis. 4. Mild bilateral foraminal stenosis at L5-S1 with small foraminal disc protru sions, unchanged since 10/19/2021. 5. Mild foraminal stenosis at L2-3 and L4-5.
== END 2025-03-25 14:03 | disposition home or self-care (01) ==
LOC: RAD 14:03
PROVIDERS: PCP Family Medicine; Visit Provider Orthopaedic Surgery
DX: M48.062 Spinal stenosis, lumbar region with neurogenic claudication (principal); M51.370 Other intervertebral disc degeneration, lumbosacral region with discogenic back pain only; M47.896 Other spondylosis, lumbar region; M48.07 Spinal stenosis, lumbosacral region; Z98.890 Other specified postprocedural states
CPT/HCPCS: 72148

== ENCOUNTER → 2025-04-22 15:11 | Outpatient (BNVA) | payer MEDICARE, MEDICAID, SELFPAY | PROVIDERS: PCP Family Medicine; Visit Provider Orthopaedic Surgery | DX: Z47.89 Encounter for other orthopedic aftercare (principal) | CPT/HCPCS: 99213 ==

== ENCOUNTER 2025-06-03 05:22 | Emergency (ER) | payer MEDICARE, MEDICAID, SELFPAY ==
--- OUTSIDE RECORDS SUMMARY | 2025-02-27 02:00 | XMS_ITS ---
Author Organization [facility] Address [address] [place] [address] Care Team Providers Care Director Of Strategic Programs Name Role Phone Chitra DURAN, Nikko Primary Care Provider Stalin Espinoza Unavailable [phone] Carly Buenrostro Unavailable Unavailable REASON FOR VISIT OP 0600 - arteriogram with angioplasty and stenting (3-4 week f/u with Lisa) Encounters Encounter Location Date Provider Diagnosis [facility] [address] [place] [address] [address] [place] [address] 02/27/2025 Stalin Gonzalez Plan Of Treatment No Information Progress Notes * Dana BOWLING DadaDOB: [birth year] (64 yo F)Acc No.[id number]:02/27/2025 [place] Patient: Dana Lima Provider: Zen Gonzalez MD :1960 A ge:64 Y S ex:Female Date:02/27/2025 Address:[address] [place], [place] [address] Pcp:Nikko Buenrostro MD Subjective: * Chief Complaints: * O P 0600 - arteriogram with angioplasty and stenting (3-4 week f/u with Lisa) Billing Information: * Procedure Codes: * Electronic signature of Faye Gonzalez MD on 06/03/2025 at 05:28 AM SENIOR DATA DEVELOPER Sign off status: Pending * Provider: Zen Gonzalez MD Date: 0 02/27/2025 Generated for Cindyi michel/Gissell/eTransmitting on: 05:28 AM SENIOR DATA DEVELOPER
--- OUTSIDE RECORDS SUMMARY | 2025-03-17 02:30 | XMS_ITS ---
Author Organization [facility] Address [address] [place] [address] Care Team Providers Care Program Director Scouting Name Role Phone Chitra DURAN, Nikko Primary Care Provider Stalin Espinoza Unavailable [phone] Carly Buenrostro Unavailable Unavailable REASON FOR VISIT OP 0700 - arteriogram with angioplasty and stenting of the bilateral iliacs (3-4 week f/u) Encounters Encounter Location Date Provider Diagnosis [facility] [address] [place] [address] [address] [place] [address] 03/17/2025 Stalin Gonzalez Plan Of Treatment No Information Progress Notes * Dana BOWLING aDdaDOB: [birth year] (64 yo F)Acc No.[id number]:03/17/2025 [place] Patient: Dana Liam Provider: Zen Gonzalez MD :1960 A ge:64 Y S ex:Female Date:03/17/2025 Address:[address] [place], [place] [address] Pcp:Nikko Buenrostro MD Subjective: * Chief Complaints: * O P 0700 - arteriogram with angioplasty and stenting of the bilateral iliacs (3-4 week f/u) Billing Information: * Procedure Codes: * Electronic signature of Faye Gonzalez MD on 06/03/2025 at 05:[address] Sign off status: Pending * Provider: Zen Gonzalez MD Date: Generated for Preet pearson/Gissell/eTransmitting on: 5 05:[address]
[2025-06-03 05:22] VITALS: BP 205/114; PULSE 80; RESP 22; TEMP 36.8; O2SAT 100; BMI 37.6
--- NOTE | 2025-06-03 05:24 | XRR_ITS ---
PROCEDURE INFORMATION: Exam: XR Chest Exam date and time: 06/03/2025 5:40 AM Age: 64 years old Clinical indication: Other: Chest pain TECHNIQUE: Imaging protocol: Radiologic exam of the chest. Views: 1 view. COMPARISON: CT lung screening [id number] 09/20/2024 11:36 AM FINDINGS: Lungs: Unremarkable. No consolidation. Pleural spaces: Unremarkable. No pleural effusion. No pneumothorax. Heart/Mediastinum: Unremarkable. No cardiomegaly. Bones/joints: Unremarkable. XR/XR chest 1V portable [id number] IMPRESSION: No acute findings.
--- NOTE | 2025-06-03 05:25 | ECG_ITS ---
[facility] Test Date: 2025-06-03 Pat Name: Dana Gusman Department: Room: Gender: Female Superintendent Transmission: : 1960 Requested By: Saumya Duval Order Number: [id number] Charo MD: Ernesto Myers M.D. Measurements Intervals [place] Rate: 81 P: 54 IL: 186 QRS: 4 QRSD: 106 T: 73 QT: 366 QTc: 427 Interpretive Statements SINUS RHYTHM MILD ST DEPRESSION [0.05+ mV ST DEPRESSION] Compared to ECG 12/19/2024 15:18:03 NO SIGNIFICANT CHANGE Electronically Signed On 06-05-2025 16:14:59 LOSS PREVENTION/SAFETY DISTRICT MANAGER by Ernesto Myers M.D. [email or web address]
--- OUTSIDE RECORDS SUMMARY | 2025-06-03 05:28 | XMS_ITS | Encounter Summary ---
Author Organization [facility] Address [address] [place] [address] Care Team Providers Care Grab Setter Name Role Phone Charis Carcamo DO Primary Care Provider +1- [phone] Encounter Details Date Type Department Care Team (Latest Contact Info) Description 10/15/2004 Outpatient Historical [facility] Family Medicine- [address] [place] [address] Leann Campos NP NO ADDRESS ON FILE ACUTE SINUSITIS NOS (Primary Dx); CHRONIC SINUSITIS NOS; LUMBAGO Social History Tobacco Use Types Packs/Day Years Used Date Smoking Tobacco: Never Assessed Comments Unknown Sex and Gender Information Value Date Recorded Sex Assigned at Not on file 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
--- OUTSIDE RECORDS SUMMARY | 2025-06-03 05:28 | XMS_ITS | Encounter Summary ---
Author Organization [facility] Address [address] [place] [address] Care Team Providers Care Research Center Partner Name Role Phone Charis Carcamo Primary Care Provider +1- [phone] Encounter Details Date Type Department Care Team (Latest Contact Info) Description 10/01/2004 Outpatient Historical [facility] Gastroenterology- [place] [address] [place] [address] Mario Soni MD [address] [facility] [address] [place] [address] IRON DEFIC ANEMIA NOS (Primary Dx) Social History Tobacco Use Types Packs/Day Years Used Date Smoking Tobacco: Never Assessed Comments Unknown Sex and Gender Information Value Date Recorded Sex Assigned at Not on file Legal Sex Female 5:51 AM PAPER RULER Gender Identity Not on file Sexual Orientation Not on file documented as of this encounter Plan of Treatment Not on file documented as of this encounter Procedures Procedure Name Priority Date/Time Associated Diagnosis Comments CERULOPLASMIN Routine 10/01/2004 10:55 AM CDT documented in this encounter Results * CERULOPLASMIN (10/01/2004 10:55 AM CDT) CERULOPLASMIN 59.3 25.0 - 63.0 mg/dL INTERFACE SYSTEM 10/01/2004 10:5 5 AM CDT us Mario Soni MD CHEMISTRY ORDERABLES Final Re sult INTERFACE SYSTEM Refer to clinic/hospital department documented in this encounter Visit Diagnoses Diagnosis Iron deficiency anemia, unspecified- Primary documented in this encounter Care Teams Research Center Partner Relationship Specialty Start Date End Date Charis Carcamo DO PCP - General Family Practice 11/29/19 documented as of this encounter
--- OUTSIDE RECORDS SUMMARY | 2025-06-03 05:28 | XMS_ITS | Encounter Summary ---
Author Organization [facility] Address [address] [place] [address] Care Team Providers Care Chisel Worker Name Role Phone Charis Carcamo DO Primary Care Provider +1- [phone] Encounter Details Date Type Department Care Team (Latest Contact Info) Description 06/28/2004 Outpatient Historical [facility] Family Medicine- [address] [place] [address] Danisha Hitchcock MD NO ADDRESS ON FILE ACUTE PHARYNGITIS (Primary Dx); HYPERLIPIDEMIA NEC/NOS Social History Tobacco Use Types Packs/Day Years Used Date Smoking Tobacco: Never Assessed Comments Unknown Sex and Gender Information Value Date Recorded Sex Assigned at Not on file Legal Sex Female 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
--- OUTSIDE RECORDS SUMMARY | 2025-06-03 05:28 | XMS_ITS | Encounter Summary ---
Author Organization [facility] Address [address] [place] [address] Care Team Providers Care Audio Experience Expert Name Role Phone Carlos Alberto Charis Hensley Primary Care Provider +1- [phone] Reason for Referral * Outpatient Services (Routine) - Closed Specialty Diagnoses / Procedures Referred By Joao t Referred To Contact Radiology Diagnoses Kidney stone Procedures CT ABDOMEN PELVIS WO CONTRAST Pawan Wall Sr., FNP [address] [place] [address] Phone: tel: fax: [facility] CT Scan [place] [address] [place] [address] Phone: tel: fax: Referral ID Status Reason Start Date Expiration Date V isits Requested Visits Authorized [id number] Closed [facility]N View CTS to Schedule (SGF) 02/14/2013 03/17/2014 1 1 Encounter Details Date Type Department Care Team (Latest Contact Info) Description 02/14/2013 Ancillary Orders [facility] Centralized Scheduling [address] [place] [address] Pawan Wall Sr., FNP [address] [place] [address] Kidney stone (Primary Dx) Social History Tobacco Use Types Packs/Day Years Used Date Smoking Tobacco: Every Day Cigarettes 2 40 Alcohol Use Standard Drinks/Week Comments No 0 (1 standard drink = 0.6 oz pur e alcohol) Comments No Sex and Gender Information Value Date Recorded Sex Assigned at Not on file 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 Gender Identity Not on file Sexual Orientation Not on file Occupation Industry Job Start Date Job End Date Not on file Not on file Not on file Not on file Not on file Not on file Not on file Not on file documented as of this encounter Plan of Treatment Not on file documented as of this encounter Results * CT ABDOMEN PELVIS WO CONTRAST (02/18/2013 7:57 AM CDT) Anatomical Region Laterality Modality Abdomen Computed Tomogra phy 02/18/2013 7:52 AM CDT Narrative 02/18/2013 9:[address] ABDOMEN and PELVIS, non-contrast 18 February 2013 TECHNIQUE With the patient supine in the scanning gantry, with no oral or IV contrast administered, helical axial imaging was obtained from above the diaphragm through the pelvis at 5 mm increments for 93 axial images. Sagittal and coronal reconstructions are also obtained. DESCRIPTION The kidneys appear normal with no hydronephrosis or nephrolithiasis. The ureters are well visualized in their courses in the surrounding retroperitoneal fat, and no calculi are seen. No calculi are seen in the nondistended urinary bladder. There are phleboliths in the pelvis. Although not indicated on the questionnaire, the uterus appears surgically absent. The unenhanced liver, spleen, pancreas, adrenal glands, and gallbladder appear unremarkable. There is moderate gastric content without obstruction. The small bowel and colon appear unremarkable with moderate fecal material in the colon. Appendix is not identified and may be surgically absent as well. There is a miniscule fat containing umbilical hernia. There is mild aortoiliac atherosclerosis without evidence of aneurysm. IMPRESSION 1. negative for hydronephrosis or nephrolithiasis 2. status post hysterectomy and probable appendectomy 3. no acute abdominal findings appreciated Procedure Note Nhaid Valencia MD - 02/18/[address] ABDOMEN and PELVIS, non-contrast 18 February 2013 TECHNIQUE With the patient supine in the scanning gantry, with no oral or IV contrast administered, helical axial imaging was obtained from above the diaphragm through the pelvis at 5 mm increments for 93 axial images. Sagittal and coronal reconstructions are also obtained. DESCRIPTION The kidneys appear normal with no hydronephrosis or nephrolithiasis. The ureters are well visualized in their courses in the surrounding retroperitoneal fat, and no calculi are seen. No calculi are seen in the nondistended urinary bladder. There are phleboliths in the pelvis. Although not indicated on the questionnaire, the uterus appears surgically absent. The unenhanced liver, spleen, pancreas, adrenal glands, and gallbladder appear unremarkable. There is moderate gastric content without obstruction. The small bowel and colon appear unremarkable with moderate fecal material in the colon. Appendix is not identified and may be surgically absent as well. There is a miniscule fat containing umbilical hernia. There is mild aortoiliac atherosclerosis without evidence of aneurysm. IMPRESSION 1. negative for hydronephrosis or nephrolithiasis 2. status post hysterectomy and probable appendectomy 3. no acute abdominal findings appreciated us Pawan Wall Sr., SOFTWARE ARCHITECT CT ORDERABLES F inal Result documented in this encounter Visit Diagnoses Diagnosis Kidney stone- Primary Calculus of kidney Kidney stone Calculus of kidney documented in this encounter Care Teams Audio Experience Expert Relationship Specialty Start Date End Date Charis Carcamo DO PCP - General Family Practice 11/29/19 documented as of this encounter
--- OUTSIDE RECORDS SUMMARY | 2025-06-03 05:28 | XMS_ITS | Encounter Summary ---
Author Organization [facility] Address [address] [place] [address] Care Team Providers Care Trencher Driver Name Role Phone Charis Carcamo DO Primary Care Provider +1- [phone] Encounter Details Date Type Department Care Team (Late st Contact Info) Description 05/30/2025 Abstract [facility] Vascular Surgery [place] [address] [address] Provider, Abstract NO ADDRESS ON FILE Social History Tobacco Use Types Packs/Day Years Used Date Smoking Tobacco: Every Day Cigarettes Smokeless Tobacco: Never Alcohol Use Standard Drinks/Week Comments No 0 (1 standard drink = 0.6 oz pur e alcohol) Comments Unknown Sex and Gender Information Value Date Recorded Sex Assigned at Not on file Legal Sex Female 3:12 PM BRAND COORDINATOR Gender Identity Not on file Sexual Orientation Not on file documented as of this encounter Plan of Treatment Upcoming Encounters Date Type Department Care Team (Late st Contact Info) Description 06/12/2025 10:45 AM BRAND COORDINATOR Office Visit [facility] Vascular Surgery [place] [address] [address] Min Valle MD [address] [address] documented as of this encounter Visit Diagnoses Not on filedocumented in this encounter Care Teams Trencher Driver Relationship Specialty Start Date End Date Charis Carcamo DO PCP - General Family Practice 11/29/19 documented as of this encounter
--- OUTSIDE RECORDS SUMMARY | 2025-06-03 05:28 | XMS_ITS | Encounter Summary ---
Author Organization [facility] Address [address] [place] [address] Care Team Providers Care Logistics Manager Name Role Phone Charis Carcamo DO Primary Care Provider +1- [phone] Encounter Details Date Type Department Care Team (Late st Contact Info) Description 05/30/2025 Orders Only [facility] Vascular Surgery [place] [address] [address] Jesus Westbrook, EDUAR [address] [place] [address] Social History Tobacco Use Types Packs/Day Years Used Date Smoking Tobacco: Every Day Cigarettes Smokeless Tobacco: Never Alcohol Use Standard Drinks/Week Comments No 0 (1 standard drink = 0.6 oz pur e alcohol) Comments Unknown Sex and Gender Information Value Date Recorded Sex Assigned at Not on file Legal Sex Female 3:12 PM U.S. COMMISSIONER Gender Identity Not on file Sexual Orientation Not on file documented as of this encounter Plan of Treatment Upcoming Encounters Date Type Department Care Team (Late st Contact Info) Description 06/12/2025 10:45 AM U.S. COMMISSIONER Office Visit [facility] V[facility] [place] [address] [place] [address] Min Valle MD [address] [place] [address] [place] [address] documented as of this encounter Procedures Procedure Name Priority Date/Time Associated Diagnosis Comments US CAROTID DUPLEX Routine 11/29/2024 2:15 PM CDT CTA ABD AORTA BI ILIOFEM W AND/OR WO Routine 11/05/2024 2:14 PM CDT documented in this encounter Results * US CAROTID DUPLEX (11/29/2024 2:15 PM CDT) Anatomical Region Laterality Modality Ultrasound us Zainab Luna MD US ORDERABLES Final Resul t * CTA ABD AORTA BI ILIOFEM W AND/OR WO (11/05/2024 2:14 PM CDT) Anatomical Region Laterality Modality Abdomen Computed Tomogra phy us Jesus Westbrook DPM CT ORDERABLES Final Resul t documented in this encounter Visit Diagnoses Not on filedocumented in this encounter Care Teams Logistics Manager Relationship Specialty Start Date End Date Charis Carcamo DO PCP - General Family Practice 11/29/19 documented as of this encounter
--- OUTSIDE RECORDS SUMMARY | 2025-06-03 05:28 | XMS_ITS | Encounter Summary ---
Author Organization [facility] Address [address] [place] [address] Care Team Providers Care R&D Lab Technician Name Role Phone Charis Carcamo DO Primary Care Provider +1- [phone] Encounter Details Date Type Department Care Team (Latest Contact Info) Description 08/22/2005 Outpatient Historical [facility] 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
--- OUTSIDE RECORDS SUMMARY | 2025-06-03 05:28 | XMS_ITS | Encounter Summary ---
Author Organization [facility] Address [address] [place] [address] Care Team Providers Care General Dentist/Owner Name Role Phone Charis Carcamo DO Primary Care Provider +1- [phone] Reason for Visit * Reason Onset Date Comments Referral 06/02/2025 Encounter Details Date Type Department Care Team (Late st Contact Info) Description 06/02/2025 Telephone [facility] [place] [address] [place] [address] Min Valle MD [address] [place] [address] Referral Social History Tobacco Use Types Packs/Day Years Used Date Smoking Tobacco: Every Day Cigarettes Smokeless Tobacco: Never Alcohol Use Standard Drinks/Week Comments No 0 (1 standard drink = 0.6 oz pur e alcohol) Comments Unknown Sex and Gender Information Value Date Recorded Sex Assigned at Not on file Legal Sex Female 3:12 PM BIOINFORMATICS ANALYST Gender Identity Not on file Sexual Orientation Not on file documented as of this encounter Miscellaneous Notes * Telephone Encounter - Joan Shane - 06/02/2025 4:49 PM CST Spoke to pt about appt. Called clinic reg and had insurance added to chart. NFORMATICS ANALYST documented in this encounter Plan of Treatment Upcoming Encounters Date Type Department Care Team (Late st Contact Info) Description 06/12/2025 10:45 AM BIOINFORMATICS ANALYST Office Visit [facility] [place] [address] [place] [address] Min Valle MD [address] [place] [address] documented as of this encounter Visit Diagnoses Not on filedocumented in this encounter Care Teams General Dentist/Owner Relationship Specialty Start Date End Date Charis Carcamo DO PCP - General Family Practice 11/29/19 documented as of this encounter
--- OUTSIDE RECORDS SUMMARY | 2025-06-03 05:28 | XMS_ITS | Encounter Summary ---
Author Organization [facility] Address [address] [place] [address] Care Team Providers Care Pipe Foreman Name Role Phone Charis Carcamo DO Primary Care Provider +1- [phone] Encounter Details Date Type Department Care Team (Latest Contact Info) Description 10/01/[address] [facility] [place] 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
--- OUTSIDE RECORDS SUMMARY | 2025-06-03 05:28 | XMS_ITS | Encounter Summary ---
Author Organization [facility] Address [address] [place] [address] Care Team Providers Care Supervisor [employer]des Name Role Phone Charis Carcamo DO Primary Care Provider +1- [phone] Encounter Details Date Type Department Care Team (Latest Contact Info) Description 08/01/2005 Outpatient Historical [facility] [address] 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
--- OUTSIDE RECORDS SUMMARY | 2025-06-03 05:28 | XMS_ITS | Patient Health Record ---
Author Organization [facility] Address [address] [place] [address] Care Team Providers Care Foster Winder Name Role Phone Nikko Buenrostro MD Primary Care Provider Stalin Espinoza Unavailable [phone] Carly Buenrostro Unavailable Unavailable Allergies Allergen (clinical drug ingredient) Drug/Non Drug Allergy documented on EMR Reaction Allergy Type Onset Date Status amlodipine amLODIPine Besylate rash Drug Allergy Active amoxicillin / clavulanate Augmentin rash Drug Allergy Active celecoxib CeleBREX elevated blood sugar Drug Allergy Active Levaquin rash, throat closing Drug Allergy Active nitrofurantoin, macrocrystals / nitrofurantoin, monohydrate Macrobid cramps, muscle spasms Drug Allergy Active hydrocodone HYDROcodone urinary problems Drug Allergy Active omeprazole Omeprazole chest pain Drug Allergy Acti ve prednisone predniSONE shortness of breath Drug Allergy Active Results Component Value Reference Range Flag Notes ZZZIliac Angiogram poss SURGICAL ASSISTANT CERTIFIED (Not yet reviewed by provider) Interpretation: Performing Lab: Notes/Report: See Below For Report This report was dictated outside of the [employer] system. Read See Below For Report Schedule Confirmation (Not y et reviewed by provider) Interpretation: Performing Lab: Notes/Report: Iliac Angiogram poss SURGICAL ASSISTANT CERTIFIED&Stent Schedule Confirmation (Not y et reviewed by provider) Interpretation: Performing Lab: Notes/Report: Iliac Angiogram poss SURGICAL ASSISTANT CERTIFIED&Stent Schedule Confirmation (Not y et reviewed by provider) Interpretation: Performing Lab: Notes/Report: Iliac Angiogram poss SURGICAL ASSISTANT CERTIFIED&Stent Schedule Confirmation (Not y et reviewed by provider) Interpretation: Performing Lab: Notes/Report: Iliac Angiogram poss SURGICAL ASSISTANT CERTIFIED&Stent Schedule Confirmation (Not y et reviewed by provider) Interpretation: Performing Lab: Notes/Report: US Ankle Brachial Pressure I ndex-[id number] (Not yet reviewed by provider) Interpretation: Performing Lab: Notes/Report: This report was dictated at the [facility] FINAL REPORT Read This report was dictated at the [facility] US Ankle Brachial Pressure I ndex-[id number] (Not yet reviewed by provider) Interpretation: Performing Lab: Notes/Report: qbf=[id number]&org=iSite Schedule Confirmation (Not y et reviewed by provider) Interpretation: Performing Lab: Notes/Report: Iliac Angiogram poss SURGICAL ASSISTANT CERTIFIED&Stent US Carotid Doppler Bilateral -23243 (Not yet reviewed by provider) Interpretation: Performing Lab: Notes/Report: This report was dictated at the [facility] FINAL REPORT Read This report was dictated at the [facility] US Carotid Doppler Bilateral -81537 (Not yet reviewed by provider) Interpretation: Performing Lab: Notes/Report: [id number]=iSite awx=[id number]&org=iSite POCT-ACT--NO CPT (Not yet re viewed by provider) Interpretation: Performing Lab: Notes/Report: POCT-ACT 224 75-120 SEC HI POCT-ACT--NO CPT (Not yet re viewed by provider) Interpretation: Performing Lab: Notes/Report: POCT-ACT 235 75-120 SEC HI Schedule Confirmation (Not y et reviewed by provider) Interpretation: Performing Lab: Notes/Report: Iliac Angiogram poss SURGICAL ASSISTANT CERTIFIED&Stent Partial Thromboplastin Time 39516 (Not yet reviewed by provider) Interpretation: Performing Lab: Notes/Report: PTT 24.2 22.6-31.8 SEC Critical Value Starting at > 100. Therapeutic Range: 60-100. Prothrombin Time 63295 (Not yet reviewed by provider) Interpretation: Performing Lab: Notes/Report: ProTime 10.0 9.1-11.9 SEC Normal Range : 9.1-11.9 INR .93 .90-1.20 Therapaeutic Range for heart valve replacement: 2.5-3.50 Therapeutic Range: 2.0-3.0 Schedule Confirmation (Not y et reviewed by provider) Interpretation: Performing Lab: Notes/Report: Iliac Angiogram poss SURGICAL ASSISTANT CERTIFIED&Stent Scan--78208 (Not yet reviewe d by provider) Interpretation: Performing Lab: Notes/Report: PLT Appear Adequate Aniso Moderate Poik Slight Microcytosis Slight Teardrop Cell Few CBC w\ Auto Diff 44238 (Not yet reviewed by provider) Interpretation: Performing Lab: Notes/Report: WBC 6.7 4.5-11.0 X10'3 RBC 4.68 4.00-5.20 X10'6 Hgb 11.1 12.0-16.0 G/DL LOW Hct 38.7 36.0-46.0 % MCV 82.7 80.0-100.0 FL MCH 23.7 27.0-31.0 PG LOW MCHC 28.7 31.0-37.0 G/DL LOW Platelet 314 150-400 X10'3 RDW-SD 56.4 35.0-49.0 FL HI RDW-CV 18.6 12.2-15.6 % HI MPV 8.5 9.2-12.0 FL LOW Neutro Auto% 64.6 40.0-70.0 % Lymph Auto% 22.4 22.0-44.0 % Buchanan Auto% 10.6 3.0-7.0 % HI Eos Auto% 1.6 2.0-4.0 % LOW Baso Auto% 0.4 0.0-1.0 % Imm Gran% .4 .0-.4 % Neutro Abs 4.33 .80-7.70 Absolute Neutrophil Count 4330 NA Lymph Abs 1.50 .10-4.10 Buchanan Abs .71 .20-1.00 Eos Abs .11 .00-.40 Baso Abs .03 .00-.20 Imm Gran Abs .03 .00-.10 NRBC# .02 .00-.20 X10'3 NRBC% .30 .00-.20 /100 intact WBC's HI Basic Metabolic Panel (BMP) 62657 (Not yet reviewed by provider) Interpretation: Performing Lab: Notes/Report: Sodium 136 136-145 MMOL/L Potassium 4.2 3.5-5.1 MMOL/L Chloride 104 98-107 MMOL/L CO2 25.8 20.0-31.0 MMOL/L Glucose Serum 166 71-110 MG/DL HI Testing p erformed at [facility], [address] [place] [address] [place] [address]. CLIA ID#: [id number] BUN 20 7-21 MG/DL Creat .76 .51-1.17 MG/DL G-exoprd-n-benzoquino ne imine (NAPQI) is a metabolite of acetaminophen, NAPQI concentrations of apparoximately 10 mg/L correlation to toxic levels of acetaminophen demonstrates a greater than or equil to 10% change in results. NAPQI concentrations greater than this may lead to falsely depressed results for patient samples. Use of this assay is not recommended for patients undergoing treatment with phenindione, due to the potential for falsely depressed results. GFR 86.4 NA Calculation pe rformed from GFR calculator provided by the [employer]. Glomerular Filtration rate(GRF) is the best overall index of kidney function. Normal GFR varies according to age,sex, body size, and declines with age. The [employer] recommends using the CKD-EPI Creatinine Equation(2020) to estimate GFR. Anion Gap 10 5-15 BUN/Creat Ratio 26.3 12.0-20.0 % HI Calcium 9.7 8.7-10.4 MG/DL Osmo Serum,Calculated 288 280-300 MOSM/KG ZZZIliac Angiogram poss SURGICAL ASSISTANT CERTIFIED (Not yet reviewed by provider) Interpretation: Performing Lab: Notes/Report: ksx=[id number]=iSite Reason For Referral Reason PVD - [facility] CTA AFRO : Severe atherosclerotic disease involving the abdominal aorta and its branch vessels into the lower extremities, high-grade stenosis of the right SFA along a 5 cm segment in the mid thigh. Severe stenosis at the origin of the SMA. - patient also had an angiogram at [facility] Diagnosis 1 PVD (peripheral vasc ular disease) (I73.9) Referring Provider First Name Carly Referring Provider Last Name Chitra Referring Provider Speciality Cardiovasc ular Disease Referred Organization [facility] Referred Provider Ubaldo Rebollar Referred Address [address] [place] [address] RAVI DELGADO [address],[place],[address],[place] Referred Provider Specialty Vascular [facility] General Notes Maria Luisa Carlson RN 01/04 04:31:52 PM CDT > Please schedule with next available vascular surgeon, Rae Pineda 01/30/2025 10:35:26 AM CDT > Appointment scheduled on 02.06 @ 3:15 Referral Priority Urgent Medications Medication SIG (Take, Route, Frequency, Duration) Notes Start Date End Date Status Magnesium 250 MG Tablet 1 tablet with a meal Orally Once a day Active Vitamin E 400 UNIT Capsule 1 capsule Ora lly Once a day Active Losartan Potassium 25 MG Tablet 1 tablet Orally Once a day Active Vitamin D3 25 MCG (1000 UT) Tablet 1 tablet Orally Once a day Active Gabapentin 300 MG Capsule 1 capsule Oral ly twice a day 02/06/2025 Active Vitamin B12 1000 MCG Tablet 1 tablet Ora lly Once a day Active Fiber 28.3 % Powder as directed Orally daily 02/06 Active Tylenol 325 MG Tablet 2 tablet as needed Orally every 6 hrs 02/06/2025 Active metFORMIN HCl ER 500 MG Tablet Extended Release 24 Hour 1 tablet with evening meal Orally Once a day Active Nitroglycerin 0.4 MG Tablet Sublingual 1 tablet under the tongue and allow to dissolve as needed. Take every 5 minutes up to 3 times if chest pain persists Sublingual Three times a day Active Metoprolol Succinate ER 25 MG Tablet Extended Release 24 Hour 1 tablet Orally Once a day Active Famotidine 20 MG Tablet 1 tablet Orally Twice a day Active traMADol HCl 50 MG Tablet 1 tablet Orall y twice a day 02/06/2025 Active Clopidogrel Bisulfate 75 MG Tablet 1 tablet Orally Once a day; Duration: 30 days 02/06/2025 Active Synthroid 125 MCG Tablet 1 tablet in the morning on an empty stomach Orally Once a day Active Aspirin 81 MG Tablet Delayed Release 1 tablet Orally Once a day Active Stool Softener 100 MG Capsule 1 capsule Orally Once a day 02/06/2025 Active Rosuvastatin Calcium 20 MG Tablet 1 tablet Orally Once a day Active Social History Tobacco Use: Social History Observation Description Date Details (start date - stop date) Current Smoker NA - NA Social History Drugs/Alcohol: Social Info Question Answer Notes Drugs Have you used drugs other than those for medical reasons in the past 12 months? No Drug/Alcohol: Social Info Question Answer Notes AUDIT-C (Standard) Did you have a drink containing alcohol in the past year? No Points 0 Interpretation Negative Tobacco Use: Social Info Question Answer Notes Tobacco Control (Standard) Tobacco use: Current smoker How often do you smoke cigarettes? Every day How many cigarettes a day do you smoke? 21-30 Problems Problem Type SNOMED Code ICD Code Onset Dates Problem Status W/U Status Risk Notes Problem Pain at rest of bilateral lower limbs due to atherosclerosis (disorder) (94693155345396622 ) Atherosclerosis of [place] arteries of extremities with rest pain, bilateral legs (I70.223) Active confirmed Problem Essential hypertension (89969746) Essential hypertension (I10) Active confirmed Problem Type II diabetes mellitus without complication (968388974) Type 2 diabetes mellitus without complication, without long-term current use of insulin (E11.9) Active confirmed Problem Peripheral vascular disease (453438964) PVD (peripheral vascular disease) (I73.9) Active confirmed Problem Long-term current use of drug therapy (719013207) Antiplatelet or antithrombotic long-term use (Z79.02) Active confirmed Problem Intermittent claudication of bilateral lower limbs co-occurrent and due to atherosclerosis (finding) (86134618215526008 ) Atheroscler of [place] artery of both legs with intermit claudication (I70.213) Active confirmed Problem Pain at rest of bilateral lower limbs due to atherosclerosis (disorder) (34663896574259077 ) Atherosclerosis of [place] artery of both lower extremities with rest pain (I70.223) Active confirmed Vital Signs Heart Rate 68 /min 04/08/2025 Temperature 98.2 degrees Fahrenheit 04/08/2025 Height-cm 147.32 cm 04/08/2025 Oximetry 95 % 04/08/2025 Blood pressure diastolic 60 mm Hg 04/08/2025 Weight-kg 81.65 kg 04/08/2025 Height 58 in 04/08/2025 Blood pressure systolic 154 mm Hg 04/08/2025 Weight 180 lbs 04/08/2025 BMI 37.62 kg/m2 04/08/2025 Encounters Encounter Location Date Provider Diagnosis [facility] [address] [place] [address] 03/17/2025 Stalin Gonzalez [facility] [address] [place] [address] 02/06/2025 Stalin Gonzalez Atherosclerosis of [place] artery of both lower extremities with rest pain I70.223 and PVD (peripheral vascular disease) I73.9 [facility] [address] [place] [address] 04/08/2025 Stalin Gonzalez PVD (peripheral vasc ular disease) I73.9 [facility] [address] [place] [address] 02/06/2025 Stalin Gonzalez Atherosclerosis of [place] arteries of extremities with rest pain, bilateral legs I70.223 ; Preprocedural examination Z01.818 ; Essential hypertension I10 and Type 2 diabetes mellitus without complication, without long-term current use of insulin E11.9 [facility] [address] [place] [address] 04/10/2025 Stailn Gonzalez [facility] [address] [place] [address] 04/09/2025 Stalin Gonzalez Essential hypertensi on I10 ; Type 2 diabetes mellitus without complications E11.9 ; Atheroscler of [place] artery of both legs with intermit claudication I70.213 and Preprocedural examination Z01.818 Assessments Encounter Date Diagnosis (ICD Code) Assessment Notes Treatment Notes Treatment Clinical Notes Section Notes 04/08/2025 PVD (peripheral vascular disease) (ICD-10 - I73.9) 64-year-old woman who presents with the above-mentioned medical problems. Patient has multilevel peripheral arterial disease. She certainly seems to have rest pain. CTA demonstrates multilevel disease. I explained to her that there is a possibility that her pain may be multifactorial given her back history and the rather quick onset of her rest pain. Nonetheless, I did think it was reasonable to intervene on her inflow. She is now status post left common iliac artery stenting and bilateral external iliac artery stenting. The pain has essentially resolved on the left leg. She continues to have some discomfort on the right side. Her ABIs remain significantly reduced on the right side. She has a known SFA occlusion. I do think it is reasonable to not intervene on the SFA to see if this alleviates her pain. I have offered a right lower extremity arteriogram with possible retrograde pedal access. I explained the procedure. I explained the risk and benefits. I again explained that if her pain does not fully resolve with correction of her SFA occlusion that her pain may be due to her back. Patient expressed understanding. 02/06/2025 Atherosclerosis of [place] arteries of extremities with rest pain, bilateral legs (ICD-10 - I70.223) 02/06/2025 PVD (peripheral vascular disease) (ICD-10 - I73.9) 64-year-old woman who presents with the above-mentioned medical problems. Patient has multilevel peripheral arterial disease. She certainly seems to have rest pain. CTA demonstrates multilevel disease. I explained to her that there is a possibility that her pain may be multifactorial given her back history and the rather quick onset of her rest pain. Nonetheless, I do think it is reasonable to intervene on her inflow. This would require bilateral iliac artery angioplasty and stenting. If her pain is due to larger insufficiency this should alleviate some of the discomfort. We can reassess afterwards if treatment in her SFA is warranted. I also appreciated carotid bruits on exam today. Will proceed with a carotid duplex prior to scheduling arteriogram. Addendum: Carotid duplex was obtained. Less than 50% stenosis was identified bilaterally. Based on velocity criteria. We will proceed with scheduling an aortogram with plans to intervene on her bilateral iliac systems. This should augment the inflow into her legs and should alleviate her pain if her pain is truly from arterial insufficiency. I explained the procedure to her. I explained the risk and benefits. She wishes to proceed. We will have her stop the Pletal and continue with aspirin and Plavix. 02/06/2025 Atherosclerosis of [place] artery of both lower extremities with rest pain (ICD-10 - I70.223) 64-year-old woman who presents with the above-mentioned medical problems. Patient has multilevel peripheral arterial disease. She certainly seems to have rest pain. CTA demonstrates multilevel disease. I explained to her that there is a possibility that her pain may be multifactorial given her back history and the rather quick onset of her rest pain. Nonetheless, I do think it is reasonable to intervene on her inflow. This would require bilateral iliac artery angioplasty and stenting. If her pain is due to larger insufficiency this should alleviate some of the discomfort. We can reassess afterwards if treatment in her SFA is warranted. I also appreciated carotid bruits on exam today. Will proceed with a carotid duplex prior to scheduling arteriogram. Addendum: Carotid duplex was obtained. Less than 50% stenosis was identified bilaterally. Based on velocity criteria. We will proceed with scheduling an aortogram with plans to intervene on her bilateral iliac systems. This should augment the inflow into her legs and should alleviate her pain if her pain is truly from arterial insufficiency. I explained the procedure to her. I explained the risk and benefits. She wishes to proceed. We will have her stop the Pletal and continue with aspirin and Plavix. 04/09/2025 Essential hypertension (ICD-10 - I10) 04/09/2025 Type 2 diabetes mellitus without complications (ICD-10 - E11.9) 02/06/2025 Preprocedural examination (ICD-10 - Z01.818) 04/09/2025 Atheroscler of [place] artery of both legs with intermit claudication (ICD-10 - I70.213) 02/06/2025 Essential hypertension (ICD-10 - I10) 02/06/2025 Type 2 diabetes mellitus without complication, without long-term current use of insulin (ICD-10 - E11.9) 04/09/2025 Preprocedural examination (ICD-10 - Z01.818) Plan Of Treatment Pending Test Test Name Order Date Basic Metabolic Panel -- 16979 Basic Metabolic Panel -- 21277 CBC Reflex Man Diff -- [id number], 850 07 04/09/2025 CBC Reflex Man Diff -- [id number], 850 07 02/06/2025 Prothrombin Time 34987 03/17/2025 Basic Metabolic Panel (BMP) 80397 2024 CBC w\ Auto Diff 60291 03/17/2025 Partial Thromboplastin Time 67359 2024 US Ankle Brachial Pressure Index-71318 1 06/08/2024 US Ankle Brachial Pressure Index-09111 1 06/08/2024 US Carotid Doppler Bilateral-66305 02/06 US Carotid Doppler Bilateral-74817 02/06 Scan--06677 03/17/2025 POCT-ACT--NO CPT 03/17/2025 POCT-ACT--NO CPT 03/17/2025 ZZZIliac Angiogram poss SURGICAL ASSISTANT CERTIFIED 03/17/2025 ZZZIliac Angiogram poss SURGICAL ASSISTANT CERTIFIED 03/17/2025 Schedule Confirmation 03/17/2025 Schedule Confirmation 02/27/2025 Schedule Confirmation 02/27/2025 Schedule Confirmation 03/17/2025 Schedule Confirmation 03/17/2025 Schedule Confirmation 03/17/2025 Schedule Confirmation 02/27/2025 Schedule Confirmation 02/27/2025 Insurance Providers Payer Name Payer Address Payer Phone Subscriber Number Group Number Insured Name Patient Relationship to Insured Coverage Start Date Coverage End Date NOT IN [facility] Medicare Advantage HMO [address] [address] [place] [address] [id number] Dana Gusman Self - patient is the insured [place] Medicaid [address] [place] [address] [id number] Dana Gusman Self - patient is the insured Medical (General) History Medical History History ICD Code hypertension peripheral vascular disease coronary artery disease emphysema COPD DDD osteoporosis diabetes mellitus Surgical History Surgery Date(Month/Year) back surgery x6 lumpectomy - fibrocystic both breast appendectomy hysterectomy, abdominal shockwave lithotripsy and st enting of the left common iliac, left external iliac, and right external iliac 03/17/2025
--- OUTSIDE RECORDS SUMMARY | 2025-06-03 05:28 | XMS_ITS | Encounter Summary ---
Author Organization [facility] Address [address] [place] [address] Care Team Providers Care Numerical Tool Programmer Name Role Phone Charis Carcamo Primary Care Provider [phone] Encounter Details Date Type Department Care Team (Latest Contact Info) Description 06/28/2004 Outpatient Historical [facility]- [address] [place] [phone] Danisha Hitchcock MD NO ADDRESS ON FILE ACUTE PHARYNGITIS (Primary Dx) Social History Tobacco Use Types Packs/Day Years Used Date Smoking Tobacco: Never Assessed Comments Unknown Sex and Gender Information Value Date Recorded Sex Assigned at Not on file Legal Sex Female 5:51 AM DISTILLERY LABORER Gender Identity Not on file Sexual Orientation Not on file documented as of this encounter Plan of Treatment Not on file documented as of this encounter Procedures Procedure Name Priority Date/Time Associated Diagnosis Comments CBC WITHOUT DIFFERENTIAL Routine 06/28/2004 9:45 PM DISTILLERY LABORER documented in this encounter Results * (ABNORMAL) CBC WITHOUT DIFFERENTIAL (06/28/2004 9:45 PM DISTILLERY LABORER) WBC 7.7 4.5 - 11.0 K/ul INTERFACE SYSTEM RBC 5.49(H) 4.20 - 5.40 Mil/ul INTERFACE SYSTEM HEMOGLOBIN 18.5(H) 12.0 - 16.0 g/dL INTERFACE SYSTEM HEMATOCRIT 53.6(H) 36.0 - 46.0 % INTERFACE SYSTEM MCV 97.6 84.0 - 103.0 Fl INTERFACE SYSTEM MCH 33.7 27.0 - 34.0 pg INTERFACE SYSTEM MCHC 34.5 30.0 - 35.0 g/dL INTERFACE SYSTEM RDW 13.9 11.0 - 14.5 percent(inac tive) INTERFACE SYSTEM PLATELETS 225 140 - 440 K/ul INTERFACE SYSTEM Comment:PLATELET CLUMPS PRES ENT. RESULTS MAY BE INACCURATE. MPV 10.8 8.9 - 12.8 Fl INTERFACE SYSTEM NEUTROPHILS 60.4 42.2 - 75.2 percent(inac tive) INTERFACE SYSTEM LYMPHOCYTES 30.0 24.0 - 44.0 percent(inac tive) INTERFACE SYSTEM MONOCYTES 7.5 2.0 - 10.0 percent(inac tive) INTERFACE SYSTEM EOSINOPHILS 1.7 0.0 - 7.0 % INTERF JIMI SYSTEM BASOPHILS 0.4 0.0 - 1.0 percent(inac tive) INTERFACE SYSTEM NEUTROPHIL ABSOLUTE 4.7 2.0 - 8.0 K/uL INTERFACE SYSTEM LYMPHOCYTE ABSOLUTE 2.3 1.2 - 4.0 K/ul INTERFACE SYSTEM MONOCYTE ABSOLUTE 0.6 0.1 - 0.6 K/ul INTERFACE SYSTEM EOSINOPHIL ABSOLUTE 0.1 0.0 - 0.7 K/ul INTERFACE SYSTEM BASOPHILS ABSOLUTE 0.0 0.0 - 0.2 K/ul INTERFACE SYSTEM HEM COMMENT Smear Reviewed Automated Diff INTERFACE SYSTEM 06/28/2004 9:45 PM DISTILLERY LABORER us Danisha Hitchcock MD HEMATOLOGY ORDERABLES Final Result INTERFACE SYSTEM Refer to clinic/hospital department documented in this encounter Visit Diagnoses Diagnosis Acute pharyngitis- Primary documented in this encounter Care Teams Numerical Tool Programmer Relationship Specialty Start Date End Date Charis Carcamo DO PCP - General Family Practice 11/29/19 documented as of this encounter
--- OUTSIDE RECORDS SUMMARY | 2025-06-03 05:29 | XMS_ITS | Encounter Summary ---
Author Organization [facility] Address [address] [place] [address] Care Team Providers Care Employee Benefits Attorney Name Role Phone Carlos Alberto Charis Hensley Primary Care Provider +1- [phone] Reason for Referral * Outpatient Services (Routine) - Closed Specialty Diagnoses / Procedures Referred By Joao t Referred To Contact Radiology Diagnoses Abdominal pain, left lower quadrant Procedures CT ABDOMEN PELVIS W CONTRAST Pawan Wall Sr., FNP [address] [place] [address] Phone: tel: fax: [facility] [address] [place] [address] Phone: tel: fax: Referral ID Status Reason Start Date Expiration Date V isits Requested Visits Authorized [id number] Closed MTN View CTS to Schedule (SGF) 09/02/2013 10/02/2013 1 1 Encounter Details Date Type Department Care Team (Latest Contact Info) Description 09/02/2013 Ancillary Orders [facility] Centralized Scheduling [address] [place] [address] Pawan Wall Sr., FNP [address] [place] [address] Abdominal pain, left lower quadrant (Primary Dx) Social History Tobacco Use Types Packs/Day Years Used Date Smoking Tobacco: Every Day Cigarettes 2 40 Alcohol Use Standard Drinks/Week Comments No 0 (1 standard drink = 0.6 oz pur e alcohol) Comments No Sex and Gender Information Value Date Recorded Sex Assigned at Not on file Legal Sex Female 5:51 AM FOOD SERVICE COUNTER CLERK Gender Identity Not on file Sexual Orientation Not on file Occupation Industry Job Start Date Job End Date Not on file Not on file Not on file Not on file Not on file Not on file Not on file Not on file documented as of this encounter Plan of Treatment Not on file documented as of this encounter Results * CT ABDOMEN PELVIS W CONTRAST (09/03/2013 10:12 AM CDT) Anatomical Region Laterality Modality Abdomen Computed Tomogra phy 09/03/2013 10:0 4 AM CDT Narrative 09/03/2013 10:[address] ABDOMEN and PELVIS, IV contrast enhanced 03 September 2013 TECHNIQUE After oral administration of contrast material and injection of 100 mL Optiray-320 nonionic contrast material intravenously, helical axial CT was obtained from the lung bases through the pelvis and imaged at 5 mm increments for 93 axial images. Sagittal and coronal reconstructions are also obtained. DESCRIPTION The heart and lung bases appear unremarkable to the extent visualized. Liver and gallbladder appear unremarkable. Spleen appears unremarkable. Pancreas and adrenal glands appear unremarkable. Kidneys appear unremarkable with no hydronephrosis or nephrolithiasis. The small bowel and colon appear unremarkable. Appendix is not identified, without pericecal inflammatory change seen. Urinary bladder and pelvic structures appear unremarkable. No free fluid, free air, or adenopathy are seen. There is a tiny fat containing umbilical hernia. IMPRESSION unremarkable CT of the abdomen Procedure Note Nahid Valencia MD - 09/03/[address] ABDOMEN and PELVIS, IV contrast enhanced 03 September 2013 TECHNIQUE After oral administration of contrast material and injection of 100 mL Optiray-320 nonionic contrast material intravenously, helical axial CT was obtained from the lung bases through the pelvis and imaged at 5 mm increments for 93 axial images. Sagittal and coronal reconstructions are also obtained. DESCRIPTION The heart and lung bases appear unremarkable to the extent visualized. Liver and gallbladder appear unremarkable. Spleen appears unremarkable. Pancreas and adrenal glands appear unremarkable. Kidneys appear unremarkable with no hydronephrosis or nephrolithiasis. The small bowel and colon appear unremarkable. Appendix is not identified, without pericecal inflammatory change seen. Urinary bladder and pelvic structures appear unremarkable. No free fluid, free air, or adenopathy are seen. There is a tiny fat containing umbilical hernia. IMPRESSION unremarkable CT of the abdomen us Pawan Wall Sr., TRAIN CALLER CT ORDERABLES F inal Result documented in this encounter Visit Diagnoses Diagnosis Abdominal pain, left lower quadrant- Primary Abdominal pain, left lower quadrant documented in this encounter Care Teams Employee Benefits Attorney Relationship Specialty Start Date End Date Charis Carcamo DO PCP - General Family Practice 11/29/19 documented as of this encounter
--- OUTSIDE RECORDS SUMMARY | 2025-06-03 05:29 | XMS_ITS | Encounter Summary ---
Author Organization [facility] Address [address] [place] [address] Care Team Providers Care Furnace Filler Name Role Phone Charis Carcamo DO Primary Care Provider +1- [phone] Encounter Details Date Type Department Care Team (Late st Contact Info) Description 01/31/2005 Outpatient Historical [facility] [place] MD NO ADDRESS ON FILE Social History Tobacco Use Types Packs/Day Years Used Date Smoking Tobacco: Never Assessed Comments Unknown Sex and Gender Information Value Date Recorded Sex Assigned at Not on file Legal Sex Female 5:51 AM WET COTTON FEEDER Gender Identity Not on file Sexual Orientation Not on file documented as of this encounter Plan of Treatment Not on file documented as of this encounter Visit Diagnoses Not on filedocumented in this encounter Care Teams Furnace Filler Relationship Specialty Start Date End Date Charis Carcamo DO PCP - General Family Practice 11/29/19 documented as of this encounter
--- OUTSIDE RECORDS SUMMARY | 2025-06-03 05:29 | XMS_ITS | Encounter Summary ---
Author Organization [facility] Address [address] [place] [address] Care Team Providers Care Sports Broadcaster Name Role Phone Charis Carcamo DO Primary Care Provider +1- [phone] Encounter Details Date Type Department Care Team (Latest Contact Info) Description 05/14/[address] [facility] Family Medicine- [place] [address] [place] [id number] Ernie Schmidt DO NO ADDRESS ON FILE ACUTE BRONCHITIS (Primary Dx); OTITIS MEDIA NOS Social History Tobacco Use Types Packs/Day Years Used Date Smoking Tobacco: Never Assessed Comments Unknown Sex and Gender Information Value Date Recorded Sex Assigned at Not on file Legal Sex Female 5:51 AM ROLL FINISHER Gender Identity Not on file Sexual Orientation Not on file documented as of this encounter Plan of Treatment Not on file documented as of this encounter Visit Diagnoses Diagnosis Acute bronchitis- Primary Unspecified otitis media documented in this encounter Care Teams Sports Broadcaster Relationship Specialty Start Date End Date Charis Carcamo DO PCP - General Family Practice 11/29/19 documented as of this encounter
--- OUTSIDE RECORDS SUMMARY | 2025-06-03 05:29 | XMS_ITS | Clinical Summary ---
Author Organization [facility] Address [address] [place] [address] Care Team Providers Care Senior Director Name Role Phone Charis Carcamo Primary Care Provider +1- [phone] Allergies Active Allergy Reactions Criticality Noted Date Comments Aripiprazole Headache Low 03/14/2012 Buspirone Headache Low 03/14/2012 Ciprofloxacin Unknown 05/21/2013 Citalopram Headache Low 03/14/2012 Dexlansoprazole Unknown 05/21/2013 Hydroxyzine Unknown 03/14/2012 I don't remember Levofloxacin Unknown 03/14/2012 Levothyroxine Swelling Low 11/29/2019 Lisinopril Unknown 03/14/2012 I don't remember Omeprazole Unknown 03/14/2012 Paroxetine Headache Low 03/14/2012 Pramipexole Unknown 03/14/2012 I don't remember Quetiapine Headache Low 03/14/2012 Sertraline Headache Low 03/14/2012 Solifenacin Diarrhea Low 03/14/2012 Venlafaxine Unknown 03/14/2012 Medications famotidine (PEPCID) 20 mg tablet Take 20 mg by mouth 2 times daily. 11/04/2019 Active gabapentin (NEURONTIN) 600 mg tablet Take 600 mg by mouth 2 times daily. 11/15/2019 Active rosuvastatin (CRESTOR) 20 mg tablet TAKE 1 TABLET BY MOUTH ONCE DAILY 09/05/2019 Active metFORMIN (GLUCOPHAGE XR) 500 mg Extended Release 24 hour tablet Take 500 mg by mouth daily with breakfast. 04/03/2020 Active aspirin (ECOTRIN EC) 81 mg Tablet, Delayed Release (E.C.) Take 81 mg by mouth daily. 07/09/2020 Active ALBUTEROL INHALATION Take by inhalation. 07/09/2020 Active levothyroxine (Synthroid) 50 mcg tablet Take 2 tablets daily 180 Tablet 3 08/14/2020 Active Active Problems Problem Noted Date Diagnosed Date H/O Total Thyroidectomy 02/202003/11/2020 Current smoker 03/02/2020 Iron deficiency anemia 01/14/2020 Chronic anticoagulation 01/14/2020 Multinodular goiter 11/29/2019 Pharyngoesophageal dysphagia 11/29/2019 Personal history of colonic polyps 06/18/2013 Family history of colon canc er requiring screening colonoscopy 05/30/2013 Morbid obesity 05/21/2013 Type 2 diabetes mellitus wit alfredo complication, without long-term current use of insulin 05/21/2013 Resolved Problems Problem Noted Date Diagnosed Date Resolved Date Right thyroid nodule 11/29/2019 020 Diverticulitis of colon (wit alfredo mention of hemorrhage)(562.11) 05/21/2013 06/18/2013 Encounters Date Type Department Care Team Description 06/02/2025 Telephone [facility] Vascular Surgery [address] [address] Min Valle MD Referral 05/30/2025 Orders Only [facility] V[facility] Surgery [place] [address] [facility] [address] [place] [address] Jesus Westbrook DPM 05/30/2025 Abstract [facility] Surgery [address] [place] [address] Provider, Abstract from Last 3 Months Immunizations Immunization Administration Dates Next Due (PNEUMOVAX 23)(50 YRS UP) PN EUMOCOCCAL POLYSACCHARIDE (PPV23) 0.5 ML, IM 03/03/2020 INFLUENZA VACCINE QUADRIVALENT 6 MOS UP PF IM Family History Medical History Relation Name Comments Diabetes Father Heart Disease Father Lung Cancer Maternal Aunt Diabetes Maternal Grandmother Colon Cancer Maternal Uncle Heart Disease Mother Breast Cancer Paternal Aunt Cancer Paternal Uncle Relation Name Status Comments Father Maternal Aunt Maternal Grandmother Maternal Uncle Mother Paternal Aunt Paternal Uncle Social History Tobacco Use Types Packs/Day Years Used Date Smoking Tobacco: Every Day Cigarettes Smokeless Tobacco: Never Alcohol Use Standard Drinks/Week Comments No 0 (1 standard drink = 0.6 oz pur e alcohol) Comments Unknown Sex and Gender Information Value Date Recorded Sex Assigned at Not on file Legal Sex Female 3:12 PM NITRATING ACID MIXER Gender Identity Not on file Sexual Orientation Not on file Last Filed Vital Signs Vital Sign Reading Time Taken Comments Blood Pressure 124/70 08/13/2020 9:52 AM NITRATING ACID MIXER Pulse 76 08/13/2020 9:52 AM NITRATING ACID MIXER Temperature 36 C (96.8 F) 03/03/2020 7:57 AM CDT Respiratory Rate 18 03/03/2020 7:57 AM CDT Oxygen Saturation - - Inhaled Oxygen Concentration - - Weight 83 kg (183 lb) 08/13/2020 9:52 AM NITRATING ACID MIXER Height 147.3 cm (4' 10 ) 08/13/2020 9:52 AM NITRATING ACID MIXER Body Mass Index 38.25 08/13/2020 9:52 AM NITRATING ACID MIXER Plan of Treatment Upcoming Encounters Date Type Department Care Team (Late st Contact Info) Description 06/12/2025 10:45 AM NITRATING ACID MIXER Office Visit [facility] Vascular Surgery [place] [address] [place] [address] Min Valle MD [address] [place] [address] Health Maintenance Due Date Last Done Comments DIABETES ANNUAL FOOT EXAM 1977 DIABETES ANNUAL RETINAL EXAM 1977 DIABETES HBA1C Q 6 MONTHS 1977 DIABETES MICROALBUMIN ANNUAL SCREEN 1977 LDL CHOLESTEROL ANNUAL 1977 DTAP/TDAP/TD VACCINES (1 - Tdap) 1978 BREAST CANCER SCREENING 1999 FIT-DNA Q 3 years 2004 FIT/FOBT Q 1 year 2004 Flex Sig/CT Colonography Q 5 years 2004 RSV VACCINE (60+ or ) (1 - Risk 50-74 years 1-dose series) 2009 ZOSTER VACCINE (1 of 2) 2009 PNEUMOCOCCAL VACCINE 50+ YEA RS (2 of 2 - PCV) 03/03/2021 03/03/2020 OSTEOPOROSIS SCREENING 2024 INFLUENZA VACCINE (#1) 2025 03/03/2020 COLORECTAL SCREENING 09/08/2027 09/07/2017, 09/07/2017, 06/06/2013 Colorectal Cancer Screening 09/08/2027 Medical Devices Implanted Type Area Psychiatrist Device Identifier Shelf Expiration Date Model / Serial / Lot Clip Ligating Horizon Med Ti [id number] - Csc - [id number] Implanted:Qty: 1 on 03/02/2020 by Ismael Smith MD Clip N/A: Neck TELEFLEX- WECK CLOSURE SYS [id number] 06/24/2024 [id number] / / [id number] Clip Ligating Horizon Red [id number] - Csc - [id number] Implanted:Qty: 1 on 03/02/2020 by Ismael Smith MD Clip N/A: Neck TE[employer] [id number] 07/02/2024 [id number] / / [id number] Procedures Procedure Name Priority Date/Time Associated Diagnosis Comments ENDOSCOPY, COLON, SCREENING 09/07/2017 12:00 AM CDT from Last 3 Months or Most Recently Relevant to Health Maintenance Results * ENDOSCOPY, COLON, SCREENING (09/07/2017 12:00 AM CDT) Dada Campbell MD GI PROCEDURE ORDERABLES Final R esult from Last 3 Months or Most Recently Relevant to Health Maintenance Insurance DUAL COMPLETE HMO [facility] [id number] MEDICAID [place] * Guarantor: DANA BOWLING Account Type Relation to Patient Date of Phone Billing Address Personal/Family [address] [place] [address] [employer] Medicaid Care Teams Senior Director Relationship Specialty Start Date End Date Charis Carcamo DO PCP - General Family Practice 11/29/19
--- OUTSIDE RECORDS SUMMARY | 2025-06-03 05:29 | XMS_ITS | Encounter Summary ---
Author Organization [facility] Address [address] [place] [address] Care Team Providers Care Powerhouse Operator Name Role Phone Charis Carcamo DO Primary Care Provider +1- [phone] Encounter Details Date Type Department Care Team (Latest Contact Info) Description 06/11/2004 Outpatient Historical [facility] Family Medicine- [place] [address] [place] [phone] Danisha Hitchcock MD NO ADDRESS ON FILE ACUTE PHARYNGITIS (Primary Dx); HYPERLIPIDEMIA NEC/NOS; SCREENING-PULMONARY TB Social History Tobacco Use Types Packs/Day Years Used Date Smoking Tobacco: Never Assessed Comments Unknown Sex and Gender Information Value Date Recorded Sex Assigned at Not on file Legal Sex Female 5:51 AM FACTORY EXPERT Gender Identity Not on file Sexual Orientation Not on file documented as of this encounter Plan of Treatment Not on file documented as of this encounter Visit Diagnoses Diagnosis Acute pharyngitis- Primary Other and unspecified hyperlipidemia Screening examination for pulmonary tuberculosis documented in this encounter Care Teams Powerhouse Operator Relationship Specialty Start Date End Date Charis Carcamo DO PCP - General Family Practice 11/29/19 documented as of this encounter
--- OUTSIDE RECORDS SUMMARY | 2025-06-03 05:29 | XMS_ITS | Encounter Summary ---
Author Organization [facility] Address [address] [place] [address] Care Team Providers Care Solar Photovoltaic Designer Name Role Phone Charis Carcamo DO Primary Care Provider +1- [phone] Encounter Details Date Type Department Care Team (Latest Contact Info) Description 11/19/2002 Outpatient Historical [facility] Danisha Hitchcock MD NO ADDRESS ON FILE LUMBAGO (Primary Dx) Social History Tobacco Use Types Packs/Day Years Used Date Smoking Tobacco: Never Assessed Comments Unknown Sex and Gender Information Value Date Recorded Sex Assigned at Not on file Legal Sex Female 5:51 AM ASSEMBLER FILTERS Gender Identity Not on file Sexual Orientation Not on file documented as of this encounter Plan of Treatment Not on file documented as of this encounter Visit Diagnoses Diagnosis Lumbago- Primary documented in this encounter Care Teams Solar Photovoltaic Designer Relationship Specialty Start Date End Date Charis Carcamo DO PCP - General Family Practice 11/29/19 documented as of this encounter
--- OUTSIDE RECORDS SUMMARY | 2025-06-03 05:29 | XMS_ITS | Encounter Summary ---
Author Organization [facility] Address [address] [place] [address] Care Team Providers Care Dispatch Officer Name Role Phone Charis Carcamo DO Primary Care Provider +1- [phone] Encounter Details Date Type Department Care Team (Latest Contact Info) Description 11/18/2003 Outpatient Historical [facility] Family Medicine- [place] [address] [place] [phone] Leann Campos NP NO ADDRESS ON FILE ACUTE PHARYNGITIS (Primary Dx); CHRONIC SINUSITIS NOS; ABDOMINAL PAIN LLQ Social History Tobacco Use Types Packs/Day Years Used Date Smoking Tobacco: Never Assessed Comments Unknown Sex and Gender Information Value Date Recorded Sex Assigned at Not on file Legal Sex Female 5:51 AM HOME WORKER Gender Identity Not on file Sexual Orientation Not on file documented as of this encounter Plan of Treatment Not on file documented as of this encounter Visit Diagnoses Diagnosis Acute pharyngitis- Primary Unspecified sinusitis (chronic) Abdominal pain, left lower quadrant documented in this encounter Care Teams Dispatch Officer Relationship Specialty Start Date End Date Charis Carcamo DO PCP - General Family Practice 11/29/19 documented as of this encounter
--- OUTSIDE RECORDS SUMMARY | 2025-06-03 05:29 | XMS_ITS | Encounter Summary ---
Author Organization [facility] Address [address] [place] [address] Care Team Providers Care Athlete Marketing Agent Name Role Phone Charis Carcamo DO Primary Care Provider +1- [phone] Encounter Details Date Type Department Care Team (Late st Contact Info) Description 01/10/2003 Outpatient Historical [facility] Family Medicine- [place] [address] [place] [address] Social History Tobacco Use Types Packs/Day Years Used Date Smoking Tobacco: Never Assessed Comments Unknown Sex and Gender Information Value Date Recorded Sex Assigned at Not on file Legal Sex Female 5:51 AM ELEVATORS INSPECTOR Gender Identity Not on file Sexual Orientation Not on file documented as of this encounter Plan of Treatment Not on file documented as of this encounter Visit Diagnoses Not on filedocumented in this encounter Care Teams Athlete Marketing Agent Relationship Specialty Start Date End Date Charis Carcamo DO PCP - General Family Practice 11/29/19 documented as of this encounter
--- OUTSIDE RECORDS SUMMARY | 2025-06-03 05:29 | XMS_ITS | Encounter Summary ---
Author Organization [facility] Address [address] [place] [address] Care Team Providers Care Low Voltage Technician Name Role Phone Charis Carcamo DO Primary Care Provider +1- [phone] Encounter Details Date Type Department Care Team (Latest Contact Info) Description 12/24/2002 Outpatient Historical [facility] Family Medicine- [place] [address] [place] [phone] Ernie Schmidt DO NO ADDRESS ON FILE LIPOID METABOL DIS NEC (Primary Dx); HYPERLIPIDEMIA NEC/NOS; OBESITY NOS Social History Tobacco Use Types Packs/Day Years Used Date Smoking Tobacco: Never Assessed Comments Unknown Sex and Gender Information Value Date Recorded Sex Assigned at Not on file Legal Sex Female 5:51 AM RN TEAM LEADER Gender Identity Not on file Sexual Orientation Not on file documented as of this encounter Plan of Treatment Not on file documented as of this encounter Visit Diagnoses Diagnosis Other disorders of lipoid metabolism- Primary Other and unspecified hyperlipidemia Obesity, unspecified documented in this encounter Care Teams Low Voltage Technician Relationship Specialty Start Date End Date Charis Carcamo DO PCP - General Family Practice 11/29/19 documented as of this encounter
--- OUTSIDE RECORDS SUMMARY | 2025-06-03 05:29 | XMS_ITS | Encounter Summary ---
Author Organization [facility] Address [address] [place] [address] Care Team Providers Care Welding Engineer Name Role Phone Charis Carcamo DO Primary Care Provider +1- [phone] Encounter Details Date Type Department Care Team (Latest Contact Info) Description 04/10/2003 Outpatient Historical [facility] Medicine [place] [address] [facility] [address] [place] [phone] Danisha Hitchcock MD NO ADDRESS ON FILE ACUTE URI NOS (Primary Dx); CONJUNCTIVITIS NOS Social History Tobacco Use Types Packs/Day Years Used Date Smoking Tobacco: Never Assessed Comments Unknown Sex and Gender Information Value Date Recorded Sex Assigned at Not on file Legal Sex Female 5:51 AM SENIOR MERCHANDISER Gender Identity Not on file Sexual Orientation Not on file documented as of this encounter Plan of Treatment Not on file documented as of this encounter Visit Diagnoses Diagnosis Acute upper respiratory infections of unspecified site- Primary Conjunctivitis unspecified Conjunctivitis, unspecified documented in this encounter Care Teams Welding Engineer Relationship Specialty Start Date End Date Charis Carcamo DO PCP - General Family Practice 11/29/19 documented as of this encounter
--- OUTSIDE RECORDS SUMMARY | 2025-06-03 05:29 | XMS_ITS | Encounter Summary ---
Author Organization [employer] [facility] Address [address] [place] [address] Care Team Providers Care Communications Specialist Name Role Phone Charis Carcamo DO Primary Care Provider +1- [phone] Encounter Details Date Type Department Care Team (Latest Contact Info) Description 01/28/2003 Outpatient Historical [facility] Danisha Hitchcock MD NO ADDRESS ON FILE ACUTE PANCREATITIS (Primary Dx) Social History Tobacco Use Types Packs/Day Years Used Date Smoking Tobacco: Never Assessed Comments Unknown Sex and Gender Information Value Date Recorded Sex Assigned at Not on file Legal Sex Female 5:51 AM MEDICAL SERVICES MANAGER Gender Identity Not on file Sexual Orientation Not on file documented as of this encounter Plan of Treatment Not on file documented as of this encounter Visit Diagnoses Diagnosis Acute pancreatitis- Primary documented in this encounter Care Teams Communications Specialist Relationship Specialty Start Date End Date Charis Carcamo DO PCP - General Family Practice 11/29/19 documented as of this encounter
--- OUTSIDE RECORDS SUMMARY | 2025-06-03 05:29 | XMS_ITS | Encounter Summary ---
Author Organization [facility] Address [address] [place] [address] Care Team Providers Care Calender Worker Helper Name Role Phone Charis Carcamo DO Primary Care Provider +1- [phone] Encounter Details Date Type Department Care Team (Latest Contact Info) Description 12/03/2002 Outpatient Historical [facility] Family Medicine- [place] [address] [place] [phone] Ernie Schmidt DO NO ADDRESS ON FILE BACKACHE NOS (Primary Dx); ACUTE BRONCHITIS Social History Tobacco Use Types Packs/Day Years Used Date Smoking Tobacco: Never Assessed Comments Unknown Sex and Gender Information Value Date Recorded Sex Assigned at Not on file Legal Sex Female 5:51 AM FIRE WARDEN Gender Identity Not on file Sexual Orientation Not on file documented as of this encounter Plan of Treatment Not on file documented as of this encounter Visit Diagnoses Diagnosis Backache, unspecified- Primary Acute bronchitis documented in this encounter Care Teams Calender Worker Helper Relationship Specialty Start Date End Date Charis Carcamo DO PCP - General Family Practice 11/29/19 documented as of this encounter
--- OUTSIDE RECORDS SUMMARY | 2025-06-03 05:29 | XMS_ITS | Encounter Summary ---
Author Organization [facility] Address [address] [place] [address] Care Team Providers Care Tour Conductor Name Role Phone Charis Carcamo DO Primary Care Provider +1- [phone] Encounter Details Date Type Department Care Team (Latest Contact Info) Description 02/21/2003 Outpatient Historical [facility] Family Medicine- [place] [address] [place] [phone] Danisha Hitchcock MD NO ADDRESS ON FILE ACUTE BRONCHITIS (Primary Dx); ACUTE URI NOS Social History Tobacco Use Types Packs/Day Years Used Date Smoking Tobacco: Never Assessed Comments Unknown Sex and Gender Information Value Date Recorded Sex Assigned at Not on file Legal Sex Female 5:51 AM ROLL PRESS OPERATOR Gender Identity Not on file Sexual Orientation Not on file documented as of this encounter Plan of Treatment Not on file documented as of this encounter Visit Diagnoses Diagnosis Acute bronchitis- Primary Acute upper respiratory infections of unspecified site documented in this encounter Care Teams Tour Conductor Relationship Specialty Start Date End Date Charis Carcamo DO PCP - General Family Practice 11/29/19 documented as of this encounter
--- OUTSIDE RECORDS SUMMARY | 2025-06-03 05:29 | XMS_ITS | Encounter Summary ---
Author Organization [facility] Address [address] [place] [address] Care Team Providers Care Cumulative Effects Analyst Name Role Phone Charis Carcamo DO Primary Care Provider +1- [phone] Encounter Details Date Type Department Care Team (Latest Contact Info) Description 11/11/[address] [facility] Family Medicine- [place] [address] [place] [address] Danisha Hitchcock MD NO ADDRESS ON FILE LUMBAGO (Primary Dx) Social History Tobacco Use Types Packs/Day Years Used Date Smoking Tobacco: Never Assessed Comments Unknown Sex and Gender Information Value Date Recorded Sex Assigned at Not on file Legal Sex Female 5:51 AM DREDGE BOAT ENGINEER Gender Identity Not on file Sexual Orientation Not on file documented as of this encounter Plan of Treatment Not on file documented as of this encounter Visit Diagnoses Diagnosis Lumbago- Primary documented in this encounter Care Teams Cumulative Effects Analyst Relationship Specialty Start Date End Date Charis Carcamo DO PCP - General Family Practice 11/29/19 documented as of this encounter
--- OUTSIDE RECORDS SUMMARY | 2025-06-03 05:29 | XMS_ITS | Encounter Summary ---
Author Organization [facility] Address [address] [place] [address] Care Team Providers Care Warehouse Record Clerk Name Role Phone Charis Carcamo DO Primary Care Provider +1- [phone] Encounter Details Date Type Department Care Team (Latest Contact Info) Description 07/14/2003 Outpatient Historical [facility] Family Medicine- [place] [address] [place] [address] Danisha Hitchcock MD NO ADDRESS ON FILE INFEC OTITIS EXTERNA NOS (Primary Dx); Skin sensation disturb; PAIN IN THORACIC SPINE; ALLERGIC RHINITIS NOS Social History Tobacco Use Types Packs/Day Years Used Date Smoking Tobacco: Never Assessed Comments Unknown Sex and Gender Information Value Date Recorded Sex Assigned at Not on file Legal Sex Female 5:51 AM DARK ROOM ATTENDANT Gender Identity Not on file Sexual Orientation Not on file documented as of this encounter Plan of Treatment Not on file documented as of this encounter Visit Diagnoses Diagnosis Infective otitis externa, unspecified- Primary Skin sensation disturb Disturbance of skin sensation Pain in thoracic spine Allergic rhinitis, cause unspecified documented in this encounter Care Teams Warehouse Record Clerk Relationship Specialty Start Date End Date Charis Carcamo DO PCP - General Family Practice 11/29/19 documented as of this encounter
--- OUTSIDE RECORDS SUMMARY | 2025-06-03 05:29 | XMS_ITS | Encounter Summary ---
Author Organization [facility] Address [address] [place] [address] Care Team Providers Care Learning Coach Name Role Phone Charis Carcamo DO Primary Care Provider +1- [phone] Encounter Details Date Type Department Care Team (Latest Contact Info) Description 04/09/2004 Outpatient Historical [facility] Family Medicine- [place] [address] [place] [address] Danisha Hitchcock MD NO ADDRESS ON FILE MIXED HYPERLIPIDEMIA (Primary Dx) Social History Tobacco Use Types Packs/Day Years Used Date Smoking Tobacco: Never Assessed Comments Unknown Sex and Gender Information Value Date Recorded Sex Assigned at Not on file Legal Sex Female 5:51 AM PATIENT COORDINATOR Gender Identity Not on file Sexual Orientation Not on file documented as of this encounter Plan of Treatment Not on file documented as of this encounter Visit Diagnoses Diagnosis Mixed hyperlipidemia- Primary documented in this encounter Care Teams Learning Coach Relationship Specialty Start Date End Date Charis Carcamo DO PCP - General Family Practice 11/29/19 documented as of this encounter
--- OUTSIDE RECORDS SUMMARY | 2025-06-03 05:29 | XMS_ITS | Clinical Summary ---
Author Organization [facility] Address [facility] [place] [address] Care Team Providers Care Supervisor Accounts Receivable Name Role Phone Charis Carcamo Primary Care Provider +1- [phone] Allergies Active Allergy Reactions Criticality Noted Date [...] Diarrhea Low 03/14/2012 Venlafaxine Unknown 03/14/2012 Medications clopidogrel (PLAVIX) 75 mg Oral Tab Take 75 mg by mouth daily. Active fenofibrate nanocrystallized (TRICOR) 145 mg Oral tablet Take 145 mg by mouth daily. Active montelukast (SINGULAIR) 10 mg Oral tablet Take 25 mg by mouth daily. Active metoprolol tartrate (LOPRESSOR) 50 mg Oral tablet Take 50 mg by mouth 2 times daily. Active nitroglycerin (NITROSTAT) 0.[address] 0.4 mg under tongue every 5 minutes as needed. Active Nebulizers Misc by Misc.(Non-Drug; Combo Route) route. Albuterol nebulizer prn Active famotidine (PEPCID) 20 mg tablet Take 20 mg by mouth 2 times daily. 11/04/19 20 Active gabapentin (NEURONTIN) 600 mg tablet Take 600 mg by mouth 2 times daily. 11/15/19 20 Active rosuvastatin (CRESTOR) 20 mg tablet TAKE 1 TABLET BY MOUTH ONCE DAILY 09/05/19 20 Active HYDROcodone-acetamin ophen (NORCO) 5-325 mg tabletIndications:Po stoperative pain Take 1 Tablet by mouth every 4 hours as needed for Pain, Break-Through. Max Daily Amount: 6 Tablets 30 Tablet 0 9:22 AM CDT 03/03/20 20 Active calcium as carbonate (TUMS ULTRA) 1,000 mg (400 mg elemental) Tablet, Chewable Take 1 Tablet (400 mg) by mouth as directed on hospital discharge instructions for taper regimen. Same thing as OTC TUMs. 180 Tablet 1 03/03/20 20 Active metFORMIN (GLUCOPHAGE XR) 500 mg Extended Release 24 hour tablet Take 500 mg by mouth daily with breakfast. 04/03/20 20 Active aspirin (ECOTRIN EC) 81 mg Tablet, Delayed Release (E.C.) Take 81 mg by mouth daily. Active ALBUTEROL INHALATION Take by inhalation. Active Synthroid 50 mcg tablet Take 2 tablets daily 180 Tablet 3 08/15/19 21 Active Active Problems Problem Noted Date Diagnosed Date H/O Total Thyroidectomy 02/202003/11/2020 Current smoker 03/02/2020 Chronic anticoagulation 01/14/2020 Iron deficiency anemia 01/14/2020 Multinodular goiter 11/29/2019 Pharyngoesophageal dysphagia 11/29/2019 Personal history of colonic polyps 06/18/2013 Family history of colon canc er requiring screening colonoscopy 05/30/2013 Morbid obesity 05/21/2013 Type 2 diabetes mellitus esther fuentes complication, without long-term current use of insulin 05/21/2013 Resolved Problems Problem Noted Date Diagnosed Date Resolved Date Right thyroid nodule 11/29/2019 020 Diverticulitis of colon (esther fuentes mention of hemorrhage)(562.11) 05/21/2013 06/18/2013 Immunizations Immunization Administration Dates Next Due (PNEUMOVAX [...] Used Date Smoking Tobacco: Every Day Cigarettes 1 40 Smokeless Tobacco: Never Tobacco Cessation:Ready to Q uit: No; Counseling Given: Yes Alcohol Use Standard Drinks/Week Comments No 0 (1 standard drink = 0.6 oz pur e alcohol) Comments No Sex and Gender Information Value Date Recorded Sex Assigned at Not on file Legal Sex Female 5:51 AM SECRETARIAL STENOGRAPHER Gender Identity Not on file Sexual Orientation Not on file Occupation Industry Job Start Date Job End Date Not on file Not on file Not on file Not on file Not on file Not on file Not on file Not on file Last Filed Vital Signs Vital Sign Reading Time Taken Comments Blood Pressure 124/70 08/13/2020 9:52 AM SECRETARIAL STENOGRAPHER Pulse 76 08/13/2020 9:52 AM SECRETARIAL STENOGRAPHER Temperature 36 C (96.8 F) 03/03/2020 7:57 AM CDT Respiratory Rate 18 03/03/2020 7:57 AM CDT Oxygen Saturation 94% 03/03/2020 7:57 AM CDT Inhaled Oxygen Concentration - - Weight 83 kg (183 lb) 08/13/2020 9:52 AM SECRETARIAL STENOGRAPHER Height 147.3 cm (4' 10 ) 08/13/2020 9:52 AM SECRETARIAL STENOGRAPHER Body Mass Index 38.25 08/13/2020 9:52 AM SECRETARIAL STENOGRAPHER Plan of Treatment Health Maintenance Due Date Last Done Comments DIABETES ANNUAL FOOT EXAM 1977 DIABETES ANNUAL RETINAL EXAM 1977 DIABETES HBA1C Q 6 MONTHS 1977 DIABETES MICROALBUMIN ANNUAL SCREEN 1977 DTAP/TDAP/TD VACCINES (1 - Tdap) 1978 BREAST CANCER SCREENING 1999 FIT-DNA Q 3 years 2004 FIT/FOBT Q 1 year 2004 Flex Sig/CT Colonography Q 5 years 2004 LDL CHOLESTEROL ANNUAL 06/11/2005 06/11/2004 RSV VACCINE (60+ or ) (1 - Risk 50-74 years 1-dose series) 2009 ZOSTER VACCINE (1 of 2) 2009 PNEUMOCOCCAL VACCINE 50+ YEA RS (2 of 2 - PCV) 03/03/2021 03/03/2020 OSTEOPOROSIS SCREENING 2024 INFLUENZA VACCINE (#1) 2025 03/03/2020 COLORECTAL SCREENING 09/08/2027 09/07/2017, 06/06/19 14 Colorectal Cancer Screening 09/08/2027 Medical Devices Implanted Type Area Reticle Printer Device Identifier Shelf Expiration Date Model / Serial / Lot Clip Ligating Horizon Med Ti [id number] - [facility] - [id number] Implanted:Qty: 1 on 03/02/2020 by Ismael Smith MD at [facility] Clip N/A: Neck TELEFLEX- WECK CLOSURE SYS [id number] 06/24/2024 [id number] / / [id number] Clip Ligating Horizon Red [id number] - [facility] - [id number] Implanted:Qty: 1 on 03/02/2020 by Ismael Smith MD at [facility] Clip N/A: Neck TELE[employer]LEX INC [id number] 07/02/2024 [id number] / / [id number] Procedures Procedure Name Priority Date/Time Associated Diagnosis Comments ENDOSCOPY, COLON, SCREENING Routine 09/07/2017 LIPID PANEL Routine 06/11/2004 2:30 PM SECRETARIAL STENOGRAPHER from Last 3 Months or Most Recently Relevant to Health Maintenance Results * ENDOSCOPY, COLON, SCREENING (09/07/2017) Dada Campbell MD GI PROCEDURE ORDERABLES Final R esult * (ABNORMAL) LIPID PANEL (06/11/2004 2:30 PM SECRETARIAL STENOGRAPHER) CHOLESTEROL 311(H) 75 - 200 mg/dL INTERFACE SYSTEM Comment:Results verified by repeat TRIGLYCERIDE 725(H) 0 - 179 mg/dL INTERFACE SYSTEM Comment:Dilution x2 HDL 30(L) 40 - 60 mg/dL INTERFACE SYSTEM Comment: As of 01 the reference range for HDL has been changed from 35-60 to 40-60 in following the recommendations from the National Education Cholesterol Program NECP . LDL CALCULATED See Comment 0 - 130 mg/dL INTERFACE SYSTEM Comment:Triglycerides >400 m g/dl; LDL calculation invalid CALCULATED TOTAL CHOLESTEROL TO HDL RATIO 10.37(H) 3.27 - 4.44 INTERFACE SYSTEM 06/11/2004 2:30 PM SECRETARIAL STENOGRAPHER Danisha Hitchcock MD CHEMISTRY ORDERABLES Final Result INTERFACE SYSTEM Refer to clinic/hospital department from Last 3 Months or Most Recently Relevant to Health Maintenance Insurance [place]ICA[place] [employer] Medicaid Advance Directives For more information, please contact: [phone] * Full Code (Latest Code Status on File) Date Activated Date Inactivated Comments 03/02/2020 5:48 PM 03/03/2020 2:26 PM * Full Code Date Activated Date Inactivated Comments 03/02/2020 10:50 AM 03/02/2020 5:48 PM Care Teams Supervisor Accounts Receivable Relationship Specialty Start Date End Date Charis Carcamo DO PCP - General Family Practice 11/29/19
--- OUTSIDE RECORDS SUMMARY | 2025-06-03 05:29 | XMS_ITS | Encounter Summary ---
Author Organization [facility] Address [address] [place] [address] Care Team Providers Care Contract Processor Name Role Phone Charis Carcamo DO Primary Care Provider +1- [phone] Encounter Details Date Type Department Care Team (Latest Contact Info) Description 12/14/2004 Outpatient Historical [facility] Family Medicine- [place] [address] [place] [address] Leann Campos NP NO ADDRESS ON FILE ACUTE SINUSITIS NOS (Primary Dx); CHRONIC SINUSITIS NOS; ADJUSTMENT DISORDER WITH ANXIETY Social History Tobacco Use Types Packs/Day Years Used Date Smoking Tobacco: Never Assessed Comments Unknown Sex and Gender Information Value Date Recorded Sex Assigned at Not on file Legal Sex Female 5:51 AM VOLCANOLOGIST Gender Identity Not on file Sexual Orientation Not on file documented as of this encounter Plan of Treatment Not on file documented as of this encounter Visit Diagnoses Diagnosis Acute sinusitis, unspecified- Primary Unspecified sinusitis (chronic) Adjustment disorder with anxiety documented in this encounter Care Teams Contract Processor Relationship Specialty Start Date End Date Charis Carcamo DO PCP - General Family Practice 11/29/19 documented as of this encounter
--- OUTSIDE RECORDS SUMMARY | 2025-06-03 05:29 | XMS_ITS | Encounter Summary ---
Author Organization [facility] Address [address] [place] [address] Care Team Providers Care Real Estate Agent/Broker Name Role Phone Charis Carcamo DO Primary Care Provider +1- [phone] Encounter Details Date Type Department Care Team (Latest Contact Info) Description 04/13/2005 Outpatient Historical [facility] Family Medicine- [place] [address] [place] [phone] Leann Campos NP NO ADDRESS ON FILE ACUTE BRONCHITIS (Primary Dx); CHRONIC BRONCHITIS NOS (CMS/HCC); GANGLION NOS Social History Tobacco Use Types Packs/Day Years Used Date Smoking Tobacco: Never Assessed Comments Unknown Sex and Gender Information Value Date Recorded Sex Assigned at Not on file Legal Sex Female 5:51 AM SOFTWARE TRAINER Gender Identity Not on file Sexual Orientation Not on file documented as of this encounter Plan of Treatment Not on file documented as of this encounter Visit Diagnoses Diagnosis Acute bronchitis- Primary Unspecified chronic bronchitis (CMS/HCC) Unspecified chronic bronchitis Ganglion, unspecified documented in this encounter Care Teams Real Estate Agent/Broker Relationship Specialty Start Date End Date Charis Carcamo DO PCP - General Family Practice 11/29/19 documented as of this encounter
--- OUTSIDE RECORDS SUMMARY | 2025-06-03 05:29 | XMS_ITS | Encounter Summary ---
Author Organization [facility] Address [address] [place] [address] Care Team Providers Care Musical String Maker Name Role Phone Charis Carcamo DO Primary Care Provider +1- [phone] Encounter Details Date Type Department Care Team (Latest Contact Info) Description 02/10/2005 Outpatient Historical [facility] Family Medicine [place] [address] [facility] [address] [place] [phone] Danisha Hitchcock MD NO ADDRESS ON FILE ABDOMINAL PAIN UNSPEC SITE (Primary Dx) Social History Tobacco Use Types Packs/Day Years Used Date Smoking Tobacco: Never Assessed Comments Unknown Sex and Gender Information Value Date Recorded Sex Assigned at Not on file Legal Sex Female 5:51 AM DISPLAY SCREEN FABRICATOR Gender Identity Not on file Sexual Orientation Not on file documented as of this encounter Plan of Treatment Not on file documented as of this encounter Visit Diagnoses Diagnosis Abdominal pain, unspecified site- Primary documented in this encounter Care Teams Musical String Maker Relationship Specialty Start Date End Date Charis Carcamo DO PCP - General Family Practice 11/29/19 documented as of this encounter
--- OUTSIDE RECORDS SUMMARY | 2025-06-03 05:29 | XMS_ITS | Encounter Summary ---
Author Organization [facility] Address [address] [place] [address] Care Team Providers Care Automatic Lathe Tender Name Role Phone Charis Carcamo DO Primary Care Provider +1- [phone] Encounter Details Date Type Department Care Team (Latest Contact Info) Description 01/25/2005 Outpatient Historical [facility] Family Medicine- [place] [address] [place] [address] Pawan Vences PA NO ADDRESS ON FILE URIN TRACT INFECTION NOS (Primary Dx) Social History Tobacco Use Types Packs/Day Years Used Date Smoking Tobacco: Never Assessed Comments Unknown Sex and Gender Information Value Date Recorded Sex Assigned at Not on file Legal Sex Female 5:51 AM ORACLE CONSULTANT Gender Identity Not on file Sexual Orientation Not on file documented as of this encounter Plan of Treatment Not on file documented as of this encounter Visit Diagnoses Diagnosis Urinary tract infection, site not specified- Primary documented in this encounter Care Teams Automatic Lathe Tender Relationship Specialty Start Date End Date Charis Carcamo DO PCP - General Family Practice 11/29/19 documented as of this encounter
--- OUTSIDE RECORDS SUMMARY | 2025-06-03 05:29 | XMS_ITS | Encounter Summary ---
Author Organization [facility] Address [address] [place] [address] Care Team Providers Care Funeral Planning Counselor Name Role Phone Charis Carcamo DO Primary Care Provider +1- [phone] Encounter Details Date Type Department Care Team (Latest Contact Info) Description 05/17/2004 Outpatient Historical [facility] Family Medicine- [place] [address] [place] [address] Danisha Hitchcock MD NO ADDRESS ON FILE ACUTE BRONCHITIS (Primary Dx) Social History Tobacco Use Types Packs/Day Years Used Date Smoking Tobacco: Never Assessed Comments Unknown Sex and Gender Information Value Date Recorded Sex Assigned at Not on file Legal Sex Female 5:51 AM PICTURE FRAMER Gender Identity Not on file Sexual Orientation Not on file documented as of this encounter Plan of Treatment Not on file documented as of this encounter Visit Diagnoses Diagnosis Acute bronchitis- Primary documented in this encounter Care Teams Funeral Planning Counselor Relationship Specialty Start Date End Date Charis Carcamo DO PCP - General Family Practice 11/29/19 documented as of this encounter
--- OUTSIDE RECORDS SUMMARY | 2025-06-03 05:29 | XMS_ITS | Encounter Summary ---
Author Organization [employer] [facility] Address [address] [place] [address] Care Team Providers Care Training And Development Professional Name Role Phone Charis Carcamo DO Primary Care Provider +1- [phone] Encounter Details Date Type Department Care Team (Latest Contact Info) Description 07/15/2003 Outpatient Historical [facility] Danisha Hitchcock MD NO ADDRESS ON FILE CERVICAL DISC DEGEN (Primary Dx) Social History Tobacco Use Types Packs/Day Years Used Date Smoking Tobacco: Never Assessed Comments Unknown Sex and Gender Information Value Date Recorded Sex Assigned at Not on file Legal Sex Female 5:51 AM DIRECTOR HOSPICE OPERATIONS Gender Identity Not on file Sexual Orientation Not on file documented as of this encounter Plan of Treatment Not on file documented as of this encounter Visit Diagnoses Diagnosis Degeneration of cervical intervertebral disc- Primary documented in this encounter Care Teams Training And Development Professional Relationship Specialty Start Date End Date Charis Carcamo DO PCP - General Family Practice 11/29/19 documented as of this encounter
--- OUTSIDE RECORDS SUMMARY | 2025-06-03 05:29 | XMS_ITS | Encounter Summary ---
Author Organization [facility] Address [address] [place] [address] Care Team Providers Care Kindergarten Classroom Teacher Name Role Phone Charis Carcamo DO Primary Care Provider +1- [phone] Encounter Details Date Type Department Care Team (Latest Contact Info) Description 09/20/2002 Outpatient Historical [facility] Family Medicine- [place] [address] [place] [phone] Ernie Schmidt DO NO ADDRESS ON FILE JOINT PAIN-UNSPEC (Primary Dx) Social History Tobacco Use Types Packs/Day Years Used Date Smoking Tobacco: Never Assessed Comments Unknown Sex and Gender Information Value Date Recorded Sex Assigned at Not on file Legal Sex Female 5:51 AM WIRE DRAWING DIE MAKER Gender Identity Not on file Sexual Orientation Not on file documented as of this encounter Plan of Treatment Not on file documented as of this encounter Visit Diagnoses Diagnosis Pain in joint, site unspecified- Primary documented in this encounter Care Teams Kindergarten Classroom Teacher Relationship Specialty Start Date End Date Charis Carcamo DO PCP - General Family Practice 11/29/19 documented as of this encounter
--- OUTSIDE RECORDS SUMMARY | 2025-06-03 05:29 | XMS_ITS | Encounter Summary ---
Author Organization [facility] Address [address] [place] [address] Care Team Providers Care Webmaster Name Role Phone Charis Carcamo DO Primary Care Provider +1- [phone] Encounter Details Date Type Department Care Team (Latest Contact Info) Description 04/09/2004 Outpatient Historical [facility] Family Medicine- [place] [address] [place] [address] Danisha Hitchcock MD NO ADDRESS ON FILE ACUTE URI NOS (Primary Dx); HYPERLIPIDEMIA NEC/NOS; ESOPHAGEAL REFLUX; NONINFEC GASTROENTERIT NEC Social History Tobacco Use Types Packs/Day Years Used Date Smoking Tobacco: Never Assessed Comments Unknown Sex and Gender Information Value Date Recorded Sex Assigned at Not on file Legal Sex Female 5:51 AM HEALTH INSURANCE SPECIALIST Gender Identity Not on file Sexual Orientation Not on file documented as of this encounter Plan of Treatment Not on file documented as of this encounter Visit Diagnoses Diagnosis Acute upper respiratory infections of unspecified site- Primary Other and unspecified hyperlipidemia Esophageal reflux Other and unspecified noninfectious gastroenteritis and colitis(558.9) Other and unspecified noninfectious gastroenteritis and colitis documented in this encounter Care Teams Webmaster Relationship Specialty Start Date End Date Charis Carcamo DO PCP - General Family Practice 11/29/19 documented as of this encounter
--- OUTSIDE RECORDS SUMMARY | 2025-06-03 05:29 | XMS_ITS | Encounter Summary ---
Author Organization [employer] Address [address] [place] [address] Care Team Providers Care Reel Blade Bender Furnace Tender Name Role Phone Charis Carcamo DO Primary Care Provider +1- [phone] Encounter Details Date Type Department Care Team (Late st Contact Info) Description 12/12/2002 Outpatient Historical [facility] Pawan Vences, [place] NO ADDRESS ON FILE Social History Tobacco Use Types Packs/Day Years Used Date Smoking Tobacco: Never Assessed Comments Unknown Sex and Gender Information Value Date Recorded Sex Assigned at Not on file Legal Sex Female 5:51 AM BLENDING TANK TENDER HELPER Gender Identity Not on file Sexual Orientation Not on file documented as of this encounter Plan of Treatment Not on file documented as of this encounter Visit Diagnoses Not on filedocumented in this encounter Care Teams Reel Blade Bender Furnace Tender Relationship Specialty Start Date End Date Charis Carcamo DO PCP - General Family Practice 11/29/19 documented as of this encounter
--- OUTSIDE RECORDS SUMMARY | 2025-06-03 05:29 | XMS_ITS | Encounter Summary ---
Author Organization [facility] Address [address] [place] [address] Care Team Providers Care Upper Trimmer Name Role Phone Charis Carcamo Primary Care Provider [phone] Encounter Details Date Type Department Care Team (Latest Contact Info) Description 06/11/2004 Outpatient Historical [facility]- [address] [place] [id number] Danisha Hitchcock MD NO ADDRESS ON FILE HYPERLIPIDEMIA NEC/NOS (Primary Dx) Social History Tobacco Use Types Packs/Day Years Used Date Smoking Tobacco: Never Assessed Comments Unknown Sex and Gender Information Value Date Recorded Sex Assigned at Not on file Legal Sex 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 Gender Identity Not on file Sexual Orientation Not on file documented as of this encounter Plan of Treatment Not on file documented as of this encounter Procedures Procedure Name Priority Date/Time Associated Diagnosis Comments MONONUCLEOSIS SCREEN Routine 06/11/2004 2:30 PM BALING MACHINE TENDER CBC WITHOUT DIFFERENTIAL Routine 06/11/2004 2:30 PM BALING MACHINE TENDER ALT Routine 06/11/2004 2:30 PM BALING MACHINE TENDER LIPID PANEL Routine 06/11/2004 2:30 PM BALING MACHINE TENDER documented in this encounter Results * MONONUCLEOSIS SCREEN (06/11/2004 2:30 PM BALING MACHINE TENDER) MONONUCLEOSIS SCREEN Negative Negative INTERFACE SYSTEM 06/11/2004 2:30 PM BALING MACHINE TENDER us Danisha J Lothair MD HEMATOLOGY ORDERABLES Final Result INTERFACE SYSTEM Refer to clinic/hospital department * (ABNORMAL) CBC WITHOUT DIFFERENTIAL (06/11/2004 2:30 PM BALING MACHINE TENDER) WBC 8.3 4.5 - 11.0 K/ul INTERFACE SYSTEM RBC 5.43(H) 4.20 - 5.40 Mil/ul INTERFACE SYSTEM HEMOGLOBIN 18.2(H) 12.0 - 16.0 g/dL INTERFACE SYSTEM HEMATOCRIT 53.2(H) 36.0 - 46.0 % INTERFACE SYSTEM MCV 98.0 84.0 - 103.0 Fl INTERFACE SYSTEM MCH 33.5 27.0 - 34.0 pg INTERFACE SYSTEM MCHC 34.2 30.0 - 35.0 g/dL INTERFACE SYSTEM RDW 13.6 11.0 - 14.5 percent(inac tive) INTERFACE SYSTEM PLATELETS 217 140 - 440 K/ul INTERFACE SYSTEM Comment:PLATELET CLUMPS PRES ENT. RESULTS MAY INACCURATE. MPV 11.1 8.9 - 12.8 Fl INTERFACE SYSTEM NEUTROPHILS 62.7 42.2 - 75.2 percent(inac tive) INTERFACE SYSTEM LYMPHOCYTES 27.9 24.0 - 44.0 percent(inac tive) INTERFACE SYSTEM MONOCYTES 7.4 2.0 - 10.0 percent(inac tive) INTERFACE SYSTEM EOSINOPHILS 1.6 0.0 - 7.0 % INTERF JIMI SYSTEM BASOPHILS 0.4 0.0 - 1.0 percent(inac tive) INTERFACE SYSTEM NEUTROPHIL ABSOLUTE 5.2 2.0 - 8.0 K/uL INTERFACE SYSTEM LYMPHOCYTE ABSOLUTE 2.3 1.2 - 4.0 K/ul INTERFACE SYSTEM MONOCYTE ABSOLUTE 0.6 0.1 - 0.6 K/ul INTERFACE SYSTEM EOSINOPHIL ABSOLUTE 0.1 0.0 - 0.7 K/ul INTERFACE SYSTEM BASOPHILS ABSOLUTE 0.0 0.0 - 0.2 K/ul INTERFACE SYSTEM HEM COMMENT Smear Reviewed Automated Diff INTERFACE SYSTEM 06/11/2004 2:30 PM BALING MACHINE TENDER Danisha Hitchcock MD HEMATOLOGY ORDERABLES Final Result Performing Organization Address City/[facility] Co de Phone Number INTERFACE SYSTEM Refer to clinic/hospital department * (ABNORMAL) ALT (06/11/2004 2:30 PM BALING MACHINE TENDER) ALT 93(H) 9 - 52 IU/L INTERFAC E SYSTEM 06/11/2004 2:30 PM BALING MACHINE TENDER Danisha Hitchcock MD CHEMISTRY ORDERABLES Final Result Performing Organization Address City/[facility] Co de Phone Number INTERFACE SYSTEM Refer to clinic/hospital department * (ABNORMAL) LIPID PANEL (06/11/2004 2:30 PM BALING MACHINE TENDER) CHOLESTEROL 311(H) 75 - 200 mg/dL INTERFACE [...] - 4.44 INTERFACE SYSTEM 06/11/2004 2:30 PM BALING MACHINE TENDER us Danisha Hitchcock MD CHEMISTRY ORDERABLES Final Result Performing Organization Address City/[facility] Co fl Phone Number INTERFACE SYSTEM Refer to clinic/hospital department documented in this encounter Visit Diagnoses Diagnosis Other and unspecified hyperlipidemia- Primary documented in this encounter Care Teams Upper Trimmer Relationship Specialty Start Date End Date Charis Carcamo DO PCP - General Family Practice 11/29/19 documented as of this encounter
--- NOTE | 2025-06-03 05:39 | ECG_ITS ---
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 [email or web address]
[2025-06-03 05:57] VITALS: BP 145/63; PULSE 75; O2SAT 98
--- NOTE | 2025-06-03 06:00 | ED_ITS ---
HPI - Chest Pain 2 General: Chief Complaint: Chest Pain Stated Complaint: CHEST PAIN Time Seen by Provider: 06/03/25 05:43 Source: patient Mode of arrival: ambulatory Limitations: no limitations History of Present Illness: 64 yo female that states she has been negron ving chest pain over the last week. She states it is a sharp pain in the center of her chest and rates it a 7/10. She has a hx of pvd and cad. Pt recently got out of the hospital after stent placement in her legs. Denies any exertional component. denies sob. Related Data Home Medications ?Medication ?Instructions ?Recorded ?Confirmed nitroglycerin 0.4 mg sublingual 0.4 mg sublingual PRN PRN Chest 06/14/19 04/22/25 tablet (Nitrostat) Pain Tums 1 tab PO DIRECTED 0 04/22/25 acetaminophen 500 mg tablet 1,000 mg PO PRN 04/08/20 1 06/22/24 (Acetaminophen Extra Strength) aspirin 81 mg tablet,delayed 81 mg PO DAILY 07/07/20 1 06/22/24 release clopidogrel 75 mg tablet 75 mg PO DAILY 02/13/2504/05 Previous Rx's ?Medication ?Instructions ?Recorded wheelchair #1 ea 10/17/19 diabetic shoes #1 ea 01/22/20 blood sugar diagnostic (Accu-Chek #100 ea 04/06/20 Alyson Plus test strips) blood-glucose meter (Accu-Chek #1 ea 04/06/20 Alyson Plus Meter) albuterol sulfate 90 mcg/actuation 2 puff inhalation Q ID PRN 12/24/20 aerosol inhaler (ProAir HFA) Shortness Of Breath 90 da ys #8.5 grams cholecalciferol (vitamin D3) 50 50 mcg PO DAILY #90 ca ps 02/26/24 mcg (2,000 unit) capsule rosuvastatin 20 mg tablet 20 mg PO DAILY #90 tabs 01/27 Diabetic shoes with 3 inserts #1 ea 10/24/24 losartan 25 mg tablet 25 mg PO DAILY #90 tabs 12/27 cilostazol 50 mg tablet 50 mg PO BID #180 tabs 12/19 doxycycline hyclate 100 mg capsule 100 mg PO BID 10 da ys #20 caps 02/13/25 tramadol 50 mg tablet 50 mg PO BID PRN pain #60 ta bs 02/13/25 famotidine 20 mg tablet 20 mg PO BID #180 tabs 02/18 levothyroxine 125 mcg tablet 125 mcg PO DAILY #90 tabs 02/24/25 (Synthroid) metformin 500 mg tablet,extended See Rx Instructions . Route 02/27/25 release 24 hr .COMPLEX #180 tabs prednisone 20 mg tablet 20 mg PO DAILY #15 tabs 1007/30 metoprolol tartrate 50 mg tablet 50 mg PO BID #180 tab s 04/15/25 gabapentin 300 mg capsule See Rx Instructions .Route 1 07/21/24 .COMPLEX #90 caps Allergies Allergy/AdvReac Type Severity Reaction Status Date / Time amlodipine Allergy ADR-Dizzine Verified 04/22/25 12:44 ss clavulanic acid (From Allergy Unknown Verified 04/22/25 12:44 Augmentin) hydrocodone Allergy urinary Verified 04/22/25 12:44 retention levofloxacin (From Levaquin) Allergy ADR-Dizzine Verified 04/22/25 12:44 ss omeprazole Allergy chest pain Verified 04/22/25 12:44 prednisone Allergy SOB Verified 04/22/25 12:44 Review of Systems 2 Card: Reports: chest pain PFSH ED 2 PFSH: Medical History HTN (hypertension) with goal to be determined PAD (peripheral artery disease) 01.21.25 angiogram--referred for aortoilofemoral bypass Atherosclerosis of both carotid arteries 11.29.24 Bilateral ICA stenosis less than 50%. Mild carotid plaque. Iron deficiency anemia, unspecified has seen hematology--has had iron infusions; gets scopes for GI bleeds at [facility] in [place] Nicotine dependence, cigarettes, with other nicotine-induced disorders Vitamin D deficiency Encounter for chronic pain management legacy pain patient on tramadol for chronic back pain Postlaminectomy syndrome of lumbar region Gastritis Chronic constipation Encounter for screening for malignant neoplasm of lung LDCT 09.20.24--repeat one year CAD (coronary artery disease) hx of stents Sensorimotor neuropathy Multifocal Sacral fracture, closed Osteoporosis Spondylolisthesis, lumbar region Dysphonia Vocal cord polyp Postnasal drip Chronic sinusitis Nasal turbinate hypertrophy Deviated septum Type 2 diabetes mellitus without complications Trigger ring finger of right hand Hyperlipidemia Central sleep apnea didn't tolerate CPAP Essential hypertension Neuropathic peripheral nerve Lumbar stenosis with neurogenic claudication Intervertebral disc disorders with radiculopathy, lumbar region Surgical History History of thyroidectomy, total 03.02.20 [facility] History of lumpectomy of both breasts fibrocysts removed History of lumbar surgery Dr. Turner-lumbar decompression; has now had total of 4 lumbar surgeries total History of thyroidectomy 03/02/[address] [facility]. History of appendectomy Hx of hand surgery trigger finger surgeries--multiple H/O: hysterectomy PINKY w/ BSO done for benign fibroids; no cancer H/O breast biopsy benign History of bladder surgery bladder tie up H/O heart artery stent 2 stents Family History Father CAD (coronary artery disease) Hypertension Cancer Diabetes Mother CAD (coronary artery disease) Hypertension Grandmother Cancer Diabetes Social History Smoking and tobacco/nicotine status: current every day tobacco/nicotine user cigarettes Packs smoked per day: 2 Years cigarettes smoked: 55 [ Other cigarette details: 2ppd X 55 yrs; started age 8; 110 pk yr hx; ] Alcohol intake: never Substance/Drug Use: never Lives independently: Yes Household members: spouse Marital status: Number of children: 2 Highest education level completed: 9th Grade Current occupational status: disabled 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 Physical Exam 2 Const: COMMON NORMALS: patient oriented x3 HENMT: COMMON NORMALS: normocephalic and atraumatic HEAD & SCALP: n ormocephalic and atraumatic Neck/C-Spine: COMMON NORMALS: full ROM and supple Chest: COMMONS NORMALS: normal inspection of the chest and normal palpation of entire chest wall Resp: COMMON NORMALS: normal respiratory effort, No retractions, No use of accessory muscles and clear to auscultation bilaterally AUSCULTATION: clear to auscultation bilaterally Cardio: COMMON NORMALS: regular rate, regular rhythm and No murmurs present (Cardio) RATE: regular rate RHYTHM: regular rhythm GI: COMMON NORMALS: Normal to inspection, nondistended, normoactive bowel sounds present, Soft to palpation, non-tender and no masses PALPATION: Yes Soft to palpation Extremity: COMMON NORMALS: normal to inspection and full ROM Neuro: COMMON NORMALS: patient oriented x3, moves all extremities and no focal motor deficits Psych: COMMON NORMALS: mental status grossly normal, Normal thought process present and cooperative THOUGHT PROCESS: Normal thought process present Skin: COMMON NORMALS: no rashes or lesions noted and no wounds GENERAL SKIN EXAM: no rashes or lesions noted Course 2 Vital Signs: Vital signs: Vital Signs Temperature 98.2 F 06/03/25 05:22 Pulse Rate 78 06/03/25 07:45 Respiratory Rate 16 06/03/25 06:13 Blood Pressure 164/67 06/03/25 07:45 Pulse Oximetry 95 06/03/25 07:45 Oxygen Delivery Me thod Room Air 06/03/25 06:21 MDM - Chest Pain Medical Decision Making 64-year-old female presents for chest pain is since resolved differential includes ACS, pneumothorax, pulmonary emboli. Patient's chest x-ray is interpreted by me showed no signs of pneumonia no pneumothorax she has no signs of pulm emboli. Patient's 2-hour Trope had mild elevation. I had a long discussion with patient and recommended admission at this time due to her risk factors. Patient states that she feels improved and she does not want to stay she states she has an appointment next week and wants to just follow-up. I informed her if she changes her mind or has any worsening pain she is to return she understands agrees to plan. ekg interperted by me at 0528 [address] hr [address] elevation qrs 16 qtc 404 ekg interperted by me [place] [address] elevation nsr hr qrs 19 qtc 416 Medical Records I reviewed the patient's medical records. Lab Data I reviewed the patient's lab results. 06/03/25 06:08 06/03/25 06:08 Radiology Impressions Chest X-Ray 06/03/25 05:24 IMPRESSION: No acute findings. Laboratory Results WBC 6.96 10^3/uL (3.29-11.43) 06/03/25 06:08 RBC 3.91 10^6/uL (3.85-5.65) 06/03/25 06:08 Hgb 7.30 g/dL (11.27-16.99) L 06/03/25 06:08 Hct 28.5 % (36-47) L 06/03/25 06:08 MCV 72.9 fl (85-98) L 06/03/25 06:08 MCH 18.7 pg (27-33) L 06/03/25 06:08 MCHC 25.6 g/dL (30-55) L 06/03/25 06:08 RDW 20.1 % (12.1-15.1) H 06/03/25 06:08 Plt Count 282 10^3/cmm (157-399) 06/03/25 06:08 MPV 9.5 fL (7.4-10.4) 06/03/25 06:08 Neut % (Auto) 75.4 % 06/03/25 06:08 Lymph % (Auto) 12.8 % 06/03/25 06:08 [place] % (Auto) 8.5 % 06/03/25 06:08 Eos % (Auto) 2.0 % 06/03/25 06:08 Baso % (Auto) 1.0 % 06/03/25 06:08 Neut # (Auto) 5.25 10^3/uL (1.8-7.7) 06/03/25 06:08 Lymph # (Auto) 0.9 10^3/uL (0.8-4.8) 06/03/25 06:08 [place] # (Auto) 0.6 10^3/uL (0.2-0.9) 06/03/25 06:08 Eos # (Auto) 0.1 10^3/uL (0.0-0.8) 06/03/25 06:08 Baso # (Auto) 0.1 10^3/uL (0.0-0.1) 06/03/25 06:08 Nucleated RBC % (auto) 0.3 % 06/03/25 06:08 Nucleated RBCs # 0.0 /100WBC 06/03/25 06:08 Sodium 140 mmol/L (136-145) 06/03/25 06:08 Potassium 4.7 mmol/L (3.5-5.1) 06/03/25 06:08 Chloride 100 mmol/L (98-107) 06/03/25 06:08 Carbon Dioxide 26 mmol/L (22-29) 06/03/25 06:08 Anion Gap 18.7 (5-19) 06/03/25 06:08 BUN 21 mg/dL (8-23) 06/03/25 06:08 Creatinine 0.8 mg/dL (0.5-0.9) 06/03/25 06:08 GFR Calculation 72.0 mL/min (90-130) L 06/03/25 06:08 Glucose 170 mg/dL (65-115) H 06/03/25 06:08 Calculated Osmolality 297 mOsm/kg (285-295) H 06/03/25 06:08 Calcium 9.4 mg/dL (8.5-10.5) 06/03/25 06:08 Total Bilirubin 0.3 mg/dL (0.15-1.2) 06/03/25 06:08 AST 17 U/L (0-32) 06/03/25 06:08 ALT 12 U/L (0-33) 06/03/25 06:08 Alkaline Phosphatase 72 U/L (35-105) 06/03/25 06:08 Troponin T Baseline 22 ng/L (0-10) H 06/03/25 06:08 Troponin T 60 Minute 27.75 ng/L (0-10) H 06/03/25 07:24 Delta Troponin T 5.75 ABS# (0-10) 06/03/25 07:24 NT-Pro-B Natriuret Pep 492 pg/mL (0-125) H 06/03/25 06:08 Total Protein 6.8 g/dL (6.6-8.7) 06/03/25 06:08 Albumin 4.4 g/dL (3.5-5.2) 06/03/25 06:08 Globulin 2.4 g/dL (1.3-4.6) 06/03/25 06:08 All radiology interpretation(s) finalized by discharge Discharge Plan Discharge Patient Disposition: Home Clinical Impression: Chest pain Condition: Stable Prescriptions: No Action albuterol sulfate [ProAir HFA] 90 mcg/actuation HFA aerosol inhaler 2 puff INHALATION QID PRN (Reason: Shortness Of Breath) 90 Days Qty: 8.5 3RF nitroglycerin [Nitrostat] 0.4 mg tablet, sublingual 0.4 mg SUBLINGUAL PRN PRN (Reason: Chest Pain) (DME) wheelchair See Rx Instructions .Route .MEDSUPPLY Qty: 1 0RF Rx Instructions: As directed (DME) diabetic shoes See Rx Instructions .Route .MEDSUPPLY Qty: 1 0RF Rx Instructions: As directed rosuvastatin 20 mg tablet 20 mg PO DAILY Qty: 90 1RF Rx Instructions: Take 1 tablet by mouth once daily (DME) Diabetic shoes with 3 inserts See Rx Instructions .Route .MEDSUPPLY Qty: 1 0RF Rx Instructions: As directed to the shoe talat cilostazol 50 mg tablet 50 mg PO BID Qty: 180 3RF clopidogrel 75 mg tablet 75 mg PO DAILY tramadol 50 mg tablet 50 mg PO BID PRN (Reason: pain) Qty: 60 5RF doxycycline hyclate 100 mg capsule 100 mg PO BID 10 Days Qty: 20 0RF prednisone 20 mg tablet 20 mg PO DAILY Qty: 15 0RF Rx Instructions: 60mg for three days, 40mg for two days, 20mg for two days (DME) blood-glucose meter [Accu-Chek Alyson Plus Meter] Misc See Rx Instructions .ROUTE .MEDSUPPLY Qty: 1 0RF Rx Instructions: As directed ([facility]) Accu-Chek Alyson Plus test strp Strip See Rx Instructions .ROUTE .MEDSUPPLY Qty: 100 3RF Rx Instructions: twice daily cholecalciferol (vitamin D3) 50 mcg (2,000 unit) capsule 50 mcg PO DAILY Qty: 90 3RF losartan 25 mg tablet 25 mg PO DAILY Qty: 90 1RF famotidine 20 mg tablet 20 mg PO BID Qty: 180 1RF Rx Instructions: Take 1 tablet by mouth twice daily levothyroxine [Synthroid] 125 mcg tablet 125 mcg PO DAILY Qty: 90 1RF metformin 500 mg tablet extended release 24 hr See Rx Instructions .ROUTE .COMPLEX Qty: 180 1RF Dose Instruction: Take 1 tablet by mouth twice daily Rx Instructions: Take 1 tablet by mouth twice daily metoprolol tartrate 50 mg tablet 50 mg PO BID Qty: 180 1RF gabapentin 300 mg capsule See Rx Instructions .ROUTE .COMPLEX Qty: 90 0RF Dose Instruction: TAKE 1 CAPSULE BY MOUTH THREE TIMES DAILY Rx Instructions: TAKE 1 CAPSULE BY MOUTH THREE TIMES DAILY acetaminophen [Acetaminophen Extra Strength] 500 mg Tablet 1,000 mg PO PRN Tums 1 tab PO DIRECTED Rx Instructions: prn aspirin 81 mg Tablet,Delayed Release (Dr/Ec) 81 mg PO DAILY Discharge Orders: Discharge ED (Routine); Ordered 06/03/25 Ordered By: Joel Mills Referrals: Zainab Luna MD [Primary Care Provider, [facility]] - 4-7 days Discharge Diet: Advance as tolerated Discharge Activity: Resume usual activity Patient Instructions: Chest Pain (ED) Print Language: Bulgarian Coding Level of Care Code ED Alterations Workroom Clerk for Chg Fwd Heart Score HEART Score Components History: Slightly Suspicous EKG: Non-specific Changes Age: 65 or more yrs Risk Factors: >/=3 Risk Factors Troponin: Baseline Trop 16-45 ng/L HEART Score RESULT HEART Score: 6
[2025-06-03] MEDS: ondansetron 2 mg/ML SDV 2 mL 4 MG IVP (06:12)
[2025-06-03 06:13] VITALS: RESP 16
[2025-06-03] MEDS: morphine 4 mg/mL SDV 1 mL IVP (06:13)
[2025-06-03 06:18] LABS: Hematocrit 28.5 % (36-47); Hemoglobin 7.30 g/dL (11.27-16.99); Mean Corpuscular HGB Conc 25.6 g/dL (30-55); Mean Corpuscular Hemoglobin 18.7 pg (27-33); Mean Corpuscular Volume 72.9 fl (85-98); Nucleated Red Blood Cells % 0.3 %; Platelet Count 282 10^3/cmm (157-399); Red Blood Count 3.91 10^6/uL (3.85-5.65); White Blood Count 6.96 10^3/uL (3.29-11.43)
[2025-06-03 06:21] VITALS: BP 114/51; PULSE 84; O2SAT 93
[2025-06-03 06:36] LABS: Alanine Aminotransferase 12 U/L (0-33); Albumin Level 4.4 g/dL (3.5-5.2); Alkaline Phosphatase 72 U/L (35-105); Anion Gap 18.7 (5-19); Aspartate Amino Transferase 17 U/L (0-32); Blood Urea Nitrogen 21 mg/dL (8-23); Calcium 9.4 mg/dL (8.5-10.5); Carbon Dioxide 26 mmol/L (22-29); Chloride 100 mmol/L (98-107); Globulin 2.4 g/dL (1.3-4.6); Glucose 170 mg/dL (65-115); Osmolality Calculated 297 mOsm/kg (285-295); Potassium 4.7 mmol/L (3.5-5.1); Sodium 140 mmol/L (136-145); Total Protein 6.8 g/dL (6.6-8.7)
[2025-06-03 06:38] LABS: Troponin(5th) Baseline 22 ng/L (0-10)
[2025-06-03 07:33] LABS: NT Pro B Type Natriuretic Pept 492 pg/mL (0-125)
[2025-06-03 07:45] VITALS: BP 164/67; PULSE 78; O2SAT 95
[2025-06-03 08:41] VITALS: BP 138/76; PULSE 86; O2SAT 99
== END 2025-06-03 08:43 | disposition home or self-care (01) ==
PROVIDERS: Emergency Medicine; Emergency Provider Emergency Medicine; PCP Family Medicine
DX: R07.9 Chest pain, unspecified (principal); Z79.02 Long term (current) use of antithrombotics/antiplatelets; Z79.84 Long term (current) use of oral hypoglycemic drugs; Z79.82 Long term (current) use of aspirin; F17.210 Nicotine dependence, cigarettes, uncomplicated; E78.5 Hyperlipidemia, unspecified; E11.9 Type 2 diabetes mellitus without complications; I25.10 Atherosclerotic heart disease of native coronary artery without angina pectoris; I10 Essential (primary) hypertension
CPT/HCPCS: 36415; 71045; 80053; 83880; 84484; 85025; 93005; 96374; 96375; 99285; J2270; J2405; J9999